=== PATIENT | female | born 1985 | race Caucasian/White ===

== ENCOUNTER 2019-08-16 15:09 | Emergency (ER) | payer OTHER, SELFPAY ==
--- NOTE | ~2019-08-16 | XR_ITS ---
EXAMINATION: XR chest 1V portable INDICATION: Cough and fever TECHNIQUE: Portable AP chest at 1602 hours COMPARISON: 09/09/2017 FINDINGS: The lungs are free of acute opacities. There is no pleural effusion or pneumothorax. The ca rdiomediastinal silhouette is normal. The visualized bones and soft tissues are unremarkable. IMPRESSION: 1. No acute cardiopulmonary abnormality. Reviewed, dictated and finalized at location A.
[2019-08-16 15:21] VITALS: BP 132/80; PULSE 103; RESP 18; TEMP 37.4; O2SAT 98
--- NOTE | 2019-08-16 16:33 | ED.URI ---
HPI - URI/Sore Throat General Chief Complaint: Upper Respiratory Infection Stated Complaint: WANTING TESTED FOR COVID - REQ BREATHING TX Time Seen by Provider: 08/16/19 15:25 Source: patient Mode of arrival: ambulatory Limitations: no limitations History of Present Illness HPI Narrative: Patient presents with chief complaint of cough, fatigue, low-grade fever that began on . Patient states on Thursday she was seen in her primary care doctor's office and prescribed Tessalon Perles, albuterol inhaler, prednisone. Patient states that she still feels ill and wanted to be tested for COVID. Patient states that she had influenza in May so she does not believe that she has a full exam. Patient did not have chest x-ray performed. Patient reports she has been taking her albuterol inhaler. Patient denies present wheezing. Patient states that she has a history of asthma and chronic bronchitis so she also wonder if a nebulizer in the emergency department with improve her symptoms quicker. Related Data Home Medications Medication Instructions Recorded Confirmed albuterol sulfate INHALATION 08/16/19 alprazolam 08/16/19 alprazolam 08/16/19 atorvastatin 08/16/19 benzonatate mg PO 08/16/19 levothyroxine 08/16/19 prednisone 08/16/19 sumatriptan succinate mg PO 08/16/19 trazodone 08/16/19 Allergies Allergy/AdvReac Type Severity Reaction Status Date / Time zolpidem AdvReac Mild AUDIO AND Verified 08/16/19 15:30 VISUAL HALLUCINATIONS Review of Systems Review of Systems: Narrative: CONSTITUTIONAL: Reports low-grade fever, fatigue, body aches, chills, and sweats. EYES: Denies visual changes, redness, or discharge. ENT: Reports congestion denies rhinorrhea, sore throat, or otalgia. CARDIOVASCULAR: Denies chest pain, palpitations, or edema. RESPIRATORY: Reports cough denies dyspnea or wheezing. GASTROINTESTINAL: Denies abdominal pain, nausea, vomiting, or diarrhea. GENITOURINARY: Denies dysuria or hematuria. SKIN: Denies rash or itching. MUSCULOSKELETAL: Denies back pain, joint pain, or myalgia. NEUROLOGIC: Denies headache, numbness, dizziness, or weakness. PSYCHIATRIC: Denies anxiety or depression. [facility] Social History Social History Gender identity (if verbalized by the patient): Female Exam Narrative: Exam Narrative: GENERAL: Well-appearing, well-nourished, and in no acute distress. HEAD: Normocephalic, atraumatic. EYES: PERRLA and EOMI. ENT: Nares clear, no rhinorrhea or epistaxis. Mucous membranes moist. Oropharynx without tonsillar hypertrophy exudate or other lesions. Bilateral TMs pearly adame nonbulging NECK: Supple. No adenopathy or masses. Range of motion intact. CHEST: Clear to auscultation. No respiratory distress. No wheezes rales or rhonchi. No tachypnea. HEART: Regular rate and rhythm. No murmur heard. Normal peripheral pulses. EXTREMITIES: Normal range of motion. No edema. SKIN: Warm, dry, no rash. NEURO: No focal deficits. Alert and oriented x3. PSYCH: Normal mood and affect. Course Vital Signs Vital signs: Vital Signs Temperature 99.4 F 08/16/19 15:21 Pulse Rate 103 H 08/16/19 15:21 Respiratory Rate 18 08/16/19 15:21 Blood Pressure 132/80 08/16/19 15:21 Pulse Oximetry 98 08/16/19 15:21 Temperature 99.4 F 08/16/19 15:21 Pulse Rate 91 08/16/19 17:04 Respiratory Rate 16 08/16/19 17:04 Blood Pressure 153/88 H 08/16/19 17:04 Pulse Oximetry 95 08/16/19 17:05 MDM - URI/Sore Throat MDM Narrative Medical decision making narrative: Patient does not have signs of pneumonia on chest x-ray. Patient's influenza testing was negative. Patient was tested for COVID. Patient has maintained appropriate oxygen saturations at 97 and 98% on room air even while ambulating to bedside commode and about room. Patient's current blood pressure is 124/94 with a heart rate of 87 bpm. Patient instructed to quarantine herself to home and that her COVID resu
[2019-08-16 17:04] VITALS: BP 153/88; PULSE 91; RESP 16; O2SAT 95
[2019-08-16 17:05] VITALS: O2SAT 95
--- NOTE | 2019-08-16 18:01 | PCRCNOTE ---
PT HAD HER OWN ALBUTEROL INHALER. INSTRUCTED HER TO USE IT.
[2019-08-16 18:08] VITALS: BP 121/87; PULSE 96; RESP 34; O2SAT 96
[2019-08-17 15:09] LABS: SARS-CoV-2 RNA PCR Negative
== END 2019-08-16 18:12 | disposition home or self-care (01) ==
PROVIDERS: Physician Assistant; Emergency Provider Emergency Medicine
DX: B34.9 Viral infection, unspecified (principal); Z20.828 Contact with and (suspected) exposure to other viral communicable diseases
CPT/HCPCS: 71045; 87635; 87804; 99283; U0003

== ENCOUNTER 2019-12-17 10:24 | Outpatient (CLI) | payer OTHER, SELFPAY ==
[2019-12-17 10:36] LABS: Basophils Percent Auto 0.5 % (0.2-1.2); Eosinophils Absolute Auto 0.3 K/mm3 (0-0.3); Hematocrit 39.1 % (37.0-47.0); Hemoglobin 12.7 g/dL (12.0-15.0); Immature Granulocyte Absolute 0.02 K/mm3 (0.00-0.031); Immature Granulocyte Percent A 0.2 % (0-0.5); Lymphocytes Absolute Auto 1.87 K/mm3 (0.9-3.2); Lymphocytes Percent Auto 22.9 % (18.3-44.2); Mean Corpuscular HGB Conc 32.5 g/dl (32-36); Mean Corpuscular Hemoglobin 28.2 pg (26-34); Mean Corpuscular Volume 86.9 fl (80-100); Mean Platelet Volume 9.9 fl (7.4-10.4); Monocytes Absolute Auto 0.5 K/mm3 (0.1-0.6); Monocytes Percent Auto 6.6 % (2.6-8.5); Neutrophils Absolute Auto 5.4 K/mm3 (1.3-6.7); Neutrophils Percent Auto 65.8 % (45.5-73.1); Platelet Count Result 371 k/mm3 (150-375); Red Cell Distribution Width 12.8 % (11.5-14.5); White Blood Count 8.2 K/mm3 (4.5-10.0)
[2019-12-17 10:51] LABS: Alanine Aminotransferase 20 U/L (4-35); Albumin Level 3.9 g/dL (3.5-5.1); Alkaline Phosphatase 58 U/L (38-126); Anion Gap 6 mmol/L (8-16); Aspartate Amino Transferase 23 U/L (14-36); Bilirubin,Total 0.2 mg/dL (0.2-1.3); Blood Urea Nitrogen 10 mg/dL (7-17); Calcium 8.8 mg/dL (8.4-10.2); Carbon Dioxide 25 mmol/L (22-30); Chloride 106 mmol/L (98-107); Cholesterol 162 mg/dL (0-200); Estimated Glomerular Filt Rate > 60; Glucose 107 mg/dL (65-105); HDL Direct 45 mg/dL; Potassium 4.2 mmol/L (3.4-5.0); Sodium 137 mmol/L (137-145); Triglycerides 142 mg/dL (<150)
[2019-12-17 11:02] LABS: LDL Cholesterol Direct 88 mg/dL
[2019-12-17 11:25] LABS: Free T4 Free Thyroxine 0.79 ng/mL (0.78-2.19)
== END 2019-12-17 10:25 | disposition home or self-care (01) ==
LOC: ANHLAB 10:25
PROVIDERS: PCP Internal Medicine; Visit Provider Clinical Nurse Specialist
DX: E07.9 Disorder of thyroid, unspecified (principal); I10 Essential (primary) hypertension
CPT/HCPCS: 36415; 80053; 80061; 84439; 84443; 85025

== ENCOUNTER → 2020-04-12 16:21 | Outpatient (REF) | payer OTHER, SELFPAY | LOC: ANHLAB 16:21 | PROVIDERS: PCP Internal Medicine; Visit Provider Nurse Practitioner | DX: L72.11 Pilar cyst (principal) | CPT/HCPCS: 88304 ==

== ENCOUNTER 2020-05-25 16:20 | Outpatient (CLI) | payer OTHER, SELFPAY ==
--- NOTE | ~2020-05-25 | US_ITS ---
EXAMINATION: US thyroid DATE: 05/25/2020 16:57 INDICATION: Nontoxic multinodular goiter. TECHNIQUE: Multiple ultrasound images of the thyroid were obtained. COMPARISON: Ultrasound 04/25/2016 FINDINGS: The right thyroid lobe measures 0.8 x 0.4 x 0.3 cm. The left thyroid lobe measures 6.2 x 2.6 x 3.0 c m. The thyroid is diffusely heterogeneous and hypoechoic with increased vascularity. In the left thy roid lobe, there is a 2.0 cm predominantly solid, hyperechoic, [id number] nodule with smooth mar gin without echogenic foci (TI-RADS TR3). IMPRESSION: 1. Heterogeneous, hypervascular thyroid, consistent with chronic lymphocytic (Heriberto) thyroiditis. 2. Left thyroid nodule, stable from 04/25/2016. Reviewed, dictated and finalized at location A. [employer] PROFESS[employer] IMPRESSION: 1. Heterogeneous, hypervascular thyroid, consistent with chronic lymphocytic (H ashimoto) thyroiditis. 2. Left thyroid nodule, stable from 04/25/2016.
== END 2020-05-25 16:21 | disposition home or self-care (01) ==
PROVIDERS: PCP Internal Medicine; Visit Provider Otolaryngology
DX: E04.2 Nontoxic multinodular goiter (principal)
CPT/HCPCS: 76536

== ENCOUNTER 2021-01-05 10:07 | Outpatient (CLI) | payer OTHER, SELFPAY ==
[2021-01-05 10:51] LABS: Alanine Aminotransferase 16 U/L (4-35); Albumin Level 4.1 g/dL (3.5-5.1); Alkaline Phosphatase 57 U/L (38-126); Anion Gap 11 mmol/L (8-16); Aspartate Amino Transferase 19 U/L (14-36); Bilirubin,Total 0.4 mg/dL (0.2-1.3); Blood Urea Nitrogen 12 mg/dL (7-17); Calcium 8.8 mg/dL (8.4-10.2); Carbon Dioxide 23 mmol/L (22-30); Chloride 106 mmol/L (98-107); Cholesterol 156 mg/dL (0-200); Estimated Glomerular Filt Rate > 60; Glucose 111 mg/dL (65-110); HDL Direct 45 mg/dL; Potassium 4.2 mmol/L (3.4-5.0); Sodium 140 mmol/L (137-145); Triglycerides 124 mg/dL (<150)
[2021-01-05 11:02] LABS: LDL Cholesterol Direct 75 mg/dL
[2021-01-05 11:35] LABS: Basophils Absolute Auto 0.1 K/mm3 (0.0-0.1); Basophils Percent Auto 0.6 % (0.2-1.2); Eosinophils Absolute Auto 0.3 K/mm3 (0-0.3); Eosinophils Percent Auto 3.3 % (0-4.4); Hematocrit 38.3 % (37.0-47.0); Immature Granulocyte Absolute 0.02 K/mm3 (0.00-0.031); Immature Granulocyte Percent A 0.2 % (0-0.5); Lymphocytes Absolute Auto 1.84 K/mm3 (0.9-3.2); Lymphocytes Percent Auto 21.9 % (18.3-44.2); Mean Corpuscular HGB Conc 31.3 g/dl (32-36); Mean Corpuscular Hemoglobin 28.6 pg (26-34); Mean Corpuscular Volume 91.2 fl (80-100); Mean Platelet Volume 10.4 fl (7.4-10.4); Monocytes Absolute Auto 0.6 K/mm3 (0.1-0.6); Monocytes Percent Auto 7.4 % (2.6-8.5); Neutrophils Absolute Auto 5.6 K/mm3 (1.3-6.7); Neutrophils Percent Auto 66.6 % (45.5-73.1); Platelet Count Result 354 k/mm3 (150-375); Red Cell Distribution Width 12.9 % (11.5-14.5); White Blood Count 8.4 K/mm3 (4.5-10.0)
[2021-01-08 17:38] LABS: Hemoglobin A1C 5.4 % (<5.7)
== END 2021-01-05 10:08 | disposition home or self-care (01) ==
PROVIDERS: PCP Internal Medicine; Visit Provider Nurse Practitioner
DX: Z13.220 Encounter for screening for lipoid disorders (principal); I10 Essential (primary) hypertension; E03.9 Hypothyroidism, unspecified
CPT/HCPCS: 36415; 80053; 80061; 83036; 84443; 85025

== ENCOUNTER 2021-01-29 11:32 | Emergency (ER) | payer OTHER, SELFPAY ==
[2021-01-29 11:43] VITALS: BP 135/77; PULSE 74; RESP 16; TEMP 36.7; O2SAT 98
--- NOTE | 2021-01-29 12:56 | ED.BACK ---
HPI - Back Pain/Injury General Chief Complaint: Back Pain/Injury Stated Complaint: back pain since 01/19 Time Seen by Provider: 01/29/21 12:18 Source: patient Mode of arrival: ambulatory Limitations: no limitations History of Present Illness HPI Narrative: 35-year-old female Here because of back pain Patient states that her 10 days ago she was doing a lot of work in the yard which involves a lot of bending and pulling and lifting things and that she has been having back pain ever since Her pains are kind of diffuse up and down the entire length of her spine however do seem to be more localized to the T-spine area based upon some x-rays which she had her daughter draw on over the painful areas She does not have any urinary symptoms She does not have any radicular symptoms Does not have a fever or any other concerning pre-existing conditions or risk factors MD elicited complaint: back pain Related Data Home Medications Medication Instructions Recorded Confirmed albuterol sulfate 90 mcg/actuation 2 puff INHALATION Q4-6H PRN gm 12/05/19 aerosol inhaler alprazolam 0.5 mg tablet 0.5 mg PO DAILY PRN 12/05/19 bupropion HCl 150 mg 24 hr tablet, 150 mg PO QAM 01/09/21 extended release buspirone 15 mg tablet 15 mg PO BID 01/09/21 trazodone 150 mg tablet,extended mg PO 01/09/21 release 24 hr Allergies Allergy/AdvReac Type Severity Reaction Status Date / Time zolpidem AdvReac Mild AUDIO AND Verified 04/24/20 12:36 VISUAL HALLUCINATIONS Review of Systems Review of Systems: All systems reviewed & are unremarkable except as noted in HPI and below Constitutional: Constitutional: Denies chills, Denies fever(s) and Denies headache(s) ENT: Denies headache(s) Cardiovascular: Cardiovascular: Denies chest pain and Denies dyspnea Respiratory: Respiratory: Denies cough and Denies dyspnea Gastrointestinal: Gastrointestinal: Denies abdominal pain, Denies diarrhea and Denies vomiting Genitourinary: Genitourinary: Denies hematuria, Denies urinary frequency, Denies dysuria and Denies flank pain Musculoskeletal: Musculoskeletal: Reports back pain, Reports myalgias, Denies deformity, Denies arthralgias, Denies joint swelling and Denies numbness Integumentary/Breasts: Skin/Breast: Denies rash and Denies wounds Neurologic: Denies headache(s), Denies focal weakness and Denies numbness Psychiatric: Psychiatric: Reports no additional psychiatric complaints Endocrine: Endocrine: Reports no additional endocrine complaints Hematologic/Lymphatic: Hematologic/Lymphatic: Reports no additional hematologic/lymphatic complaints Allergic/Immunologic: Allergic/Immunologic: Reports no additional allergic/immunologic complaints PMF Past Medical History Medical History Anxiety Asthma Hypertension Hypothyroidism Surgical History Surgical History History of cholecystectomy History of hernia repair History of partial thyroidectomy 2018 History of tubal ligation Family History Family History Grandparent Diabetes mellitus Father Hypertension Heart disease Skin cancer Grandparent Heart disease Hypertension Grandparent Brain cancer Mother Skin cancer Asthma Other Heriberto's disease Graves disease Social History Social History Smoking status: Never smoker Alcohol intake: current Alcohol use details: rarely Gender identity (if verbalized by the patient): Female Exam Const: General: cooperative, healthy appearing, no acute distress and alert Nutritional Appearance: obese Orientation/consciousness: patient oriented x3 (alert) HENMT: Head: normal to inspection, normocephalic and atraumatic Ears: external ears normal General nose exam: no epistaxis Eyes: Conjunctiv
[2021-01-29 13:05] VITALS: BP 150/95; PULSE 71; RESP 16; O2SAT 99
== END 2021-01-29 13:07 | disposition home or self-care (01) ==
PROVIDERS: Emergency Provider Emergency Medicine; PCP Internal Medicine
DX: S29.012A Strain of muscle and tendon of back wall of thorax, initial encounter (principal); I10 Essential (primary) hypertension; E03.9 Hypothyroidism, unspecified; F41.9 Anxiety disorder, unspecified; X50.3XXA Overexertion from repetitive movements, initial encounter; Y92.096 Garden or yard of other non-institutional residence as the place of occurrence of the external cause
CPT/HCPCS: 99283

== ENCOUNTER 2021-05-13 12:59 | Outpatient (CLI) | payer OTHER, MEDICAID, SELFPAY ==
[2021-05-13 13:43] LABS: Hemoglobin A1C 5.5 % (<5.7)
[2021-05-15 20:12] LABS: Rubeola Measles IgG <13.50 AU/mL
== END 2021-05-13 13:00 | disposition home or self-care (01) ==
LOC: ANHLAB 13:01
PROVIDERS: PCP Internal Medicine; Visit Provider Nurse Practitioner
DX: R73.9 Hyperglycemia, unspecified (principal); Z23 Encounter for immunization
CPT/HCPCS: 36415; 83036; 86735; 86765

== ENCOUNTER 2021-07-07 22:20 | Emergency (ER) | payer OTHER, SELFPAY ==
--- NOTE | ~2021-07-07 | CT_ITS ---
EXAMINATION: CT abdomen pelvis w con DATE: 07/08/2021 00:19 INDICATION: Abdominal pain TECHNIQUE: Computed tomography (CT) of the abdomen and pelvis was performed with 100 cc Omnipaque 350 intravenous contrast. The dose-length product was 1568.26 mGy-cm. Automated exposure control and ite rative reconstruction technique were employed. COMPARISON: None. FINDINGS: Lung bases are unremarkable. No significant pleural or pericardial effusion. Heart size is normal. No significant vascular abnormality. Small hiatal hernia. No lymphadenopathy. No abnormal pel marco masses or fluid collections. No free air or free fluid. Small fat-containing umbilical hernia. Mild diffuse thickening of the colon, suspicious for colitis. No obstruction. The liver, spleen, panc reas, adrenal glands and kidneys are unremarkable. Status post cholecystectomy. IMPRESSION: 1. Mild diffuse thickening of the colon, suspicious for colitis, most likely infectious or inflammato ry. Reviewed, dictated and finalized at location B. IMPRESSION: 1. Mild diffuse thickening of the colon, suspicious for colitis, most likely in fectious or inflammatory.
[2021-07-07 22:27] VITALS: BP 149/109; PULSE 100; RESP 20; TEMP 36.4; O2SAT 97
[2021-07-07] MEDS: ONDANSETRON INJ 4 MG/2 ML VIAL IV PUSH (23:23)
[2021-07-07] MEDS: SODIUM CHLORIDE 0.9% IV 1,000 ML 999 ML IV CONT (23:24)
[2021-07-07 23:25] LABS: Basophils Percent Auto 0.3 % (0.2-1.2); Eosinophils Percent Auto 0.1 % (0-4.4); Hematocrit 40.5 % (37.0-47.0); Hemoglobin 13.4 g/dL (12.0-15.0); Immature Granulocyte Absolute 0.04 K/mm3 (0.00-0.031); Immature Granulocyte Percent A 0.3 % (0-0.5); Lymphocytes Absolute Auto 1.72 K/mm3 (0.9-3.2); Lymphocytes Percent Auto 11.7 % (18.3-44.2); Mean Corpuscular HGB Conc 33.1 g/dl (32-36); Mean Corpuscular Hemoglobin 28.7 pg (26-34); Mean Corpuscular Volume 86.7 fl (80-100); Mean Platelet Volume 9.9 fl (7.4-10.4); Monocytes Absolute Auto 1.2 K/mm3 (0.1-0.6); Monocytes Percent Auto 8.4 % (2.6-8.5); Neutrophils Absolute Auto 11.6 K/mm3 (1.3-6.7); Neutrophils Percent Auto 79.2 % (45.5-73.1); Platelet Count Result 393 k/mm3 (150-375); Red Blood Count 4.67 M/mm3 (4.2-5.4); Red Cell Distribution Width 12.3 % (11.5-14.5); White Blood Count 14.6 K/mm3 (4.5-10.0)
[2021-07-07 23:37] LABS: Alanine Aminotransferase 16 U/L (4-35); Albumin Level 4.3 g/dL (3.5-5.1); Alkaline Phosphatase 64 U/L (38-126); Anion Gap 11 mmol/L (8-16); Aspartate Amino Transferase 21 U/L (14-36); Bilirubin,Total 0.3 mg/dL (0.2-1.3); Blood Urea Nitrogen 15 mg/dL (7-17); Calcium 8.8 mg/dL (8.4-10.2); Carbon Dioxide 23 mmol/L (22-30); Chloride 102 mmol/L (98-107); Estimated CRCL calculation 123 ml/min; Estimated Glomerular Filt Rate > 60; Glucose 138 mg/dL (65-110); Lactic Acid Reflex 0.9 mmol/L (0.7-2.1); Lipase 60 U/L (23-300); Potassium 3.9 mmol/L (3.4-5.0); Sodium 136 mmol/L (137-145)
[2021-07-07] MEDS: DICYCLOMINE HCL INJ 20 MG/2 ML VIAL IM (23:48)
[2021-07-08] VITALS: BP 100/61; PULSE 80; RESP 18; O2SAT 99
--- NOTE | 2021-07-08 00:11 | ED.GENADULT ---
HPI - General Adult General Chief complaint: Nausea/Vomiting/Diarrhea Stated complaint: N/V/D Time Seen by Provider: 07/07/21 23:07 History of Present Illness HPI narrative: Patient is a 36-year-old female presents to emergency department with chief complaint of nausea vomiting and diarrhea. The patient states that for the last several days she has been having vomiting and diarrhea reports there has been a little blood mixed in her diarrhea patient states that she has diffuse abdominal discomfort reports is worse with movement and improved with rest. Related Data Home Medications Medication Instructions Recorded Confirmed albuterol sulfate 90 mcg/actuation 2 puff INHALATION Q4-6H PRN gm 12/05/19 01/30/21 aerosol inhaler alprazolam 0.5 mg tablet 0.5 mg PO DAILY PRN 12/05/19 01/30/21 bupropion HCl 150 mg 24 hr tablet, 150 mg PO QAM 01/09/21 01/30/21 extended release buspirone 15 mg tablet 15 mg PO BID 01/09/21 01/30/21 trazodone 150 mg tablet,extended mg PO 01/09/21 01/30/21 release 24 hr Allergies Allergy/AdvReac Type Severity Reaction Status Date / Time zolpidem AdvReac Mild AUDIO AND Verified 07/07/21 22:20 VISUAL HALLUCINATIONS Review of Systems Review of Systems: A 10 system review of systems was completed on the patient and is negative except for what is stated in the HPI. Nursing and ancillary documentation was reviewed. [facility] Past Medical History Medical History Anxiety Asthma Hypertension Hypothyroidism Surgical History Surgical History History of cholecystectomy History of hernia repair History of partial thyroidectomy 2018 History of tubal ligation Family History Family History Grandparent Diabetes mellitus Father Hypertension Heart disease Skin cancer Grandparent Heart disease Hypertension Grandparent Brain cancer Mother Skin cancer Asthma Other Heriberto's disease Graves disease Social History Social History Smoking status: Never smoker Alcohol intake: current Alcohol use details: rarely Gender identity (if verbalized by the patient): Female Exam Narrative: GENERAL: Well-appearing, well-nourished, and in no acute distress. HEAD: Normocephalic, atraumatic. EYES: PERRLA and EOMI. ENT: Nares clear, no rhinorrhea or epistaxis. Mucous membranes moist. NECK: Supple. CHEST: Clear to auscultation. No respiratory distress. HEART: Regular rate and rhythm. No murmur heard. Normal peripheral pulses. ABDOMEN: Soft, diffuse tenderness to palpation, nondistended, normal active bowel sounds. EXTREMITIES: Normal range of motion. No edema. SKIN: Warm, dry, no rash. NEURO: No focal deficits. Alert and oriented x3. PSYCH: Normal mood and affect. Course Vital Signs Vital signs: Vital Signs Temperature 36.4 C L 07/07/21 22:27 Pulse Rate 100 07/07/21 22:27 Respiratory Rate 20 07/07/21 22:27 Blood Pressure 149/109 H 07/07/21 22:27 Pulse Oximetry 97 07/07/21 22:27 Temperature 36.4 C L 07/07/21 22:27 Pulse Rate 80 07/08/21 00:00 Respiratory Rate 18 07/08/21 00:00 Blood Pressure 100/61 07/08/21 00:00 Pulse Oximetry 99 07/08/21 00:00 Medical Decision Making Vital Signs Vital Signs: Vital Signs Temperature 36.4 C L 07/07/21 22:27 Pulse Rate 100 07/07/21 22:27 Respiratory Rate 20 07/07/21 22:27 Blood Pressure 149/109 H 07/07/21 22:27 Pulse Oximetry 97 07/07/21 22:27 Temperature 36.4 C L 07/07/21 22:27 Pulse Rate 80 07/08/21 00:00 Respiratory Rate 18 07/08/21 00:00 Blood Pressure 100/61 07/08/21 00:00 Pulse Oximetry 99 07/08/21 00:00 Lab Data Result diagrams: 07/07/21 23:19 07/07/21 23:19 Labs: L
[2021-07-08 00:42] LABS: Add Urine Microscopic? YES; Appearance Urine Cloudy (Clear); Bacteria Urine 3+ /hpf; Bilirubin Urine Negative (Negative); Blood Urine Negative (Negative); Color Urine Yellow (Yellow); Glucose Urine UA Negative (Negative); Ketones Urine 1+ mg/dL (Negative); Leukocyte Esterase Ur 1+ LEU/UL (Negative); Mucus Urine Rare /lpf; Nitrate Urine Negative (Negative); Protein Urine 1+ mg/dL (Negative); RBC Urine 0-2 /hpf (0-2); Specific Grav Ur 1.029 (1.001-1.035); Squamous Epithelial Cell Urine Occasional /hpf (Few); Urobilinogen Urine Negative mg/dL (<2.0); WBC Urine 31-50 /hpf
[2021-07-08] MEDS: SODIUM CHLORIDE 0.9% IV 1,000 ML 999 ML IV CONT (01:32)
[2021-07-08 02:09] VITALS: BP 110/72; PULSE 75; RESP 18; O2SAT 99
[2021-07-08] MEDS: PROCHLORPERAZINE EDISYLATE 10 MG/2 ML VIAL IV PUSH (02:35)
[2021-07-08 02:41] VITALS: BP 131/75; PULSE 72; RESP 16; O2SAT 98
[2021-07-08 03:12] VITALS: BP 130/71; PULSE 84; RESP 18; O2SAT 99
== END 2021-07-08 03:16 | disposition home or self-care (01) ==
PROVIDERS: Emergency Provider Emergency Medicine; PCP Internal Medicine
DX: K52.9 Noninfective gastroenteritis and colitis, unspecified (principal); N30.00 Acute cystitis without hematuria; I88.0 Nonspecific mesenteric lymphadenitis; F41.9 Anxiety disorder, unspecified; J45.909 Unspecified asthma, uncomplicated; I10 Essential (primary) hypertension; E89.0 Postprocedural hypothyroidism
CPT/HCPCS: 36415; 74177; 80053; 81001; 83605; 83690; 85025; 87086; 87088; 96361; 96372; 96374; 99284; J0500; J0780; J2405; J7030; Q9967

== ENCOUNTER 2021-07-19 16:22 | Emergency (ER) | payer OTHER, SELFPAY ==
[2021-07-19] VITALS (10 sets, daily range): BP systolic 107–142; BP diastolic 66–90; PULSE 75–108; RESP 19–31; TEMP 36.4; O2SAT 99–100
--- NOTE | ~2021-07-19 | CT_ITS ---
EXAMINATION: CT abdomen pelvis w con EXAM DATE: 07/19/2021 21:03 INDICATION: Abdominal pain, bloody stools. TECHNIQUE: Spiral CT of the abdomen and pelvis was performed following intravenous injection of 100 m L Omnipaque 350. Axial, coronal and sagittal images of the abdomen and pelvis were reviewed. The do se-length product (DLP) for this examination was 1602.30 mGy-cm. The exposure was tailored according to patient size (auto mA exposure control), and iterative reconstruction (ASIR) was used as addition al dose reduction technique. Comparison is made to prior examination from 07/08/2021. FINDINGS: The liver, spleen, adrenal glands and pancreas are unremarkable. There are cholecystectomy clips. Portal and splenic veins are patent. Kidneys enhance symmetrically. There is no hydronephr osis. The uterus and ovaries are unremarkable, no adnexal mass. The bladder is unremarkable. Ther e is no retroperitoneal or pelvic lymphadenopathy. Compared to prior study, previously seen edematous colonic wall has resolved. There are no findings t o suggest appendicitis. The stomach and small bowel are unremarkable. There is expected amount of c olonic stool. No free intraperitoneal gas. The heart is normal in size. There are no pericardial or pleural effusions. The lung bases are unremarkable. The bones are unremarkable. IMPRESSION: Resolution of previously seen colonic wall edema. No acute findings. Reviewed, dictated and finalized at location G. IMPRESSION: Resolution of previously seen colonic wall edema. No acute finding s.
--- NOTE | 2021-07-19 19:50 | ED.ABDPAIN ---
HPI - Abdominal Pain General Chief Complaint: Abdominal Pain Stated Complaint: abd pain Time Seen by Provider: 07/19/21 19:31 Source: patient Mode of arrival: ambulatory Limitations: no limitations History of Present Illness HPI narrative: Patient is a 36-year-old female complaining of lower abdominal pain, 6 out of 10, dull, nonradiating accompanied by blood in her stool started 1 week ago after she was diagnosed with colitis, seen here in the emergency room, and placed on Cipro and Flagyl. Patient states that she continues to have pain and blood in her stools. Patient denies any nausea, vomiting, fever or chills. Related Data Home Medications Medication Instructions Recorded Confirmed albuterol sulfate 90 mcg/actuation 2 puff INHALATION Q4-6H PRN gm 12/05/19 07/17/21 aerosol inhaler bupropion HCl 150 mg 24 hr tablet, 300 mg PO QAM 01/09/21 07/17/21 extended release buspirone 15 mg tablet 15 mg PO BID 01/09/21 07/17/21 trazodone 150 mg tablet,extended mg PO 01/09/21 07/17/21 release 24 hr Allergies Allergy/AdvReac Type Severity Reaction Status Date / Time zolpidem AdvReac Mild AUDIO AND Verified 07/19/21 19:38 VISUAL HALLUCINATIONS Review of Systems Review of Systems: All systems reviewed & are unremarkable except as noted in HPI and below Constitutional: Constitutional: Denies body ache(s), Denies chills, Denies excessive sweating, Denies fatigue, Denies fever(s), Denies headache(s), Denies lethargy, Denies malaise, Denies weakness and Denies weight loss Eyes: Eyes: Denies blurry vision, Denies change in vision and Denies loss of vision ENT: Denies dizziness, Denies ear discharge, Denies headache(s), Denies lip swelling, Denies epistaxis, Denies nasal congestion, Denies neck pain, Denies throat swelling and Denies tongue swelling Cardiovascular: Cardiovascular: Denies chest pain, Denies chest pain at rest, Denies chest pain with activity, Denies diaphoresis, Denies rapid heart rate, Denies edema, Denies irregular heart rhythm, Denies lightheadedness, Denies palpitations, Denies dyspnea and Denies dyspnea on exertion Respiratory: Respiratory: Denies chest congestion, Denies cough, Denies hemoptysis, Denies dyspnea and Denies dyspnea on exertion Gastrointestinal: Gastrointestinal: Denies melena, Denies diarrhea, Denies nausea, Denies vomiting and Denies hematemesis Musculoskeletal: Musculoskeletal: Denies abnormal gait, Denies deformity, Denies joint swelling, Denies limited range of motion, Denies neck pain and Denies numbness Neurologic: Denies Abnormal speech present, Denies abnormal gait, Denies confusion, Denies dizziness, Denies headache(s), Denies focal weakness, Denies loss of vision, Denies numbness, Denies Other visual disturbances, Denies Sensory deficit (Neuro) and Denies weakness Psychiatric: Psychiatric: Denies confusion, Denies depression, Denies auditory hallucinations, Denies homicidal ideation and Denies suicidal ideation Endocrine: Endocrine: Denies cold intolerance, Denies excessive sweating, Denies fatigue, Denies heat intolerance and Denies palpitations Hematologic/Lymphatic: Hematologic/Lymphatic: Denies easy bleeding and Denies easy bruising Allergic/Immunologic: Allergic/Immunologic: Denies lip swelling, Denies throat swelling and Denies tongue swelling PMFSH Past Medical History Medical History Anxiety Asthma Hypertension Hypothyroidism Surgical History Surgical History History of cholecystectomy History of hernia repair History of partial thyroidectomy 2018 History of tubal ligation Family History Family History Grandparent Diabetes mellitus Father Hypertension Heart disease Skin cancer Grandparent Heart disease Hypertension Grandparent Brain cancer Mother Skin cancer Asthma Other
--- NOTE | 2021-07-19 19:50 | PC.NURSE ---
pt ambulatory to bathroom for ccus. States also has need to defecate. Stool speciman container given.
[2021-07-19 20:02] LABS: Basophils Percent Auto 0.4 % (0.2-1.2); Eosinophils Absolute Auto 0.3 K/mm3 (0-0.3); Eosinophils Percent Auto 3.6 % (0-4.4); Hematocrit 40.2 % (37.0-47.0); Hemoglobin 12.8 g/dL (12.0-15.0); Immature Granulocyte Absolute 0.02 K/mm3 (0.00-0.031); Immature Granulocyte Percent A 0.3 % (0-0.5); Lymphocytes Absolute Auto 1.83 K/mm3 (0.9-3.2); Lymphocytes Percent Auto 25.6 % (18.3-44.2); Mean Corpuscular HGB Conc 31.8 g/dl (32-36); Mean Corpuscular Hemoglobin 29.1 pg (26-34); Mean Corpuscular Volume 91.4 fl (80-100); Mean Platelet Volume 10.2 fl (7.4-10.4); Monocytes Absolute Auto 0.5 K/mm3 (0.1-0.6); Monocytes Percent Auto 6.9 % (2.6-8.5); Neutrophils Absolute Auto 4.5 K/mm3 (1.3-6.7); Neutrophils Percent Auto 63.2 % (45.5-73.1); Platelet Count Result 367 k/mm3 (150-375); Red Cell Distribution Width 12.9 % (11.5-14.5); White Blood Count 7.1 K/mm3 (4.5-10.0)
[2021-07-19 20:11] LABS: Add Urine Microscopic? YES; Appearance Urine Cloudy (Clear); Bacteria Urine Trace /hpf; Bilirubin Urine Negative (Negative); Blood Urine Negative (Negative); Color Urine Amber (Yellow); Glucose Urine UA Negative (Negative); Ketones Urine Negative (Negative); Leukocyte Esterase Ur Trace LEU/UL (Negative); Mucus Urine Heavy /lpf; Nitrate Urine Negative (Negative); Protein Urine Negative (Negative); Specific Grav Ur 1.026 (1.001-1.035); Squamous Epithelial Cell Urine Few /hpf (Few); Urobilinogen Urine Negative mg/dL (<2.0)
[2021-07-19 20:12] LABS: Alanine Aminotransferase 52 U/L (4-35); Albumin Level 4.2 g/dL (3.5-5.1); Alkaline Phosphatase 43 U/L (38-126); Anion Gap 7 mmol/L (8-16); Aspartate Amino Transferase 41 U/L (14-36); Bilirubin,Total 0.2 mg/dL (0.2-1.3); Blood Urea Nitrogen 12 mg/dL (7-17); Calcium 8.6 mg/dL (8.4-10.2); Carbon Dioxide 27 mmol/L (22-30); Chloride 105 mmol/L (98-107); Estimated CRCL calculation 110 ml/min; Estimated Glomerular Filt Rate > 60; Glucose 99 mg/dL (65-110); Lipase 90 U/L (23-300); Potassium 3.6 mmol/L (3.4-5.0); Sodium 139 mmol/L (137-145)
[2021-07-19] MEDS: LACTATED RINGERS 1,000 ML 999 ML IV CONT (20:17)
[2021-07-19] MEDS: MORPHINE SULFATE (*CRX) 2 MG/ML INJ IV PUSH (20:18)
== END 2021-07-19 22:37 | disposition home or self-care (01) ==
PROVIDERS: Emergency Provider Emergency Medicine; PCP Internal Medicine
DX: K92.1 Melena (principal); R10.30 Lower abdominal pain, unspecified; F41.9 Anxiety disorder, unspecified; J45.909 Unspecified asthma, uncomplicated; I10 Essential (primary) hypertension; E89.0 Postprocedural hypothyroidism
CPT/HCPCS: 36415; 74177; 80053; 81001; 81025; 83690; 85025; 86850; 86900; 86901; 96361; 96374; 99284; J2270; J7120; Q9967

== ENCOUNTER 2021-10-11 12:15 | Outpatient (CLI) | payer OTHER, SELFPAY ==
[2021-10-11 12:58] LABS: Basophils Percent Auto 0.3 % (0.2-1.2); Eosinophils Absolute Auto 0.2 K/mm3 (0-0.3); Eosinophils Percent Auto 1.9 % (0-4.4); Hematocrit 40.3 % (37.0-47.0); Hemoglobin 12.8 g/dL (12.0-15.0); Immature Granulocyte Absolute 0.03 K/mm3 (0.00-0.031); Immature Granulocyte Percent A 0.3 % (0-0.5); Lymphocytes Absolute Auto 1.97 K/mm3 (0.9-3.2); Lymphocytes Percent Auto 21.6 % (18.3-44.2); Mean Corpuscular HGB Conc 31.8 g/dl (32-36); Mean Corpuscular Hemoglobin 28.6 pg (26-34); Mean Corpuscular Volume 90.2 fl (80-100); Mean Platelet Volume 9.9 fl (7.4-10.4); Monocytes Absolute Auto 0.6 K/mm3 (0.1-0.6); Monocytes Percent Auto 6.6 % (2.6-8.5); Neutrophils Absolute Auto 6.3 K/mm3 (1.3-6.7); Neutrophils Percent Auto 69.3 % (45.5-73.1); Platelet Count Result 397 k/mm3 (150-375); Red Blood Count 4.47 M/mm3 (4.2-5.4); Red Cell Distribution Width 12.5 % (11.5-14.5); White Blood Count 9.1 K/mm3 (4.5-10.0)
[2021-10-11 13:14] LABS: Hemoglobin A1C 5.3 % (<5.7)
[2021-10-11 13:43] LABS: Free T4 Free Thyroxine 1.08 ng/mL (0.78-2.19)
[2021-10-11 13:45] LABS: Add Urine Microscopic? NO; Appearance Urine Clear (Clear); Bilirubin Urine Negative (Negative); Blood Urine Negative (Negative); Color Urine Yellow (Yellow); Glucose Urine UA Negative (Negative); Ketones Urine Negative (Negative); Leukocyte Esterase Ur Negative LEU/UL (Negative); Nitrate Urine Negative (Negative); Protein Urine Negative (Negative); Specific Grav Ur 1.025 (1.001-1.035); Urobilinogen Urine 0.2 mg/dL (<2.0); pH Urine 5.5 (5.0-9.0)
[2021-10-15 20:34] LABS: Triiodothyronine T3 Free 2.7 pg/mL (2.3-4.2)
== END 2021-10-11 12:16 | disposition home or self-care (01) ==
PROVIDERS: PCP Internal Medicine; Referring Provider Otolaryngology; Visit Provider Nurse Practitioner
DX: N39.0 Urinary tract infection, site not specified (principal); R73.9 Hyperglycemia, unspecified; K52.9 Noninfective gastroenteritis and colitis, unspecified; E03.9 Hypothyroidism, unspecified
CPT/HCPCS: 36415; 81003; 83036; 84439; 84443; 84481; 85025

== ENCOUNTER 2022-04-11 11:48 | Emergency (ER) | payer OTHER, SELFPAY ==
[2022-04-11 12:08] VITALS: BP 131/80; PULSE 88; RESP 16; TEMP 36.9; O2SAT 99
--- NOTE | 2022-04-11 12:15 | ED.URI ---
HPI - URI/Sore Throat General Chief Complaint: Upper Respiratory Infection Stated Complaint: cough, sore throat, nausea, chest tightness Time Seen by Provider: 04/11/22 12:15 Source: patient, RN notes reviewed and old records reviewed Mode of arrival: ambulatory Limitations: no limitations History of Present Illness HPI Narrative: 36 female presents to [facility] care with complaints of some chest heaviness, barky cough and productive cough with post nasal drainage, and sore throat and nausea for several days. Patient reports that she was seen at another urgent care on Thursday and tested for COVID, flu and strep which were negative and received Tessalon Perles which are not helping.Patient denies any known fevers, has no body aches chills or sweats. MD elicited complaint: cough and sore throat Onset (ago): day(s) (5-6) Treatments prior to arrival: other (cough med) Related Data Home Medications Medication Instructions Recorded Confirmed buspirone 15 mg tablet 15 mg PO BID 01/09/21 04/11/22 trazodone 150 mg tablet,extended 150 mg PO DAILY 01/09/21 04/11/22 release 24 hr benzonatate 100 mg capsule 100 mg PO Q8H 04/11/22 04/11/22 bupropion HCl 300 mg 24 hr tablet, 300 mg PO DAILY 04/11/22 04/11/22 extended release levothyroxine 100 mcg tablet 125 mcg PO DAILY 04/11/22 04/11/22 Allergies Allergy/AdvReac Type Severity Reaction Status Date / Time zolpidem AdvReac Mild AUDIO AND Verified 04/11/22 12:13 VISUAL HALLUCINATIONS Review of Systems Review of Systems: CONSTITUTIONAL: Denies malaise, chills, sweats, or fever. EYES: Denies visual changes, redness, or discharge. ENT: Reports rhinorrhea, congestion, sinus pain, no otalgia positive sore throat. CARDIOVASCULAR: Denies chest pain, palpitations, or edema. RESPIRATORY: Reports dry and productive cough.? Denies dyspnea. GASTROINTESTINAL: Denies abdominal pain, nausea, vomiting, diarrhea SKIN: Denies rash or itching. MUSCULOSKELETAL: Denies myalgia. NEUROLOGIC: Denies headache. All systems reviewed & are unremarkable except as noted in HPI and below PMFSH Past Medical History Medical History Anxiety Asthma Hypertension Hypothyroidism Surgical History Surgical History History of cholecystectomy History of hernia repair History of partial thyroidectomy 2018 History of tubal ligation Family History Family History Grandparent Diabetes mellitus Father Hypertension Heart disease Skin cancer Grandparent Heart disease Hypertension Grandparent Brain cancer Mother Skin cancer Asthma Other Heriberto's disease Graves disease Social History Social History Smoking status: Never smoker Alcohol intake: current Alcohol use details: rarely Gender identity (if verbalized by the patient): Female Comments At time of signature, agree with nursing past medical, surgical, social and family history. There is no relevant family history pertinent to the presenting complaint Exam Narrative: GENERAL: Well-appearing, well-nourished,obese, and in no acute distress. HEAD: Normocephalic EYES: PERRLA, conjunctivae clear ENT: Nares clear, turbinates edematous and erythematous, clear discharge. Mucous membranes moist. TM pearly adame with dull light reflex bilaterally; no tragal tenderness. Oropharynx erythematous without lesions. Tonsils not enlarged and without exudate, no drooling, no hoarseness, no trismus, uvula midline.post nasal drainage NECK: Supple. No lymphadenopathy CHEST: Clear to auscultation, breath sounds equal. No wheezing, rhonchi, rales, or stridor. No respiratory distress, speaks in full sentences.productive and dry cough SAO2 99% on room air HEART: Regular rate and rhythm. No murmur heard.
== END 2022-04-11 12:58 | disposition home or self-care (01) ==
PROVIDERS: Emergency Provider Registered Nurse; PCP Internal Medicine
DX: J06.9 Acute upper respiratory infection, unspecified (principal); R05.9 Cough, unspecified; J45.909 Unspecified asthma, uncomplicated; I10 Essential (primary) hypertension; E03.9 Hypothyroidism, unspecified; F41.9 Anxiety disorder, unspecified
CPT/HCPCS: 99213; G0463

== ENCOUNTER 2022-05-05 19:43 | Emergency (ER) | payer OTHER, MEDICAID, SELFPAY ==
[2022-05-05 19:47] VITALS: BP 134/99; PULSE 92; RESP 16; TEMP 36.6; O2SAT 99
--- NOTE | 2022-05-05 19:47 | ED.BACK ---
HPI - Back Pain/Injury General Stated Complaint: neck, upper back pain Time Seen by Provider: 05/05/22 20:08 Source: patient and RN notes reviewed Mode of arrival: ambulatory Limitations: no limitations History of Present Illness HPI Narrative: 36-year-old female presents concern for trapezius pain. She reports she had some straining for a couple weeks ago that worsened after working on the [employer] over the weekend. She reports the pain is between the neck and the shoulder in the trapezius area. She reports she tried heat, ibuprofen and Aleve, IcyHot type medications, massage with little relief. She denies any arm numbness, weakness. MD elicited complaint: other (Shoulder pain) Related Data Home Medications Medication Instructions Recorded Confirmed buspirone 15 mg tablet 15 mg PO BID 01/09/21 05/05/22 trazodone 150 mg tablet,extended 150 mg PO DAILY 01/09/21 05/05/22 release 24 hr bupropion HCl 300 mg 24 hr tablet, 300 mg PO DAILY 04/11/22 05/05/22 extended release levothyroxine 100 mcg tablet 125 mcg PO DAILY 04/11/22 05/05/22 Allergies Allergy/AdvReac Type Severity Reaction Status Date / Time zolpidem AdvReac Mild AUDIO AND Verified 05/05/22 20:00 VISUAL HALLUCINATIONS Review of Systems Review of Systems: CONSTITUTIONAL: Denies malaise, chills, sweats, or fever. EYES: Denies visual changes, redness, or discharge. ENT: Denies rhinorrhea, congestion, sinus pain, otalgia or sore throat. CARDIOVASCULAR: Denies chest pain, palpitations, or edema. RESPIRATORY: Denies cough or dyspnea. SKIN: Denies rash or itching, bruising, redness, abrasions, lacerations MUSCULOSKELETAL: Reports pain between right neck and shoulder muscle in the trapezius area NEUROLOGIC: Denies numbness, weakness, or headache. All systems reviewed & are unremarkable except as noted in HPI and below PMFSH Past Medical History Medical History Anxiety Asthma Hypertension Hypothyroidism Surgical History Surgical History History of cholecystectomy History of hernia repair History of partial thyroidectomy 2018 History of tubal ligation Family History Family History Grandparent Diabetes mellitus Father Hypertension Heart disease Skin cancer Grandparent Heart disease Hypertension Grandparent Brain cancer Mother Skin cancer Asthma Other Heriberto's disease Graves disease Social History Social History Smoking status: Never smoker Alcohol intake: current Alcohol use details: rarely Gender identity (if verbalized by the patient): Female Comments At time of signature, agree with nursing past medical, surgical, social and family history. There is no relevant family history pertinent to the presenting complaint Exam Narrative: GENERAL: Well-appearing, well-nourished, and in no acute distress. HEAD: Normocephalic, atraumatic. EYES: PERRLA and EOMI. NECK: Supple. No lymphadenopathy. CHEST: Clear to auscultation. No respiratory distress. HEART: Regular rate and rhythm. Distal pulses palpable and equal, cap refill <3 seconds MUSCULOSKELETAL: Normal range of motion and strength in all extremities, grossly normal range of motion, able to rotate 45? to the right, pain with flexion to the right. No midline neck tenderness to palpation. Trapezius tenderness. Transfers from sitting to standing. SKIN: Warm, dry, no rash. No ecchymosis, erythema, open wounds to neck or back. NEURO: No focal deficits. Alert and oriented x3. Reflexes intact. Normal gait. PSYCH: Normal mood and affect Course Course Emergency Course: Patient is aware of diagnosis, understands and agrees to treatment plan. Anticipatory guidance given. Patient agrees to follow-up as directed and is aware of
== END 2022-05-05 20:16 | disposition home or self-care (01) ==
PROVIDERS: Emergency Provider Nurse Practitioner; PCP Internal Medicine
DX: S46.811A Strain of other muscles, fascia and tendons at shoulder and upper arm level, right arm, initial encounter (principal); X58.XXXA Exposure to other specified factors, initial encounter; F41.9 Anxiety disorder, unspecified; J45.909 Unspecified asthma, uncomplicated; I10 Essential (primary) hypertension; E03.9 Hypothyroidism, unspecified; Z90.89 Acquired absence of other organs
CPT/HCPCS: 99213; G0463

== ENCOUNTER 2022-06-13 11:38 | Outpatient (CLI) | payer OTHER, SELFPAY ==
[2022-06-13 19:23] LABS: Basophils Percent Auto 0.5 % (0.2-1.2); Eosinophils Absolute Auto 0.1 K/mm3 (0-0.3); Eosinophils Percent Auto 1.8 % (0-4.4); Hematocrit 35.4 % (37.0-47.0); Hemoglobin 11.4 g/dL (12.0-15.0); Immature Granulocyte Absolute 0.01 K/mm3 (0.00-0.031); Immature Granulocyte Percent A 0.2 % (0-0.5); Lymphocytes Absolute Auto 1.81 K/mm3 (0.9-3.2); Lymphocytes Percent Auto 32.4 % (18.3-44.2); Mean Corpuscular HGB Conc 32.2 g/dl (32-36); Mean Corpuscular Hemoglobin 28.3 pg (26-34); Mean Corpuscular Volume 87.8 fl (80-100); Mean Platelet Volume 9.9 fl (7.4-10.4); Monocytes Absolute Auto 0.3 K/mm3 (0.1-0.6); Monocytes Percent Auto 5.4 % (2.6-8.5); Neutrophils Absolute Auto 3.3 K/mm3 (1.3-6.7); Neutrophils Percent Auto 59.7 % (45.5-73.1); Platelet Count Result 342 k/mm3 (150-375); Red Blood Count 4.03 M/mm3 (4.2-5.4); Red Cell Distribution Width 12.3 % (11.5-14.5); White Blood Count 5.6 K/mm3 (4.5-10.0)
[2022-06-13 19:34] LABS: Hemoglobin A1C 5.4 % (<5.7)
[2022-06-13 19:45] LABS: Alanine Aminotransferase 21 U/L (6-35); Albumin Level 4.2 g/dL (3.5-5.1); Alkaline Phosphatase 51 U/L (38-126); Anion Gap 3 mmol/L (8-16); Aspartate Amino Transferase 28 U/L (14-36); Bilirubin,Total 0.4 mg/dL (0.2-1.3); Blood Urea Nitrogen 13 mg/dL (7-17); Calcium 8.6 mg/dL (8.4-10.2); Carbon Dioxide 28 mmol/L (22-30); Chloride 107 mmol/L (98-107); Cholesterol 137 mg/dL (0-200); Estimated Glomerular Filt Rate > 60; Glucose 84 mg/dL (65-110); HDL Direct 38 mg/dL; Potassium 4.4 mmol/L (3.4-5.0); Sodium 138 mmol/L (137-145); Triglycerides 107 mg/dL (<150)
[2022-06-13 19:55] LABS: Free T4 Free Thyroxine 1.26 ng/mL (0.78-2.19)
[2022-06-13 19:56] LABS: LDL Cholesterol Direct 67 mg/dL
[2022-06-16 08:49] LABS: Iron 54 ug/dL (37-170)
[2022-06-16 08:59] LABS: Percent Iron Saturation 19 % (20-50)
[2022-06-16 09:57] LABS: Folic Acid 11.3 ng/mL (2.76->20)
== END 2022-06-13 11:39 | disposition home or self-care (01) ==
LOC: ANHGOSHLAB 11:39
PROVIDERS: PCP Internal Medicine; Visit Provider Clinical Nurse Specialist
DX: E03.9 Hypothyroidism, unspecified (principal); I10 Essential (primary) hypertension; R73.9 Hyperglycemia, unspecified; D64.9 Anemia, unspecified
CPT/HCPCS: 36415; 80053; 80061; 82607; 82728; 82746; 83036; 83540; 83550; 84439; 84443; 85025

== ENCOUNTER 2022-08-18 18:36 | Emergency (ER) | payer OTHER, MEDICAID, SELFPAY ==
[2022-08-18 18:45] VITALS: BP 148/98; PULSE 83; RESP 18; TEMP 36.2; O2SAT 100
--- NOTE | 2022-08-18 19:48 | ED.HA ---
HPI - Headache General Chief Complaint: Headache Stated Complaint: migraine Time Seen by Provider: 08/18/22 19:38 Source: patient, RN notes reviewed and old records reviewed Mode of arrival: ambulatory Limitations: no limitations History of Present Illness HPI Narrative: This is a 37 year old female who presents for evaluation of a headache. Patient reports history of headaches and this headache is similar to previous episodes. She developed headache on Thursday and it has remained since then. She describes frontal headache and posterior headache with associated nausea, runny nose, worsening with light and sound. She has used antihistamines, execedrine, zofran. She also took imitrex once today. She reports headache is 6/10. Her headache will intermittently improve and then worsen. Related Data Home Medications Medication Instructions Recorded Confirmed buspirone 15 mg tablet 15 mg PO BID 01/09/21 06/20/22 trazodone 150 mg tablet,extended 150 mg PO DAILY 01/09/21 05/05/22 release 24 hr bupropion HCl 300 mg 24 hr tablet, 300 mg PO DAILY 04/11/22 06/20/22 extended release levothyroxine 100 mcg tablet 125 mcg PO DAILY 04/11/22 06/20/22 Allergies Allergy/AdvReac Type Severity Reaction Status Date / Time zolpidem AdvReac Mild AUDIO AND Verified 06/17/22 15:27 VISUAL HALLUCINATIONS Review of Systems Constitutional: Constitutional: Denies weakness Cardiovascular: Cardiovascular: Denies syncope, Denies rapid heart rate, Denies irregular heart rhythm, Denies leg edema and Denies dyspnea Respiratory: Respiratory: Denies chest congestion, Denies hemoptysis, Denies excessive phlegm production and Denies dyspnea Gastrointestinal: Gastrointestinal: Denies abdominal pain, Denies hematochezia, Denies diarrhea, Reports nausea and Denies vomiting Genitourinary: Genitourinary: Denies hematuria and Denies dysuria Musculoskeletal: Musculoskeletal: Denies joint swelling, Denies loss of height and Denies muscle weakness Neurologic: Denies syncope, Reports headache(s), Denies focal weakness and Denies weakness PMFSH Past Medical History Medical History Anxiety Asthma Hypertension Hypothyroidism Pilar cysts UTI (urinary tract infection) Weight loss Surgical History Surgical History History of cholecystectomy History of hernia repair History of partial thyroidectomy 2018 History of tubal ligation Family History Family History Grandparent Diabetes mellitus Father Hypertension Heart disease Skin cancer Grandparent Heart disease Hypertension Grandparent Brain cancer Mother Skin cancer Asthma Other Heriberto's disease Graves disease Social History Social History Smoking status: Never smoker Alcohol intake: current Alcohol use details: rarely Lack of Transportation: No Lack of Food: Never True Current Housing: I Have Housing Concerned About Future Housing: No Difficulty Paying Gas/Electric Bills: No Difficulty Paying for Meds: No Currently Unemployed: No Education: Bachelor's Degree Difficulty w/ Childcare or Family Care: No Gender identity (if verbalized by the patient): Female Exam Const: General: no acute distress and alert Nutritional Appearance: well nourished and obese Orientation/consciousness: patient oriented x3 Limitations: no limitations HENMT: Head: normal to inspection Face and sinus: normal facial exam Eyes: Pupils: Equal, round and reactive pupils present EOM: EOMs intact bilaterally Neck: Neck: normal visual inspection, no lymphadenopathy and no meningeal signs Chest: Chest palpation & inspection: normal inspection of the chest Resp: Effort & Inspection: normal respiratory effort Auscultation: clear to ausculta
[2022-08-18] MEDS: PROCHLORPERAZINE EDISYLATE 10 MG/2 ML VIAL IV PUSH (20:26)
[2022-08-18] MEDS: SODIUM CHLORIDE 0.9% IV 1,000 ML 999 ML IV CONT (20:26)
[2022-08-18] MEDS: KETOROLAC 30 MG/ML VIAL (*BKC) IV PUSH (20:26)
[2022-08-18 21:51] VITALS: BP 145/87; PULSE 65; RESP 14; O2SAT 100
== END 2022-08-18 21:52 | disposition home or self-care (01) ==
PROVIDERS: Emergency Provider General Practice; PCP Internal Medicine
DX: R51.9 Headache, unspecified (principal); F41.9 Anxiety disorder, unspecified; J45.909 Unspecified asthma, uncomplicated; I10 Essential (primary) hypertension; E03.9 Hypothyroidism, unspecified; Z87.440 Personal history of urinary (tract) infections
CPT/HCPCS: 96361; 96374; 96375; 99284; J0780; J1885; J7030

== ENCOUNTER 2022-09-28 21:28 | Emergency (ER) | payer OTHER, MEDICAID, SELFPAY ==
[2022-09-28 21:31] VITALS: BP 136/89; PULSE 95; RESP 18; TEMP 36.2; O2SAT 100
--- NOTE | 2022-09-28 22:21 | ED.GENADULT ---
HPI - General Adult General Chief complaint: Upper Respiratory Infection Stated complaint: covid? Time Seen by Provider: 09/28/22 21:35 Source: patient Mode of arrival: ambulatory Limitations: no limitations History of Present Illness HPI narrative: This is a 29-year-old female presents to the ED with chief complaint of viral URI symptoms for the past 3 days. Patient states that she has had dry cough, congestion, postnasal drip, chest tightness, ear fullness. Endorses a fever yesterday with Tmax of 100.2. She states that she has had recurrent bouts of bronchitis in the past and feels like she is having the same. Denies any wheezing. Denies shortness of breath, abdominal pain, nausea, vomiting, urinary symptoms. Related Data Home Medications Medication Instructions Recorded Confirmed buspirone 15 mg tablet 15 mg PO BID 01/09/21 06/20/22 trazodone 150 mg tablet,extended 150 mg PO DAILY 01/09/21 05/05/22 release 24 hr bupropion HCl 300 mg 24 hr tablet, 300 mg PO DAILY 04/11/22 06/20/22 extended release levothyroxine 100 mcg tablet 125 mcg PO DAILY 04/11/22 06/20/22 Allergies Allergy/AdvReac Type Severity Reaction Status Date / Time zolpidem AdvReac Mild AUDIO AND Verified 09/28/22 21:28 VISUAL HALLUCINATIONS Review of Systems Review of Systems: CONSTITUTIONAL: Denies fever, chills, or sweats. EYES: Denies visual changes, redness, or discharge. ENT: See HPI CARDIOVASCULAR: Denies chest pain, palpitations, or edema. RESPIRATORY: See HPI GASTROINTESTINAL: Denies abdominal pain, nausea, vomiting, or diarrhea. GENITOURINARY: Denies dysuria or hematuria. SKIN: Denies rash or itching. MUSCULOSKELETAL: Denies back pain, joint pain, or myalgia. NEUROLOGIC: Denies headache, numbness, dizziness, or weakness. PSYCHIATRIC: Denies anxiety or depression. [facility] Past Medical History Medical History Anxiety Asthma Hypertension Hypothyroidism Pilar cysts UTI (urinary tract infection) Weight loss Surgical History Surgical History History of cholecystectomy History of hernia repair History of partial thyroidectomy 2018 History of tubal ligation Family History Family History Grandparent Diabetes mellitus Father Hypertension Heart disease Skin cancer Grandparent Heart disease Hypertension Grandparent Brain cancer Mother Skin cancer Asthma Other Heriberto's disease Graves disease Social History Social History Smoking status: Never smoker Alcohol intake: current Alcohol use details: rarely Lack of Transportation: No Lack of Food: Never True Current Housing: I Have Housing Concerned About Future Housing: No Difficulty Paying Gas/Electric Bills: No Difficulty Paying for Meds: No Currently Unemployed: No Education: Bachelor's Degree Difficulty w/ Childcare or Family Care: No Gender identity (if verbalized by the patient): Female Exam Narrative: GENERAL: Well-appearing, well-nourished, and in no acute distress. HEAD: Normocephalic, atraumatic. EYES: PERRLA and EOMI. ENT: Nares clear, no rhinorrhea or epistaxis. Mucous membranes moist. Oropharynx without tonsillar hypertrophy exudate or other lesions. Slight erythema to the posterior oropharynx. Postnasal drip noted. Bilateral TMs intact. NECK: Supple. No adenopathy or masses. CHEST: No respiratory distress. Clear to auscultation. No wheezes rales or rhonchi. HEART: Regular rate and rhythm. No murmur heard. Normal peripheral pulses. ABDOMEN: Soft, nontender, nondistended, normal active bowel sounds. MSK: Normal range of motion. No edema. SKIN: Warm, dry, no rash. NEURO: Alert and oriented x3. No focal deficits. PSYCH: Normal mood and affect. Course Vital Signs Vital sign
[2022-09-28] MEDS: predniSONE 20 MG TABLET 40 MG PO (22:28)
[2022-09-28 22:56] VITALS: BP 131/92; PULSE 85; RESP 15; TEMP 36.8; O2SAT 95
[2022-09-28 22:57] VITALS: O2SAT 99
[2022-09-28] MEDS: ALBUTEROL SULFATE NEB 2.5 MG/3 ML INH INHALATION (23:12)
[2022-09-28 23:14] VITALS: PULSE 92; RESP 16
[2022-09-28 23:45] VITALS: BP 138/62; PULSE 78; RESP 18; O2SAT 99
[2022-09-29 00:06] LABS: Influenza A QL RT-PCR Negative (Negative); Influenza B QL RT-PCR Negative (Negative); SARS-CoV-2 RNA PCR Negative (Negative)
== END 2022-09-28 23:46 | disposition home or self-care (01) ==
PROVIDERS: Emergency Provider Physician Assistant; PCP Internal Medicine
DX: J20.8 Acute bronchitis due to other specified organisms (principal); I10 Essential (primary) hypertension; E03.9 Hypothyroidism, unspecified; J45.909 Unspecified asthma, uncomplicated; F41.9 Anxiety disorder, unspecified; Z79.51 Long term (current) use of inhaled steroids; Z20.822 Contact with and (suspected) exposure to COVID-19
CPT/HCPCS: 87636; 94640; 99283; J7512

== ENCOUNTER 2022-11-05 09:00 | Outpatient (RCR) | payer OTHER, SELFPAY ==
--- NOTE | 2022-10-13 11:36 | PTOPEVAL1 ---
Assessment and note entered by Cleo Gallo, PT, DPT Evaluation Information Assessment Status Evaluation Diagnosis dorsalgia Onset 1-2 months Subjective Information Pt reports numbness and tingling in the middle of her back on the L side, for about 1-2 months. She states she has been moving recently and she thinks that is what started it. She reports she has chronic low back, shoulder, and neck pain but this is different. Reports middle back pain that started with the numbness but the pain has decreased. Pt reports the intensity of her numbness as a 5-6/10. She has not found anything that makes her pain better or worse. She reports no change in the last 2-3 weeks in her sensation. Pt reports hypermobility, fibromyalgia, and states she has been tested for EDS and Lupus in the past . 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 Reported Pain Level Pain Score 0: Self Report Assessment PT Clinical Summary Kriss presents to therapy today for her initial evaluation with a diagnosis of back pain. She reports altered sensation in her mid thoracic spine on the L. Today she demonstrates cervical and lumbar ROM with is WNL and does not increase her symptoms. She demonstrates postural abnormalities consistent with a forward head and rounded shoulder. She declines any tenderness to palpation throughout entire spine. Today she was educated on a HEP with the aim to increase postural awareness and strength. Skilled therapy services are indicated to improve postural awareness, to decreased altered sensation, and to return to PLOF. Plan of Care Interventions Electrical Stimulation,Hot Pack/Cold Pack,Manual Therapy,Neuro Re-education,Patient/Caregiver Educati,Therapeutic Activities,Therapeutic Exercise PT Services Indicated Yes Treatment Frequency and 0-1x/wk for 2 wks Duration These treatments will address the objective and functional deficits as defined above. The patient will be advanced safely and appropriately in order for the patient to progress towards his/her prior level of function. Additional exercises will be introduced and as well as a comprehensive home exercise program upon discharge, if needed, ?to ensure carryover of functional gains achieved in the clinic. This treatment plan has been reviewed and agreement upon by the patient.
--- NOTE | 2022-11-05 09:36 | PTOPDC ---
Assessment and note entered by Cleo Gallo, PT, DPT Evaluation Information Assessment Status Discharge Diagnosis dorsalgia Onset 1-2 months Subjective Information Pt states she has been doing her exercises at home without a change in her symptoms. She states she thinks if the numbness were from moving that it would be gone by now. She states the numbness and tingling are now 100% of the time. She rates the numbness as 4-5/10, and the tingling as a 4/10. Reported Pain Level Pain Score 0: Self Report Assessment PT Clinical Summary Kriss presents to therapy today for her progress report with a diagnosis of back pain. She presents today following a month long participation in a HEP. Today she reports no change in her pain, numbness, or tingling. She reports good compliance with her HEP. She continues to demonstrates cervical and lumbar mobility that is pain free and WNL, thoracic spine palpation is also pain free. Secondary to poor progress she would like to follow up with her referring provider regarding her next POC. She will be discharged at this time. Plan of Care PT Services Indicated No
== END 2022-11-05 09:59 | disposition home or self-care (01) ==
LOC: ANHGOSHPT 09:00
PROVIDERS: PCP Internal Medicine; Visit Provider Clinical Nurse Specialist
DX: M54.9 Dorsalgia, unspecified (principal)
CPT/HCPCS: 97110; 97161; 97530

== ENCOUNTER 2023-06-27 12:43 | Emergency (ER) | payer OTHER, SELFPAY ==
--- NOTE | 2023-06-27 | ECG_ITS ---
Measurements Intervals [place] Rate: 86 P: 39 IN: 174 QRS: 21 QRSD: 89 T: 23 QT: 357 QTc: 428 Interpretive Statements SINUS RHYTHM BORDERLINE ST ABNORMALITY- ANT/HIGH LAT LEADS BORDERLINE ECG COMPARED TO ECG 06/27/2023 12:57:21 ST (T WAVE) DEVIATION NOW PRESENT Electronically Signed On 06-28-2023 15:20:52 SENIOR PRINCIPAL SOFTWARE ENGINEER by Juan Pablo Raman D.O.
--- NOTE | ~2023-06-27 | CT_ITS ---
EXAMINATION: CTA chest PE abdomen pel DATE: 06/27/2023 14:53 INDICATION: CP s/p gastric bypass two days ago TECHNIQUE: Computed tomography angiography (CTA) of the chest was performed with 100 mL Omnipaque-350 intravenous contrast timed to evaluate the pulmonary arteries, followed by portal venous phase imagi ng of the abdomen and pelvis. Coronal maximum intensity projection 3D-reconstructions were created by the technologist. The dose-length product (DLP) was 2180.25 mGy-cm. Automated exposure control and i terative reconstruction technique were employed. COMPARISON: Xray chest same date. CT a/p 07/19/21. FINDINGS: CHEST: Lung parenchyma and airways: Bands of subsegmental bilateral dependent opacity. Volume loss. Pleura: Trace bilateral fluid collections. Thoracic inlet, axillae and chest wall: Heterogeneous thyroid with nodule/s, see prior thyroid US rep ort. Thoracic aorta: No acute process detected in the chest. Mediastinum: Patulous, fluid-filled esophagus. Heart and pericardium: Normal. Coronary artery calcifications: Absent. Thoracic bones: No acute osseous finding. Pulmonary arteries: Study quality: Adequate. No pulmonary emboli detected. ABDOMEN/PELVIS: Liver: Normal. Biliary/Gallbladder: Gallbladder is absent. No bile duct dilation. Pancreas: Fatty atrophy Spleen: Normal. Adrenals:No mass. Kidneys: No suspicious mass, obstructing stone, or hydronephrosis. GI tract: Status post surgery at the GE junction, likely gastric bypass. The most proximal loop of th e divergent small bowel is dilated. Uncomplicated appearing more distal small bowel anastomosis. No l arge bowel dilation. Small normal appendix versus appendiceal stump Diverticulosis without diverticul itis. Mesentery/Peritoneum: No ascites, mass, or free air. Retroperitoneum: No mass. Pelvis: Pelvic organs are within normal limits. Soft Tissues: 6.2 cm slightly hyperdense collection in the subcutaneous fat of the left upper quadran t, no rim enhancement or extravasation. Scattered subcutaneous gas and moderate anterior and left abd ominal subcutaneous stranding, likely postsurgical. Abdominopelvic bones: No acute osseous finding. IMPRESSION: No CT evidence of acute pulmonary embolus. Patulous, fluid-filled esophagus, may reflect postoperative change. Dysmotility or some degree of obs truction should also be considered in the differential. Subsegmental bibasilar dependent airspace disease with volume loss, likely atelectasis. Trace bilater al pleural effusions. Infection/aspiration not excluded. Dilated proximal small bowel loops, may represent postoperative ileus or early obstruction. 6.2 cm subcutaneous collection in the left upper quadrant, likely postoperative hematoma. Early phleg mon/abscess could appear similarly, correlate for signs of infection. Reviewed, dictated and finalized at location K. SEALER IMPRESSION: No CT evidence of acute pulmonary embolus. Patulous, fluid-filled esophagus, may reflect postoperative change. Dysmotility or some degree of obstruction should also be considered in the differential. Subsegmental bibasilar dependent airspace disease with volume loss, likely atel ectasis. Trace bilateral pleural effusions. Infection/aspiration not excluded. Dilated proximal small bowel loops, may represent postoperative ileus or early obstruction. 6.2 cm subcutaneous collection in the left upper quadrant, likely postoperative hematoma. Early phlegmon/abscess could appear similarly, correlate for signs o f infection.
--- NOTE | ~2023-06-27 | XR_ITS ---
EXAMINATION: XR chest 2V DATE: 06/27/2023 13:38 INDICATION: Chest pain. TECHNIQUE: Frontal and lateral views of the chest were obtained. COMPARISON: Chest single view 08/16/2019, CT abdomen and pelvis 07/19/2021 FINDINGS: The lung volumes are small. There are airspace opacities in the lower lung zones. No pleura l effusion or pneumothorax. The heart size is normal. Surgical clips in the right upper quadrant are likely from cholecystectomy. IMPRESSION: 1. Small lung volumes with airspace opacities in the lower lung zones, consistent with atelectasis or less likely pneumonia. Reviewed, dictated and finalized at location A. CLEANER HELPER IMPRESSION: 1. Small lung volumes with airspace opacities in the lower lung zones, consiste nt with atelectasis or less likely pneumonia.
[2023-06-27 12:52] VITALS: BP 101/59; PULSE 86; RESP 16; TEMP 36.8; O2SAT 100
--- NOTE | 2023-06-27 12:55 | ECG_ITS ---
Measurements Intervals [place] Rate: 83 P: 23 GA: 181 QRS: 9 QRSD: 82 T: 7 QT: 345 QTc: 406 Interpretive Statements SINUS RHYTHM VOLTAGE CRITERIA FOR LVH BASELINE ARTIFACT- I, II, AVR, AVF BORDERLINE ECG NO PREVIOUS ECG AVAILABLE FOR COMPARISON Electronically Signed On 06-27-2023 17:00:38 LABELING ASSOCIATE by Juan Pablo Raman D.O.
[2023-06-27 13:18] LABS: Basophils Percent Auto 0.2 % (0.2-1.2); Eosinophils Absolute Auto 0.1 K/mm3 (0-0.3); Eosinophils Percent Auto 1.5 % (0-4.4); Hematocrit 29.4 % (37.0-47.0); Hemoglobin 9.2 g/dL (12.0-15.0); Immature Granulocyte Absolute 0.02 K/mm3 (0.00-0.031); Immature Granulocyte Percent A 0.2 % (0-0.5); Lymphocytes Absolute Auto 1.57 K/mm3 (0.9-3.2); Lymphocytes Percent Auto 19.6 % (18.3-44.2); Mean Corpuscular HGB Conc 31.3 g/dl (32-36); Mean Corpuscular Hemoglobin 29.7 pg (26-34); Mean Corpuscular Volume 94.8 fl (80-100); Mean Platelet Volume 9.8 fl (7.4-10.4); Monocytes Absolute Auto 0.7 K/mm3 (0.1-0.6); Monocytes Percent Auto 9.2 % (2.6-8.5); Neutrophils Absolute Auto 5.6 K/mm3 (1.3-6.7); Neutrophils Percent Auto 69.3 % (45.5-73.1); Platelet Count Result 304 k/mm3 (150-375); Red Cell Distribution Width 12.2 % (11.5-14.5)
[2023-06-27 13:30] LABS: Alanine Aminotransferase 48 U/L (6-35); Albumin Level 3.5 g/dL (3.5-5.1); Alkaline Phosphatase 54 U/L (38-126); Anion Gap 4 mmol/L (8-16); Aspartate Amino Transferase 40 U/L (14-36); Bilirubin,Total 0.5 mg/dL (0.2-1.3); Blood Urea Nitrogen 12 mg/dL (7-17); Calcium 8.5 mg/dL (8.4-10.2); Carbon Dioxide 28 mmol/L (22-30); Chloride 106 mmol/L (98-107); Estimated Glomerular Filt Rate > 60; Glucose 85 mg/dL (65-110); Lipase 44 U/L (23-300); Potassium 4.3 mmol/L (3.4-5.0); Sodium 138 mmol/L (137-145)
[2023-06-27 13:32] LABS: Prothrombin Time 13.9 Seconds (11.1-14.7)
[2023-06-27 13:33] LABS: Partial Thromboplastin Time 37.1 SECONDS (22.3-36.8)
[2023-06-27 13:42] LABS: Troponin I < 0.012 ng/mL (0.000-0.034)
--- NOTE | 2023-06-27 14:03 | ED.RECABL ---
HPI - Recheck/Abnormal Lab/Rx General Chief Complaint: Recheck/Abnormal Lab/Rx Stated Complaint: POST OP PAIN, GASTRIC BYPASS SURGERY Time Seen by Provider: 06/27/23 13:32 History of Present Illness HPI narrative: Patient is a 38-year-old female status post gastric bypass 2 days ago at [facility] with Dr. Cortez presenting with chest pain. States that this morning she developed central chest pain that feels like prior episodes of biliary colic. States that she no longer has her gallbladder. States that she does feel a bit short of breath and she did vomit earlier today. States that all of her incisions are healing well. No leg swelling. No fevers or chills. No further complaints. Related Data Home Medications Medication Instructions Recorded Confirmed bupropion HCl 300 mg 24 hr tablet, 300 mg PO DAILY 04/11/22 03/18/23 extended release levothyroxine 137 mcg capsule 137 mcg PO DAILY 03/18/23 03/18/23 sertraline 25 mg tablet 25 mg PO DAILY 03/18/23 03/18/23 trazodone 150 mg tablet,extended 150 mg PO DAILY 03/18/23 03/18/23 release 24 hr Allergies Allergy/AdvReac Type Severity Reaction Status Date / Time zolpidem AdvReac Mild AUDIO AND Verified 03/18/23 11:03 VISUAL HALLUCINATIONS Review of Systems Review of Systems: All systems reviewed & are unremarkable except as noted in HPI and below PMFSH Past Medical History Medical History Anxiety Asthma Hypertension Hypothyroidism Pilar cysts UTI (urinary tract infection) Weight loss Surgical History Surgical History History of cholecystectomy History of hernia repair History of partial thyroidectomy 2018 History of tubal ligation Family History Family History Grandparent Diabetes mellitus Father Hypertension Heart disease Skin cancer Diabetes mellitus Grandparent Heart disease Hypertension Grandparent Brain cancer Mother Skin cancer Asthma Other Heriberto's disease Graves disease Social History Social History Smoking status: Never smoker Alcohol intake: current Alcohol use details: rarely Lack of Transportation: No Lack of Food: Never True Current Housing: I Have Housing Concerned About Future Housing: No Difficulty Paying Gas/Electric Bills: No Difficulty Paying for Meds: No Currently Unemployed: No Education: Bachelor's Degree Difficulty w/ Childcare or Family Care: No Gender identity (if verbalized by the patient): Female Exam Narrative: GENERAL: Nontoxic, no acute distress, pleasant and cooperative HEAD: Normocephalic, atraumatic. EYES: PERRLA and EOMI. ENT: Mucous membranes moist. NECK: Supple. CHEST: Clear to auscultation. No respiratory distress. tender to palpation central chest wall HEART: Regular rate and rhythm ABDOMEN: Soft, nontender, nondistended, 3 well healing laparascopic incisions, no dehiscence or drainage, abdomen is soft and nontender EXTREMITIES: Normal range of motion. No edema. SKIN: Warm, dry, no rash. NEURO: No focal deficits. Alert and oriented x3. PSYCH: Normal mood and affect. Course Vital Signs Vital signs: Vital Signs Temperature 98.2 F 06/27/23 12:52 Pulse Rate 86 06/27/23 12:52 Respiratory Rate 16 06/27/23 12:52 Blood Pressure 101/59 L 06/27/23 12:52 Pulse Oximetry 100 06/27/23 12:52 Oxygen Delivery Room Air 06/27/23 12:52 Temperature 98.2 F 06/27/23 12:52 Pulse Rate 86 06/27/23 12:52 Respiratory Rate 16 06/27/23 12:52 Blood Pressure 101/59 L 06/27/23 12:52 Pulse Oximetry 100 06/27/23 12:52 Oxygen Delivery Room Air 06/27/23 12:52 MDM - Recheck/Abnormal Lab/Rx MDM Narrative Medical decision making narrative: 38-year-old female presenting with chest pain
[2023-06-27] MEDS: HYDROmorphone HCL INJ (*CRX) 1 MG/ML SYR 0.5 MG IV PUSH (14:22)
[2023-06-27] MEDS: SODIUM CHLORIDE 0.9% IV 1,000 ML 999 ML IV CONT (14:23)
[2023-06-27] MEDS: ONDANSETRON INJ 4 MG/2 ML VIAL IV PUSH (14:23)
[2023-06-27 16:44] LABS: Troponin I < 0.012 ng/mL (0.000-0.034)
== END 2023-06-27 18:05 | disposition home or self-care (01) ==
PROVIDERS: Emergency Provider Emergency Medicine; PCP Internal Medicine
DX: K95.89 Other complications of other bariatric procedure (principal); K56.7 Ileus, unspecified; R07.9 Chest pain, unspecified; I10 Essential (primary) hypertension; J45.909 Unspecified asthma, uncomplicated; E89.0 Postprocedural hypothyroidism; F41.9 Anxiety disorder, unspecified; Z87.440 Personal history of urinary (tract) infections; Z90.49 Acquired absence of other specified parts of digestive tract; R94.31 Abnormal electrocardiogram [ECG] [EKG]; R91.8 Other nonspecific abnormal finding of lung field; R93.5 Abnormal findings on diagnostic imaging of other abdominal regions, including retroperitoneum; Y83.2 Surgical operation with anastomosis, bypass or graft as the cause of abnormal reaction of the patient, or of later complication, without mention of misadventure at the time of the procedure
CPT/HCPCS: 36415; 71046; 71275; 74177; 80053; 83690; 84484; 85025; 85610; 85730; 93005; 96361; 96374; 96375; 99284; J1170; J2405; J7030; Q9967

== ENCOUNTER 2023-07-02 15:49 | Outpatient (CLI) | payer OTHER, SELFPAY ==
--- NOTE | ~2023-07-02 | US_ITS ---
EXAMINATION: US thyroid DATE: 07/02/2023 16:03 INDICATION: Hypothyroidism. TECHNIQUE: Multiple ultrasound images of the thyroid were obtained. COMPARISON: Ultrasound 05/25/2020, 04/25/2016 FINDINGS: The right thyroid lobe is absent. The left thyroid lobe measures measures 6.3 x 2.5 x 2.6 cm. The th yroid demonstrates heterogeneous hypoechogenicity. In the inferior left thyroid lobe, there is a 2.1 cm solid, isoechoic more than tall nodule with ill-defined margin without echogenic foci (TI-RADS TR3 ). IMPRESSION: 1. Heterogeneous thyroid, likely chronic lymphocytic (Heriberto) thyroiditis. 2. Left thyroid nodule, stable from 04/25/16, likely benign. Reviewed, dictated and finalized at location E. HER WHITENER
== END 2023-07-02 15:50 ==
LOC: MICIMG 15:50
PROVIDERS: PCP Otolaryngology; Visit Provider Otolaryngology
DX: E03.9 Hypothyroidism, unspecified (principal)
CPT/HCPCS: 76536

== ENCOUNTER 2023-08-27 03:28 | Emergency (ER) | payer OTHER, SELFPAY ==
[2023-08-27 03:29] VITALS: BP 139/90; PULSE 80; RESP 16; TEMP 36.6; O2SAT 98
--- NOTE | 2023-08-27 04:40 | ED.GENADULT ---
HPI - General Adult General Chief complaint: Unspecified Stated complaint: R sided jaw/facial pain Time Seen by Provider: 08/27/23 04:00 History of Present Illness HPI narrative: This is a 38-year-old female with history of fibromyalgia and multiple dental caries presenting with left jaw pain. Patient says she has been having pain in her upper and lower mandible about 3 days. It is dull constant although there are intermittent episodes of sharp shooting pains. He has been taking Tylenol with minimal relief. Patient saw dentist 6 months ago was told she has multiple dental caries but has not been able to get them fixed yet. No fever chills nausea vomiting diarrhea. No throat swelling or difficulty breathing. Related Data Home Medications Medication Instructions Recorded Confirmed bupropion HCl 300 mg 24 hr tablet, 300 mg PO DAILY 04/11/22 03/18/23 extended release levothyroxine 137 mcg capsule 137 mcg PO DAILY 03/18/23 03/18/23 sertraline 25 mg tablet 25 mg PO DAILY 03/18/23 03/18/23 trazodone 150 mg tablet,extended 150 mg PO DAILY 03/18/23 03/18/23 release 24 hr Allergies Allergy/AdvReac Type Severity Reaction Status Date / Time zolpidem AdvReac Mild AUDIO AND Verified 03/18/23 11:03 VISUAL HALLUCINATIONS PMFSH Past Medical History Medical History Anxiety Asthma Hypertension Hypothyroidism Pilar cysts UTI (urinary tract infection) Weight loss Surgical History Surgical History History of cholecystectomy History of hernia repair History of partial thyroidectomy 2018 History of tubal ligation Family History Family History Grandparent Diabetes mellitus Father Hypertension Heart disease Skin cancer Diabetes mellitus Grandparent Heart disease Hypertension Grandparent Brain cancer Mother Skin cancer Asthma Other Heriberto's disease Graves disease Social History Social History Smoking status: Never smoker Alcohol intake: current Alcohol use details: rarely Lack of Transportation: No Lack of Food: Never True Current Housing: I Have Housing Concerned About Future Housing: No Difficulty Paying Gas/Electric Bills: No Difficulty Paying for Meds: No Currently Unemployed: No Education: Bachelor's Degree Difficulty w/ Childcare or Family Care: No Gender identity (if verbalized by the patient): Female Exam Narrative: APPEARANCE: No apparent distress. Head: Poor dentition multiple fillings and dental cavities. no overlying skin changes or swelling. EYES: EOMI, NOSE: Atraumatic NECK: Trachea midline RESPIRATORY: No increased rate of breathing CARDIOVASCULAR: RRR, ABDOMINAL: Non-distended MUSCULOSKELETAl: No obvious deformities NEURO: Alert. Moving 4/4 extremities SKIN:: Warm, dry. Normal color PSYCHIATRIC: Normal affect Course Vital Signs Vital signs: Vital Signs Temperature 97.8 F 08/27/23 03:29 Pulse Rate 80 08/27/23 03:29 Respiratory Rate 16 08/27/23 03:29 Blood Pressure 139/90 08/27/23 03:29 Pulse Oximetry 98 08/27/23 03:29 Oxygen Delivery Room Air 08/27/23 03:29 Temperature 97.8 F 08/27/23 03:29 Pulse Rate 80 08/27/23 03:29 Respiratory Rate 16 08/27/23 03:29 Blood Pressure 139/90 08/27/23 03:29 Pulse Oximetry 98 08/27/23 03:29 Oxygen Delivery Room Air 08/27/23 03:29 Medical Decision Making MDM Narrative Medical decision making narrative: -Course: 38-year-old female presenting with right-sided jaw pain. Pain is constant and dull although she does have some intermittent shooting pains. Dental pain versus trigeminal neuralgia is considered. Patient has poor dentition and dental pain is far more common than trigeminal neuralgia so we will treat that 1st.
[2023-08-27] MEDS: oxyCODONE HCL (*CRX) 5 MG TAB IR PO (04:46)
== END 2023-08-27 04:53 | disposition home or self-care (01) ==
PROVIDERS: Emergency Provider Emergency Medicine; PCP Internal Medicine
DX: R68.84 Jaw pain (principal); I10 Essential (primary) hypertension; J45.909 Unspecified asthma, uncomplicated; E89.0 Postprocedural hypothyroidism; M79.7 Fibromyalgia; F41.9 Anxiety disorder, unspecified; F32.A Depression, unspecified; Z87.440 Personal history of urinary (tract) infections; Z90.49 Acquired absence of other specified parts of digestive tract; Z98.84 Bariatric surgery status
CPT/HCPCS: 99283; A9270

== ENCOUNTER 2023-08-27 14:35 | Emergency (ER) | payer OTHER, SELFPAY ==
--- NOTE | 2023-08-27 14:41 | ED.GENADULT ---
HPI - General Adult General Chief complaint: Dental/Oral Stated complaint: Jaw Pain Time Seen by Provider: 08/27/23 14:48 Source: patient, RN notes reviewed and old records reviewed Mode of arrival: ambulatory Limitations: no limitations History of Present Illness HPI narrative: 38-year-old female presents to the [facility] with complaints of right side of face pain. Was evaluated at the emergency room at 4:00 a.m. this morning. Discharged and told to follow-up with primary and ENT Patient reports that she did see ENT (Dr Torrez) today. She has also seen her dentist ([facility]) today, was told it was not her tooth. Try getting in to see her primary today, was referred to the Urgent Care. Has an appointment tomorrow with primary care provider. Onset (ago): day(s) (3) Related Data Home Medications Medication Instructions Recorded Confirmed bupropion HCl 300 mg 24 hr tablet, 300 mg PO DAILY 04/11/22 08/27/23 extended release levothyroxine 137 mcg capsule 137 mcg PO DAILY 03/18/23 08/27/23 sertraline 25 mg tablet 25 mg PO DAILY 03/18/23 08/27/23 trazodone 150 mg tablet,extended 150 mg PO DAILY 03/18/23 08/27/23 release 24 hr ferrous sulfate 325 mg (65 mg 325 mg PO DAILY 08/27/23 08/27/23 iron) tablet (FeroSul) [id number]-hypn 45 mg-folic 1 cap PO DAILY 08/27/23 08/27/23 acid 800 mcg-vit K 120 mcg capsule (Bariatric Multivitamins) Allergies Allergy/AdvReac Type Severity Reaction Status Date / Time zolpidem AdvReac Mild AUDIO AND Verified 08/27/23 14:44 VISUAL HALLUCINATIONS Review of Systems Review of Systems: All systems reviewed & are unremarkable except as noted in HPI and below Constitutional: Constitutional: Reports no additional constitutional complaints Eyes: Eyes: Reports no additional eye complaints ENT: Reports as per HPI Cardiovascular: Cardiovascular: Reports no additional cardiovascular complaints, Denies chest pain and Denies dyspnea Respiratory: Respiratory: Reports no additional respiratory complaints, Denies chest congestion, Denies cough and Denies dyspnea Gastrointestinal: Gastrointestinal: Reports no additional gastrointestinal complaints, Denies abdominal pain, Denies nausea and Denies vomiting Musculoskeletal: Musculoskeletal: Reports no additional musculoskeletal complaints Integumentary/Breasts: Skin/Breast: Reports system reviewed and no additional complaints, except as docu Neurologic: Reports system reviewed and no additional complaints, except as documented Psychiatric: Psychiatric: Reports no additional psychiatric complaints Allergic/Immunologic: Allergic/Immunologic: Reports no additional allergic/immunologic complaints PMFSH Past Medical History Medical History Anxiety Asthma Hypertension Hypothyroidism Pilar cysts UTI (urinary tract infection) Weight loss Surgical History Surgical History History of cholecystectomy History of hernia repair History of partial thyroidectomy 2018 History of tubal ligation Family History Family History Grandparent Diabetes mellitus Father Hypertension Heart disease Skin cancer Diabetes mellitus Grandparent Heart disease Hypertension Grandparent Brain cancer Mother Skin cancer Asthma Other Heriberto's disease Graves disease Social History Social History Smoking status: Never smoker Alcohol intake: current Alcohol use details: rarely Lack of Transportation: No Lack of Food: Never True Current Housing: I Have Housing Concerned About Future Housing: No Difficulty Paying Gas/Electric Bills: No Difficulty Paying for Meds: No Currently Unemployed: No Education: Bachelor's Degree Difficulty w/ Childcare or Family Care: No
[2023-08-27 14:45] VITALS: BP 122/86; PULSE 92; RESP 16; TEMP 36.2; O2SAT 99
== END 2023-08-27 15:02 | disposition home or self-care (01) ==
PROVIDERS: Emergency Provider Nurse Practitioner; PCP Internal Medicine
DX: G50.1 Atypical facial pain (principal); F41.9 Anxiety disorder, unspecified; J45.909 Unspecified asthma, uncomplicated; I10 Essential (primary) hypertension; E03.9 Hypothyroidism, unspecified; Z90.89 Acquired absence of other organs
CPT/HCPCS: 99213; G0463

== ENCOUNTER 2023-09-09 17:11 | Outpatient (CLI) | payer OTHER, SELFPAY ==
--- NOTE | ~2023-09-09 | MR_ITS ---
EXAMINATION: MR brain/brain stem wo/w con DATE: 09/09/2023 17:47 INDICATION: Headache. Trigeminal neuralgia. TECHNIQUE: Magnetic resonance imaging (MRI) of the brain and brainstem was performed without and with 20 mL MultiHance intravenous contrast. COMPARISON: None. FINDINGS: There is no intracranial hemorrhage, acute infarction, or abnormal intracranial mass lesion . The ventricles are normal in size. The paranasal sinuses are clear. The orbits are normal. The mast oid air cells are normal. There are 4 masses in the scalp measuring up to 7 mm, likely benign. IMPRESSION: 1. Normal brain. Note that high-resolution images of the trigeminal nerves were not performed. Reviewed, dictated and finalized at location E.
== END 2023-09-09 17:12 | disposition home or self-care (01) ==
LOC: ANHIMG 17:12
PROVIDERS: PCP Internal Medicine; Visit Provider Nurse Practitioner
DX: R51.9 Headache, unspecified (principal)
CPT/HCPCS: 70553; A9577

== ENCOUNTER 2024-01-06 16:29 | Outpatient (CLI) | payer OTHER, SELFPAY ==
[2024-01-06 19:32] LABS: Free T4 Free Thyroxine 1.34 ng/mL (0.78-2.19)
[2024-01-06 20:02] LABS: Thyroid Stimulating Hormone 0.276 uIU/mL (0.465-4.680)
[2024-01-08 06:38] LABS: Triiodothyronine T3 Free 3.4 pg/mL (2.3-4.2)
== END 2024-01-06 16:30 | disposition home or self-care (01) ==
LOC: ANHLAB 16:47
PROVIDERS: PCP Internal Medicine; Visit Provider Otolaryngology
DX: E03.9 Hypothyroidism, unspecified (principal)
CPT/HCPCS: 36415; 84439; 84443; 84481

== ENCOUNTER 2024-01-18 12:59 | Emergency (ER) | payer OTHER, SELFPAY ==
[2024-01-18 13:04] VITALS: BP 131/72; PULSE 77; RESP 16; TEMP 36.6; O2SAT 100
[2024-01-18 13:13] VITALS: BP 131/72; PULSE 77; RESP 16; TEMP 36.6; O2SAT 100
--- NOTE | 2024-01-18 13:19 | ED.ABDPAIN ---
HPI - Abdominal Pain General Chief Complaint: Abdominal Pain Stated Complaint: Stomach Pain Time Seen by Provider: 01/18/24 13:19 Source: patient, RN notes reviewed and old records reviewed Mode of arrival: ambulatory Limitations: no limitations History of Present Illness HPI narrative: 38 year old female who presents to [facility] care with complaints of diarrhea since 01/06/2024 with some bloating and cramping and feels weak. Patient had gastric bypass within the past 9-10 months and has lost about 75 pounds. Patient reports that Imodium relieves diarrhea but it continues denies any acute abdominal pain. William reports past history of colitis, has not contacted her PCP or contacted her gastric surgeon with her complaints.Patient denies any nausea or vomiting or any fevers, denies any UTI symptoms. MD elicited complaint: other (diarrhea since 01/06/2024, cramping and bloating) Pertinent past history: other (gastric bypass surgery, cholecystectomy, reported history of colitis) Onset (ago): day(s) (12 days) Quality: cramping (bloating) and other Treatments prior to arrival: other (Imodium) Related Data Home Medications Medication Instructions Recorded Confirmed bupropion HCl 300 mg 24 hr tablet, 300 mg PO DAILY 04/11/22 01/18/24 extended release levothyroxine 137 mcg capsule 137 mcg PO DAILY 03/18/23 01/18/24 sertraline 25 mg tablet 25 mg PO DAILY 03/18/23 01/18/24 trazodone 150 mg tablet,extended 150 mg PO DAILY 03/18/23 01/18/24 release 24 hr ferrous sulfate 325 mg (65 mg 325 mg PO DAILY 08/27/23 01/18/24 iron) tablet (FeroSul) palhkoar-kjbcmqjc-ttue 45 mg-folic 1 cap PO DAILY 08/27/23 01/18/24 acid 800 mcg-vit K 120 mcg capsule (Bariatric Multivitamins) ascorbic acid (vitamin C) 1,000 mg 1 g PO DAILY 01/18/24 01/18/24 tablet biotin 10,000 mcg chewable tablet 10,000 mcg PO DAILY 01/18/24 01/18/24 calcium citrate 200 mg (950 mg) 400 mg PO BID 01/18/24 01/18/24 tablet cholecalciferol (vitamin D3) 125 125 mcg PO DAILY 01/18/24 01/18/24 mcg (5,000 unit) tablet (Vitamin D3) Allergies Allergy/AdvReac Type Severity Reaction Status Date / Time zolpidem AdvReac Mild AUDIO AND Verified 01/18/24 13:07 VISUAL HALLUCINATIONS Review of Systems Review of Systems: CONSTITUTIONAL: Denies fever, chills, or sweats. ENT: Denies rhinorrhea, congestion, sore throat, or otalgia. CARDIOVASCULAR: Denies chest pain, palpitations, or edema. RESPIRATORY: Denies cough or dyspnea. GASTROINTESTINAL: Reports abdominal cramping and bloating denies any sharp pain, no nausea, vomiting,positive for diarrhea. GENITOURINARY: Denies dysuria or hematuria. SKIN: Denies rash or itching. MUSCULOSKELETAL: Denies back pain, joint pain, or myalgia. NEUROLOGIC: Denies headache, numbness, reports fatigue and some weakness. All systems reviewed & are unremarkable except as noted in HPI and below PMFSH Past Medical History Medical History Anxiety Asthma Hypertension Hypothyroidism Pilar cysts UTI (urinary tract infection) Weight loss Surgical History Surgical History History of cholecystectomy History of hernia repair History of partial thyroidectomy 2018 History of tubal ligation History of weight loss surgery gastric bypass Family History Family History Grandparent Diabetes mellitus Father Hypertension Heart disease Skin cancer Diabetes mellitus Grandparent Heart disease Hypertension Grandparent Brain cancer Mother Skin cancer Asthma Other Heriberto's disease Graves disease Social History Social History Smoking status: Never smoker Alcohol intake: current Alcohol use details: rarely Do You Feel Safe in your Home?: Yes Lack of Transportation: No Lack of Food: N
== END 2024-01-18 14:05 | disposition home or self-care (01) ==
PROVIDERS: Emergency Provider Registered Nurse; PCP Internal Medicine
DX: K52.9 Noninfective gastroenteritis and colitis, unspecified (principal); J45.909 Unspecified asthma, uncomplicated; I10 Essential (primary) hypertension; E03.9 Hypothyroidism, unspecified; Z90.89 Acquired absence of other organs; F41.9 Anxiety disorder, unspecified
CPT/HCPCS: 99213; G0463

== ENCOUNTER 2024-02-05 13:10 | Outpatient (CLI) | payer OTHER, SELFPAY ==
[2024-02-05 13:49] LABS: Basophils Percent Auto 0.6 % (0.2-1.2); Eosinophils Absolute Auto 0.4 K/mm3 (0-0.3); Eosinophils Percent Auto 5.2 % (0-4.4); Hematocrit 38.5 % (37.0-47.0); Hemoglobin 12.5 g/dL (12.0-15.0); Immature Granulocyte Absolute 0.01 K/mm3 (0.00-0.031); Immature Granulocyte Percent A 0.1 % (0-0.5); Lymphocytes Percent Auto 29.6 % (18.3-44.2); Mean Corpuscular HGB Conc 32.5 g/dl (32-36); Mean Corpuscular Hemoglobin 30.9 pg (26-34); Mean Corpuscular Volume 95.1 fl (80-100); Mean Platelet Volume 10.8 fl (7.4-10.4); Monocytes Absolute Auto 0.5 K/mm3 (0.1-0.6); Monocytes Percent Auto 7.2 % (2.6-8.5); Neutrophils Absolute Auto 3.9 K/mm3 (1.3-6.7); Neutrophils Percent Auto 57.3 % (45.5-73.1); Platelet Count Result 308 k/mm3 (150-375); Red Blood Count 4.05 M/mm3 (4.2-5.4); Red Cell Distribution Width 11.9 % (11.5-14.5); White Blood Count 6.8 K/mm3 (4.5-10.0)
== END 2024-02-05 13:11 | disposition home or self-care (01) ==
LOC: ANHLAB 13:13
PROVIDERS: PCP Internal Medicine; Visit Provider Nurse Practitioner Adult Health
DX: Z98.84 Bariatric surgery status (principal)
CPT/HCPCS: 36415; 85025

== ENCOUNTER 2024-02-23 10:00 | Outpatient (CLI) | payer OTHER, SELFPAY ==
--- NOTE | ~2024-02-23 | XR_ITS ---
EXAMINATION: XR thoracic spine 2V DATE: 02/23/2024 10:12 INDICATION: Pain in thoracic spine. TECHNIQUE: 3 views of thoracic spine were obtained. COMPARISON: None. FINDINGS: There is 7 degrees levocurvature of upper thoracic spine and 11 degrees dextro scoliosis of thoracolumbar spine. Vertebral body heights are normal. There is mildly decreased disc height at a f ew levels in thoracic spine. There are endplate osteophytes at many levels. There are surgical clips in the abdomen. IMPRESSION: 1. Mild thoracic spondylosis. 2. Scoliosis. Reviewed, dictated and finalized at location B.
== END 2024-02-23 10:01 | disposition home or self-care (01) ==
LOC: GOSHIMG 10:01
PROVIDERS: PCP Internal Medicine; Visit Provider Clinical Nurse Specialist
DX: M47.814 Spondylosis without myelopathy or radiculopathy, thoracic region (principal); M41.35 Thoracogenic scoliosis, thoracolumbar region
CPT/HCPCS: 72070

== ENCOUNTER 2024-03-02 14:14 | Outpatient (CLI) | payer OTHER, SELFPAY ==
--- NOTE | ~2024-03-02 | MR_ITS ---
MRI of the thoracic spine Clinical History: Pain Technique: Axial T2-weighted and gradient images, and sagittal T1-weighted, T2-weighted, and STIR rishi ges were acquired. Findings: There is no fracture or subluxation of the thoracic spine. Vertebral bodies maintain normal height and alignment. There is mild diffuse T1 hypointense marrow signal throughout the visualized o sseous structures. No bone marrow edema identified. There is multilevel mild to moderate degenerative disc narrowing, especially the upper to mid thoraci c spine. There is more advanced degenerative disc narrowing at T11-T12. No significant disc bulge or herniation seen at any thoracic level. No spinal canal stenosis or cord compression identified in the thoracic spine. Neural foramina appear preserved throughout the thoracic spine. No abnormal signal seen in the spinal cord. No epidural mass or collection seen. Paravertebral soft t issues are unremarkable. Impression: Mild diffuse hypointense T1 marrow signal suggests underlying anemia/reactive marrow conversion. Degenerative disc disease, as above. Reviewed, dictated and finalized at [facility]. TBAND FLANGER Impression: Mild diffuse hypointense T1 marrow signal suggests underlying anemia/reactive m arrow conversion. Degenerative disc disease, as above.
== END 2024-03-02 14:15 | disposition home or self-care (01) ==
LOC: GOSHIMG 14:15
PROVIDERS: PCP Internal Medicine; Visit Provider Clinical Nurse Specialist
DX: M51.34 Other intervertebral disc degeneration, thoracic region (principal)
CPT/HCPCS: 72146

== ENCOUNTER 2024-03-07 10:33 | Outpatient (CLI) | payer OTHER, SELFPAY ==
[2024-03-07 11:06] LABS: Basophils Percent Auto 0.7 % (0.2-1.2); Eosinophils Absolute Auto 0.2 K/mm3 (0-0.3); Eosinophils Percent Auto 3.1 % (0-4.4); Hematocrit 39.3 % (37.0-47.0); Hemoglobin 13.1 g/dL (12.0-15.0); Immature Granulocyte Absolute 0.02 K/mm3 (0.00-0.031); Immature Granulocyte Percent A 0.4 % (0-0.5); Lymphocytes Absolute Auto 1.61 K/mm3 (0.9-3.2); Mean Corpuscular HGB Conc 33.3 g/dl (32-36); Mean Corpuscular Hemoglobin 30.9 pg (26-34); Mean Corpuscular Volume 92.7 fl (80-100); Mean Platelet Volume 10.6 fl (7.4-10.4); Monocytes Absolute Auto 0.3 K/mm3 (0.1-0.6); Monocytes Percent Auto 5.8 % (2.6-8.5); Neutrophils Absolute Auto 3.4 K/mm3 (1.3-6.7); Platelet Count Result 343 k/mm3 (150-375); Red Blood Count 4.24 M/mm3 (4.2-5.4); Red Cell Distribution Width 12.1 % (11.5-14.5); White Blood Count 5.6 K/mm3 (4.5-10.0)
[2024-03-07 11:47] LABS: Alanine Aminotransferase 22 U/L (6-35); Albumin Level 4.5 g/dL (3.5-5.1); Alkaline Phosphatase 49 U/L (38-126); Anion Gap 9 mmol/L (4-12); Aspartate Amino Transferase 25 U/L (14-36); Bilirubin,Total 0.4 mg/dL (0.2-1.3); Blood Urea Nitrogen 18 mg/dL (7-17); Calcium 9.3 mg/dL (8.4-10.2); Carbon Dioxide 22 mmol/L (22-30); Chloride 108 mmol/L (98-107); Estimated Glomerular Filt Rate > 60; Glucose 82 mg/dL (65-110); Sodium 139 mmol/L (137-145)
[2024-03-07 12:08] LABS: Iron 76 ug/dL (37-170)
[2024-03-07 12:17] LABS: Percent Iron Saturation 32 % (20-50)
[2024-03-07 12:33] LABS: Vitamin D 25 Hydroxy 95.4 ng/mL
[2024-03-07 13:41] LABS: Folic Acid 17.7 ng/mL (2.76->20)
== END 2024-03-07 10:34 | disposition home or self-care (01) ==
LOC: ANHLAB 10:34
PROVIDERS: PCP Internal Medicine; Visit Provider Clinical Nurse Specialist
DX: E78.5 Hyperlipidemia, unspecified (principal); D64.9 Anemia, unspecified; E03.9 Hypothyroidism, unspecified; I10 Essential (primary) hypertension; R74.8 Abnormal levels of other serum enzymes; Z13.228 Encounter for screening for other metabolic disorders
CPT/HCPCS: 36415; 80053; 82306; 82607; 82728; 82746; 83540; 83550; 85025

== ENCOUNTER 2024-06-01 15:45 | Outpatient (CLI) | payer OTHER, SELFPAY ==
[2024-06-01 15:58] LABS: Basophils Percent Auto 0.4 % (0.2-1.2); Eosinophils Absolute Auto 0.2 K/mm3 (0-0.3); Eosinophils Percent Auto 2.8 % (0-4.4); Hematocrit 38.9 % (37.0-47.0); Immature Granulocyte Absolute 0.01 K/mm3 (0.00-0.031); Immature Granulocyte Percent A 0.1 % (0-0.5); Lymphocytes Absolute Auto 2.54 K/mm3 (0.9-3.2); Lymphocytes Percent Auto 32.6 % (18.3-44.2); Mean Corpuscular HGB Conc 33.4 g/dl (32-36); Mean Corpuscular Volume 92.6 fl (80-100); Mean Platelet Volume 10.3 fl (7.4-10.4); Monocytes Absolute Auto 0.4 K/mm3 (0.1-0.6); Monocytes Percent Auto 5.5 % (2.6-8.5); Neutrophils Absolute Auto 4.6 K/mm3 (1.3-6.7); Neutrophils Percent Auto 58.6 % (45.5-73.1); Platelet Count Result 376 k/mm3 (150-375); Red Cell Distribution Width 11.9 % (11.5-14.5); White Blood Count 7.8 K/mm3 (4.5-10.0)
--- OUTSIDE RECORDS SUMMARY | 2024-06-01 16:03 | XMS_ITS | Encounter Summary ---
Author Organization [facility] Address [address] [place] [address] Care Team Providers Care Magnetic Tape Composer Operator Name Role Phone Stanley Causey MD Primary Care Provider [phone] Encounter Details Date Type Department Care Team (Latest Contact Info) Description 04/01/2004 Outpatient Historical HIS PATIENT IN A BED Miley Wilson MD NO ADDRESS ON FILE THREAT LABOR NEC-ANTEPAR (Primary Dx) Social History Tobacco Use Types Packs/Day Years Used Date Smoking Tobacco: Never Assessed Comments Unknown Sex and Gender Information Value Date Recorded Sex Assigned at Not on file Legal Sex Female 3:05 AM SAND MIXER Gender Identity Not on file Sexual Orientation Not on file documented as of this encounter Plan of Treatment Upcoming Encounters Date Type Department Care Team (Late st Contact Info) Description 06/08/2024 4:30 PM SAND MIXER Telephone Check Up [facility] Oncology and Hematology - [place] [address] [facility] [address] [place] [address] Rustam Oswald MD [address] [facility] [address] [place] [address] documented as of this encounter Visit Diagnoses Diagnosis Other threatened labor, antepartum- Primary documented in this encounter Care Teams Magnetic Tape Composer Operator Relationship Specialty Start Date End Date Stanley Causey MD [address] [address], [facility] [address] [place] [address] PCP - General 02/28/03 documented as of this encounter
--- OUTSIDE RECORDS SUMMARY | 2024-06-01 16:03 | XMS_ITS | Encounter Summary ---
Author Organization [facility] Address [address] [place] [address] Care Team Providers Care Reinforcement Maker Name Role Phone Stanley Causey MD Primary Care Provider [phone] Encounter Details Date Type Department Care Team (Latest Contact Info) Description 08/18/2004 Inpatient Historical HIS PATIENT IN A BED Ashley Bronson MD [address] [facility] [address] [place] [address] BIPOLAR - MOST RECENTLY W DEPRESSION NOS (CMS/HCC) (Primary Dx) Social History Tobacco Use Types Packs/Day Years Used Date Smoking Tobacco: Never Assessed Comments Unknown Sex and Gender Information Value Date Recorded Sex Assigned at Not on file Legal Sex Female 3:05 AM MECHANICAL MAINTENANCE Gender Identity Not on file Sexual Orientation Not on file documented as of this encounter Plan of Treatment Upcoming Encounters Date Type Department Care Team (Late st Contact Info) Description 06/08/2024 4:30 PM MECHANICAL MAINTENANCE Telephone Check Up [facility] Oncology and Hematology - [place] [address] [facility] [address] [place] [address] Rustam Oswald MD [address] [facility] [address] [place] [address] documented as of this encounter Procedures Procedure Name Priority Date/Time Associated Diagnosis Comments CBC WITH DIFFERENTIAL Routine 08/18/2004 3:08 AM CDT CBC WITH DIFFERENTIAL Routine 08/18/2004 3:08 AM CDT TSH Routine 08/18/2004 3:08 AM CDT COMPREHENSIVE METABOLIC PANEL Routine 08/18/2004 3:08 AM CDT HCG QUALITATIVE, URINE Routine 12:48 AM CDT DRUG SCREEN, URINE Routine 08/18/2004 12 :47 AM CDT documented in this encounter Results * CBC WITH DIFFERENTIAL (08/18/2004 3:08 AM CDT) NEUTROPHILS 60 45 - 70 % INTERFAC E SYSTEM LYMPHOCYTES 31 16 - 45 % INTERFAC E SYSTEM MONOCYTES 7 3 - 13 % INTERFACE SYSTEM EOSINOPHILS 2 0 - 7 % INTERFAC E SYSTEM BASOPHILS 0 0 - 2 % INTERFACE SYSTEM NEUTROPHIL ABSOLUTE 4.17 1.90 - 7.00 K/uL INTERFACE SYSTEM LYMPHOCYTE ABSOLUTE 2.14 0.70 - 4.50 K/uL INTERFACE SYSTEM MONOCYTE ABSOLUTE 0.52 0.10 - 1.30 K/uL INTERFACE SYSTEM EOSINOPHIL ABSOLUTE 0.16 0.00 - 0.70 K/uL INTERFACE SYSTEM BASOPHILS ABSOLUTE 0.02 0.00 - 0.20 K/uL INTERFACE SYSTEM 08/18/2004 3:08 AM CDT us Ashley Bronson MD HEMATOLOGY ORDERABLES Final Res ult INTERFACE SYSTEM Refer to clinic/hospital department * (ABNORMAL) CBC WITH DIFFERENTIAL (08/18/2004 3:08 AM CDT) WBC 7.0 4.0 - 9.8 K/uL INTERFACE SYSTEM RBC 4.71 3.90 - 4.90 M/uL INTERFACE SYSTEM HEMOGLOBIN 12.3 11.8 - 14.8 g/dL INTERFACE SYSTEM HEMATOCRIT 39.5 35.5 - 44.0 % INTERFACE SYSTEM MCV 83.9 82.0 - 99.0 fL INTERFACE SYSTEM MCH 26.1(L) 27.2 - 32.6 pg INTERFACE SYSTEM MCHC 31.1(L) 31.5 - 35.5 % INTERFACE SYSTEM RDW 13.9 11.5 - 14.5 % INTERFACE SYSTEM RDW-STDEV 43.2 37.1 - 48.7 fL INTERFACE SYSTEM PLATELETS 351(H) 140 - 350 K/uL INTERFACE SYSTEM MPV 10.8 9.3 - 12.4 fL INTERFACE SYSTEM 08/18/2004 3:08 AM CDT Ashley Bronson MD HEMATOLOGY ORDERABLES Final Res ult Performing Organization Address [facility] de Phone Number INTERFACE SYSTEM Refer to clinic/hospital department * (ABNORMAL) COMPREHENSIVE METABOLIC PANEL (08/18/2004 3:08 AM CDT) GLUCOSE 90 65 - 109 mg/dL INTERFACE SYSTEM CREATININE 0.6 0.4 - 1.2 mg/dL INTERFACE SYSTEM CALCIUM 9.2 8.6 - 10.2 mg/dL INTERFACE SYSTEM AST 15 12 - 32 U/L INTERFACE SYSTEM ALKALINE PHOSPHATASE 68 35 - 104 U/L INTERFACE SYSTEM BUN 26(H) 6 - 20 mg/dL INTERFACE SYSTEM BILIRUBIN TOTAL 0.2 0.2 - 1.0 mg/dL INTERFACE SYSTEM ALBUMIN 4.4 3.4 - 4.8 g/dL INTERFACE SYSTEM TOTAL PROTEIN 7.6 6.3 - 8.6 g/dL INTERFACE SYSTEM ALT 13 0 - 31 U/L INTERFACE SYSTEM SODIUM 139 135 - 145 mmol/L INTERFACE SYSTEM POTASSIUM 4.2 3.5 - 4.9 mmol/L INTERFACE SYSTEM CHLORIDE 105 96 - 108 mmol/L INTERFACE SYSTEM CO2 23 22 - 30 mmol/L INTERFACE SYSTEM 08/18/2004 3:08 AM CDT Ashley Bronson MD CHEMISTRY ORDERABLES Final Resu lt Performing Organization Address City/[facility] Co de Phone Number INTERFACE SYSTEM Refer to clinic/hospital department * (ABNORMAL) TSH (08/18/2004 3:08 AM CDT) TSH 39.89(H) 0.27 - 4.20 uU/mL INTERFACE SYSTEM 08/18/2004 3:08 AM CDT Ashley Bronson MD CHEMISTRY ORDERABLES Final Resu lt Performing Organization Address City/[facility] Co de Phone Number INTERFACE SYSTEM Refer to clinic/hospital department * HCG QUALITATIVE, URINE (08/18/2004 12:48 AM CDT) HCG QUAL URINE Negative Negative INTER FACE SYSTEM SPECIFIC GRAVITY UA 1.025 1.001 - 1.035 INTERFACE SYSTEM 08/18/2004 12:4 8 AM CDT Brunilda Olvera MD URINE ORDERABLES Final Resul t Performing Organization Address [facility] de Phone Number INTERFACE SYSTEM Refer to clinic/hospital department * DRUG SCREEN, URINE (08/18/2004 12:47 AM CDT) COMMENT, TOXICOLOGY See Separate Comment INTERFACE SYSTEM Comment: Urine sample was not handled as a legal specimen and was received without a chain of custody. The result should be used only for medical purposes. False positive and erroneous results can occur due to cross-reacting sub stances and other factors. Depending on the clinical context, confirmation of all presumptive positive results by a more specific alternate method is recommended. A negative result indicates the analyte, if present, is below the screening threshold. Drug Ref. Range Screening Threshold Amphetamines Negative 1000 ng/mL Barbituates Negative 200 ng/mL Benzodiazepines Negative 300 ng/mL Cannabinoids Negative 50 ng/mL Cocaine Metabolites Negative 300 ng/mL Opiates Negative 300 ng/mL Phencycldine Negative 25 ng/mL The cut-off threshold, known cross-reactive compounds, drugs,and specificity information for each of the urine drugs of abuse are available on the [facility] Intranet at: http://[facility] health centerTrendytaet/unity/sjmmclab.nsf Select: Drugs of Abuse ? [facility] To inquire about any potential cross-reactivity of a specific drug not listed at this site, please contact the Chemistry Lab at . AMPHETAMINE QUAL, URINE Negative INTERFACE SYSTEM BARBITURATE QUAL, URINE Negative INTERFACE SYSTEM BENZODIAZEPINE QUAL, URINE Negative INTERFACE SYSTEM CANNABINOIDS QUAL, URINE Negative INTERFACE SYSTEM COCAINE QUAL URINE Negative I NTERFACE SYSTEM OPIATE QUAL, URINE Negative I NTERFACE SYSTEM PCP QUAL, URINE Negative INTE RFACE SYSTEM 08/18/2004 12:4 7 AM CDT us Brunilda Olvera MD URINE ORDERABLES Final Resul t INTERFACE SYSTEM Refer to clinic/hospital department documented in this encounter Visit Diagnoses Diagnosis Bipolar I disorder, most recent episode (or current) depressed, unspecified (CMS/[facility], [facility])- Primary Bipolar I disorder, most recent episode (or current) depressed, unspecified documented in this encounter Care Teams Reinforcement Maker Relationship Specialty Start Date End Date Stanley Causey MD [address] [place] [address] PCP - General 02/28/03 documented as of this encounter
--- OUTSIDE RECORDS SUMMARY | 2024-06-01 16:03 | XMS_ITS | Encounter Summary ---
Author Organization [facility] Address [address] [place] [address] Care Team Providers Care Beam Warper Name Role Phone Stanley Causey MD Primary Care Provider [phone] Encounter Details Date Type Department Care Team (Latest Contact Info) Description 01/20/2005 Inpatient Historical HIS PATIENT IN A BED Najma Gates MD [address] [facility] [address] [place] [address] BIPOLAR - MOST RECENTLY MIXED W PSYCHOSIS (CMS/HCC) (Primary Dx) Social History Tobacco Use Types Packs/Day Years Used Date Smoking Tobacco: Never Assessed Comments Unknown Sex and Gender Information Value Date Recorded Sex Assigned at Not on file Legal Sex Female 3:05 AM ADMISSIONS DIRECTOR Gender Identity Not on file Sexual Orientation Not on file documented as of this encounter Plan of Treatment Upcoming Encounters Date Type Department Care Team (Late st Contact Info) Description 06/08/2024 4:30 PM ADMISSIONS DIRECTOR Telephone Check Up [facility] Oncology and Hematology - [place] [address] [facility] [facility] [address] [place] [address] Rustam Oswald MD [address] [facility] [address] [place] [address] documented as of this encounter Procedures Procedure Name Priority Date/Time Associated Diagnosis Comments VALPROIC ACID LEVEL, TOTAL Routine 01/23/2005 8:30 AM CDT HEPATIC FUNCTION PANEL Routine 5 8:30 AM CDT T3 FREE Routine 01/21/2005 6:00 AM CDT T4 FREE Routine 01/21/2005 6:00 AM CDT DRUG SCREEN, URINE Routine 01/20/2005 3: 28 AM CDT URINALYSIS W/REFLEX MICROSCOPIC Routine 01/20/2005 3:28 AM CDT HCG QUALITATIVE, URINE Routine 5 3:28 AM CDT CBC WITH DIFFERENTIAL Routine 01/20/2005 3:00 AM CDT CBC WITH DIFFERENTIAL Routine 01/20/2005 3:00 AM CDT TSH Routine 01/20/2005 3:00 AM CDT COMPREHENSIVE METABOLIC PANEL Routine 01/20/2005 3:00 AM CDT documented in this encounter Results * VALPROIC ACID LEVEL, TOTAL (01/23/2005 8:30 AM CDT) VALPROIC ACID TOTAL 64 50 - 100 ug/mL INTERFACE SYSTEM Comment: Valproic Acid Antiepileptic Control = 50 - 100 ug/mL Valproic Acid Manic Episode Control = 50 - 125 ug/mL Valproic Acid Toxic Level = >200 ug/mL 01/23/2005 8:30 AM CDT us Najma Gates MD CHEMISTRY ORDERABLES Final R esult INTERFACE SYSTEM Refer to clinic/hospital department * (ABNORMAL) HEPATIC FUNCTION PANEL (01/23/2005 8:30 AM CDT) AST 12 12 - 32 U/L INTERFACE SYSTEM ALKALINE PHOSPHATASE 52 35 - 104 U/L INTERFACE SYSTEM BILIRUBIN TOTAL 0.1(L) 0.2 - 1.0 mg/dL INTERFACE SYSTEM ALBUMIN 4.1 3.4 - 4.8 g/dL INTERFACE SYSTEM TOTAL PROTEIN 7.0 6.3 - 8.6 g/dL INTERFACE SYSTEM ALT 12 0 - 31 U/L INTERFACE SYSTEM BILIRUBIN DIRECT <0.1 0.0 - 0.3 mg/dL INTERFACE SYSTEM 01/23/2005 8:30 AM CDT Najma Gates MD CHEMISTRY ORDERABLES Final R esult Performing Organization Address City/[facility] Co de Phone Number INTERFACE SYSTEM Refer to clinic/hospital department * T4 FREE (01/21/2005 6:00 AM CDT) T4 FREE 0.9 0.9 - 1.7 ng/dL INTERFACE SYSTEM 01/21/2005 6:00 AM CDT Uriel De Los Santos MD CHEMISTRY ORDERABLES Final Resul t Performing Organization Address City/[facility] Co de Phone Number INTERFACE SYSTEM Refer to clinic/hospital department * T3 FREE (01/21/2005 6:00 AM CDT) T3 FREE 3.4 2.5 - 4.4 pg/mL INTERFACE SYSTEM 01/21/2005 6:00 AM CDT Uriel De Los Santos MD CHEMISTRY ORDERABLES Final Resul t Performing Organization Address [facility] Co de Phone Number INTERFACE SYSTEM Refer to clinic/hospital department * (ABNORMAL) URINALYSIS (01/20/2005 3:28 AM CDT) COLOR UA Yellow INTERFACE SYSTEM CLARITY UA Slt. Cloudy(A) Clear INTERFACE SYSTEM SPECIFIC GRAVITY UA 1.025 1.001 - 1.035 INTERFACE SYSTEM PH UA 6.0 5.0 - 8.0 INTERFACE SYSTEM LEUKOCYTE ESTERASE UA Trace(A) Negative INTERFACE SYSTEM NITRITE UA Negative Negative INTERFACE SYSTEM PROTEIN UA Trace(A) Negative INTERFACE SYSTEM GLUCOSE UA Negative Negative INTERFACE SYSTEM KETONES UA Negative Negative INTERFACE SYSTEM UROBILINOGEN UA <1 <1 mg/dL INTE RFACE SYSTEM BILIRUBIN UA Negative Negative INTERFA CE SYSTEM BLOOD UA Negative Negative INTERFACE SYSTEM WBC UA 6(H) 0 - 5 /HPF INTERFACE SYSTEM RBC UA 1 0 - 4 /HPF INTERFACE SYSTEM BACTERIA UA 1+(A) None Seen /HPF INTERFACE SYSTEM EPITHELIAL CELLS, URINE Many /HPF INTERFACE SYSTEM 01/20/2005 3:28 AM CDT [facility] MD URINE ORDERABLES Final Resul t INTERFACE SYSTEM Refer to clinic/hospital department * DRUG SCREEN, URINE (01/20/2005 3:28 AM CDT) COMMENT, TOXICOLOGY See Separate Comment [...] drugs of abuse are available on the [facility] Intranet at: [email or web address]: Drugs of Abuse ? [facility] To inquire about any potential cross-reactivity [...] PCP QUAL, URINE Negative INTE RFACE SYSTEM 01/20/2005 3:28 AM CDT Najma Gates MD URINE ORDERABLES Final Resul t Performing Organization Address City/[facility] Phone Number INTERFACE SYSTEM Refer to clinic/hospital department * HCG QUALITATIVE, URINE (01/20/2005 3:28 AM CDT) HCG QUAL URINE Negative Negative INTER FACE SYSTEM SPECIFIC GRAVITY UA 1.025 1.001 - 1.035 INTERFACE SYSTEM 01/20/2005 3:28 AM CDT Najma Gates MD URINE ORDERABLES Final Resul t Performing Organization Address [facility] Phone Number INTERFACE SYSTEM Refer to clinic/hospital department * CBC WITH DIFFERENTIAL (01/20/2005 3:00 AM CDT) NEUTROPHILS 55 45 - 70 % INTERFAC E SYSTEM LYMPHOCYTES 35 16 - 45 % INTERFAC E SYSTEM MONOCYTES 7 3 - 13 % INTERFACE SYSTEM EOSINOPHILS 2 0 - 7 % INTERFAC E SYSTEM BASOPHILS 0 0 - 2 % INTERFACE SYSTEM NEUTROPHIL ABSOLUTE 3.58 1.90 - 7.00 K/uL INTERFACE SYSTEM LYMPHOCYTE ABSOLUTE 2.30 0.70 - 4.50 K/uL INTERFACE SYSTEM MONOCYTE ABSOLUTE 0.45 0.10 - 1.30 K/uL INTERFACE SYSTEM EOSINOPHIL ABSOLUTE 0.15 0.00 - 0.70 K/uL INTERFACE SYSTEM BASOPHILS ABSOLUTE 0.02 0.00 - 0.20 K/uL INTERFACE SYSTEM 01/20/2005 3:00 AM CDT Najma Gates MD HEMATOLOGY ORDERABLES Final Result Performing Organization Address [facility] de Phone Number INTERFACE SYSTEM Refer to clinic/hospital department * CBC WITH DIFFERENTIAL (01/20/2005 3:00 AM CDT) WBC 6.5 4.0 - 9.8 K/uL INTERFACE SYSTEM RBC 4.41 3.90 - 4.90 M/uL INTERFACE SYSTEM HEMOGLOBIN 12.4 11.8 - 14.8 g/dL INTERFACE SYSTEM HEMATOCRIT 37.0 35.5 - 44.0 % INTERFACE SYSTEM MCV 83.9 82.0 - 99.0 fL INTERFACE SYSTEM MCH 28.1 27.2 - 32.6 pg INTERFACE SYSTEM MCHC 33.5 31.5 - 35.5 % INTERFACE SYSTEM RDW 12.4 11.5 - 14.5 % INTERFACE SYSTEM RDW-STDEV 38.2 37.1 - 48.7 fL INTERFACE SYSTEM PLATELETS 308 140 - 350 K/uL INTERFACE SYSTEM MPV 10.9 9.3 - 12.4 fL INTERFACE SYSTEM 01/20/2005 3:00 AM CDT us Najma Gates MD HEMATOLOGY ORDERABLES Final Result INTERFACE SYSTEM Refer to clinic/hospital department * (ABNORMAL) TSH (01/20/2005 3:00 AM CDT) TSH 6.71(H) 0.27 - 4.20 uU/mL INTERFACE SYSTEM 01/20/2005 3:00 AM CDT Najma Gates MD CHEMISTRY ORDERABLES Final R esult INTERFACE SYSTEM Refer to clinic/hospital department * COMPREHENSIVE METABOLIC PANEL (01/20/2005 3:00 AM CDT) GLUCOSE 101 65 - 109 mg/dL INTERFACE SYSTEM CREATININE 0.6 0.4 - 1.2 mg/dL INTERFACE SYSTEM CALCIUM 9.3 8.6 - 10.2 mg/dL INTERFACE SYSTEM AST 15 12 - 32 U/L INTERFACE SYSTEM ALKALINE PHOSPHATASE 55 35 - 104 U/L INTERFACE SYSTEM BUN 14 6 - 20 mg/dL INTERFACE SYSTEM BILIRUBIN TOTAL 0.3 0.2 - 1.0 mg/dL INTERFACE SYSTEM ALBUMIN 4.2 3.4 - 4.8 g/dL INTERFACE SYSTEM TOTAL PROTEIN 7.2 6.3 - 8.6 g/dL INTERFACE SYSTEM ALT 11 0 - 31 U/L INTERFACE SYSTEM SODIUM 139 135 - 145 mmol/L INTERFACE SYSTEM POTASSIUM 3.5 3.5 - 4.9 mmol/L INTERFACE SYSTEM CHLORIDE 106 96 - 108 mmol/L INTERFACE SYSTEM CO2 25 22 - 30 mmol/L INTERFACE SYSTEM 01/20/2005 3:00 AM CDT Najma Gates MD CHEMISTRY ORDERABLES Final R esult INTERFACE SYSTEM Refer to clinic/hospital department documented in this encounter Visit Diagnoses Diagnosis Bipolar I disorder, most recent episode (or current) mixed, severe, specified as with psychotic behavior (CMS/[facility])- Primary Bipolar I disorder, most recent episode (or current) mixed, severe, specified as with psychotic behavior documented in this encounter Care Teams Beam Warper Relationship Specialty Start Date End Date Stanley Causey MD [address] [place] [id number] PCP - General 02/28/03 documented as of this encounter
--- OUTSIDE RECORDS SUMMARY | 2024-06-01 16:03 | XMS_ITS | Data Portability ---
Author Organization [facility] Address [address] [place] [address] Care Team Providers Care Batt Packer Name Role Phone JAGRUTI ROSAS Primary Care Provider Assessment Encounter Date Assessment Date Assessment LastModified by Organization Details LastModified Time 10/13/2022 10/13/2022 Annual gynecological exam performed. Patient will come back in a year unless there are new symptoms. [email or web address] Not available 10/13/2022 14:31:55 Plan of Treatment Reminders Order Date Submit Date Provider Last Modified By Organization Details Last Modified Time Details Appointments None recorded . Lab hbcab (hepatit is B core Ab) igm, serum 2022 023 [facility] (Lab), [address], [place], [address], 3 21:12:34 HBsAg (hepatit is B surface Ag), serum 2022 023 [facility] (Lab), [address], [place], [address], 3 21:12:28 hepatiti s C virus Ab, serum 2022 023 [facility] (Lab), [address], [place], [address], 3 21:12:28 unlisted lab - HIV 1/2 antigen/ antibody , reflex confirma tion 2022 023 [facility] (Lab), [address], [place], [address], 3 21:12:28 RPR (rapid plasma reagin), serum 2022 023 [facility] (Lab), [address], [place], [address], 3 21:12:33 17-hydro xyproges terone, QN, serum 2022 023 [facility] (Lab), [address], [place], [address], 3 21:12:34 dhea-sul fate, serum 2022 023 [facility] (Lab), [address], [place], [address], 3 21:12:29 estradio l, serum 2022 023 [facility] (Lab), [address], [place], [address], 3 21:12:30 FSH (follicl e-stimul ating hormone) , serum 2022 023 [facility] (Lab), [address], [place], [address], 3 21:12:32 HbA1c (hemoglo bin A1c), blood 2022 023 [facility] (Lab), [address], [place], [address], 3 21:12:33 lh (luteini zing hormone) , serum 2022 023 [facility] (Lab), [address], [place], [address], 3 21:12:32 progeste vahid, serum 2022 023 [facility] (Lab), [address], [place], [address], 3 21:12:30 prolacti n, serum 2022 023 [facility] (Lab), [address], [place], [address], 3 21:12:31 shbg (sex hormone- binding globulin ), serum 2022 023 [facility] (Lab), [address], [place], [address], 3 21:12:31 TSH, serum or plasma 2022 023 [facility] (Lab), [address], [place], [address], 3 21:12:30 testoste vahid free/freeman tosteron e total, ratio, serum 2022 023 [facility] (Lab), [address], [place], [address], 3 21:12:35 CBC w/ auto diff 2022 023 [facility] (Lab), [address], [place], [address], 3 21:12:33 Referral None recorded . Procedures None recorded . Surgeries None recorded . Imaging US, pelvis, complete 2022 023 [email or web address] Jolynn, [address], [address], [place], [address], 3 12:42:02 US, pelvis 2022 023 [email or web address] [facility], [address], [address], [place], [address], 3 22:22:41 US, transvag inal 2022 023 [email or web address] [place], [address], [place], [address], 3 22:22:41 US, pelvis, complete 2022 023 [email or web address] [place], [address], [place], [address], 3 13:09:35 Medication Orders Prometri um 200 mg capsule 2022 023 [facility] [address] [place], [address], 12:51:16 Patient TargetsNo targets recorded. Patient InstructionsNo instructions recorded. Reason for Referral None Reported. Results Created Date Observation Date Name Description Value Unit Range Abnormal Flag Note LastModifiedBy Organization Detail LastModifiedTime 10/14/19 23 10/13/2022 IMAGE GUIDE D PAP AND HPV REGAR DLESS image guided Pap, HPV regardless of Pap result SEE RESULT S BELOW CASE REPOR T: Cytol ogy Gynec ologi belkys Repor t Case: [id number] Autho phyllis natanael Provi karoline: Blessing Velazco NP Colle cted: 10/13 1456 Order ing Locat ion: [place] [facility] Recei ramírez: 10/14 1114 First Scree n: Monika Frederick , CT Speci men: Scree azalea Pap - Image d, Cervi x STATE MENT OF ADEQU ACY: Satis facto ry for evalu ation Trans forma tion zone compo nent prese nt FINAL DIAGN OSIS: Negat ruel for Intra epith elial Lesio n or Lorri guevara (NIL) . Elect susana wallace mehdi d by Monika Frederick , CT on 2022 at 11:15 AM ----- ----- ----- ----- ----- ----- ----- ----- ----- ----- ----- ----- ----- ----- ----- ----- ----- ---- HPV RESUL TS: HPV mRNA E6/E7 : No HPV mRNA Detec juan NOTE: This high risk HPV mRNA assay detec ts fourt een high- risk HPV types (16, 18, 31, 33, 35, 39, 45, 51, 52, 56, 58, 59, 66, 68) witho ut diffe renti ation . COMME NT: This speci men was revie wed by a Cytot echno logis t and/o r Patho logis t (as indic ated in this repor t) after evalu ation using the Thinp rep Imagi ng Syste m. CLINI BELKYS INFOR MATIO N: Menst rual Statu s: LMP (if appli cable ): Clini belkys Histo ry/Pr eviou s Pap: Type of Neopl josephine (if appli cable ): Signi fican t Clini belkys Findi ngs: Other Histo ry: Hormo lm (if appli cable ): PAP EDUCA AUBREE L NOTE: The Pap Test is a scree azalea test with an inher ent false negat ruel rate. Liqui d-bas ed sampl ing may decre ase, but will not elimi say, false negat ruel resul ts. A negat ruel resul t does not precl ude the prese nce and/o r devel opmen t of disea se, since the prese nce of abnor mal cells in the sampl e depen ds on the locat ion of the lesio n and sampl ing techn ique. Argenis nued regul ar scree azalea is the best metho d of cance r preve ntion . If repor juan cytol ogic findi ng do not corre late with physi belkys and/o r histo rical findi ngs, furth er inves tigat ion is recom tay d, as clini colten roblero nted. Not Available [facility] (Lab) [address], [place], [address], 10/16/2022 12:18:36 10/14/19 23 10/13/2022 TRICH OMONA S VAGIN ADRIAN (RRNA ) trichomonas vaginalis ribosomal RNA (rrna) Negati ve negati ve Not Available [facility] (Lab) [address], [place], [address], 10/16/2022 12:18:36 10/14/19 23 10/13/2022 CT/GC ([place]) , THINP REP VIAL chlamydia trachomatis, PCR Negati ve negati ve Not Available [facility] (Lab) [address], [place], [address], 10/16/2022 12:18:37 10/14/19 23 10/13/2022 CT/GC ([place]) , THINP REP VIAL neisseria gonorrhoeae, PCR Negati ve negati ve Not Available [facility] (Lab) [address], [place], [address], 10/16/2022 12:18:37 10/14/19 23 10/13/2022 HEPAT ITIS B SURFA CE ANTIG EN hepatitis B surface antigen Non-re active non-re active This assay was perfo rmed using [employer] ratio n reage nts and test kits. Value s obtai errol with other assay metho ds or kits canno t be used inter jeffery eably . Not Available [facility] (Lab) [address], [place], [address], 10/20/2022 21:12:27 10/14/19 23 10/13/2022 HIV 1/2 ANTIG EN/AN TIBOD Y, REFLE X CONFI RMATI ON HIV antigen/anti body Nonrea ctive nonrea ctive HIV-1 antig en and HIV-1 /HIV- 2 antib odies were not detec juan. No labor atory evide nce of HIV infec tion. Not Available [facility] (Lab) [address], [place], [address], 10/20/2022 21:12:28 10/14/19 23 10/13/2022 HEPAT ITIS C ANTIB ZELDA SCREE N, REFLE X TO CONFI RMATI ON hepatitis C antibody Non-re active non-re active Antib odies to HCV Not Detec juan, does not exclu de the possi bilit y of expos ure to HCV. Not Available [facility] (Lab) [address], [place], [address], 10/20/2022 21:12:28 10/14/19 23 10/13/2022 DHEA SULFA TE DHEA-sulfate 82 ug/dL Femal e Range s Age(y ) Range (ug/d L) 10-15 34-28 0 15-20 65-36 8 20-25 148-4 07 25-35 99-34 0 35-45 61-33 7 45-55 35-25 6 55-65 19-20 5 65-75 9-246 > 75 12-15 4 Not Available [facility] (Lab) [address], [place], [address], 10/20/2022 21:12:29 10/14/19 23 10/13/2022 T4 FREE T4, free 0.99 NG/dL 0.60-1 .40 Not Available [facility] (Lab) [address] [place], [address], 10/20/2022 21:12:29 10/14/19 23 10/13/2022 TSH, REFLE X FREE T4 TSH 5.86 uIU/m L 0.30-5 .33 high Not Available [facility] (Lab) [address], [place], [address], 10/20/2022 21:12:30 10/14/19 23 10/13/2022 ESTRA DIOL estradiol 154.0 pg/mL This assay was perfo rmed using [employer] ratio n reage nts and test kits. Value s obtai errol with other assay metho ds or kits canno t be used inter jeffery eably . Femal e Estra diol Range s: Folli cular phase 12.4- 233 pg/mL Ovula tion phase 41.0- 398 pg/mL Lutea l phase 22.3- 341 pg/mL Postm enopa usal< 5-138 pg/mL Healt hy Pregn ant Women 1st Trime ster1 54-32 43 pg/mL 2nd Trime ster1 561-2 1280 pg/mL 3rd Trime ster8 525-> 90000 pg/mL Not Available [facility] (Lab) [address] [place], [address], 10/20/2022 21:12:30 10/14/19 23 10/13/2022 PROGE STERO NE progesterone 0.29 NG/mL This assay was perfo rmed using [employer] ratio n reage nts and test kits. Value s obtai errol with other assay metho ds or kits canno t be used inter [facility] . Femal e Proge stero ne Range s: Folli cular phase 0.06- 0.89 ng/mL Ovula tion phase 0.12- 12.00 ng/mL Lutea l phase 1.83- 23.90 ng/mL Postm enopa usal< 0.05- 0.13 ng/mL Healt hy Pregn ant Women 1st Trime ster1 1.0-4 4.30 2nd Trime ster2 5.40- 83.30 3rd Trime ster5 8.70- 214.0 0 Not Available [facility] (Lab) [address] [place], [address], 10/20/2022 21:12:30 10/14/19 23 10/13/2022 PROLA CTIN prolactin, total 13.20 NG/mL 4.79-2 3.30 This assay was perfo rmed using [employer] ratio n reage nts and test kits. Value s obtai errol with other assay metho ds or kits canno t be used inter [facility] . Not Available [facility] (Lab) [address] [place], [address], 10/20/2022 21:12:31 10/14/19 23 10/13/2022 HUMAN SEX HORMO NE NARDA NG GLOBU GAVIN sex hormone binding globulin 31.7 nmole s/L 18.2-1 35.5 Not Available [facility] (Lab) [address], [place], [address], 10/20/2022 21:12:31 10/14/19 23 10/13/2022 LH (LUTE NIZIN G HORMO NE) LH 12.1 mIU/m L This assay was perfo rmed using [employer] reage nts and test kits. Value s obtai errol with other assay metho ds or kits canno t be used inter jeffery eably . Femal es Mid-F ollic ular: 2.4-1 2.6 mIU/m L Mid-C ycle: 14.0- 95.6 mIU/m L Mid-L uteal : 1.0-1 1.4 mIU/m L Postm enopa use: 7.7-5 8.5 mIU/m L Not Available [facility] (Lab) [address], [place], [address], 10/20/2022 21:12:32 10/14/19 23 10/13/2022 FSH FSH 4.6 mIU/m L This assay was perfo rmed using [employer] ratio n reage nts and test kits. Value s obtai errol with other assay metho ds or kits canno t be used inter jeffery eably . Femal es Folli cular : 3.5-1 2.5 mIU/m L Ovula tion: 4.7-2 1.5 mIU/m L Lutea l: 1.7-7 .7 mIU/m L Postm enopa use: 25.8- 134.8 mIU/m L Not Available [facility] (Lab) [address], [place], [address], 10/20/2022 21:12:32 10/14/19 23 10/13/2022 CBC W/DIF F WBC 7.8 10'3/ uL 3.6-10 .2 Not Available [facility] (Lab) [address], [place], [address], 10/20/2022 21:12:32 10/14/19 23 10/13/2022 CBC W/DIF F RBC 4.20 10'6/ uL (based on docume nted legal sex) 4.10-5 .30 Not Available [facility] (Lab) [address], [place], [address], 10/20/2022 21:12:32 10/14/19 23 10/13/2022 CBC W/DIF F HGB 12.1 g/dL (based on docume nted legal sex) 11.9-1 5.8 Not Available [facility] (Lab) [address], [place], [address], 10/20/2022 21:12:32 10/14/19 23 10/13/2022 CBC W/DIF F HCT 38.5 % (based on docume nted legal sex) 37.4-4 8.3 Not Available [facility] (Lab) [address], [place], [address], 10/20/2022 21:12:32 10/14/19 23 10/13/2022 CBC W/DIF F MCV 91.7 fL 82.0-9 9.0 Not Available [facility] (Lab) [address], [place], [address], 10/20/2022 21:12:32 10/14/19 23 10/13/2022 CBC W/DIF F MCH 28.8 pg 27.0-3 3.0 Not Available [facility] (Lab) [address], [place], [address], 10/20/2022 21:12:32 10/14/19 23 10/13/2022 CBC W/DIF F MCHC 31.4 g/dL 32.0-3 6.0 low Not Available [facility] (Lab) [address], [place], [address], 10/20/2022 21:12:32 10/14/19 23 10/13/2022 CBC W/DIF F RDW 12.9 % 11.0-1 5.0 Not Available [facility] (Lab) [address], [place], [address], 10/20/2022 21:12:32 10/14/19 23 10/13/2022 CBC W/DIF F plt 401 10'3/ uL 150-45 0 Not Available [facility] (Lab) [address], [place], [address], 10/20/2022 21:12:32 10/14/19 23 10/13/2022 CBC W/DIF F MPV 10.2 fL 9.8-12 .7 Not Available [facility] (Lab) [address], [place], [address], 10/20/2022 21:12:32 10/14/19 23 10/13/2022 CBC W/DIF F NRBC's 0.0 % 0 Not Available [facility] (Lab) [address], [place], [address], 10/20/2022 21:12:32 10/14/19 23 10/13/2022 CBC W/DIF F absolute NRBCs 0.0 10'3/ uL 0 Not Available [facility] (Lab) [address], [place], [address], 10/20/2022 21:12:32 10/14/19 23 10/13/2022 CBC W/DIF F neutrophils 66.8 % 37.0-7 2.0 Not Available [facility] (Lab) [address], [place], [address], 10/20/2022 21:12:32 10/14/19 23 10/13/2022 CBC W/DIF F lymphocytes 23.7 % 16.0-4 8.0 Not Available [facility] (Lab) [address], [place], [address], 10/20/2022 21:12:32 10/14/19 23 10/13/2022 CBC W/DIF F monocytes 6.9 % 4.0-14 .0 Not Available [facility] (Lab) [address], [place], [address], 10/20/2022 21:12:32 10/14/19 23 10/13/2022 CBC W/DIF F eosinophils 1.9 % 0.0-9. 0 Not Available [facility] (Lab) [address], [place], [address], 10/20/2022 21:12:32 10/14/19 23 10/13/2022 CBC W/DIF F basophils 0.4 % 0.0-2. 0 Not Available [facility] (Lab) [address], [place], [address], 10/20/2022 21:12:32 10/14/19 23 10/13/2022 CBC W/DIF F immature granulocytes 0.3 % no define d refere nce range Not Available [facility] (Lab) [address], [place], [address], 10/20/2022 21:12:32 10/14/19 23 10/13/2022 CBC W/DIF F absolute neutrophils 5.2 10'3/ uL 1.1-6. 0 Not Available [facility] (Lab) [address], [place], [address], 10/20/2022 21:12:32 10/14/19 23 10/13/2022 CBC W/DIF F absolute lymphocytes 1.9 10'3/ uL 0.7-3. 4 Not Available [facility] (Lab) [address], [place], [address], 10/20/2022 21:12:32 10/14/19 23 10/13/2022 CBC W/DIF F absolute monocytes 0.5 10'3/ uL 0.3-1. 0 Not Available [facility] (Lab) [address], [place], [address], 10/20/2022 21:12:32 10/14/19 23 10/13/2022 CBC W/DIF F absolute eosinophils 0.2 10'3/ uL 0.0-0. 6 Not Available [facility] (Lab) [address], [place], [address], 10/20/2022 21:12:32 10/14/19 23 10/13/2022 CBC W/DIF F absolute basophils 0.0 10'3/ uL 0.0-0. 1 Not Available [facility] (Lab) [address], [place], [address], 10/20/2022 21:12:32 10/14/19 23 10/13/2022 CBC W/DIF F absolute immature granulocytes 0.0 10'3/ uL 0.00-0 .10 2022 1:56 AM: P indic ates parti al resul ts on a panel have been relea sed. Addit ional resul ts will follo w. 2022 1:56 AM: This resul t has been final verif ied. No addit ional or jeffery ed resul ts are expec juan. Not Available [facility] (Lab) [address], [place], [address], 10/20/2022 21:12:32 10/14/19 23 10/13/2022 HEMOG LOBIN A1C hemoglobin A1C 5.6 % 0-5.6 The Ameri can [employer] [facility] [employer] iatio n recom mends that a prima ry goal of thera py sudhir valentino be a HBA1C of < 7% and that physi cians regul d reeva luate the treat ment regim en in patie nts with HBA1C value s consi stent ly > 8%. <5.7% Claire l 5.7 - 6.4% Incre ased risk for diabe freeman >=6.5 % Diagn ostic of diabe freeman <7.0% Goal of thera py >8.0% Actio n sugge sted Not Available [facility] (Lab) [address], [place], [address], 10/20/2022 21:12:33 10/14/19 23 10/13/2022 RPR SCREE N/REF RYAN TITER /FTA RPR screen Nonrea ctive nonrea ctive Not Available [facility] (Lab) [address], [place], [address], 10/20/2022 21:12:33 10/14/19 23 10/13/2022 HEPAT ITIS B CORE, IGM hepatitis B core IgM antibody Negati ve negati ve Not Available [facility] (Lab) [address], [place], [address], 10/20/2022 21:12:34 10/14/19 23 10/13/2022 17-OH PROGE STERO NE 17-hydroxypr ogesterone, lc/MS/MS 62 NG/dL Adult Femal e Refer ence Range s for 17-Hy droxy proge stero ne: Pre-M enopa usal Mid Folli cular : 23-10 2 ng/dL Pre-M enopa usal Surge : 67-34 9 ng/dL Pre-M enopa usal Mid Lutea l: 139-4 31 ng/dL Postm enopa usal Phase : < or = 45 ng/dL Pregn annabelle: First Trime ster: 78-45 7 ng/dL Secon d Trime ster: 90-35 7 ng/dL Third Trime ster: 144-5 78 ng/dL This test was devel oped and its kevyn tical perfo rmanc e vera cteri stics have been deter mined by [facility] [employer] Ernesto santillan . It has not been clear ed or appro ramírez by FDA. This assay has been valid ated pursu ant to the CLIA regul ation s and is used for clini belkys purpo ses. Perfo rming Organ izati on Infor matio n: Site ID: [id number] Name: [facility] liv[facility] santillan , Addre ss: [id number] [place] [address] Direc tor: Lali patel MD,Ph D,ELPIDIO Not Available [facility] (Lab) [address], [place], [address], 10/20/2022 21:12:34 10/14/19 23 10/13/2022 TESTO STERO NE, FREE( DIALY SIS) AND TOTAL (LC/M S/MS) testosterone , total 34 NG/dL 2-45 For addit ional infor donnie malhotra e refer to http: //[facility] [place].que stdia gnost ics.c om/fa q/Tot alTmason lojatequila Verduzco [facility] (This link is being provi ded for infor matio nal/ educa aubree l purpo ses only. ) This test was devel oped and its kevyn tical perfo rmanc e vera cteri stics have been deter mined by [employer]. It has not been clear ed or appro ramírez by the FDA. This assay has been valid ated pursu ant to the CLIA regul ation s and is used for clini belkys purpo ses. Not Available [facility] (Lab) [address], [place], [address], 10/20/2022 21:12:35 10/14/19 23 10/13/2022 TESTO STERO NE, FREE( DIALY SIS) AND TOTAL (LC/M S/MS) testosterone , free 5.8 pg/mL 0.1-6. 4 This test was devel oped and its kevyn tical perfo rmanc e vera cteri stics have been deter mined by [employer] [facility]. It has not been clear ed or appro ramírez by the FDA. This assay has been valid ated pursu ant to the CLIA regul ation s and is used for clini belkys purpo ses. Perfo rming Organ izati on Infor matio n: Site ID: [id number] Name: [facility] [place] Addre ss: [id number] [place] [address] Direc tor: Shayy salazar M.D. Not Available [facility] (Lab) [address], [place], [address], 10/20/2022 21:12:35 10/24/19 23 10/23/2022 US, pelvi s No observ ation record ed. [email or web address] [place] [address], [place], [address], 10/23/2022 13:38:45 10/24/19 23 10/23/2022 US, trans vagin al No observ ation record ed. [email or web address] [place] [address], [place], [address], 10/23/2022 13:38:30 10/24/19 23 10/23/2022 US, pelvi s No observ ation record ed. [email or web address] [email or web address], [place], [address], 11/05/2022 12:53:20 Result Notes None recorded. Procedures Surgical History Date Name Laterality Status Provider Name and Address Organization Details Recorded Time Tubal Ligation completed Racquel Harman [facility] 10/13/2022 14:41:17 Imaging Results Imaging Date Name Status LastModified by Organization Details LastModified Time 10/23/2022 US, pelvis completed [email or web address] [place] [address], [place], [address], 10/23/2022 13:38:45 10/23/2022 [facility]aginal [email or web address] [address], [place], [address], 10/23/2022 13:38:30 10/23/2022 US, pelvis completed [email or web address] [email or web address], [place], [address], 11/05/2022 12:53:20 Procedure Notes None recorded. Medical Equipment None Reported. Allergies No known drug allergies Medications Name Sig Start Date Stop Date Status Note LastModified by Organization Details LastModified Time losartan 50 mg tablet TAKE 1 & 1/2 (ONE & ONE-HALF) TABLETS BY MOUTH ONCE DAILY active Not Available Not Available No t Available cyclobenzap rine 10 mg tablet TAKE 1 TABLET BY MOUTH EVERY 8 HOURS active Not Available Not Available No t Available levothyroxi ne 137 mcg tablet active Not Available Not Available Not Available prednisone 10 mg tablet TAKE 6 TABS BY MOUTH ON DAY 1, THEN 5 TABS DAY 2, 4 TABS DAY 3, 3 TABS DAY 4, 2 TABS DAY 5 AND 1 TAB DAY 6. 10/13 completed Not Available Not Available Not Available atorvastati n 10 mg tablet TAKE 1 TABLET BY MOUTH ONCE DAILY active Not Available Not Available No t Available azithromyci n 250 mg tablet TAKE 2 TABLETS BY MOUTH ON DAY 1, AND THEN TAKE 1 TABLET BY MOUTH ONCE A DAY ON DAY 2 THROUGH DAY 5 10/13 completed Not Available Not Available Not Available sumatriptan 100 mg tablet TAKE ONE TABLET BY MOUTH AT ONSET OF HEADACHE. IF NO RELIEF, MAY REPEAT ONE TABLET AFTER AT LEAST TWO HOURS. MAX OF TWO TABLETS IN 24 HOURS active Not Available Not Available No t Available prednisone 20 mg tablet TAKE 2 TABLETS BY MOUTH DAILY FOR 5 DAYS 10/13 completed Not Available Not Available Not Available Space Chamber USE DIRECTED active Not Available Not Available No t Available tramadol 50 mg tablet TAKE 1 TABLET BY MOUTH EVERY 8 HOURS NEEDED FOR PAIN active Not Available Not Available No t Available trazodone 100 mg tablet MAY TAKE 1 OR 1 & 1/2 TABS BY MOUTH AT BEDTIME NEEDED TO HELP WITH SLEEP. active Not Available Not Available No t Available benzonatate 100 mg capsule TAKE 1 CAPSULE BY MOUTH EVERY 8 HOURS NEEDED 10/13 completed Not Available Not Available Not Available levothyroxi ne 125 mcg tablet TAKE 1 TABLET BY MOUTH ONCE DAILY IN THE MORNING ON AN EMPTY STOMACH FOR 60 DAYS active Not Available Not Available No t Available buspirone 10 mg tablet TAKE 1 TABLET BY MOUTH ONCE DAILY NEEDED FOR BREAKTHRO UGH ANXIETY active Not Available Not Available No t Available progesteron e micronized 200 mg capsule TAKE 1 CAPSULE BY MOUTH ONCE DAILY FOR 12 DAYS active Not Available Not Available No t Available methylpredn isolone 4 mg tablets in a dose pack TAKE BY MOUTH DIRECTED ON INSIDE OF PACKAGE 10/13 completed Not Available Not Available Not Available albuterol sulfate HFA 90 mcg/actuati on aerosol inhaler INHALE 1 PUFF BY MOUTH EVERY 4 HOURS NEEDED FOR SHORTNESS OF BREATH AND FOR WHEEZING active Not Available Not Available No t Available fluticasone propionate 50 mcg/actuati on nasal spray,suspe nsion USE 2 SPRAY(S) IN EACH NOSTRIL ONCE DAILY active Not Available Not Available No t Available amoxicillin 875 mg-potassiu m clavulanate 125 mg tablet TAKE 1 TABLET BY MOUTH EVERY 12 HOURS 10/13 completed Not Available Not Available Not Available buspirone 15 mg tablet TAKE 1 TABLET BY MOUTH TWICE DAILY active Not Available Not Available No t Available bupropion HCl XL 300 mg 24 hr tablet, extended release TAKE 1 TABLET BY MOUTH ONCE DAILY IN THE MORNING WITH A 150MG TABLET FOR 450MG TOTAL active Not Available Not Available No t Available bupropion HCl XL 150 mg 24 hr tablet, extended release TAKE 1 TABLET BY MOUTH ONCE DAILY IN THE MORNING WITH A 300MG TABLET FOR 450MG TOTAL active Not Available Not Available No t Available ID NOW COVID-19 Test Kit TEST DIRECTED TODAY 10/13 completed Not Available Not Available Not Available BinaxNOW COVID-19 Ag Self Test kit TEST DIRECTED TODAY 10/13 completed Not Available Not Available Not Available Paxlovid 300 mg (150 mg x 2)-100 mg tablets in a dose pack TAKE 3 TABLETS TOGETHER (TWO 150 MG NIRMATREL VIR TABLETS AND ONE 100 MG RITONAVIR TABLET) BY MOUTH TWICE DAILY FOR 5 DAYS. 10/13 completed Not Available Not Available Not Available Vitals Date Recorded Body height Body mass index (BMI) Body weight Systolic blood pressure Diastolic blood pressure Provider Name and Address Organization Details Last Updated DateTime 10/13/2022 162.56 cm 46.8 kg/m2 884353 g 121 mm[Hg] 81 mm[Hg] Racquel Harman [facility] 3 14:33:42 Date Recorded Body height Body mass index (BMI) Body weight Systolic blood pressure Diastolic blood pressure Provider Name and Address Organization Details Last Updated DateTime 11/05/2022 162.56 cm 46.8 kg/m2 169173 g 137 mm[Hg] 86 mm[Hg] Racquel Harman [facility] 11:51:13 Social History Question Answer Notes LastModified by Organizat ion Details LastModified Time Tobacco Smoking Status Never Smoker Racquel Harman null, [facility] 10/13/2022 14:40:57 What Is Your Level Of Alcohol Consumption? None Information not available 10/13/2022 Are You Blind Or Do You Have Difficulty Seeing? No Information not available 10/13/2022 Are You Deaf Or Do You Have Serious Difficulty Hearing? No Information not available 10/13/2022 Sex: Unknown Functional Status Question Answer Note LastModified by Organizat ion Details LastModified Time Do you have difficulty walking or climbing stairs? No Information not available 10/13/2022 Are you able to walk? YESWOREST Information not available 10/13/2022 Are you able to care for yourself? Yes Information not available 10/13/2022 Do you have difficulty dressing or bathing? No Information not available 10/13/2022 Mental Status None recorded. Family History Relationship Description Onset Age of this Age Resolved Age Notes LastModified by Organization Details LastModified Time Maternal Uncle Depressive disorder vschroedter Not available 09/25 14:33:47 Maternal Uncle Substance abuse vschroedter Not available 09/25 14:33:47 Daughter Depressive disorder vschroedter Not available 09/25 14:33:47 Brother Depressive disorder vschroedter Not available 09/25 14:33:47 Father Depressive disorder vschroedter Not available 09/25 14:33:47 Father Hypertensive disorder vschroedter Not available 09/25 14:33:47 Father Heart disease vschroedter Not available 09/25 14:33:47 Father Substance abuse vschroedter Not available 09/25 14:33:47 Paternal Grandmother Depressive disorder vschroedter Not available 09/25 14:33:47 Paternal Grandmother Hypertensive disorder vschroedter Not available 09/25 14:33:47 Paternal Grandmother Heart disease vschroedter Not available 09/25 14:33:47 Mother Depressive disorder vschroedter Not available 09/25 14:33:47 Mother Osteoporosis vschroedter Not av ailable 10/13/2022 14:33:47 Maternal Aunt Disorder of thyroid gland vschroedter Not available 09/25 14:33:47 Maternal Aunt Depressive disorder vschroedter Not available 09/25 14:33:47 Maternal Grandmother Depressive disorder vschroedter Not available 09/25 14:33:47 Maternal Grandmother Hypertensive disorder vschroedter Not available 09/25 14:33:47 Maternal Grandmother Heart disease vschroedter Not available 09/25 14:33:47 Maternal Grandfather Depressive disorder vschroedter Not available 09/25 14:33:47 Maternal Grandfather Substance abuse vschroedter Not available 09/25 14:33:47 Paternal Grandfather Depressive disorder vschroedter Not available 09/25 14:33:47 Paternal Grandfather Hypertensive disorder vschroedter Not available 09/25 14:33:47 Paternal Grandfather Heart disease vschroedter Not available 09/25 14:33:47 Paternal Grandfather Substance abuse vschroedter Not available 09/25 14:33:47 Medical History Condition Response Allergies (Food, seasonal, environmental ) N Other N Breast Cancer N Drug/Latex Allergies/Reactions N Blood Transfusion N Dermatologic Disorders N Lung Disease N Defects or Inherited Disease N Breast Problem N Gestational Diabetes N Hematologic disorders N Anesthesia Complications Y History of STI N Deep Vein Thrombosis N Polycystic ovary syndrome N Anxiety Disorder Y Autoimmune disease N Arthritis N Infertility N Polyps N Acid Reflux (GERD) N History of abnormal pap N Cancer N Stroke N Varicosities N Neurologic/Epilepsy N Endometriosis N High Cholesterol Y Headaches N Fibromyalgia N Kidney Disease N Heart Problems N Kidney or Bladder Problems N Thyroid Problems Y GI Problems N Eating Disorder N Anemia N Art (IVF or FET) N Psychiatric Illness N Ovarian Cancer N Diabetes N Pulmonary (TB, Asthma) N Hepatitis/Liver Disease N No Past Medical History N Eczema N Urinary Tract Infection N Abuse/Domestic Violence N Asthma N Trauma/Violence N Depression/ depression Y Heart Disease N Pre-Eclampsia N Hypertension Y Osteoporosis N Thrombophilias N Gynecological History Statement/Question Response Date of LMP 09/10/2022 On BCP's at Conception? N N Was last menstrual period normal Y STIs/STDs N HPV Vaccine N Duration of Flow (days) 4 Current Control Method Tubal Ligat ion Age at First Child 18 Frequency of Cycle (Q days) 120 Sexually Active? N N/A Age of first menstrual cycle 15 Date of Last Pap Smear Sexual Problems? N Desired Control Method N/A LMP Approximate N Obstetrics History GPAL:G 3 P 0 0 0 3 Type Value Living 3 Total 3 Past Encounters Encounter ID Performer Location Encounter Start Date Encounter Closed Date Diagnosis/Indication Diagnosis SNOMED-CT Code Diagnosis ICD10 Code Diagnosis Note [id number] JONATAN Becerra [place] [address] [address] 10/13/2022 14:10:20 10/14/2022 12:43:55 Venereal disease screening 136279894 Z11.3 Irregular periods 931643 07 N92.6 Sexually t ransmitted infectious disease 9422487 A64 Gynecologi c examination 86526170 Z01.419 Take Calcium with Vitamin D 1200mg daily if not receiving in daily diet. It is strongly advised to have an annual flu shot and up can obtain at most pharmacies . If you have not had a TDap shot in the last 10 years you should obtain one as well. Discussed with patient & provided with informatio n regarding Gardisil vaccine to prevent the 4 strains for HPV that cause cervical cancer if under age 26. Encourage safe sexual practices, to use condoms and limit partners if not already in a monogamous relationsh ip. Do monthly self breast exams. Have mammogram yearly or every other year depending on family history. BRCA testing is now available for patients with strong genetic history of female cancer. If interested contact the office. Engage in daily exercise of low impact aerobic exercise 45-60 minutes 4-5 times weekly. Avoid tobacco and illicit drugs as well as using moderation with alcohol intake less than 1-2 8 oz beverages daily. This lifestyle behavior pattern will lead to less health conditions and longer life span. If BMI greater than 25 weight watchers or dietary consult advised. Patient received above instructio ns, and questions have been answered. If you have any questions please call or respond to this email. Patient was made aware of the patient portal and may obtain a paper copy of today's plan if desired. WWEBC - BTLcycle intervals very irregular, anywhere from every 2 months - 2 years. LMP 09/09/22, previous to this 01/2022.Re viewed need to have a period at least every 3 months for endometria l protection recommende d labs and pelvic u/shx of abnormal pap 10+ years ago, no procedures requiredla st pap 2-3 years ago, normal per patientpap updatedSTI testing added to papBlood STI panel orderedUTD with PCPRTC for pelvic u/s and f/u Time spent in visit is a total of 35 mins with at least 50% of visit consisting of counseling and review of plan of care. [id number] Nelsy Pizano [place] [address],[facility] [place] [address] 10/23/2022 12:27:24 10/23/2022 13:13:57 Irregular periods 65660378 N92.6 [id number] JONATAN Becerra [place] [address],[facility] [place] [address] 11/05/2022 10:42:46 11/05/2022 12:54:57 Irregular periods 68970337 N92.6 reviewed updated TVUS - normalwe discussed irregular periods and need for endometria l protection (options reviewed). Declines BC at this time. Prefers cyclic progestero ne.rx sent, prometrium - take once daily x 12 days every 3 months if spontaneou s menses does not occurR/B/A discussede ncouraged regular exercise, healthy eating, weight lossrecomm ended repeat pelvic u/s after next period Time spent in visit is a total of 25 mins with at least 50% of visit consisting of counseling and review of plan of care. Health Concerns Section Related Observation LastModified by Organization Detai ls LastModified Time None Recorded Concern Status LastModified by Organization Details LastModified Time None Recorded Advance Directives Directive None Recorded Payers Encounter Date Sequence Insurance Name Policy Number Policy Stevens Covered Member ID Stevens Member ID Guarantor Name 10/13/2022 1 [facility] [id number] Kriss Preston [id number] [facility] 10/23/2022 1 [facility] [id number] Kriss Preston [id number] [facility] 11/05/2022 1 [facility] [id number] Kriss Shelby Preston [id number] [facility] Notes Date Note Type Note Provider Name and Address Organization Details Recorded Time 10/13/2022 text/html Annual GYNReport ed bypatient.Menstrua l cycle:Irregular cycle intervals; Cycle intervals very irregular. Anywhere from every 2 months to 2 years without a period. Like this for the past 10+ years. LMP 09/09/22, previous LMP 01/2022 Urinary symptoms:No hematuria; No incontinence Vulva:No genital lesion Vagina:Normal vaginal discharge Breast:No breast pain; No breast lump; No nipple discharge Current Contraception:Sati sfied with current contraception; Tubal ligation Sexual complaints:No sexual complaints; No pain during intercourse; Normal libido Menopausal Symptoms:No menopausal symptoms; Normal vaginal lubrication Psychological symptoms:No depression; No anxiety; No PMDD Preventive measures:Encourage self breast examination; Encourage regular exercise; Encourage no tobacco use; Encourage regular mammograms starting age 40 JONATAN Becerra [address], [place], [address], [facility] 10/13/2022 15:01:37 11/05/2022 text/html 37yopresents for u/s f/usee HPI from [facility] 11/02/2022 JONATAN Becerra [address], [place], [address], [facility] 11/05/2022 12:53:01 OBGyn Episode Ob Episode Information Episode Created Date Number of Fetuses Patient Bloodtype Patient rh Status Prepregnancy Weight lbs Domestic Partner Domestic Partner Phone Father Name Laboratory [facility] Status 10/14/19 23 1 CLOSED Fetus Data First Name Last Name Admitted to NICU Weight (g) Sex Living Outcome Pediatric Complications Fetus ID Race Codes Race Delivery Type F Full Term Vaginal Delivery Prakash Calculation Initial Prakash Date Initial Exam Date Initial Exam Provider Initial Ultrasound Date Last Menstrual Period Date Ultra Sound Weeks Gestation 0 Eighteen To Twenty Week Prakash Update Ultra Sound Date Fundal Height At Umbil Quickening Date Ultra Sound Latest Weeks Gestation Final Prakash Confirmed By Final Prakash Confirmed Date Final Prakash Date Ultra Sound Latest Days Gestation 0 0 Menstrual History Last Menstrual Date Menses Monthly On Bcp Conception Prior Menses Frequency Hcg Plus Date Menarche Onset Age Delivery Information Delivery Date Delivery Type Labor Anesthesia Weeks Gestation Incision Type Labor Labor Length Hrs Delivered By Post Complications Tubal Sterilization Discharge Date Comments 1 40 Discharge Information Feeding Method Contraceptive Method Maternal HG B and HCT Levels Ob Episode Information Episode Created Date Number of Fetuses Patient Bloodtype Patient rh Status Prepregnancy Weight lbs Domestic Partner Domestic Partner Phone Father Name Laboratory [facility] Status 10/14/19 1 CLOSED Fetus Data First Name Last Name Admitted to NICU Weight (g) Sex Living Outcome Pediatric Complications Fetus ID Race Codes Race Delivery Type F Full Term Vaginal Delivery Prakash Calculation Initial Prakash Date Initial Exam Date Initial Exam Provider Initial Ultrasound Date Last Menstrual Period Date Ultra Sound Weeks Gestation 0 Eighteen To Twenty Week Prakash Update Ultra Sound Date Fundal Height At Umbil Quickening Date Ultra Sound Latest Weeks Gestation Final Prakash Confirmed By Final Prakash Confirmed Date Final Prakash Date Ultra Sound Latest Days Gestation 0 0 Menstrual History Last Menstrual Date Menses Monthly On Bcp Conception Prior Menses Frequency Hcg Plus Date Menarche Onset Age Delivery Information Delivery Date Delivery Type Labor Anesthesia Weeks Gestation Incision Type Labor Labor Length Hrs Delivered By Post Complications Tubal Sterilization Discharge Date Comments 4 40 Discharge Information Feeding Method Contraceptive Method Maternal HG B and HCT Levels Ob Episode Information Episode Created Date Number of Fetuses Patient Bloodtype Patient rh Status Prepregnancy Weight lbs Domestic Partner Domestic Partner Phone Father Name Laboratory [facility] Status 10/14/19 23 1 CLOSED Fetus Data First Name Last Name Admitted to NICU Weight (g) Sex Living Outcome Pediatric Complications Fetus ID Race Codes Race Delivery Type F Full Term Vaginal Delivery Prakash Calculation Initial Prakash Date Initial Exam Date Initial Exam Provider Initial Ultrasound Date Last Menstrual Period Date Ultra Sound Weeks Gestation 0 Eighteen To Twenty Week Prakash Update Ultra Sound Date Fundal Height At Umbil Quickening Date Ultra Sound Latest Weeks Gestation Final Prakash Confirmed By Final Prakash Confirmed Date Final Prakash Date Ultra Sound Latest Days Gestation 0 0 Menstrual History Last Menstrual Date Menses Monthly On Bcp Conception Prior Menses Frequency Hcg Plus Date Menarche Onset Age Delivery Information Delivery Date Delivery Type Labor Anesthesia Weeks Gestation Incision Type Labor Labor Length Hrs Delivered By Post Complications Tubal Sterilization Discharge Date Comments 3 40 Discharge Information Feeding Method Contraceptive Method Maternal HG B and HCT Levels
--- OUTSIDE RECORDS SUMMARY | 2024-06-01 16:03 | XMS_ITS | Encounter Summary ---
Author Organization [facility] Address [address] [place] [address] Care Team Providers Care [employer] Name Role Phone Stanley Causey MD Primary Care Provider [phone] Encounter Details Date Type Department Care Team (Late Contact Info) Description 11/07/2005 Outpatient Historical [facility] Aguilar Bunn Jr., MD [address], [place] [id number] [place], Authorized P NO ADDRESS ON FILE Unspecified, Hemorrhage of Gastrointestinal Tract (Primary Dx) Social History Tobacco Use Types Packs/Day Years Used Date Smoking Tobacco: Never Assessed Comments Unknown Sex and Gender Information Value Date Recorded Sex Assigned at Not on file Legal Sex Female 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 Gender Identity Not on file Sexual Orientation Not on file documented as of this encounter Plan of Treatment Upcoming Encounters Date Type Department Care Team (Late Contact Info) Description 06/08/2024 4:30 PM REGIONAL FACILITIES SPECIALIST Telephone Check Up [facility] Oncology and Hematology - [place] [address] [place] [address] Rustam Oswald MD [address] [facility] [address] [place] [address] documented as of this encounter Procedures Procedure Name Priority Date/Time Associated Diagnosis Comments CBC WITH DIFFERENTIAL Routine 11/07/2005 9:09 PM CDT CBC WITH DIFFERENTIAL Routine 11/07/2005 9:09 PM CDT documented in this encounter Results * CBC WITH DIFFERENTIAL (11/07/2005 9:09 PM CDT) NEUTROPHILS 57 45 - 70 % INTERFAC E SYSTEM LYMPHOCYTES 34 16 - 45 % INTERFAC E SYSTEM MONOCYTES 7 3 - 13 % INTERFACE SYSTEM EOSINOPHILS 2 0 - 7 % INTERFAC E SYSTEM BASOPHILS 0 0 - 2 % INTERFACE SYSTEM NEUTROPHIL ABSOLUTE 4.17 1.90 - 7.00 K/uL INTERFACE SYSTEM LYMPHOCYTE ABSOLUTE 2.45 0.70 - 4.50 K/uL INTERFACE SYSTEM MONOCYTE ABSOLUTE 0.49 0.10 - 1.30 K/uL INTERFACE SYSTEM EOSINOPHIL ABSOLUTE 0.15 0.00 - 0.70 K/uL INTERFACE SYSTEM BASOPHILS ABSOLUTE 0.02 0.00 - 0.20 K/uL INTERFACE SYSTEM 11/07/2005 9:09 PM CDT Historical Provider HEMATOLOGY ORDERABLES Final Result INTERFACE SYSTEM Refer to clinic/hospital department * (ABNORMAL) CBC WITH DIFFERENTIAL (11/07/2005 9:09 PM CDT) WBC 7.3 4.0 - 9.8 K/uL INTERFACE SYSTEM RBC 4.62 3.90 - 4.90 M/uL INTERFACE SYSTEM HEMOGLOBIN 12.9 11.8 - 14.8 g/dL INTERFACE SYSTEM HEMATOCRIT 37.6 35.5 - 44.0 % INTERFACE SYSTEM MCV 81.4(L) 82.0 - 99.0 fL INTERFACE SYSTEM MCH 27.9 27.2 - 32.6 pg INTERFACE SYSTEM MCHC 34.3 31.5 - 35.5 % INTERFACE SYSTEM RDW 12.9 11.5 - 14.5 % INTERFACE SYSTEM RDW-STDEV 38.6 37.1 - 48.7 fL INTERFACE SYSTEM PLATELETS 341 140 - 350 K/uL INTERFACE SYSTEM MPV 10.4 9.3 - 12.4 fL INTERFACE SYSTEM 11/07/2005 9:09 PM CDT us Historical Provider HEMATOLOGY ORDERABLES Final Result INTERFACE SYSTEM Refer to clinic/hospital department documented in this encounter Visit Diagnoses Diagnosis Hemorrhage of gastrointestinal tract, unspecified- Primary documented in this encounter Care Teams [employer] Relationship Specialty Start Date End Date Stanley Causey MD [address] [address] PCP - General 02/28/03 documented as of this encounter
--- OUTSIDE RECORDS SUMMARY | 2024-06-01 16:03 | XMS_ITS | Clinical Summary ---
Author Organization [facility] Address [facility] [place] [address] Care Team Providers Care Desulfurizer Operator Name Role Phone Stanley Schmidt DO Primary Care Provider [phone]- [phone] Allergies Active Allergy Reactions Criticality Noted Date Comments Zolpidem Hallucinations Medium Medications albuterol HFA (PROVENTIL HFA,VENTOLIN HFA,PROAIR HFA) 90 mcg/actuation inhaler Active buPROPion XL (WELLBUTRIN XL) 300 mg 24 hr tabletIndications: Anxiety with Depression Take 1 tablet (300 mg total) by mouth nightly Total dose 450 mg Active fluticasone propionate (FLONASE) 50 mcg/actuation nasal sprayIndications:A llergic Rhinitis Administer 1 spray into each nostril as needed for rhinitis or allergies 08/06/19 22 Active SUMAtriptan (IMITREX) 100 mg tabletIndications: Migraine Take 1 tablet (100 mg total) by mouth daily as needed for migraine 01/12/20 22 Active traZODone (DESYREL) 100 mg tabletIndications: insomnia associated with depression Take 1-1.5 tablets (100-150 mg total) by mouth nightly Active Synthroid 137 mcg tabletIndications: hypothyroidism Take 1 tablet (137 mcg total) by mouth casting technician before breakfast 12/29/19 23 Active buPROPion XL (WELLBUTRIN XL) 150 mg 24 hr tabletIndications: Anxiety with Depression Take 1 tablet (150 mg total) by mouth nightly Total dose 450mg Active cetirizine (ZyrTEC) 10 mg tabletIndications: Allergic Rhinitis Take 1 tablet (10 mg total) by mouth daily as needed for allergies Active sertraline (ZOLOFT) 50 mg tabletIndications: Anxiety with Depression Take 1 tablet (50 mg total) by mouth nightly 02/26/20 23 Active melatonin 10 mg tablet Take 1 tablet (10 mg total) by mouth nightly Active ferrous sulfate 325 mg (65 mg of elemental iron) tabletIndications: Iron Deficiency Anemia Take 1 tablet (325 mg total) by mouth daily Start post-surgery. Take with food and avoid taking within 2 hours of calcium 90 tablet 3 06/10/19 24 025 Active calcium citrate-vitamin D3 200 mg-6.25 mcg (250 unit) tabletIndications: Hypocalcemia Prevention Take 2 tablets by mouth 3 (three) times a day Start post-surgery 540 tablet 3 06/10/19 24 025 Active ondansetron (ZOFRAN) 4 mg tabletIndications: Prevention of Post-Operative Nausea and Vomiting Take 1 tablet (4 mg total) by mouth every 8 (eight) hours as needed for nausea or vomiting Start post-surgery 20 tablet 2 06/10/19 24 Active polyethylene glycol (MIRALAX) 17 gram/dose bulk powderIndications: constipation Take 17 g by mouth 2 (two) times a day Start post-surgery 1020 g 06/10/19 24 Active omeprazole (PriLOSEC) 20 mg capsule Take 1 capsule (20 mg total) by mouth 2 (two) times a day START POST SURGERY 60 capsule 06/10/19 24 Active multivitamin with iron-mineral tablet Take 2 tablet/capsule by mouth daily Start Post Surgery 180 tablet 3 06/10/19 24 025 Active acetaminophen (Tylenol Extra Strength) 500 mg tabletIndications: Headache Disorder,Pain Take 2 tablets (1,000 mg total) by mouth every 6 (six) hours as needed for pain or headaches For 5 days after surgery, take Tylenol 1000 mg every 8 hours for pain control 06/25/19 24 Active naloxone (NARCAN) 4 mg/actuation spray,non-aerosol CALL 911. ADMINISTER A SINGLE SPRAY INTRANASALLY INTO ONE NOSTRIL UPON SIGNS OF OPIOID OVERDOSE. MAY REPEAT AFTER 3 MINUTES IF NO RESPONSE. 08/27/19 24 Active gabapentin (NEURONTIN) 300 mg capsule Take 1 capsule (300 mg total) by mouth 2 (two) times a day 09/07/19 24 Active topiramate (TOPAMAX) 25 mg tablet 02/23/20 Active ondansetron ODT (ZOFRAN-ODT) 4 mg disintegrating tablet DISSOLVE 1 TABLET IN MOUTH EVERY 6 HOURS NEEDED FOR NAUSEA AND VOMITING 01/18/20 Active dicyclomine (BENTYL) 20 mg tablet TAKE 1 TABLET BY MOUTH THREE TIMES DAILY FOR ABDOMINAL CRAMPING. 01/18/20 24 Active Active Problems Problem Noted Date Diagnosed Date Status post bariatric surgery 08/10/2023 MARYCHUY (obstructive sleep apnea) 06/25/2023 Primary hypertension 06/25/2023 Other specified anxiety disorders 03/04/2023 Major depressive disorder, recurrent episode, mo derate 03/04/2023 Pre-syncope 09/10/2012 Overview (07/31/2016): Near syncope 09/10/2012 Overview (07/31/2016): Palpitations 09/10/2012 Overview (07/31/2016): PALPITATIONS Precordial pain 09/10/2012 Overview (07/31/2016): PRECORDIAL PAIN Fibrositis 07/23/2012 Overview (07/31/2016): Fibromyalgia Environmental allergies 07/23/2012 Overview (07/31/2016): Environmental allergies Bipolar I disorder 07/23/2012 Overview (07/31/2016): Bipolar 1 disorder Asthma 07/23/2012 Overview (07/31/2016): Asthma Resolved Problems Problem Noted Date Diagnosed Date Resolved Date Morbid (severe) obesity due to excess calories 06/25/2023 09/22/2023 Morbid obesity 03/04/2023 09/22/2023 BMI 45.0-49.9, adult 01/21/2023 024 Immunizations Name Administration Dates Next Due Influenza, Split 07/23/2012 Surgical History Surgery Date Site/Laterality Comments HERNIA REPAIR 1993 Hernia repair CHOLECYSTECTOMY 2013 TUBAL LIGATION THYROIDECTOMY, PARTIAL Medical History Medical History Date Comments Hx Other Medical dyslexia History of multiple allergies Al lergies Asthma Asthma Primary fibromyalgia syndrome fi bromyalgia Thyroid disease Anemia 2022 Anxiety 2004 Depression 2002 Hypertension 2013 Low back pain 2008 Sleep apnea 2015 Bipolar disorder (HCC) Schizo affective schizophrenia (CMS/HCC) (HCC) Morbid obesity (HCC) PONV (postoperative nausea and vomiting) GERD (gastroesophageal reflux disease) Hyperlipidemia Family History Medical History Relation Name Comments Depression Daughter 1 Pratibha Mental illness Daughter 1 Pratibha Learning disabilities Daughter 2 Kush [place] Mental illness Daughter 2 Kush [place] Learning disabilities Daughter 3 Brenda [place] Obesity Daughter 3 Brenda [place] Alcohol abuse Father Kash Wall Depression Father Kash Hartmananan Heart disease Father Kash Wall Heart disease; Heart failure Father Kash Hartmananan Hypertension Father Kash Wall Mental illness Father Kash Hartmananan Other Father Kash Hartmananan CHF,HTN; Skin cancer Father Kash Acn cancer, skin; Sleep apnea Father Kash Hartmananan Alcohol abuse Maternal Grandfather Caterina Heart disease Maternal Grandfather Caterina Mental illness Maternal Grandfather Caterina Coronary artery disease Maternal Grandmother Caterina Coronary artery disease; Diabetes Maternal Grandmother Caterina Diabete s mellitus; Arthritis Mother Olivia Wall arthritis; Mental illness Mother Olivia Wall Obesity Mother Olivia Wall Skin cancer Mother Olivia Wall cancer, skin; Alcohol abuse Mother's Brother 1 Arnaldo Depression Mother's Brother 2 Atilio Mental illness Mother's Sister 1 Lou Obesity Mother's Sister 2 Amanda Heart disease Other 1 Family history of Heart disease; Hypertension Other 2 Family history of Hypertension; Alcohol abuse Paternal Grandfather Papa Wall Coronary artery disease Paternal Grandfather Papa Minnie gregg Coronary artery disease; Heart attack Paternal Grandfather Papa Wall Heart disease Paternal Grandfather Papa Wall Heart failure Paternal Grandfather Papa Wall Hypertension Paternal Grandfather Papa Wall Heart disease Paternal Grandmother Laura Hypertension Paternal Grandmother Laura Mental illness Paternal Grandmother Laura Obesity Paternal Grandmother Laura Sleep apnea Paternal Grandmother Laura Anesthesia problems Neg Hx Malig Hypertension Neg Hx Malig Hyperthermia Neg Hx Pseudochol deficiency Neg Hx Relation Name Status Comments Daughter 1 Pratibha Daughter 2 Kush Preston Daughter 3 Brenda [place] Father Kash Hartmananan Alive Maternal Grandfather Caterina Maternal Grandmother Caterina Alive Mother Olivia Wall Alive Mother's Brother 1 Arnaldo Mother's Brother 2 Atilio Mother's Sister 1 Lou Mother's Sister 2 Amanda Other 1 Other 2 Paternal Grandfather Kike Wall Alive Paternal Grandmother Laura Social History Tobacco Use Types Packs/Day Years Used Date Smoking Tobacco: Former Cigarettes 1 8 1 04/2001 - 02/2010 Smokeless Tobacco: Never Tobacco Cessation:Counseling Given: Not Answered Alcohol Use Standard Drinks/Week Comments No 0 (1 standard drink = 0.6 oz pur e alcohol) AUDIT-C Answer Date Recorded Q1: How often do you have a drink containing alcohol? Never 08/13/2023 Q2: How many drinks containi ng alcohol do you have on a typical day when you are drinking? Patient does not drink Q3: How often do you have si x or more drinks on one occasion? Never 08/13/2023 Personal Safety Answer Date Recorded Have you ever been in or are you currently in a harmful physical or emotional relationship or is someone making you feel afraid or unsafe? Denies 08/13/2023 Comments No Sex and Gender Information Value Date Recorded Sex Assigned at Not on file Legal Sex Female 2:57 PM GREENBELT Gender Identity Not on file Sexual Orientation Not on file Obstetrics History Last Filed Vital Signs Vital Sign Reading Time Taken Comments Blood Pressure 118/82 08/24/2023 4:17 PM CDT Pulse 68 08/24/2023 4:17 PM CDT Temperature 36.1 C (97 F) 08/13/2023 10:15 AM CDT Respiratory Rate 29 08/13/2023 10:35 AM CDT Oxygen Saturation 93% 08/24/2023 4:17 PM CDT Inhaled Oxygen Concentration - - Weight 107.5 kg (237 lb) 08/24/2023 4:17 PM CDT Height 162.6 cm (5' 4 ) 08/24/2023 4:17 PM CDT Body Mass Index 40.68 08/24/2023 4:17 PM CDT Plan of Treatment Health Maintenance Due Date Last Done Comments Cervical Cancer Screening 1984 Depression Screening 1984 Pneumococcal vaccine <65 (1 of 2 - PCV) 1990 DTaP/Tdap/Td Vaccine (1 - Tdap) 1995 Varicella Vaccines (1 of 2 - 13+ 2-dose series) 1997 Hepatitis B Screening 2002 Regular Well Visit/Exam 18-64 2002 Covid-19 Vaccine ( - 2023- season) 2023 04/03/2021, 07/15/2020, 06/23/2020 Influenza Vaccine (#1) 2023 , 01/29/2021, 06/26/2017, Additional history exists Hepatitis C Screening Completed 07/06/2013, 013 HPV Vaccines Aged Out No longer eligi ble based on patient's age to complete this topic Medical Devices Implanted Type Area Construction Executive Device Identifier Shelf Expiration Date Model / Serial / Lot [employer] Biological Bariatric Peristrip Non Crosslinked Bovine Pericardium For Endo Tracee Thin [id number] - [id number] Implanted:Qty: 1 on 06/25/2023 by Aguilar Wolfe MD at [facility] Other - see comments N/A: Abdomen [employer] 04/15/2025 [id number] / N/A / [id number] Description:Kiah strip [employer] Biological Bariatric Peristrip Non Crosslinked Bovine Pericardium For Endo Tracee Thin [id number] - [id number] Implanted:Qty: 1 on 06/25/2023 by Aguilar Wolfe MD at [facility] Other - see comments N/A: Abdomen [employer] 04/15/2025 [id number] / N/A / [id number] Description:Kiah strip Procedures Procedure Name Priority Date/Time Associated Diagnosis Comments SERUM HEPATITIS C AB Routine 07/06/2013 10:02 AM CDT from Last 3 Months or Most Recently Relevant to Health Maintenance Results * Serum Hepatitis C ab (07/06/2013 10:02 AM CDT) HCV ab Negative Negative HISTORICAL RESULTS Serum 07/06/2013 10:0 2 AM CDT Araseli Holcomb MD LAB BLOOD ORDERABLES Final Resul t HISTORICAL RESULTS from Last 3 Months or Most Recently Relevant to Health Maintenance Insurance [facility]/PPO Address: [address] [address] [place] [address] [facility]/PPO Address: [address] [place] [address] Advance Directives For more information, please contact: [phone] * Full Code (Latest Code Status on File) Date Activated Date Inactivated Comments 08/13/2023 9:43 AM 08/13/2023 3:36 PM * Full Code Date Activated Date Inactivated Comments 06/25/2023 12:49 PM 06/26/2023 6:43 PM Care Teams Desulfurizer Operator Relationship Specialty Start Date End Date Stanley Schmidt DO PCP - General Internal Medicine 11/04/22
--- OUTSIDE RECORDS SUMMARY | 2024-06-01 16:03 | XMS_ITS | Referral Summary ---
Author Organization [facility] Address [address] [place] [address] Care Team Providers Care Personnel Assistant Name Role Phone Stanley Causey MD Primary Care Provider [phone] [phone] Source Comments [facility],non-owned Affiliates and Associated Physician Practices is amultiple site organization consisting of ambulatory clinics and hospital sitesin [place], [place], [place] and [place]. This disclosure is being madepursuant to the Care Everywhere program and may not contain all information available regarding this patient. Last updated 18.[facility] Allergies Active Allergy Reactions Criticality Noted Date Comments Zolpidem 06/28/2011 Medications * Be aware that medications may not be up to date on this document. Alwaysverify current medications with the patient. Medication Sig Dispensed Refills Start Date End Date Status doxycycline (VIBRAMYCIN) 100 MG capsule Take 1 Cap by mouth 2 times daily. 14 Cap 0 06/28/2011 Active albuterol (PROVENTIL; VENTOLIN) 90 MCG/ACT inhaler Inhale 1-2 Puffs by mouth every 4 hours as needed for Shortness of Breath or Wheezing. 1 Inhaler 0 06/28/2011 Active predniSONE (DELTASONE) 20 MG tablet First dose: 3 tabs PO. Then 1 tab PO BID for 5 days. 12 Tab 0 06/28/2011 Active Social History Tobacco Use Types Packs/Day Years Used Date Smoking Tobacco: Never Alcohol Use Standard Drinks/Week Comments No 0 (1 standard drink = 0.6 oz pur e alcohol) Sex and Gender Information Value Date Recorded Sex Assigned at Not on file Gender Identity Not on file Sexual Orientation Not on file Last Filed Vital Signs Vital Sign Reading Time Taken Comments Blood Pressure 128/75 06/28/2011 4:43 AM MOTION PICTURE COMMENTATOR Pulse 77 06/28/2011 4:43 AM MOTION PICTURE COMMENTATOR Temperature 36.7 C (98.1 F) 06/28/2011 4:43 AM MOTION PICTURE COMMENTATOR Respiratory Rate 16 06/28/2011 4:43 AM MOTION PICTURE COMMENTATOR Oxygen Saturation 100% 06/28/2011 4:43 AM MOTION PICTURE COMMENTATOR Inhaled Oxygen Concentration - - Weight 111.1 kg (245 lb) 06/28/2011 4:43 AM MOTION PICTURE COMMENTATOR Height 162.6 cm (5' 4 ) 06/28/2011 4:43 AM MOTION PICTURE COMMENTATOR Body Mass Index 42.05 06/28/2011 4:43 AM MOTION PICTURE COMMENTATOR Plan of Treatment Not on file Administered Medications Care Teams Personnel Assistant Relationship Specialty Start Date End Date Stanley Causey MD [address] [facility] [address] [place], [place] [address] PCP - General 04/17/20
--- OUTSIDE RECORDS SUMMARY | 2024-06-01 16:03 | XMS_ITS | Encounter Summary ---
Author Organization [facility] Address [address] [place] [address] Care Team Providers Care Signal Timer Name Role Phone Stanley Causey MD Primary Care Provider [phone] [phone] Encounter Details Date Type Department Care Team (Latest Contact Info) Description 04/01/2004 Outpatient Historical HIS PATIENT IN A BED Sangeetha Pulido MD NO ADDRESS ON FILE Miley Wilson MD NO ADDRESS ON FILE THREAT LABOR NEC-ANTEPAR (Primary Dx) Social History Tobacco Use Types Packs/Day Years Used Date Smoking Tobacco: Never Assessed Comments Unknown Sex and Gender Information Value Date Recorded Sex Assigned at Not on file Legal Sex Female 3:05 AM AUTOMATION TEST ENGINEER Gender Identity Not on file Sexual Orientation Not on file documented as of this encounter Plan of Treatment Upcoming Encounters Date Type Department Care Team (Late st Contact Info) Description 06/08/2024 4:30 PM AUTOMATION TEST ENGINEER Telephone Check Up [facility] Oncology and Hematology - [place] [address] [facility] [address] [place] [address] Rustam Oswald MD [address] [facility] [address] [place] [address] documented as of this encounter Visit Diagnoses Diagnosis Other threatened labor, antepartum- Primary documented in this encounter Care Teams Signal Timer Relationship Specialty Start Date End Date Stanley Causey MD [facility] [address], [address] [place] [id number] PCP - General 02/28/03 documented as of this encounter
--- OUTSIDE RECORDS SUMMARY | 2024-06-01 16:03 | XMS_ITS | Encounter Summary ---
Author Organization [facility] Address [address] [place] [address] Care Team Providers Care Bookbinder Chief Name Role Phone Stanley Causey MD Primary Care Provider [phone] [phone] Encounter Details Date Type Department Care Team (Late Contact Info) Description 04/29/2007 Outpatient Historical HIS EMERGENCY ROOM [facility] [place], Authorized P NO ADDRESS ON FILE Jorge Lechuga MD [address] [place] [address] [place] [address] Social History Tobacco Use Types Packs/Day Years Used Date Smoking Tobacco: Never Assessed Comments Unknown Sex and Gender Information Value Date Recorded Sex Assigned at Not on file Legal Sex Female 3:05 AM MOTOR AND CONTROLS TESTER Gender Identity Not on file Sexual Orientation Not on file documented as of this encounter Plan of Treatment Upcoming Encounters Date Type Department Care Team (Late st Contact Info) Description 06/08/2024 4:30 PM MOTOR AND CONTROLS TESTER Telephone Check Up [facility] Oncology and Hematology - [place] [address] [facility] [address] [place] [address] Rustam Oswald MD [address] [facility] [address] [place] [address] documented as of this encounter Procedures Procedure Name Priority Date/Time Associated Diagnosis Comments POC , URINE Routine 04/29/2007 7:35 PM MOTOR AND CONTROLS TESTER POC URINALYSIS DIPSTICK NON AUTOMATED Routine 04/29/2007 7:35 PM MOTOR AND CONTROLS TESTER documented in this encounter Results * POC , URINE (04/29/2007 7:35 PM MOTOR AND CONTROLS TESTER) SPECIFIC GRAVITY UA 1.015 1.001 - 1.035 INTERFACE SYSTEM , URINE POC Negative Negative INTERFACE SYSTEM 04/29/2007 7:35 PM MOTOR AND CONTROLS TESTER us Authorized P Er POINT OF CARE TESTING Edited Performing Organization Address City/[facility] Co de Phone Number INTERFACE SYSTEM Refer to clinic/hospital department * POC URINALYSIS DIPSTICK (04/29/2007 7:35 PM MOTOR AND CONTROLS TESTER) COLOR UA Yellow INTERFACE SYSTEM CLARITY UA Clear INTERFACE SYSTEM SPECIFIC GRAVITY UA 1.015 1.001 - 1.030 INTERFACE SYSTEM PH UA 7.0 5.0 - 8.0 INTERFACE SYSTEM LEUKOCYTE ESTERASE UA Negative Negative INTERFACE SYSTEM NITRITE UA Negative Negative INTERFACE SYSTEM PROTEIN UA Negative Negative INTERFACE SYSTEM GLUCOSE UA Negative Negative INTERFACE SYSTEM KETONES UA Negative Negative INTERFACE SYSTEM UROBILINOGEN UA Normal Normal INTE RFACE SYSTEM BILIRUBIN UA Negative Negative INTERFA CE SYSTEM BLOOD UA Negative Negative INTERFACE SYSTEM 04/29/2007 7:35 PM MOTOR AND CONTROLS TESTER us Authorized P Er POINT OF CARE TESTING Edited Performing Organization Address City/[facility] Co de Phone Number INTERFACE SYSTEM Refer to clinic/hospital department documented in this encounter Visit Diagnoses Not on filedocumented in this encounter Care Teams Bookbinder Chief Relationship Specialty Start Date End Date Stanley Causey MD [address] [place] [address], [address] [address] PCP - General 02/28/03 documented as of this encounter
--- OUTSIDE RECORDS SUMMARY | 2024-06-01 16:03 | XMS_ITS | Clinical Summary ---
Author Organization [facility] Address [address] [facility] [place] [address] Care Team Providers Care Operations Liaison Name Role Phone Stanley Causey MD Primary Care Provider +1 [phone] Source Comments [facility],non-owned Affiliates and Associated Physician Practices is amultiple site organization consisting of ambulatory clinics and hospital sitesin [place], [place], [place] and [place]. This disclosure is being madepursuant to the Care Everywhere program and may not contain all information available regarding this patient. Last updated 18.[facility] Allergies Active Allergy Reactions Criticality Noted Date [...] Comments Blood Pressure 128/75 06/28/2011 4:43 AM MANHOLE BUILDER Pulse 77 06/28/2011 4:43 AM MANHOLE BUILDER Temperature 36.7 C (98.1 F) 06/28/2011 4:43 AM MANHOLE BUILDER Respiratory Rate 16 06/28/2011 4:43 AM MANHOLE BUILDER Oxygen Saturation 100% 06/28/2011 4:43 AM MANHOLE BUILDER Inhaled Oxygen Concentration - - Weight 111.1 kg (245 lb) 06/28/2011 4:43 AM MANHOLE BUILDER Height 162.6 cm (5' 4 ) 06/28/2011 4:43 AM MANHOLE BUILDER Body Mass Index 42.05 06/28/2011 4:43 AM MANHOLE BUILDER Plan of Treatment Health Maintenance Due Date Last Done Comments PAP SMEAR 1984 HIV SCREENING 1999 HEPATITIS C SCREENING 06/15/2002 DTAP/TDAP/TD VACCINES (1 - Tdap) 2003 HEPATITIS B VACCINE (1 of 3 - 19+ 3-dose series) 2003 COVID-19 VACCINE ( - 2023-2 5 season) 2023 INFLUENZA VACCINE (#1) 2023 DEPRESSION SCREENING 04/27/2024 ZOSTER VACCINE (1 of 2) 2034 HIB VACCINE Aged Out No longer eligi ble based on patient's age to complete this topic HPV VACCINE Aged Out No longer eligi ble based on patient's age to complete this topic MENINGOCOCCAL (Group B) VACCINE Aged Out No longer eligible based on patient's age to complete this topic MENINGOCOCCAL VACCINE Aged Out No lady nir eligible based on patient's age to complete this topic PNEUMOCOCCAL VACCINE Aged Out No long er eligible based on patient's age to complete this topic Care Teams Operations Liaison Relationship Specialty Start Date End Date Stanley Causey MD [address] [place] [address] [address] [place] [address] PCP - General 04/17/20
--- OUTSIDE RECORDS SUMMARY | 2024-06-01 16:03 | XMS_ITS | Encounter Summary ---
Author Organization [facility] Address [address] [place] [address] Care Team Providers Care Progress Worker Name Role Phone Stanley Causey MD Primary Care Provider [phone] Encounter Details Date Type Department Care Team (Latest Contact Info) Description 04/02/2004 Inpatient Historical HIS PATIENT IN A BED FerrerJackie MD [address] [address] [place] [address] Miley Wilson MD NO ADDRESS ON FILE DEL [address] DE[address] LUIS-INEZ (Primary Dx) Social History Tobacco Use Types Packs/Day Years Used Date Smoking Tobacco: Never Assessed Comments Unknown Sex and Gender Information Value Date Recorded Sex Assigned at Not on file Legal Sex Female 3:05 AM BOX INSPECTOR Gender Identity Not on file Sexual Orientation Not on file documented as of this encounter Plan of Treatment Upcoming Encounters Date Type Department Care Team (Late st Contact Info) Description 06/08/2024 4:30 PM BOX INSPECTOR Telephone Check Up [facility] Oncology and Hematology - [place] [address] [place] [address] Rustam Oswald MD [address] [facility] [address] [place] [address] documented as of this encounter Visit Diagnoses Diagnosis First-degree perineal laceration, with delivery- Primary documented in this encounter Care Teams Progress Worker Relationship Specialty Start Date End Date Stanley Causey MD [facility] [address] [address] PCP - General 02/28/03 documented as of this encounter
--- OUTSIDE RECORDS SUMMARY | 2024-06-01 16:03 | XMS_ITS | Encounter Summary ---
Author Organization [facility] Address [address] [place] [address] Care Team Providers Care Apprentice Carpenter Name Role Phone Stanley Causey MD Primary Care Provider [phone] [phone] Encounter Details Date Type Department Care Team (Latest Contact Info) Description 08/22/2004 Outpatient Historical HIS PSYCH IOP EUGENIAANTIOCH Ashley Bronson MD [address] [facility] [address] [place] [address] BIPOLAR DISORDER, UNSPECIFIED (CMS/HCC) (Primary Dx) Social History Tobacco Use Types Packs/Day Years Used Date Smoking Tobacco: Never Assessed Comments Unknown Sex and Gender Information Value Date Recorded Sex Assigned at Not on file 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 [address] [place] [address] Rustam Oswald MD [address] [facility] [address] [place] [address] documented as of this encounter Procedures Procedure Name Priority Date/Time Associated Diagnosis Comments VALPROIC ACID LEVEL, TOTAL Routine 09/05/2004 12:48 PM CDT documented in this encounter Results * VALPROIC ACID LEVEL, TOTAL (09/05/2004 12:48 PM CDT) VALPROIC ACID TOTAL 55 50 - 100 ug/mL INTERFACE SYSTEM Comment: Valproic Acid Antiepileptic Control = 50 - 100 ug/mL Valproic Acid Manic Episode Control = 50 - 125 ug/mL Valproic Acid Toxic Level = >200 ug/mL 09/05/2004 12:4 8 PM CDT us Ashley Bronson MD CHEMISTRY ORDERABLES Final Resu lt INTERFACE SYSTEM Refer to clinic/hospital department documented in this encounter Visit Diagnoses Diagnosis Bipolar disorder, unspecified (CMS/HCC)- Primary Bipolar disorder, unspecified documented in this encounter Care Teams Apprentice Carpenter Relationship Specialty Start Date End Date Stanley Causey MD [address] [place] [address] PCP - General 02/28/03 documented as of this encounter
--- OUTSIDE RECORDS SUMMARY | 2024-06-01 16:03 | XMS_ITS | Clinical Summary ---
Author Organization [facility] Address [address] [place] [address] Care Team Providers Care Body Former Name Role Phone Stanley Causey MD Primary Care Provider [phone] [phone] Allergies Active Allergy Reactions Criticality Noted Date Comments Meclizine Hallucination Low 06/01/2024 Zolpidem Hallucination Low 04/25/2010 Medications vit-iron fumarate-FA ( PLUS) 27-1 mg Oral Tab Take 1 Tab by mouth daily with breakfast. 30 Tab 12 04/28/2012 Active buPROPion HCL (WELLBUTRIN XL) 300 mg Extended Release 24 hour tablet Take 300 mg by mouth daily. Active buPROPion HCL (WELLBUTRIN XL) 150 mg Extended Release 24 hour tablet Take 150 mg by mouth daily at bedtime. Active cetirizine (ZyrTEC) 10 mg tablet Take 10 mg by mouth. Active FeroSuL 325 mg (65 mg iron) tablet TAKE 1 TABLET BY MOUTH ONCE DAILY POST SURGERY. TAKE WITH FOOD AND AVOID TAKING WITHIN TWO HOURS OF CALCIUM Active gabapentin (NEURONTIN) 300 mg capsule Take 300 mg by mouth 2 times daily. Active levothyroxine 137 mcg tablet take 1 tablet by mouth once daily on an empty stomach Active sertraline (ZOLOFT) 50 mg tablet Take 50 mg by mouth daily at bedtime. 02/25/2023 Active topiramate (TOPAMAX) 50 mg tablet Take 1 Tablet by mouth daily. 05/11/2024 Active traZODone (DESYREL) 100 mg tablet Take 100-150 mg by mouth daily at bedtime. 08/05/2021 Active Active Problems Problem Noted Date Diagnosed Date Obesity 08/01/2010 Resolved Problems Problem Noted Date Diagnosed Date Resolved Date MIL (s/p Cervidil) on pit-[facility](24hr 200mg, pre-e labs wnl), AROM@1100, O+, GBS- 12/02/201212/2012 Decreased movements, a ffecting management of mother, antepartum 11/18/2012 013 LLQ abdominal pain 02/12/2011 3 MIL s/p cervidil 2130 - pit, O+ GBS- 11/27/2010 11/27/2010 8/3 11/27/2010 01/07/2011 Breech presentation without mention of version, unspecified as to episode of care 11/18/2010 11/26/2010 Breech presentation 10/29/2010 11/06/19 11 r/o PPROM, no evidence of rupture on exam 10/28/2010 10/29/2010 Maternal atypical antibody c omplicating 09/11/2010 06/22/2012 Encounters Date Type Department Care Team Description 06/01/2024 3:00 PM CRYSTAL GROWING TECHNICIAN Office Visit [facility] Oncology and Hematology [place] [address] [address] [place] [address] Rustam Oswald MD Chronic anemia (Primary Dx) from Last 3 Months Immunizations Immunization Administration Dates Next Due (ADACEL/BOOSTRIX)(10 YR UP) TDAP VACCINE, 0.5ML, IM 11/28/2010 Family History Medical History Relation Name Comments Healthy Brother 1 Healthy Brother 2 Healthy Daughter 1 Abigaile Heart Disease Father Hypertension Father Cancer Maternal Grandfather Brain Diabetes Maternal Grandmother Heart Disease Maternal Grandmother Hypertension Maternal Grandmother Healthy Mother Heart Disease Paternal Grandfather Hypertension Paternal Grandfather Breast Cancer Paternal Grandmother Diabetes Paternal Grandmother Heart Disease Paternal Grandmother Hypertension Paternal Grandmother Relation Name Status Comments Brother 1 Alive Brother 2 Alive Daughter 1 Abigaile Alive Daughter 2 Pratibha Alive Daughter 3 chelsea Alive Father Alive Maternal Grandfather Maternal Grandmother Alive Mother Alive Paternal Grandfather Alive Paternal Grandmother Alive Social History Tobacco Use Types Packs/Day Years Used Date Smoking Tobacco: Former Cigarettes 0.3 8 Q uit: 06/01/2010 Smokeless Tobacco: Never Alcohol Use Standard Drinks/Week Comments No 0 (1 standard drink = 0.6 oz pur e alcohol) Comments Unknown Sex and Gender Information Value Date Recorded Sex Assigned at Not on file 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 Gender Identity Not on file Sexual Orientation Not on file Occupation Industry Job Start Date Job End Date Not on file Not on file Not on file Not on file Last Filed Vital Signs Vital Sign Reading Time Taken Comments Blood Pressure 107/77 06/01/2024 3:04 PM CRYSTAL GROWING TECHNICIAN Pulse 70 06/01/2024 3:04 PM CRYSTAL GROWING TECHNICIAN Temperature 36.7 C (98 F) 06/01/2024 3:04 PM CRYSTAL GROWING TECHNICIAN Respiratory Rate 18 12/05/2012 7:51 AM CDT Oxygen Saturation 98% 06/01/2024 3:04 PM CRYSTAL GROWING TECHNICIAN Inhaled Oxygen Concentration - - Weight 79.4 kg (175 lb) 06/01/2024 3:04 PM CRYSTAL GROWING TECHNICIAN Height 162.6 cm (5' 4 ) 06/01/2024 3:04 PM CRYSTAL GROWING TECHNICIAN Body Mass Index 30.04 06/01/2024 3:04 PM CRYSTAL GROWING TECHNICIAN Plan of Treatment Upcoming Encounters Date Type Department Care Team (Late st Contact Info) Description 06/08/2024 4:30 PM CRYSTAL GROWING TECHNICIAN Telephone Check Up [facility] Oncology and Hematology - [place] [address] [facility] [address] [place] [address] Rustam Oswald MD [address] [facility] [address] [place] [address] Health Maintenance Due Date Last Done Comments HEPATITIS B VACCINES (1 of 3 - 19+ 3-dose series) 2003 DTAP/TDAP/TD VACCINES (2 - Td or Tdap) 11/28/2020 11/28/2010 CERVICAL CANCER SCREENING 10/14/20232022, 04/28/2012, 04/28/2012, Additional history exists INFLUENZA VACCINE (#1) 2023 04/03/2021 Preventative Visit- Commercial 04/27/2024 04/28/2012, 04/25/2010 HPV VACCINES Aged Out No longer eligi ble based on patient's age to complete this topic Procedures Procedure Name Priority Date/Time Associated Diagnosis Comments CERV/VAG CYTOPATH, SUREPATH W/RFLX HPV Routine 04/28/2012 4:20 PM CRYSTAL GROWING TECHNICIAN Routine gynecological examination from Last 3 Months or Most Recently Relevant to Health Maintenance Results * CERV/VAG CYTOPATH, SUREPATH W/RFLX HPV (04/28/2012 4:20 PM CRYSTAL GROWING TECHNICIAN) CLINICAL INFORMATION HEALTHY [facility] [employer] [facility] PREV PAP: 04 25 2010 WNL [facility] [employer] [facility] LAST MENSTRUAL PERIOD 02 28 2013 [facility] [employer] [facility] PAP INTERP Negative for intraepithelial lesion or malignancy. [facility] [employer] [facility] Comment: Performed by [employer], [address] [place] [id number] Senior Manager Mmcoe Pap Comment Based on the cytology result, reflex High Risk HPV DNA testing was not performed. [facility] [employer] [facility] ADEQUACY: Satisfactory for evaluation. Endocervical/trans formation zone component absent. [facility] [employer] [facility] SOURCE Endocervix [facility] [employer] [facility] CYTOTECHNOLOGI ST: ABC, CT(ASCP) [facility] [employer] [facility] PREV BX: INFORMATION NOT PROVIDED [facility] [employer] [facility] Endocervical 04/28/2012 4:20 PM CRYSTAL GROWING TECHNICIAN 04/28/2012 6:13 PM CRYSTAL GROWING TECHNICIAN Comment:ENDOCERVICAL Juve Leigh MD PATHOLOGY/CYTOLOGY ORDERABLE S Edited [facility] [employer] [facility] CLIA# [id number] [address] [facility] [address] from Last 3 Months or Most Recently Relevant to Health Maintenance Insurance [employer] [facility] [id number] Advance Directives For more information, please contact: [phone] * Full Code (Latest Code Status on File) Date Activated Date Inactivated Comments 12/03/2012 4:22 PM 12/05/2012 2:02 PM * Full Code Date Activated Date Inactivated Comments 12/02/2012 1:38 PM 12/03/2012 2:25 PM * Full Code Date Activated Date Inactivated Comments 11/18/2012 8:50 PM 11/19/2012 12:32 AM * Full Code Date Activated Date Inactivated Comments 11/27/2010 9:51 AM 11/29/2010 2:04 PM * Full Code Date Activated Date Inactivated Comments 11/26/2010 9:34 PM 11/27/2010 9:51 AM Care Teams Body Former Relationship Specialty Start Date End Date Stanley Causey MD [address] [place] [address] PCP - General 02/28/03
--- OUTSIDE RECORDS SUMMARY | 2024-06-01 16:03 | XMS_ITS | Referral Summary ---
Author Organization [facility] Address [address] [place] [address] Care Team Providers Care Preparer Samples And Repairs Name Role Phone Stanley Schmidt DO Primary Care Provider +1- [phone] Allergies Active Allergy Reactions Criticality Noted Date [...] 1 tablet (137 mcg total) by mouth inspector precision before breakfast 12/29/19 23 Active buPROPion XL [...] THREE TIMES DAILY FOR ABDOMINAL CRAMPING. 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 Gender Identity Not on file Sexual Orientation [...] 08/24/2023 4:17 PM CDT Plan of Treatment Not on file Medical Devices Implanted Type Area Coke Loader Device Identifier Shelf Expiration Date Model / Serial / Lot [employer] Prestige Biological Bariatric Peristrip Non Crosslinked Bovine Pericardium For Endo Tracee Thin [id number] - [id number] Implanted:Qty: 1 on 06/25/2023 by Aguilar Wolfe MD at [facility] Other - see comments N/A: Abdomen [employer] 04/15/2025 [id number] / N/A / [id number] Description:Kiah strip [employer] Biological Bariatric Peristrip Non Crosslinked Bovine Pericardium For Endo Tracee Thin [id number] - [id number] Implanted:Qty: 1 on 06/25/2023 by Aguilar Wolfe MD at [facility] Other - see comments N/A: Abdomen [employer] 04/15/2025 [id number] / N/A / [id number] Description:Kiah strip Procedures Procedure Name Priority Date/Time Associated Diagnosis Comments SERUM HEPATITIS C AB Routine 07/06/2013 10:02 AM CDT from Last 3 Months or Most Recently Relevant to Health Maintenance Results * Serum Hepatitis C ab (07/06/2013 10:02 AM CDT) HCV ab Negative Negative HISTORICAL RESULTS Serum 07/06/2013 10:0 2 AM CDT us Araseli Holcomb MD LAB BLOOD ORDERABLES Final Resul t HISTORICAL RESULTS from Last 3 Months or Most Recently Relevant to Health Maintenance Insurance [facility] CHO[facility] PLUS [facility] CHO[facility] PLUS Advance Directives For more information, please contact: [phone] * Full Code (Latest Code Status on File) Date Activated Date Inactivated Comments 08/13/2023 9:43 AM 08/13/2023 3:36 PM * Full Code Date Activated Date Inactivated Comments 06/25/2023 12:49 PM 06/26/2023 6:43 PM Care Teams Preparer Samples And Repairs Relationship Specialty Start Date End Date Stanley Schmidt DO PCP - General Internal Medicine 11/04/22
--- OUTSIDE RECORDS SUMMARY | 2024-06-01 16:03 | XMS_ITS | Encounter Summary ---
Author Organization [facility] Address [address] [place] [address] Care Team Providers Care Comedian Name Role Phone Stanley Causey MD Primary Care Provider +1 [phone] Encounter Details Date Type Department Care Team (Latest Contact Info) Description 04/24/2005 Inpatient Historical HIS PATIENT IN A BED Najma Gates MD [address] [facility] [address] [place] [address] BIPOLAR DISORDER NOS (CMS/HCC) (Primary Dx) Social History Tobacco Use Types Packs/Day Years Used Date Smoking Tobacco: Never Assessed Comments Unknown Sex and Gender Information Value Date Recorded Sex Assigned at Not on file Legal Sex Female 3:05 AM SQL PROGRAMMER ANALYST Gender Identity Not on file Sexual Orientation Not on file documented as of this encounter Plan of Treatment Upcoming Encounters Date Type Department Care Team (Late st Contact Info) Description 06/08/2024 4:30 PM SQL PROGRAMMER ANALYST Telephone Check Up [facility] Oncology and Hematology - [place] [address] [facility] [address] [place] [address] Rustam Oswald MD [address] [facility] [address] [place] [address] documented as of this encounter Procedures Procedure Name Priority Date/Time Associated Diagnosis Comments CARBAMAZEPINE LEVEL Routine 04/27/2005 9 :50 AM SQL PROGRAMMER ANALYST HEPATIC FUNCTION PANEL Routine 6 9:50 AM SQL PROGRAMMER ANALYST TSH Routine 04/25/2005 8:40 AM SQL PROGRAMMER ANALYST VALPROIC ACID LEVEL, TOTAL Routine 04/25/2005 8:40 AM SQL PROGRAMMER ANALYST HEPATIC FUNCTION PANEL Routine 5 8:40 AM SQL PROGRAMMER ANALYST URINALYSIS W/REFLEX MICROSCOPIC Routine 04/24/2005 6:30 AM SQL PROGRAMMER ANALYST HCG QUALITATIVE, URINE Routine 5 6:30 AM SQL PROGRAMMER ANALYST CBC WITH DIFFERENTIAL Routine 04/24/2005 5:57 AM SQL PROGRAMMER ANALYST CBC WITH DIFFERENTIAL Routine 04/24/2005 5:57 AM SQL PROGRAMMER ANALYST TSH Routine 04/24/2005 5:57 AM SQL PROGRAMMER ANALYST COMPREHENSIVE METABOLIC PANEL Routine 04/24/2005 5:57 AM SQL PROGRAMMER ANALYST DRUG SCREEN, URINE Routine 04/23/2005 9: 23 PM SQL PROGRAMMER ANALYST documented in this encounter Results * HEPATIC FUNCTION PANEL (04/27/2005 9:50 AM SQL PROGRAMMER ANALYST) AST 15 12 - 32 U/L INTERFACE SYSTEM ALKALINE PHOSPHATASE 60 35 - 104 U/L INTERFACE SYSTEM BILIRUBIN TOTAL 0.3 0.2 - 1.0 mg/dL INTERFACE SYSTEM ALBUMIN 4.1 3.4 - 4.8 g/dL INTERFACE SYSTEM TOTAL PROTEIN 7.2 6.3 - 8.6 g/dL INTERFACE SYSTEM ALT 14 0 - 31 U/L INTERFACE SYSTEM BILIRUBIN DIRECT 0.1 0.0 - 0.3 mg/dL INTERFACE SYSTEM 04/27/2005 9:50 AM SQL PROGRAMMER ANALYST us Najma Gates MD CHEMISTRY ORDERABLES Final R esult INTERFACE SYSTEM Refer to clinic/hospital department * CARBAMAZEPINE LEVEL (04/27/2005 9:50 AM SQL PROGRAMMER ANALYST) CARBAMAZEPINE LEVEL 6.6 4.0 - 12.0 ug/mL INTERFACE SYSTEM Comment:Carbamazepine Toxic Level => 20 ug/mL 04/27/2005 9:50 AM SQL PROGRAMMER ANALYST Najma Gates MD CHEMISTRY ORDERABLES Final R esult Performing Organization Address [facility] Phone Number INTERFACE SYSTEM Refer to clinic/hospital department * TSH (04/25/2005 8:40 AM SQL PROGRAMMER ANALYST) TSH 3.41 0.27 - 4.20 uU/mL INTERFACE SYSTEM 04/25/2005 8:40 AM SQL PROGRAMMER ANALYST Najma Gates MD CHEMISTRY ORDERABLES Final R esult Performing Organization Address [facility] INTERFACE SYSTEM Refer to clinic/hospital department * (ABNORMAL) VALPROIC ACID LEVEL, TOTAL (04/25/2005 8:40 AM SQL PROGRAMMER ANALYST) VALPROIC ACID TOTAL 117(H) 50 - 100 ug/mL INTERFACE SYSTEM Comment: Valproic Acid Antiepileptic Control = 50 - 100 ug/mL Valproic Acid Manic Episode Control = 50 - 125 ug/mL Valproic Acid Toxic Level = >200 ug/mL 04/25/2005 8:40 AM SQL PROGRAMMER ANALYST Najma Gates MD CHEMISTRY ORDERABLES Final R esult Performing Organization Address [facility] Phone Number INTERFACE SYSTEM Refer to clinic/hospital department * HEPATIC FUNCTION PANEL (04/25/2005 8:40 AM SQL PROGRAMMER ANALYST) AST 14 12 - 32 U/L INTERFACE SYSTEM ALKALINE PHOSPHATASE 62 35 - 104 U/L INTERFACE SYSTEM BILIRUBIN TOTAL 0.2 0.2 - 1.0 mg/dL INTERFACE SYSTEM ALBUMIN 4.2 3.4 - 4.8 g/dL INTERFACE SYSTEM TOTAL PROTEIN 7.3 6.3 - 8.6 g/dL INTERFACE SYSTEM ALT 14 0 - 31 U/L INTERFACE SYSTEM BILIRUBIN DIRECT 0.1 0.0 - 0.3 mg/dL INTERFACE SYSTEM 04/25/2005 8:40 AM SQL PROGRAMMER ANALYST Najma Gates MD CHEMISTRY ORDERABLES Final R esult Performing Organization Address [facility] Phone Number INTERFACE SYSTEM Refer to clinic/hospital department * HCG QUALITATIVE, URINE (04/24/2005 6:30 AM SQL PROGRAMMER ANALYST) HCG QUAL URINE Negative Negative INTER FACE SYSTEM SPECIFIC GRAVITY UA 1.025 1.001 - 1.035 INTERFACE SYSTEM 04/24/2005 6:30 AM SQL PROGRAMMER ANALYST Najma Gates MD URINE ORDERABLES Final Resul t Performing Organization Address [facility] Number INTERFACE SYSTEM Refer to clinic/hospital department * (ABNORMAL) URINALYSIS (04/24/2005 6:30 AM SQL PROGRAMMER ANALYST) COLOR UA Yellow INTERFACE SYSTEM CLARITY UA [...] UA Negative Negative INTERFACE SYSTEM WBC UA 1 0 - 5 /HPF INTERFACE SYSTEM RBC UA 1 0 - 4 /HPF INTERFACE SYSTEM EPITHELIAL CELLS, URINE Many /HPF INTERFACE SYSTEM 04/24/2005 6:30 AM SQL PROGRAMMER ANALYST Najma Gates MD URINE ORDERABLES Final Resul t Performing Organization Address [facility] Phone Number INTERFACE SYSTEM Refer to clinic/hospital department * CBC WITH DIFFERENTIAL (04/24/2005 5:57 AM SQL PROGRAMMER ANALYST) NEUTROPHILS 46 45 - 70 % INTERFAC E SYSTEM LYMPHOCYTES 41 16 - 45 % INTERFAC E SYSTEM MONOCYTES 8 3 - 13 % INTERFACE SYSTEM EOSINOPHILS 4 0 - 7 % INTERFAC E SYSTEM BASOPHILS 0 0 - 2 % INTERFACE SYSTEM NEUTROPHIL ABSOLUTE 2.92 1.90 - 7.00 K/uL INTERFACE SYSTEM LYMPHOCYTE ABSOLUTE 2.61 0.70 - 4.50 K/uL INTERFACE SYSTEM MONOCYTE ABSOLUTE 0.53 0.10 - 1.30 K/uL INTERFACE SYSTEM EOSINOPHIL ABSOLUTE 0.26 0.00 - 0.70 K/uL INTERFACE SYSTEM BASOPHILS ABSOLUTE 0.01 0.00 - 0.20 K/uL INTERFACE SYSTEM 04/24/2005 5:57 AM SQL PROGRAMMER ANALYST Najma Gates MD HEMATOLOGY ORDERABLES Final Result Performing Organization Address City/State/[facility] Co de Phone Number INTERFACE SYSTEM Refer to clinic/hospital department * (ABNORMAL) CBC WITH DIFFERENTIAL (04/24/2005 5:57 AM SQL PROGRAMMER ANALYST) WBC 6.3 4.0 - 9.8 K/uL INTERFACE SYSTEM RBC 4.13 3.90 - 4.90 M/uL INTERFACE SYSTEM HEMOGLOBIN 11.4(L) 11.8 - 14.8 g/dL INTERFACE SYSTEM HEMATOCRIT 34.6(L) 35.5 - 44.0 % INTERFACE SYSTEM MCV 83.8 82.0 - 99.0 fL INTERFACE SYSTEM MCH 27.6 27.2 - 32.6 pg INTERFACE SYSTEM MCHC 32.9 31.5 - 35.5 % INTERFACE SYSTEM RDW 12.6 11.5 - 14.5 % INTERFACE SYSTEM RDW-STDEV 38.4 37.1 - 48.7 fL INTERFACE SYSTEM PLATELETS 340 140 - 350 K/uL INTERFACE SYSTEM MPV 10.5 9.3 - 12.4 fL INTERFACE SYSTEM 04/24/2005 5:57 AM SQL PROGRAMMER ANALYST Najma Gates MD HEMATOLOGY ORDERABLES Final Result INTERFACE SYSTEM Refer to clinic/hospital department * TSH (04/24/2005 5:57 AM SQL PROGRAMMER ANALYST) TSH 3.59 0.27 - 4.20 uU/mL INTERFACE SYSTEM 04/24/2005 5:57 AM SQL PROGRAMMER ANALYST Najma Gates MD CHEMISTRY ORDERABLES Final R esult Performing Organization Address City/[facility]/ZIP Co de Phone Number INTERFACE SYSTEM Refer to clinic/hospital department * (ABNORMAL) COMPREHENSIVE METABOLIC PANEL (04/24/2005 5:57 AM SQL PROGRAMMER ANALYST) GLUCOSE 93 65 - 109 mg/dL INTERFACE SYSTEM CREATININE 0.6 0.4 - 1.2 mg/dL INTERFACE SYSTEM CALCIUM 8.9 8.6 - 10.2 mg/dL INTERFACE SYSTEM AST 13 12 - 32 U/L INTERFACE SYSTEM ALKALINE PHOSPHATASE 55 35 - 104 U/L INTERFACE SYSTEM BILIRUBIN TOTAL 0.1(L) 0.2 - 1.0 mg/dL INTERFACE SYSTEM ALBUMIN 3.7 3.4 - 4.8 g/dL INTERFACE SYSTEM TOTAL PROTEIN 6.6 6.3 - 8.6 g/dL INTERFACE SYSTEM ALT 14 0 - 31 U/L INTERFACE SYSTEM BUN 14 6 - 20 mg/dL INTERFACE SYSTEM SODIUM 139 135 - 145 mmol/L INTERFACE SYSTEM POTASSIUM 4.0 3.5 - 4.9 mmol/L INTERFACE SYSTEM CHLORIDE 108 96 - 108 mmol/L INTERFACE SYSTEM CO2 26 22 - 30 mmol/L INTERFACE SYSTEM 04/24/2005 5:57 AM SQL PROGRAMMER ANALYST Najma Gates MD CHEMISTRY ORDERABLES Final R esult Performing Organization Address [facility] Phone Number INTERFACE SYSTEM Refer to clinic/hospital department * DRUG SCREEN, URINE (04/23/2005 9:23 PM SQL PROGRAMMER ANALYST) COMMENT, TOXICOLOGY See Separate Comment INTERFACE SYSTEM [...] drugs of abuse are available on the [facility] at: [email or web address] Select: Drugs of Abuse ? [facility] To inquire about any potential cross-reactivity of [...] PCP QUAL, URINE Negative INTE RFACE SYSTEM 04/23/2005 9:23 PM SQL PROGRAMMER ANALYST us Carol Draper MD URINE ORDERABLES Final Result Performing Organization Address City/State/[facility] Co de Phone Number INTERFACE SYSTEM Refer to clinic/hospital department documented in this encounter Visit Diagnoses Diagnosis Bipolar disorder, unspecified (CMS/[facility])- Primary Bipolar disorder, unspecified documented in this encounter Care Teams Comedian Relationship Specialty Start Date End Date Stanley Causey MD [facility] [address] [address] PCP - General 02/28/03 documented as of this encounter
--- OUTSIDE RECORDS SUMMARY | 2024-06-01 16:03 | XMS_ITS | Patient Health Summary ---
Author Organization [facility] Address [address] [place] [address] Care Team Providers Care Dance Therapist Name Role Phone Stanley Causey MD Primary Care Provider +1 [phone] Note from [facility],non-owned Affiliates and Associated Physician Practices is amultiple site organization consisting of ambulatory clinics and hospital sitesin [place], [place], [place] and [place]. This disclosure is being madepursuant to the Care Everywhere program and may not contain all information available regarding this patient. Last updated 18.[facility] Allergies * Zolpidem Medications * Be aware that medications may not be up to date on this document. Alwaysverify current medications with the patient. * doxycycline (VIBRAMYCIN) 100 MG capsule(Started 06/28/2011) Take 1 Cap by mouth 2 times daily. * albuterol (PROVENTIL; VENTOLIN) 90 MCG/ACT inhaler(Started 06/28/2011) Inhale 1-2 Puffs by mouth every 4 hours as needed for Shortness of Breath or Wheezing. * predniSONE (DELTASONE) 20 MG tablet(Started 06/28/2011) First dose: 3 tabs PO. Then 1 tab PO BID for 5 days. Social History Tobacco Use Types Packs/Day Years [...] Comments Blood Pressure 128/75 06/28/2011 4:43 AM BLOCKER AND SEWER Pulse 77 06/28/2011 4:43 AM BLOCKER AND SEWER Temperature 36.7 C (98.1 F) 06/28/2011 4:43 AM BLOCKER AND SEWER Respiratory Rate 16 06/28/2011 4:43 AM BLOCKER AND SEWER Oxygen Saturation 100% 06/28/2011 4:43 AM BLOCKER AND SEWER Inhaled Oxygen Concentration - - Weight 111.1 kg (245 lb) 06/28/2011 4:43 AM BLOCKER AND SEWER Height 162.6 cm (5' 4 ) 06/28/2011 4:43 AM BLOCKER AND SEWER Body Mass Index 42.05 06/28/2011 4:43 AM BLOCKER AND SEWER Procedures * SKIN TEST PPD - POINT OF CARE(Performed 12/19/2016) Performed for Screening examination for pulmonary tuberculosis * XR CHEST 2VW(Performed 06/28/2011) Performed for Cough * CT HEAD WO CONTRAST(Performed 09/20/2008) Performed for Headache * XR CHEST 2VW(Performed 09/20/2008) Performed for Headache * HCG URINE QUALITATIVE - POINT OF CARE(Performed 09/20/2008) * TROPONIN I(Performed 09/20/2008) Performed for Headache * MYOGLOBIN BLOOD(Performed 09/20/2008) Performed for Headache * COMPREHENSIVE METABOLIC PANEL(Performed 09/20/2008) Performed for Headache * PTT(Performed 09/20/2008) Performed for Headache * PT-INR(Performed 09/20/2008) Performed for Headache * CBC W AUTO DIFFERENTIAL(Performed 09/20/2008) Performed for Headache * URINALYSIS REFLEX TO MICROSCOPIC NO CULTURE(Performed 09/20/2008) Performed for Headache Results * SKIN TEST PPD - POINT OF CARE (12/19/2016 4:25 PM CDT) PPD 0mm Comment:ppd placed on 7 @ 2:40pm ppd read on 12/19/16 @ 4:22pm MISCELLANEOUS SAMPLE S / Unknown 12/19/2016 4:25 PM CDT Freddy Smith ASSISTANT DRAFTER-DIRECTOR MUSIC LAB - POINT OF CARE ORDERABLES * XR CHEST PA AND LATERAL (ROUTINE) (06/28/2011 5:40 AM BLOCKER AND SEWER) Only the most recent of2 resultswithin the time period is included. Anatomical Region Laterality Modality Chest Radiographic Bronwyn ging 06/28/2011 7:33 AM BLOCKER AND SEWER Impressions 06/28/2011 7:33 AM BLOCKER AND SEWER No acute cardiopulmonary process. Narrative 06/28/2011 7:33 AM BLOCKER AND SEWER Exam: Chest PA and lateral Date: 06/28/2011 History: Cough Findings: The lungs, pleura, cardiomediastinal silhouette, and bony thorax remain within normal limits since 09/20/2008. Procedure Note Jose Carlin MD - 06/28/2011 Exam: Chest PA and lateral Date: 06/28/2011 History: Cough Findings: The lungs, pleura, cardiomediastinal silhouette, and bony thorax remain within normal limits since 09/20/2008. IMPRESSION No acute cardiopulmonary process. Coleen Sands MD DIAGNOSTIC IMAGIN G ORDERABLES * CT HEAD NON CONTRAST (09/20/2008 2:10 PM CDT) Anatomical Region Laterality Modality Head Other 09/20/2008 2:10 PM CDT Narrative 09/20/2008 2:22 PM CDT Indication- syncope, headache Comparison- none Technique- 5 mm axial images were obtained from the foramen magnum to the vertex without administration of contrast. Findings- The ventricles and sulci are normal in size for patient's given age. There is no intracranial hemorrhage, mass, or mass-effect. No abnormal extra-axial fluid collections are seen. There is no cortical infarction. The visualized paranasal sinuses and mastoid air cells appear clear. Impression- Normal unenhanced CT brain. Read By- ALIVIA JAMESON M.D. Released By- ALIVIA JAMESON M.D. Released Date Time- 09/20/08 1422 Ski Topper- KATHIA Lanier ADM- EMERGENCY,PHYSICIANS ATT- EMERGENCY,PHYSICIANS REF- [facility] Note Alivia Jameson - 09/20/2008 Indication- syncope, headache Comparison- none Technique- 5 mm axial images were obtained from the foramen magnum to the vertex without administration of contrast. Findings- The ventricles and sulci are normal in size for patient's given age. There is no intracranial hemorrhage, mass, or mass-effect. No abnormal extra-axial fluid collections are seen. There is no cortical infarction. The visualized paranasal sinuses and mastoid air cells appear clear. Impression- Normal unenhanced CT brain. Read By- ALIVIA JAMESON M.D. Released By- ALIVIA JAMESON M.D. Released Date Time- 09/20/08 1422 Ski Topper- KATHIA Lanier ADM- EMERGENCY,PHYSICIANS ATT- EMERGENCY,PHYSICIANS REF- [facility]- [facility] Laurent Navarro MD CT ORDERABLES * HCG URINE QUALITATIVE - POINT OF CARE (09/20/2008 12:25 PM CDT) Pathologist [facility] [place] HCG Qual Urine Not Detected Not Detected [facility] Comment , Urine: Test performed by [facility] Staff [facility] URINE / Unknown 09/20/2008 1 2:25 PM CDT Deidra Mahan MD LAB - POINT OF CARE ORDERABLES [facility] [address] [place] [address] * TROPONIN I (09/20/2008 12:20 PM CDT) [facility] Troponin I <0.10 SEE BELOW ng/ml [facility] Comment: Normal <0.10 Reis Zone 0.10-0.99 Positive >=1.00 BLOOD SPECIMEN / Unknown 09/20/2008 12:20 PM CDT Laurent Navarro MD LAB - CHEMISTRY ORD ERABLES Performing Organization Address [facility] de Phone Number [facility] [address] [place] [address] * URINALYSIS ROUTINE AUTO (09/20/2008 12:20 PM CDT) Color UA YELLOW [facility] Character UA CLEAR [facility] Specific [place] UA 1.023 1.005 - 1.0300 [facility] pH UA 7.5 4.6 - 8.0 pH Units [facility] Leukocyte UA NEGATIVE Negative /ul [facility] Nitrite UA NEGATIVE Negative [facility] Protein UA NEGATIVE Negative mg/dl [facility] Glucose UA NEGATIVE Normal mg/dl [facility] Ketone UA NEGATIVE Negative mg/dl [facility] Urobilinogen UA 0.2 Normal [place] Units [facility] Bilirubin UA NEGATIVE Negative mg/dl [facility] Blood UA NEGATIVE Negative /ul [facility] WBC UA <5 /HPF [facility] RBC UA <5 /cmm [facility] Epithelial Cell UA <5 /HPF [facility] Casts UA <2 /LPF [facility] Bacteria UA NEGATIVE [facility] URINE / Unknown 09/20/2008 1 2:20 PM CDT Laurent Navarro MD LAB - URINALYSIS OR DERABLES Performing Organization Address [facility] de Phone Number [facility] [address] [place] [address] * MYOGLOBIN BLOOD (09/20/2008 12:20 PM CDT) Myoglobin 22.0 0.0 - 110.0 ng/ml [facility] BLOOD SPECIMEN / Unknown 09/20/2008 12:20 PM CDT Laurent Navarro MD LAB - CHEMISTRY ORD ERABLES Performing Organization Address [facility] de Phone Number [facility] [address] [place] [address] * PTT (09/20/2008 12:20 PM CDT) Pathologist [facility] [place] PTT 26.9 24.0 - 32.0 seconds [facility] BLOOD SPECIMEN / Unknown 09/20/2008 12:20 PM CDT Laurent Navarro MD LAB - COAGULATION O YAHIR Performing Organization Address [facility] Co de Phone Number [facility] [id number] [place] [address] * PT-INR (09/20/2008 12:20 PM CDT) Pathologist [facility] [place] PT 10.0 9.4 - 11.2 seconds [facility] INR 0.9 0.9 - 1.1 [facility] Interpretation INR D [facility] Comment: Conventional Anticoagulation INR 2.0-3.0 Intensive Anticoagulation INR 2.5-3.5 BLOOD SPECIMEN / Unknown 09/20/2008 12:20 PM CDT Laurent Navarro MD LAB - COAGULATION O YAHIR Performing Organization Address [facility] de Phone Number [facility] [id number] [place] [phone] * CBC W AUTO DIFFERENTIAL (09/20/2008 12:20 PM CDT) Pathologist [facility] [place] WBC 6.3 4.5 - 11.0 1000/mm3 [facility] RBC 4.38 4.2 - 5.4 10X6 [facility] Hemoglobin 12.5 12.0 - 16.0 gm/dl [facility] Hematocrit 36.2 36.0 - 48.0 % [facility] MCV 82.6 80.0 - 99.0 fl [facility] MCH 28.5 25.0 - 31.0 pg [facility] MCHC 34.5 32.0 - 36.0 gm/dl [facility] RDW 12.4 11.5 - 14.5 % [facility] Platelet Count 320 130.0 - 400.0 1000/mm3 [facility] Granulocytes % 61.1 40.0 - 70.0 % [facility] Lymphocytes % Manual 30.5 22.0 - 40.0 % [facility] Monocytes % 6.5 2.0 - 10.0 % [facility] Eosinophils % 1.6 0.0 - 6.0 % [facility] Basophils % 0.3 0.0 - 3.0 % [facility] Comment Manual Diff Not Indicated [facility] Granulocytes Absolute 3.84 1.8 - 7.7 1000/mm3 [facility] BLOOD SPECIMEN / Unknown 09/20/2008 12:20 PM CDT Laurent Navarro MD LAB - HEMATOLOGY OR DERABLES Performing Organization Address [facility] de Phone Number [facility] [address] [place] [address] * (ABNORMAL) COMPREHENSIVE METABOLIC PANEL (09/20/2008 12:20 PM CDT) BUN 11 7.0 - 17.0 mg/dl [facility] Sodium 139 137 - 145 mEq/L [facility] Potassium 3.8 3.6 - 5.0 mEq/L [facility] Chloride 107 98.0 - 107.0 mEq/L [facility] Glucose 97 75 - 110 mg/dl [facility] Creatinine 0.6(L) 0.7 - 1.2 mg/dl [facility] AST 18 14.0 - 36.0 U/L [facility] Alkaline Phosphatase 48 38.0 - 126.0 U/L [facility] Calcium 9.1 8.4 - 10.2 mg/dl [facility] Bilirubin Total 0.1(L) 0.2 - 1.3 mg/dl [facility] Albumin 3.9 3.5 - 5.0 gm/dl [facility] Protein Total 7.0 6.3 - 8.2 gm/dl [facility] CO2 23 22.0 - 30.0 mEq/L [facility] ALT 5(L) 9.0 - 52.0 U/L [facility] eGFR by MDRD 130.5 ml/min/1.7 3m2 [facility] BLOOD SPECIMEN / Unknown 09/20/2008 12:20 PM CDT Laurent Navarro MD LAB - CHEMISTRY ORD ERABLES Performing Organization Address [facility] Co de Phone Number [facility] [address] [place] [address] Care Teams Dance Therapist Relationship Specialty Start Date End Date Stanley Causey MD [address] [facility] [address] [place] [address] PCP - General 04/17/20
--- OUTSIDE RECORDS SUMMARY | 2024-06-01 16:03 | XMS_ITS | Encounter Summary ---
Author Organization [facility] Address [address] [place] [address] Care Team Providers Care Asset Protection Officer Name Role Phone Stanley Causey MD Primary Care Provider +1 -[phone] Encounter Details Date Type Department Care Team (Latest Contact Info) Description 01/27/2005 Outpatient Historical [facility] Najma De Luna MD [address] [facility] [address] [place] [address] BIPOLAR DISORDER NOS (CMS/HCC) (Primary Dx) Social History Tobacco Use Types Packs/Day Years Used Date Smoking Tobacco: Never Assessed Comments Unknown Sex and Gender Information Value Date Recorded Sex Assigned at Not on file Legal Sex Female 3:05 AM DYE COLORIST FORMULATOR Gender Identity Not on file Sexual Orientation Not on file documented as of this encounter Plan of Treatment Upcoming Encounters Date Type Department Care Team (Late st Contact Info) Description 06/08/2024 4:30 PM DYE COLORIST FORMULATOR Telephone Check Up [facility] Oncology and Hematology - Lex [address] [facility] [address] [place] [address] Rustam Oswald MD [address] [facility] [address] [place] [address] documented as of this encounter Visit Diagnoses Diagnosis Bipolar disorder, unspecified (CMS/HCC)- Primary Bipolar disorder, unspecified documented in this encounter Care Teams Asset Protection Officer Relationship Specialty Start Date End Date Stanley Causey MD [facility] [address] [address] PCP - General 02/28/03 documented as of this encounter
--- OUTSIDE RECORDS SUMMARY | 2024-06-01 16:04 | XMS_ITS | Encounter Summary ---
Author Organization [facility] Address [address] [place] [address] Care Team Providers Care Kiln Cleaner Name Role Phone Stanley Causey MD Primary Care Provider +1 -[phone] Encounter Details Date Type Department Care Team (Latest Contact Info) Description 12/22/2003 Outpatient Historical HIS PATIENT IN A BED Miley Wilson MD NO ADDRESS ON FILE ABDOMINAL PAIN UNSPEC SITE (Primary Dx) Social History Tobacco Use Types Packs/Day Years Used Date Smoking Tobacco: Never Assessed Comments Unknown Sex and Gender Information Value Date Recorded Sex Assigned at Not on file Legal Sex Female 3:05 AM MECHANICAL INTERN Gender Identity Not on file Sexual Orientation Not on file documented as of this encounter Plan of Treatment Upcoming Encounters Date Type Department Care Team (Late st Contact Info) Description 06/08/2024 4:30 PM MECHANICAL INTERN Telephone Check Up [facility] Oncology and Hematology - Lex [address] [facility] [address] [place] [address] Rustam Oswald MD [address] [facility] [address] [place] [address] documented as of this encounter Visit Diagnoses Diagnosis Abdominal pain, unspecified site- Primary documented in this encounter Care Teams Kiln Cleaner Relationship Specialty Start Date End Date Stanley Causey MD [address] [facility] [address] [place] [address] PCP - General 02/28/03 documented as of this encounter
--- OUTSIDE RECORDS SUMMARY | 2024-06-01 16:04 | XMS_ITS | Encounter Summary ---
Author Organization [facility] Address [address] [place] [address] Care Team Providers Care Grinder Carbon Plant Name Role Phone Stanley Causey MD Primary Care Provider +1 -[phone] Encounter Details Date Type Department Care Team (Latest Contact Info) Description 01/04/2004 Outpatient Historical HIS PATIENT IN A BED Miley Wilson MD NO ADDRESS ON FILE [facility] (Primary Dx) Social History Tobacco Use Types Packs/Day Years Used Date Smoking Tobacco: Never Assessed Comments Unknown Sex and Gender Information Value Date Recorded Sex Assigned at Not on file Legal Sex Female 3:05 AM PROVER Gender Identity Not on file Sexual Orientation Not on file documented as of this encounter Plan of Treatment Upcoming Encounters Date Type Department Care Team (Late st Contact Info) Description 06/08/2024 4:30 PM PROVER Telephone Check Up [facility] Oncology and Hematology - Lex [address] [facility] [address] [place] [address] Rustam Oswald MD [address] [facility] [address] [place] [address] documented as of this encounter Visit Diagnoses Diagnosis Threatened premature labor, antepartum(644.03)- Primary Threatened premature labor, antepartum documented in this encounter Care Teams Grinder Carbon Plant Relationship Specialty Start Date End Date Stanley Causey MD [address] [address], [address] [place] [address] PCP - General 02/28/03 documented as of this encounter
--- OUTSIDE RECORDS SUMMARY | 2024-06-01 16:04 | XMS_ITS | Encounter Summary ---
Author Organization [facility] Address [address] [place] [address] Care Team Providers Care Bioprocess Engineer Name Role Phone Stanley Causey MD Primary Care Provider +1 [phone] Encounter Details Date Type Department Care Team (Late Contact Info) Description 04/01/2003 Outpatient Historical [facility]oles[facility] [address] [facility] [address] [place] [address] [place] [address] [facility] [place] [address] Social History Tobacco Use Types Packs/Day Years Used Date Smoking Tobacco: Never Assessed Comments Unknown Sex and Gender Information Value Date Recorded Sex Assigned at Not on file Legal Sex Female 3:05 AM CUP MACHINE OPERATOR Gender Identity Not on file Sexual Orientation Not on file documented as of this encounter Plan of Treatment Upcoming Encounters Date Type Department Care Team (Late st Contact Info) Description 06/08/2024 4:30 PM CUP MACHINE OPERATOR Telephone Check Up [facility] Oncology and Hematology - Lex [address] [facility] [address] [place] [address] Rustam Oswald MD [address] [facility] [address] [place] [address] documented as of this encounter Visit Diagnoses Not on filedocumented in this encounter Care Teams Bioprocess Engineer Relationship Specialty Start Date End Date Stanley Causey MD [facility] [address] [address] PCP - General 02/28/03 documented as of this encounter
--- OUTSIDE RECORDS SUMMARY | 2024-06-01 16:04 | XMS_ITS | Encounter Summary ---
Author Organization [facility] Address [address] [place] [address] Care Team Providers Care Wastewater Treatment Plant Attendant Name Role Phone Stanley Causey MD Primary Care Provider [phone] [phone] Encounter Details Date Type Department Care Team (Late Contact Info) Description 03/11/2004 Outpatient Historical [facility] Support Serv. ([facility]) [address] [place] [address] Eliseo Grubbs MD NO ADDRESS ON FILE Social History Tobacco Use Types Packs/Day Years Used Date Smoking Tobacco: Never Assessed Comments Unknown Sex and Gender Information Value Date Recorded Sex Assigned at Not on file Legal Sex Female 3:05 AM GRAIN ELEVATOR MAN Gender Identity Not on file Sexual Orientation Not on file documented as of this encounter Plan of Treatment Upcoming Encounters Date Type Department Care Team (Late Contact Info) Description 06/08/2024 4:30 PM GRAIN ELEVATOR MAN Telephone Check Up [facility] Oncology and Hematology - Lex [address] [facility] [address] [place] [address] Rustam Oswald MD [address] [facility] [address] [place] [address] documented as of this encounter Visit Diagnoses Not on filedocumented in this encounter Care Teams Wastewater Treatment Plant Attendant Relationship Specialty Start Date End Date Stanley Causey MD [address] [facility] [address], [address] [place] [address] PCP - General 02/28/03 documented as of this encounter
--- OUTSIDE RECORDS SUMMARY | 2024-06-01 16:04 | XMS_ITS | Encounter Summary ---
Author Organization [facility] Address [address] [place] [address] Care Team Providers Care Splicer Helper Name Role Phone Stanley Causey MD Primary Care Provider +1 [phone] Encounter Details Date Type Department Care Team (Latest Contact Info) Description 03/28/2003 Inpatient Historical HIS PATIENT IN A BED Agustín Albert Shelby BIPOLAR AFFECTIVE NOS (CMS/HCC) (Primary Dx) Social History Tobacco Use Types Packs/Day Years Used Date Smoking Tobacco: Never Assessed Comments Unknown Sex and Gender Information Value Date Recorded Sex Assigned at Not on file Legal Sex Female 3:05 AM PRESIDENT CEO & FOUNDER Gender Identity Not on file Sexual Orientation Not on file documented as of this encounter Plan of Treatment Upcoming Encounters Date Type Department Care Team (Late st Contact Info) Description 06/08/2024 4:30 PM PRESIDENT CEO & FOUNDER Telephone Check Up [facility] Oncology and Hematology - Lex [address] [facility] [address] [place] [address] Rustam Oswald MD [address] [facility] [address] [place] [address] documented as of this encounter Visit Diagnoses Diagnosis Bipolar I disorder, most recent episode (or current) unspecified (CMS/HCC)- Primary Bipolar I disorder, most recent episode (or current) unspecified documented in this encounter Care Teams Splicer Helper Relationship Specialty Start Date End Date Stanley Causey MD [facility] [address], [facility] [address] [place] [address] PCP - General 02/28/03 documented as of this encounter
--- OUTSIDE RECORDS SUMMARY | 2024-06-01 16:04 | XMS_ITS | Encounter Summary ---
Author Organization [facility] Address [address] [place] [address] Care Team Providers Care Employee Service Officer Name Role Phone Stanley Causey MD Primary Care Provider +1 [phone] Encounter Details Date Type Department Care Team (Late Contact Info) Description 03/20/2003 Outpatient Historical [place] [address] [facility] [place] [address] BIPOL AFFECT, MIXED-UNSPEC (CMS/HCC) (Primary Dx) Social History Tobacco Use Types Packs/Day Years Used Date Smoking Tobacco: Never Assessed Comments Unknown Sex and Gender Information Value Date Recorded Sex Assigned at Not on file Legal Sex Female 3:05 AM RESTROOMS OR LOUNGES MAID Gender Identity Not on file Sexual Orientation Not on file documented as of this encounter Plan of Treatment Upcoming Encounters Date Type Department Care Team (Late Contact Info) Description 06/08/2024 4:30 PM RESTROOMS OR LOUNGES MAID Telephone Check Up [facility] Oncology and Hematology - Lex [address] [facility] 200 [place] [address] Rustam Oswald MD [address] [facility] [address] [place] [address] documented as of this encounter Visit Diagnoses Diagnosis Bipolar I disorder, most recent episode (or current) mixed, unspecified (CMS/HCC)- Primary Bipolar I disorder, most recent episode (or current) mixed, unspecified documented in this encounter Care Teams Employee Service Officer Relationship Specialty Start Date End Date Stanley Causey MD [facility] [address] [address] PCP - General 02/28/03 documented as of this encounter
--- OUTSIDE RECORDS SUMMARY | 2024-06-01 16:04 | XMS_ITS | Encounter Summary ---
Author Organization [facility] Address [address] [place] [address] Care Team Providers Care Benzene Washer Operator Name Role Phone Stanley Causey MD Primary Care Provider +1 [phone] Encounter Details Date Type Department Care Team (Latest Contact Info) Description 03/11/2004 Outpatient Historical HIS PATIENT IN A BED Beronica Orta Miley Wilson MD NO ADDRESS ON FILE INFECTION-ANTEPARTUM (Primary Dx) Social History Tobacco Use Types Packs/Day Years Used Date Smoking Tobacco: Never Assessed Comments Unknown Sex and Gender Information Value Date Recorded Sex Assigned at Not on file Legal Sex Female 3:05 AM FARMWORKER DAIRY Gender Identity Not on file Sexual Orientation Not on file documented as of this encounter Plan of Treatment Upcoming Encounters Date Type Department Care Team (Late st Contact Info) Description 06/08/2024 4:30 PM FARMWORKER DAIRY Telephone Check Up [facility] Oncology and Hematology - Lex 2227 [facility] 200 [place] [address] Rustam Oswald MD [address] [facility] [address] [place] [address] documented as of this encounter Visit Diagnoses Diagnosis Infections of genitourinary tract antepartum- Primary documented in this encounter Care Teams Benzene Washer Operator Relationship Specialty Start Date End Date Stanley Causey MD 1110 [facility] 3, [address] [place] [address] PCP - General 02/28/03 documented as of this encounter
--- OUTSIDE RECORDS SUMMARY | 2024-06-01 16:04 | XMS_ITS | Encounter Summary ---
Author Organization [facility] Address [address] [place] [address] Care Team Providers Care Concrete Pump Operator Helper Name Role Phone Stanley Causey MD Primary Care Provider +1 [phone] Encounter Details Date Type Department Care Team (Latest Contact Info) Description 03/13/2003 Inpatient Historical HIS PATIENT IN A BED Agustín Albert BIPOL AFFECT, MIXED-UNSPEC (CMS/HCC) (Primary Dx) Social History Tobacco Use Types Packs/Day Years Used Date Smoking Tobacco: Never Assessed Comments Unknown Sex and Gender Information Value Date Recorded Sex Assigned at Not on file Legal Sex Female 3:05 AM MOTOR GENERATOR SET OPERATOR Gender Identity Not on file Sexual Orientation Not on file documented as of this encounter Plan of Treatment Upcoming Encounters Date Type Department Care Team (Late st Contact Info) Description 06/08/2024 4:30 PM MOTOR GENERATOR SET OPERATOR Telephone Check Up [facility] Oncology and Hematology - Lex 2227 Maralireza Zambrano [facility] 200 [place] [address] Rustam Oswald MD [address] [facility] [address] [place] [address] documented as of this encounter Visit Diagnoses Diagnosis Bipolar I disorder, most recent episode (or current) mixed, unspecified (CMS/HCC)- Primary Bipolar I disorder, most recent episode (or current) mixed, unspecified documented in this encounter Care Teams Concrete Pump Operator Helper Relationship Specialty Start Date End Date Stanley Causey MD [address] [address], [facility] [address] [place] [address] PCP - General 02/28/03 documented as of this encounter
--- OUTSIDE RECORDS SUMMARY | 2024-06-01 16:04 | XMS_ITS | Encounter Summary ---
Author Organization [facility] Address [address] [place] [address] Care Team Providers Care Material Specialist Name Role Phone Stanley Causey MD Primary Care Provider +1 [phone] Encounter Details Date Type Department Care Team (Late Contact Info) Description 02/28/2003 Outpatient Historical [facility] Child and Adolescent Psychiatry S [facility] [address] [place] [facility] [address] [address] Agustín Albert Social History Tobacco Use Types Packs/Day Years Used Date Smoking Tobacco: Never Assessed Comments Unknown Sex and Gender Information Value Date Recorded Sex Assigned at Not on file Legal Sex Female 3:05 AM ROPE TIER Gender Identity Not on file Sexual Orientation Not on file documented as of this encounter Plan of Treatment Upcoming Encounters Date Type Department Care Team (Late Contact Info) Description 06/08/2024 4:30 PM ROPE TIER Telephone Check Up [facility] Oncology and Hematology - Lex 222 [facility] 200 [place] [address] Rustam Oswald MD 2227 [facility] [address] [place] [address] documented as of this encounter Visit Diagnoses Not on filedocumented in this encounter Care Teams Material Specialist Relationship Specialty Start Date End Date Stanley Causey MD [address] [place] [address] [facility] 280 [facility] [place] [address] PCP - General 02/28/03 documented as of this encounter
--- OUTSIDE RECORDS SUMMARY | 2024-06-01 16:04 | XMS_ITS | Encounter Summary ---
Author Organization [facility] Address [address] [place] [address] Care Team Providers Care Separator Tender Name Role Phone Stanley Causey MD Primary Care Provider +1 [phone] Encounter Details Date Type Department Care Team (Latest Contact Info) Description 03/05/2004 Outpatient Historical HIS PATIENT IN A BED Beronica Orta Miley Wilson MD NO ADDRESS ON FILE OTHER CURR COND-ANTEPARTUM (Primary Dx) Social History Tobacco Use Types Packs/Day Years Used Date Smoking Tobacco: Never Assessed Comments Unknown Sex and Gender Information Value Date Recorded Sex Assigned at Not on file Legal Sex Female 3:05 AM PHARMACY ANCILLARY Gender Identity Not on file Sexual Orientation Not on file documented as of this encounter Plan of Treatment Upcoming Encounters Date Type Department Care Team (Late st Contact Info) Description 06/08/2024 4:30 PM PHARMACY ANCILLARY Telephone Check Up [facility] Oncology and Hematology - Lex 2227 [facility] 200 [place] [address] Rustam Oswald MD 2227 [facility] [address] [place] [address] documented as of this encounter Visit Diagnoses Diagnosis Other current maternal conditions classifiable elsewhere, antepartum- Primary documented in this encounter Care Teams Separator Tender Relationship Specialty Start Date End Date Stanley Causey MD 1110 [facility] 3, [address] [facility] [place] [address] PCP - General 02/28/03 documented as of this encounter
--- OUTSIDE RECORDS SUMMARY | 2024-06-01 16:04 | XMS_ITS | Encounter Summary ---
Author Organization [facility] Address [address] [place] [address] Care Team Providers Care Radius Grinder Name Role Phone Stanley Causey MD Primary Care Provider [phone] [phone] Encounter Details Date Type Department Care Team (Late Contact Info) Description 03/13/2003 Outpatient Historical [facility] Child and Adolescent Psychiatry S [facility] [address] [facility] [place] [address] Agustín Albert Social History Tobacco Use Types Packs/Day Years Used Date Smoking Tobacco: Never Assessed Comments Unknown Sex and Gender Information Value Date Recorded Sex Assigned at Not on file Legal Sex Female 3:05 AM QUOTE CLERK Gender Identity Not on file Sexual Orientation Not on file documented as of this encounter Plan of Treatment Upcoming Encounters Date Type Department Care Team (Late Contact Info) Description 06/08/2024 4:30 PM QUOTE CLERK Telephone Check Up [facility] Oncology and Hematology - Lex 222 [facility] 200 [place] [address] Rustam Oswald MD 2[address] [facility] [address] [place] [address] documented as of this encounter Visit Diagnoses Not on filedocumented in this encounter Care Teams Radius Grinder Relationship Specialty Start Date End Date Stanley Causey MD [address] [place] [address] [facility] 280 [place] [address] PCP - General 02/28/03 documented as of this encounter
--- OUTSIDE RECORDS SUMMARY | 2024-06-01 16:04 | XMS_ITS | Encounter Summary ---
Author Organization [facility] Address [address] [place] [address] Care Team Providers Care Veneer Glue Spreader Name Role Phone Stanley Causey MD Primary Care Provider +1 [phone] Encounter Details Date Type Department Care Team ([facility] Contact Info) Description 11/02/2003 Outpatient Historical [facility] Maternal and Ground [facility] [address] [place] [address] Deidre Moncada MD [address] [place] [address] Social History Tobacco Use Types Packs/Day Years Used Date Smoking Tobacco: Never Assessed Comments Unknown Sex and Gender Information Value Date Recorded Sex Assigned at Not on file Legal Sex Female 3:05 AM MEDICAL SERVICES ASSISTANT Gender Identity Not on file Sexual Orientation Not on file documented as of this encounter Plan of Treatment Upcoming Encounters Date Type Department Care Team (Late Contact Info) Description 06/08/2024 4:30 PM MEDICAL SERVICES ASSISTANT Telephone Check Up [facility] Oncology and Hematology - Lex 2227 Graham Zambrano [facility] 200 [place] [address] Rustam Oswald MD 2227 [facility] [address] [place] [address] documented as of this encounter Visit Diagnoses Not on filedocumented in this encounter Care Teams Veneer Glue Spreader Relationship Specialty Start Date End Date Stanley Causey MD [facility] [address] [address] PCP - General 02/28/03 documented as of this encounter
--- OUTSIDE RECORDS SUMMARY | 2024-06-01 16:04 | XMS_ITS | Encounter Summary ---
Author Organization [facility] Address [address] [place] [address] Care Team Providers Care Switch Operators Supervisor Name Role Phone Stanley Causey MD Primary Care Provider +1 [phone] Encounter Details Date Type Department Care Team (Late Contact Info) Description 03/25/2003 Outpatient Historical [facility] Child and Adolescent Psychiatry S [facility] [address] [place] [address] [place] [address] [facility] [place] [address] Social History Tobacco Use Types Packs/Day Years Used Date Smoking Tobacco: Never Assessed Comments Unknown Sex and Gender Information Value Date Recorded Sex Assigned at Not on file Legal Sex Female 3:05 AM BOTTLE WASHER MACHINE Gender Identity Not on file Sexual Orientation Not on file documented as of this encounter Plan of Treatment Upcoming Encounters Date Type Department Care Team (Late st Contact Info) Description 06/08/2024 4:30 PM BOTTLE WASHER MACHINE Telephone Check Up [facility] Oncology and Hematology - Lex 2227 Graham Zambrano [facility] 200 [place] [address] Rustam Oswald MD 2227 [facility] [address] [place] [address] documented as of this encounter Visit Diagnoses Not on filedocumented in this encounter Care Teams Switch Operators Supervisor Relationship Specialty Start Date End Date Stanley Causey MD [facility] [address] [address] PCP - General 02/28/03 documented as of this encounter
--- OUTSIDE RECORDS SUMMARY | 2024-06-01 16:04 | XMS_ITS | Encounter Summary ---
Author Organization [facility] Address [address] [place] [address] Care Team Providers Care Atv Mechanic Name Role Phone Stanley Causey MD Primary Care Provider +1 [phone] Encounter Details Date Type Department Care Team (Late st Contact Info) Description 12/04/2003 Outpatient Historical [facility] Miley Wilson MD NO ADDRESS ON FILE Social History Tobacco Use Types Packs/Day Years Used Date Smoking Tobacco: Never Assessed Comments Unknown Sex and Gender Information Value Date Recorded Sex Assigned at Not on file Legal Sex Female 3:05 AM SLITTER SCORER CUT OFF OPERATOR Gender Identity Not on file Sexual Orientation Not on file documented as of this encounter Plan of Treatment Upcoming Encounters Date Type Department Care Team (Late st Contact Info) Description 06/08/2024 4:30 PM SLITTER SCORER CUT OFF OPERATOR Telephone Check Up [facility] Oncology and Hematology - Lex 2227 [facility] 200 [place] [address] Rustam Oswald MD 2227 [facility] [address] [place] [address] documented as of this encounter Visit Diagnoses Not on filedocumented in this encounter Care Teams Atv Mechanic Relationship Specialty Start Date End Date Stanley Causey MD 1110 [facility] 3, [facility] 280 [place] [address] PCP - General 02/28/03 documented as of this encounter
--- OUTSIDE RECORDS SUMMARY | 2024-06-01 16:04 | XMS_ITS | Encounter Summary ---
Author Organization [facility] Address [address] [place] [address] Care Team Providers Care Heddler Tier Name Role Phone Stanley Causey MD Primary Care Provider +1 -[phone] Encounter Details Date Type Department Care Team (Late st Contact Info) Description 06/21/2002 Outpatient [facility] [address] [place] [address] RD. [place], [place] [address] Dillon Hilton MD Social History Tobacco Use Types Packs/Day Years Used Date Smoking Tobacco: Never Assessed Comments Unknown Sex and Gender Information Value Date Recorded Sex Assigned at Not on file Legal Sex Female 3:05 AM NETWORK INTERN Gender Identity Not on file Sexual Orientation Not on file documented as of this encounter Plan of Treatment Upcoming Encounters Date Type Department Care Team (Late st Contact Info) Description 06/08/2024 4:30 PM NETWORK INTERN Telephone Check Up [facility] Oncology and Hematology - Lex 2227 [facility] 200 [place] [address] Rustam Oswald MD 2227 [facility] [address] [place] [address] documented as of this encounter Visit Diagnoses Not on filedocumented in this encounter Care Teams Heddler Tier Relationship Specialty Start Date End Date Stanley Causey MD [address] [address], [facility] [address] [place] [address] PCP - General 02/28/03 documented as of this encounter
--- OUTSIDE RECORDS SUMMARY | 2024-06-01 16:04 | XMS_ITS | Encounter Summary ---
Author Organization [facility] Address [address] [place] [address] Care Team Providers Care Client Experience Specialist Name Role Phone Stanley Causey MD Primary Care Provider +1 -[phone] Encounter Details Date Type Department Care Team (Latest Contact Info) Description 11/02/2003 Outpatient Historical [facility] Miley Wilson MD NO ADDRESS ON FILE DAMG D/T DRUG-ANTEPA (Primary Dx) Social History Tobacco Use Types Packs/Day Years Used Date Smoking Tobacco: Never Assessed Comments Unknown Sex and Gender Information Value Date Recorded Sex Assigned at Not on file Legal Sex Female 3:05 AM QUALITY ASSURANCE COACH Gender Identity Not on file Sexual Orientation Not on file documented as of this encounter Plan of Treatment Upcoming Encounters Date Type Department Care Team (Late st Contact Info) Description 06/08/2024 4:30 PM QUALITY ASSURANCE COACH Telephone Check Up [facility] Oncology and Hematology - Lex 2227 [facility] 200 [place] [address] Rustam Oswald MD 2227 [facility] [address] [place] [address] documented as of this encounter Visit Diagnoses Diagnosis Suspected damage to fetus from drugs, affecting management of mother, antepartum- Primary documented in this encounter Care Teams Client Experience Specialist Relationship Specialty Start Date End Date Stanley aCusey MD [address] [address], [facility] 280 [place] [address] PCP - General 02/28/03 documented as of this encounter
--- OUTSIDE RECORDS SUMMARY | 2024-06-01 16:04 | XMS_ITS | Encounter Summary ---
Author Organization [facility] Address [address] [place] [address] Care Team Providers Care Drywall Hanger Helper Name Role Phone Stanley Causey MD Primary Care Provider +1 -[phone] Encounter Details Date Type Department Care Team (Latest Contact Info) Description 02/28/2004 Outpatient Historical HIS PATIENT IN A BED Miley Wilson MD NO ADDRESS ON FILE OTHER CURR COND-ANTEPARTUM (Primary Dx) Social History Tobacco Use Types Packs/Day Years Used Date Smoking Tobacco: Never Assessed Comments Unknown Sex and Gender Information Value Date Recorded Sex Assigned at Not on file Legal Sex Female 3:05 AM PAINT ROLLER ASSEMBLER Gender Identity Not on file Sexual Orientation Not on file documented as of this encounter Plan of Treatment Upcoming Encounters Date Type Department Care Team (Late st Contact Info) Description 06/08/2024 4:30 PM PAINT ROLLER ASSEMBLER Telephone Check Up [facility] Oncology and Hematology - Lex 2227 [facility] 200 [place] [address] Rustam Oswald MD 2227 [facility] [address] [place] [address] documented as of this encounter Visit Diagnoses Diagnosis Other current maternal conditions classifiable elsewhere, antepartum- Primary documented in this encounter Care Teams Drywall Hanger Helper Relationship Specialty Start Date End Date Stanley Causey MD [address] [address], [address] [place] [address] PCP - General 02/28/03 documented as of this encounter
--- OUTSIDE RECORDS SUMMARY | 2024-06-01 16:04 | XMS_ITS | Encounter Summary ---
Author Organization [facility] Address [address] [place] [address] Care Team Providers Care Agency Service Coordinator Name Role Phone Stanley Causey MD Primary Care Provider +1 -[phone] Encounter Details Date Type Department Care Team (Late st Contact Info) Description 06/25/2002 Outpatient [facility] [address] [place] [address] [place] [address] Social History Tobacco Use Types Packs/Day Years Used Date Smoking Tobacco: Never Assessed Comments Unknown Sex and Gender Information Value Date Recorded Sex Assigned at Not on file Legal Sex Female 3:05 AM FAMILY CONSULTANT Gender Identity Not on file Sexual Orientation Not on file documented as of this encounter Plan of Treatment Upcoming Encounters Date Type Department Care Team (Late st Contact Info) Description 06/08/2024 4:30 PM FAMILY CONSULTANT Telephone Check Up [facility] Oncology and Hematology - Lex 2227 [facility] 200 [place] [address] Rustam Oswald MD 2227 [facility] [address] [place] [address] documented as of this encounter Visit Diagnoses Not on filedocumented in this encounter Care Teams Agency Service Coordinator Relationship Specialty Start Date End Date Stanley Causey MD [address] [address], [facility] 280 [place] [address] PCP - General 02/28/03 documented as of this encounter
--- OUTSIDE RECORDS SUMMARY | 2024-06-01 16:04 | XMS_ITS | Encounter Summary ---
Author Organization [facility] Address [address] [place] [address] Care Team Providers Care Energy Analyst Name Role Phone Stanley Causey MD Primary Care Provider +1 -[phone] Encounter Details Date Type Department Care Team ([facility] Contact Info) Description 12/01/2003 Outpatient Historical [facility] Maternal and Ground Floor S [facility] [address] [place] [address] Deidre Moncada MD [address] [place] [address] Social History Tobacco Use Types Packs/Day Years Used Date Smoking Tobacco: Never Assessed Comments Unknown Sex and Gender Information Value Date Recorded Sex Assigned at Not on file Legal Sex Female 3:05 AM MANUAL PLATE FILLER Gender Identity Not on file Sexual Orientation Not on file documented as of this encounter Plan of Treatment Upcoming Encounters Date Type Department Care Team (Late Contact Info) Description 06/08/2024 4:30 PM MANUAL PLATE FILLER Telephone Check Up [facility] Oncology and Hematology - Lex 2227 Graham Zambrano [facility] 200 [place] [address] Rustam Oswald MD 2227 [facility] [address] [place] [address] documented as of this encounter Visit Diagnoses Not on filedocumented in this encounter Care Teams Energy Analyst Relationship Specialty Start Date End Date Stanley Causey MD [facility] [address] [address] PCP - General 02/28/03 documented as of this encounter
--- OUTSIDE RECORDS SUMMARY | 2024-06-01 16:04 | XMS_ITS | Encounter Summary ---
Author Organization [facility] Address [address] [place] [address] Care Team Providers Care Auto Adjudication Specialist Name Role Phone Stanley Causey MD Primary Care Provider +1 [phone] Encounter Details Date Type Department Care Team (Late st Contact Info) Description 06/01/2024 3:00 PM MUFFLER INSTALLER Office Visit [facility] Oncology and Hematology - Lex [address] [facility] [address] [place] [address] Rustam Oswald MD [address] [facility] [address] [place] [address] Chronic anemia (Primary Dx) Social History Tobacco Use Types Packs/Day Years Used Date Smoking Tobacco: Former Cigarettes 0.3 8 Q uit: 06/01/2010 Smokeless Tobacco: Never Alcohol Use Standard Drinks/Week Comments No 0 (1 standard drink = 0.6 oz pur e alcohol) Comments Unknown Sex and Gender Information Value Date Recorded Sex Assigned at Not on file Legal Sex Female 3:05 AM MUFFLER INSTALLER Gender Identity Not on file Sexual Orientation Not on file Occupation Industry Job Start Date Job End Date Not on file Not on file Not on file Not on file documented as of this encounter Last Filed Vital Signs Vital Sign Reading Time Taken Comments Blood Pressure 107/77 06/01/2024 3:04 PM MUFFLER INSTALLER Pulse 70 06/01/2024 3:04 PM MUFFLER INSTALLER Temperature 36.7 C (98 F) 06/01/2024 3:04 PM MUFFLER INSTALLER Respiratory Rate - - Oxygen Saturation 98% 06/01/2024 3:04 PM MUFFLER INSTALLER Inhaled Oxygen Concentration - - Weight 79.4 kg (175 lb) 06/01/2024 3:04 PM MUFFLER INSTALLER Height 162.6 cm (5' 4 ) 06/01/2024 3:04 PM MUFFLER INSTALLER Body Mass Index 30.04 06/01/2024 3:04 PM MUFFLER INSTALLER documented in this encounter Plan of Treatment Upcoming Encounters Date Type Department Care Team (Late st Contact Info) Description 06/08/2024 4:30 PM MUFFLER INSTALLER Telephone Check Up [facility] Oncology and Hematology - Lex [address] [facility] [address] [place] [address] Rustam Oswald MD [address] [facility] [address] [place] [address] Scheduled Orders Name Type Priority Associated Diagnoses Orde r Schedule CBC WITH DIFFERENTIAL Lab Stat Chronic anemia Expected: 06/01/2024, Expires: 06/01/2025 COMPREHENSIVE METABOLIC PANEL Lab Stat Chronic anemia Expected: 06/01/2024, Expires: 06/01/2025 FERRITIN Lab Routine Chronic anemia Expected: 06/01/2024, Expires: 06/01/2025 IRON, TIBC, AND PERCENT SATURATION Lab Routine Chronic anemia Expected: 06/01/2024, Expires: 06/01/2025 METHYLMALONIC ACID Lab Routine Chronic anemia Expected: 06/01/2024, Expires: 06/01/2025 TRANSFERRIN RECEPTOR TFR SOLUBLE Lab Routine Chronic anemia Expected: 06/01/2024, Expires: 06/01/2025 VITAMIN B12 AND FOLATE Lab Routine Chronic anemia Expected: 06/01/2024, Expires: 06/01/2025 documented as of this encounter Visit Diagnoses Diagnosis Chronic anemia- Primary Anemia, unspecified documented in this encounter Care Teams Auto Adjudication Specialist Relationship Specialty Start Date End Date Stanley Causey MD [address] [facility] 3, [facility] [address] [place] [id number] PCP - General 02/28/03 documented as of this encounter
--- OUTSIDE RECORDS SUMMARY | 2024-06-01 16:04 | XMS_ITS | Encounter Summary ---
Author Organization [facility] Address [address] [place] [address] Care Team Providers Care Development Editor Name Role Phone Stanley Causey MD Primary Care Provider [phone] [phone] Encounter Details Date Type Department Care Team (Latest Contact Info) Description 03/28/2004 Outpatient Historical HIS PATIENT IN A BED Miley Wilson MD NO ADDRESS ON FILE THREAT LABOR NEC-ANTEPAR (Primary Dx) Social History Tobacco Use Types Packs/Day Years Used Date Smoking Tobacco: Never Assessed Comments Unknown Sex and Gender Information Value Date Recorded Sex Assigned at Not on file Legal Sex Female 3:05 AM DOCUMENT RESTORER Gender Identity Not on file Sexual Orientation Not on file documented as of this encounter Plan of Treatment Upcoming Encounters Date Type Department Care Team (Late st Contact Info) Description 06/08/2024 4:30 PM DOCUMENT RESTORER Telephone Check Up [facility] Oncology and Hematology - Lex [facility] [facility] [address] [place] [address] Rustam Oswald MD [address] [facility] [address] [place] [address] documented as of this encounter Visit Diagnoses Diagnosis Other threatened labor, antepartum- Primary documented in this encounter Care Teams Development Editor Relationship Specialty Start Date End Date Stanley Causey MD [address] [address], [facility] [address] [place] [address] PCP - General 02/28/03 documented as of this encounter
--- OUTSIDE RECORDS SUMMARY | 2024-06-01 16:04 | XMS_ITS | Clinical Summary ---
Author Organization [facility] Address [address] [place] [address] Care Team Providers Care Benzene Worker Name Role Phone Unavailable Primary Care Provider Unavailabl e Allergies Active Allergy Reactions Criticality Noted Date Comments Zolpidem Unknown 08/12/2019 Medications ALPRAZolam 0.5 MG tablet Take 0.5 mg by mouth nightly as needed. 0 Active atorvastatin 10 MG tablet Take 10 mg by mouth daily. 0 Active levothyroxine 75 MCG tablet Take 75 mcg by mouth daily. 0 Active DULoxetine 60 MG capsule Take 60 mg by mouth daily. 0 Active losartan 50 MG tablet Take 75 mg by mouth daily. 0 Active SUMAtriptan 100 MG tablet Take 50 mg by mouth 2 (two) times daily as needed. 0 Active traZODone 50 MG tablet 50 mg nightly at bedtime. 0 Active albuterol sulfate HFA 108 (90 Base) MCG/ACT inhalerIndication s:Mild intermittent asthma without complication (HHS/HCC) Inhale 2 puffs into the lungs every 6 (six) hours as needed for Wheezing or Shortness of breath. 1 Inhaler 0 Active predniSONE 20 MG tabletIndications :Mild intermittent asthma without complication (HHS/HCC) 3 tabs by mouth this a.m.., then 2 tabs po qam x 3 days, then 1 tab po qam x 3 days, then 1/2 tab po qam x 3 days. 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 08/12/2019 Acquired hypothyroidism 08/12/2019 Essential hypertension 08/12/2019 Other hyperlipidemia 08/12/2019 Social History Tobacco Use Types Packs/Day Years Used Date Smoking Tobacco: Never Smokeless Tobacco: Never Alcohol Use Standard Drinks/Week Comments Yes 0 (1 standard drink = 0.6 oz pur e alcohol) AUDIT-C Answer Date Recorded Frequency of Alcohol Consumption Monthly or less 08/12/2019 Average Number of Drinks Not on file 020 Frequency of Binge Drinking Not on file 07/26 Comments Unknown Sex and Gender Information Value Date Recorded Sex Assigned at Not on file Legal Sex Female 8:47 AM CDT Gender Identity Not on file Sexual Orientation Not on file Last Filed Vital Signs Vital Sign Reading Time Taken Comments Blood Pressure 132/85 08/12/2019 9:22 AM CDT Pulse 105 08/12/2019 9:22 AM CDT Temperature 38.1 C (100.6 F) 08/12/2019 9:22 AM CDT Respiratory Rate 18 08/12/2019 9:22 AM CDT Oxygen Saturation 96% 08/12/2019 9:22 AM CDT Inhaled Oxygen Concentration - - Weight 132.7 kg (292 lb 9.6 oz) 08/12/2019 9:22 AM CDT Height - - Body Mass Index - - Plan of Treatment Health Maintenance Due Date Last Done Comments Cervical Cancer Screening Pa p Smear (Age 30 to 64) Every 3 Years 1984 Annual Physical 1987 Hepatitis C 2002 DTaP, Tdap and Td Vaccines ( 1 - Tdap) 2003 Hepatitis B Vaccines (1 of 3 - 19+ 3-dose series) 2003 Cervical Cancer Screening Pa p with HPV Testing (Age 30 to 64) Every 5 Years 2014 Cervical Cancer Screening with HPV 2014 COVID-19 Vaccine (2023-2 5 season) 2023 Influenza Adult (#1) 2024 HPV Vaccines Aged Out No longer eligi ble based on patient's age to complete this topic Meningococcal B Vaccine Aged Out No l onger eligible based on patient's age to complete this topic Meningococcal Vaccine Aged Out No lady nir eligible based on patient's age to complete this topic Pneumococcal Vaccine: Pediat rics (0 to 5 Years) and At-Risk Patients (6 to 64 Years) Aged Out No longer eligible b ased on patient's age to complete this topic RSV Immunizations Under 20 Months Aged Out No longer eligible based on patient's age to complete this topic Insurance
--- OUTSIDE RECORDS SUMMARY | 2024-06-01 16:04 | XMS_ITS | Encounter Summary ---
Author Organization [facility] Address [address] [place] [address] Care Team Providers Care Fiction And Nonfiction Author Name Role Phone Stanley Causey MD Primary Care Provider [phone] [phone] Encounter Details Date Type Department Care Team (Latest Contact Info) Description 01/03/2004 Outpatient Historical HIS PATIENT IN A BED Miley Wilson MD NO ADDRESS ON FILE THRT HELENA LABOR-ANTEPART (Primary Dx) Social History Tobacco Use Types Packs/Day Years Used Date Smoking Tobacco: Never Assessed Comments Unknown Sex and Gender Information Value Date Recorded Sex Assigned at Not on file Legal Sex Female 3:05 AM CREDIT ANALYSIS MANAGER Gender Identity Not on file Sexual Orientation Not on file documented as of this encounter Plan of Treatment Upcoming Encounters Date Type Department Care Team (Late st Contact Info) Description 06/08/2024 4:30 PM CREDIT ANALYSIS MANAGER Telephone Check Up [facility] Oncology and Hematology - Lex [address] [facility] [address] [place] [address] Rustam Oswald MD [address] [facility] [address] [place] [address] documented as of this encounter Visit Diagnoses Diagnosis Threatened premature labor, antepartum(644.03)- Primary Threatened premature labor, antepartum documented in this encounter Care Teams Fiction And Nonfiction Author Relationship Specialty Start Date End Date Stanley Causey MD [address] [address], [address] [place] [phone] PCP - General 02/28/03 documented as of this encounter
--- OUTSIDE RECORDS SUMMARY | 2024-06-01 16:04 | XMS_ITS | Encounter Summary ---
Author Organization [facility] Address [address] [place] [address] Care Team Providers Care Engraver Hand Soft Metals Name Role Phone Stanley Causey MD Primary Care Provider [phone] [phone] Encounter Details Date Type Department Care Team (Late Contact Info) Description 08/20/2000 Outpatient Historical HIS [facility] Julio Stratton MD Social History Tobacco Use Types Packs/Day Years Used Date Smoking Tobacco: Never Assessed Comments Unknown Sex and Gender Information Value Date Recorded Sex Assigned at Not on file Legal Sex Female 3:05 AM WATER RESOURCES TECHNICAL OFFICER Gender Identity Not on file Sexual Orientation Not on file documented as of this encounter Plan of Treatment Upcoming Encounters Date Type Department Care Team (Late st Contact Info) Description 06/08/2024 4:30 PM WATER RESOURCES TECHNICAL OFFICER Telephone Check Up [facility] Oncology and Hematology - Lex [address] [facility] [place] [facility] [address] [place] [address] Rustam Oswald MD [address] [facility] [address] [place] [address] documented as of this encounter Visit Diagnoses Not on filedocumented in this encounter Care Teams Engraver Hand Soft Metals Relationship Specialty Start Date End Date Stanley Causey MD [address] [facility] 3, [facility] [address] [place] [address] PCP - General 02/28/03 documented as of this encounter
--- OUTSIDE RECORDS SUMMARY | 2024-06-01 16:04 | XMS_ITS | Encounter Summary ---
Author Organization [facility] Address [address] [place] [address] Care Team Providers Care Store Group Manager Name Role Phone Stanley Causey MD Primary Care Provider [phone] [phone] Encounter Details Date Type Department Care Team (Latest Contact Info) Description 03/24/2004 Outpatient Historical HIS PATIENT IN A BED Miley Wilson MD NO ADDRESS ON FILE THREAT LABOR NEC-ANTEPAR (Primary Dx) Social History Tobacco Use Types Packs/Day Years Used Date Smoking Tobacco: Never Assessed Comments Unknown Sex and Gender Information Value Date Recorded Sex Assigned at Not on file Legal Sex Female 3:05 AM WELL LOGGING CAPTAIN MUD ANALYSIS Gender Identity Not on file Sexual Orientation Not on file documented as of this encounter Plan of Treatment Upcoming Encounters Date Type Department Care Team (Late st Contact Info) Description 06/08/2024 4:30 PM WELL LOGGING CAPTAIN MUD ANALYSIS Telephone Check Up [facility] Oncology and Hematology - Lex [address] [facility] [address] [place] [address] Rustam Oswald MD [address] [facility] [address] [place] [address] documented as of this encounter Visit Diagnoses Diagnosis Other threatened labor, antepartum- Primary documented in this encounter Care Teams Store Group Manager Relationship Specialty Start Date End Date Stanley Causey MD [address] [address], [facility] [address] [place] [address] PCP - General 02/28/03 documented as of this encounter
--- OUTSIDE RECORDS SUMMARY | 2024-06-01 16:04 | XMS_ITS | Encounter Summary ---
Author Organization [facility] Address [address] [place] [address] Care Team Providers Care Informatics Application Analyst Name Role Phone Stanley Causey MD Primary Care Provider [phone] [phone] Encounter Details Date Type Department Care Team (Late Contact Info) Description 03/13/2003 Outpatient Historical [facility] [address] [facility] [place] [address] Agustín Albert Social History Tobacco Use Types Packs/Day Years Used Date Smoking Tobacco: Never Assessed Comments Unknown Sex and Gender Information Value Date Recorded Sex Assigned at Not on file Legal Sex Female 3:05 AM PHYSICAL PLANT EMPLOYEE Gender Identity Not on file Sexual Orientation Not on file documented as of this encounter Plan of Treatment Upcoming Encounters Date Type Department Care Team (Late Contact Info) Description 06/08/2024 4:30 PM PHYSICAL PLANT EMPLOYEE Telephone Check Up [facility] Oncology and Hematology - Lex [address] [facility] [address] [place] [address] Rustam Oswald MD [address] [facility] [address] [place] [address] documented as of this encounter Visit Diagnoses Not on filedocumented in this encounter Care Teams Informatics Application Analyst Relationship Specialty Start Date End Date Stanley Causey MD [address] [place] [address] [facility] [address] [place] [address] PCP - General 02/28/03 documented as of this encounter
--- OUTSIDE RECORDS SUMMARY | 2024-06-01 16:04 | XMS_ITS | Encounter Summary ---
Author Organization [facility] Address [address] [place] [address] Care Team Providers Care Can Cleaner Name Role Phone Stanley Causey MD Primary Care Provider [phone] [phone] Encounter Details Date Type Department Care Team (Late Contact Info) Description 02/28/2003 Outpatient Historical [facility] Child and Adolescent Psychiatry S [facility] [address] [facility] [place] [address] Agustín Albert Social History Tobacco Use Types Packs/Day Years Used Date Smoking Tobacco: Never Assessed Comments Unknown Sex and Gender Information Value Date Recorded Sex Assigned at Not on file Legal Sex Female 3:05 AM SHADE HANGER Gender Identity Not on file Sexual Orientation Not on file documented as of this encounter Plan of Treatment Upcoming Encounters Date Type Department Care Team (Late Contact Info) Description 06/08/2024 4:30 PM SHADE HANGER Telephone Check Up [facility] Oncology and Hematology - Lex [address] [facility] [address] [place] [address] Rustam Oswald MD [address] [facility] [address] [place] [address] documented as of this encounter Visit Diagnoses Not on filedocumented in this encounter Care Teams Can Cleaner Relationship Specialty Start Date End Date Stanley Causey MD [address] [place] [address] [facility] [address] [place] [address] PCP - General 02/28/03 documented as of this encounter
--- OUTSIDE RECORDS SUMMARY | 2024-06-01 16:04 | XMS_ITS | Encounter Summary ---
Author Organization [facility] Address [address] [place] [address] Care Team Providers Care Superintendent Greens Name Role Phone Stanley Causey MD Primary Care Provider +1 [phone] Encounter Details Date Type Department Care Team (Late Contact Info) Description 05/19/2000 Outpatient Historical HIS [facility] MD Padilla OTERO David Joseph, MD [address] [place] [address] Social History Tobacco Use Types Packs/Day Years Used Date Smoking Tobacco: Never Assessed Comments Unknown Sex and Gender Information Value Date Recorded Sex Assigned at Not on file Legal Sex Female 3:05 AM PLATING EQUIPMENT TENDER Gender Identity Not on file Sexual Orientation Not on file documented as of this encounter Plan of Treatment Upcoming Encounters Date Type Department Care Team (Late Contact Info) Description 06/08/2024 4:30 PM PLATING EQUIPMENT TENDER Telephone Check Up [facility] Oncology and Hematology - Lex [address] [facility] [address] [place] [address] Rustam Oswald MD [address] [facility] [address] [place] [address] documented as of this encounter Visit Diagnoses Not on filedocumented in this encounter Care Teams Superintendent Greens Relationship Specialty Start Date End Date Stanley Causey MD [address] [facility] 3, [address] [place] [phone] PCP - General 02/28/03 documented as of this encounter
[2024-06-01 16:53] LABS: Iron 81 ug/dL (37-170)
[2024-06-01 16:55] LABS: Alanine Aminotransferase 27 U/L (6-35); Albumin Level 4.3 g/dL (3.5-5.1); Alkaline Phosphatase 57 U/L (38-126); Anion Gap 11 mmol/L (4-12); Aspartate Amino Transferase 32 U/L (14-36); Bilirubin,Total 0.5 mg/dL (0.2-1.3); Blood Urea Nitrogen 19 mg/dL (7-17); Calcium 9.5 mg/dL (8.4-10.2); Carbon Dioxide 20 mmol/L (22-30); Chloride 109 mmol/L (98-107); Estimated Glomerular Filt Rate > 60; Glucose 81 mg/dL (65-110); Potassium 4.1 mmol/L (3.4-5.0); Sodium 140 mmol/L (137-145)
[2024-06-01 17:04] LABS: Percent Iron Saturation 36 % (20-50)
[2024-06-01 18:02] LABS: Folic Acid 14.1 ng/mL (2.76->20)
[2024-06-04 13:48] LABS: Soluble Transferrin Receptor 0.86 mg/L (0.76-1.76)
== END 2024-06-01 15:46 | disposition home or self-care (01) ==
LOC: ANHLAB 15:46
PROVIDERS: PCP Internal Medicine; Visit Provider Internal Medicine Hematology & Oncology
DX: D64.9 Anemia, unspecified (principal)
CPT/HCPCS: 36415; 80053; 82607; 82728; 82746; 83540; 83550; 83921; 84238; 85025

== ENCOUNTER 2024-06-21 08:11 | Emergency (ER) | payer OTHER, SELFPAY ==
[2024-06-21 08:21] VITALS: BP 116/84; PULSE 86; RESP 16; TEMP 36.9; O2SAT 100
--- NOTE | 2024-06-21 08:22 | ED.URI ---
HPI - URI/Sore Throat General Chief Complaint: Upper Respiratory Infection Stated Complaint: Upper Respiratory Symptoms Time Seen by Provider: 06/21/24 08:23 Source: patient and RN notes reviewed Mode of arrival: ambulatory Limitations: no limitations History of Present Illness HPI Narrative: 39 y/o female with history of asthma presented for c/o dry nonproductive cough and sinus pressure/congestion. Onset 4 days. Says she gets bronchitis at least once a year. Has been using albuterol inhaler. Symptoms worse at night. Denies sob, wheezing, n/v/d/f/c. MD elicited complaint: cough Related Data Home Medications ?Medication ?Instructions ?Recorded ?Confirmed ?Last Taken ?Type bupropion HCl 300 mg 24 hr tablet, 300 mg PO DAILY 04/11/22 02/23/24 Unknown History extended release levothyroxine 137 mcg capsule 137 mcg PO DAILY 03/18/23 02/23/24 Unknown History sertraline 25 mg tablet 25 mg PO DAILY 03/18/23 02/23/24 Unknown History trazodone 150 mg tablet,extended 150 mg PO DAILY 03/18/23 02/23/24 Unknown History release 24 hr ferrous sulfate 325 mg (65 mg 325 mg PO DAILY 08/27/23 02/23/24 Unknown History iron) tablet (FeroSul) [id number] 45 mg-folic 1 cap PO DAILY 08/27/23 02/23/24 Unknown History acid 800 mcg-vit K 120 mcg capsule (Bariatric Multivitamins) ascorbic acid (vitamin C) 1,000 mg 1 g PO DAILY 01/18/24 02/23/24 Unknown History tablet biotin 10,000 mcg chewable tablet 10,000 mcg PO DAILY 01/18/24 02/23/24 Unknown History calcium citrate 400 mg PO BID 01/18/24 02/23/24 Unknown History cholecalciferol (vitamin D3) 125 125 mcg PO DAILY 01/18/24 02/23/24 Unknown History mcg (5,000 unit) tablet (Vitamin D3) Allergies Allergy/AdvReac Type Severity Reaction Status Date / Time zolpidem AdvReac Mild AUDIO AND Verified 02/23/24 09:17 VISUAL HALLUCINATIONS Review of Systems Review of Systems: per HPI [facility] Past Medical History Medical History Weight loss UTI (urinary tract infection) Morbid obesity Hypertension Anxiety Pilar cysts Hypothyroidism Asthma Surgical History Surgical History History of weight loss surgery (06/25/23) gastric bypass History of hernia repair History of cholecystectomy History of tubal ligation History of partial thyroidectomy 2018 Family History Family History Grandparent Diabetes mellitus Father Hypertension Heart disease Skin cancer Diabetes mellitus Grandparent Heart disease Hypertension Grandparent Brain cancer Mother Skin cancer Asthma Other Heriberto's disease Graves disease Social History Social History Smoking status: Never smoker Alcohol intake: current Alcohol use details: rarely Do You Feel Safe in your Home?: Yes Lack of Transportation: No Lack of Food: Never True Current Housing: I Have Housing Concerned About Future Housing: No Difficulty Paying Gas/Electric Bills: No Difficulty Paying for Meds: No Currently Unemployed: No Education: Bachelor's Degree Difficulty w/ Childcare or Family Care: No Gender identity (if verbalized by the patient): Female Exam Narrative: GENERAL: well-appearing EYES: PERRLA, conjunctivae clear ENT: Mucous membranes moist. TM pearly adame with dull light reflex bilaterally; no tragal tenderness. Oropharynx not erythematous without lesions or exudate, no drooling, no hoarseness, no trismus, uvula midline. No tripod positioning, muffled voice, soft palate or pharyngeal wall bulging NECK: Supple. No lymphadenopathy CHEST: Clear to auscultation, breath sounds equal. No wheezing, rhonchi, rales, or stridor. No respiratory distress, speaks in full sentences. HEART: Regular rate and rhythm. SKIN: Warm, dry, no rash. NEURO: Alert and oriented x3. PSYCH: Normal mood and affect Course Course Emergency Course: Patient is aware of diagnosis, understands and agrees to treatment plan. Anticipatory guidance given. Patient agrees to follow-up as directed and is aware of reasons to seek care at the emergency department. Portions of this record may have been created with voice recognition software Level of Care: Express Care Visit Vital Signs Vital signs: Vital Signs Temperature 98.4 F 06/21/24 08:21 Pulse Rate 86 06/21/24 08:21 Respiratory Rate 16 06/21/24 08:21 Blood Pressure 116/84 06/21/24 08:21 Pulse Oximetry 100 06/21/24 08:21 Temperature 98.4 F 06/21/24 08:21 Pulse Rate 86 06/21/24 08:21 Respiratory Rate 16 06/21/24 08:21 Blood Pressure 116/84 06/21/24 08:21 Pulse Oximetry 100 06/21/24 08:21 reviewed MDM - URI/Sore Throat MDM Narrative Medical decision making narrative: negative flu COVID. Discussed physical exam findings. Advised supportive measures and signs/symptoms to go to the ER. Pt is appropriate for outpt treatment and f/u. Differential Diagnosis Differential diagnosis: Likely upper respiratory infection, sinusitis and viral infection Discharge Plan Discharge Clinical Impression: Bronchitis Patient Disposition: Home, Self-Care Condition: Stable Instructions: Acute Bronchitis (ED) Additional Instructions: Flu and COVID negative. Acute bronchitis can be contagious because it is usually caused by infection with a virus or bacteria. It is usually for a few days but you can be contagious for up to one week. Avoid crowds until you do not have a fever and symptoms are improved Take medication as directed Flonase spray and Zyrtec (or Claritin/Yolie) for nasal congestion over the counter Cough syrup may cause drowsiness; avoid driving or take it at night time. Tylenol 1000mg every 8 hours as needed for pain Symptomatic treatment includes: rest, fluids, and increase humidity of the air at home. Follow up with your primary care provider as needed in 1 week Go to the ER for worsening symptoms or concerns Patient Language: Spanish Prescriptions: New benzonatate 200 mg capsule 200 mg PO TID PRN (Reason: cough) Qty: 20 0RF prednisone 20 mg tablet 40 mg PO DAILY 5 Days Qty: 10 0RF No Action ferrous sulfate [FeroSul] 325 mg (65 mg iron) tablet 325 mg PO DAILY Bariatric Multivitamins 45 mg iron- 800 mcg-120 mcg Capsule 1 cap PO DAILY ascorbic acid (vitamin C) 1,000 mg Tablet 1 g PO DAILY biotin 10,000 mcg Tablet,Chewable 10,000 mcg PO DAILY cholecalciferol (vitamin D3) [Vitamin D3] 125 mcg (5,000 unit) Tablet 125 mcg PO DAILY calcium citrate [Citracal] 200 mg (950 mg) Tablet 400 mg PO BID ondansetron 4 mg tablet,disintegrating 4 mg PO Q6H PRN (Reason: nausea and vomiting) Qty: 20 0RF dicyclomine 20 mg tablet 20 mg PO TID Qty: 20 0RF Rx Instructions: for abdominal cramping bupropion HCl 300 mg tablet extended release 24 hr 300 mg PO DAILY trazodone 150 mg tablet extended release 24 hr 150 mg PO DAILY Rx Instructions: 1-1.5 tabs at bedtime for sleep sertraline 25 mg tablet 25 mg PO DAILY levothyroxine 137 mcg capsule 137 mcg PO DAILY gabapentin 300 mg capsule 300 mg PO BID Qty: 180 1RF sumatriptan succinate 100 mg tablet See Rx Instructions PO .COMPLEX Qty: 9 2RF Rx Instructions: take 1 tab at onset of headache; if no relief, may repeat 1 tab after at least 2 hrs; max = 2 tabs/24 hrs PO topiramate [Topamax] 50 mg tablet 50 mg PO DAILY Qty: 90 0RF albuterol sulfate 90 mcg/actuation HFA aerosol inhaler 1 puff inhalation Q4H PRN (Reason: shortness of breath or wheezing) Qty: 8.5 1RF atorvastatin 10 mg tablet 10 mg PO DAILY Qty: 90 1RF cyclobenzaprine 5 mg tablet 5 mg PO TID PRN (Reason: muscle spasm) Qty: 30 0RF Rx Instructions: Do not take while driving. Follow-up/Referrals: Stanley Schmidt, [Primary Care Provider] -
[2024-06-21 08:33] LABS: EDCOVIDSCREEN Negative (Negative); EDINFLUASCREEN Negative (Negative); EDINFLUBSCREEN Negative (Negative)
== END 2024-06-21 08:42 | disposition home or self-care (01) ==
PROVIDERS: Emergency Provider Nurse Practitioner Family; PCP Internal Medicine
DX: J40 Bronchitis, not specified as acute or chronic (principal); Z20.822 Contact with and (suspected) exposure to COVID-19; I10 Essential (primary) hypertension; E03.9 Hypothyroidism, unspecified; J45.909 Unspecified asthma, uncomplicated; E66.01 Morbid (severe) obesity due to excess calories; Z68.28 Body mass index [BMI] 28.0-28.9, adult; F41.9 Anxiety disorder, unspecified; Z98.84 Bariatric surgery status; Z90.89 Acquired absence of other organs
CPT/HCPCS: 87426; 87804; 99213; G0463

== ENCOUNTER 2024-07-25 17:33 | Emergency (ER) | payer OTHER, SELFPAY ==
--- NOTE | ~2024-07-25 | CT_ITS ---
History: Headache PROCEDURE: CT head without contrast. COMPARISON: None. Reference is made to a MRI examination of the brain dated 09/09/2023 TECHNIQUE: Axial imaging of the head performed from the skull base to the vertex without IV contrast. Sagittal a nd coronal reformations obtained. DLP: 605 mGy-cm FINDINGS: The ventricles are normal in size, shape and position. There is no mass, mass effect or midline shift. There is no abnormal extra-axial fluid collection or intracranial hemorrhage. Visualized paranasal sinuses are clear. The mastoid air cells are well aerated. No acute displaced fractures within the overlying cranium. Impression: No acute intracranial hemorrhage or suspicious mass effect. Reviewed, dictated and finalized at location A. Impression: No acute intracranial hemorrhage or suspicious mass effect.
--- OUTSIDE RECORDS SUMMARY | 2024-07-25 17:48 | XMS_ITS | Encounter Summary ---
Author Organization [facility] Address [address] [place] [address] Care Team Providers Care Coiled Tubing Operator Name Role Phone Stanley Causey MD Primary Care Provider [phone] Encounter Details Date Type Department Care Team (Late st Contact Info) Description 08/20/2000 Outpatient Historical [facility] Julio Stratton MD Social History Tobacco Use Types Packs/Day Years Used Date Smoking Tobacco: Never Assessed Comments Unknown Sex and Gender Information Value Date Recorded Sex Assigned at Not on file Legal Sex Female 3:05 AM SOUVENIR AND NOVELTY MAKER Gender Identity Not on file Sexual Orientation Not on file documented as of this encounter Plan of Treatment Not on file documented as of this encounter Visit Diagnoses Not on filedocumented in this encounter Care Teams Coiled Tubing Operator Relationship Specialty Start Date End Date Stanley Causey MD [address] [place] [address] [address] [place] [address] PCP - General 02/28/03 documented as of this encounter
--- OUTSIDE RECORDS SUMMARY | 2024-07-25 17:48 | XMS_ITS | Encounter Summary ---
Author Organization [facility] Address [address] [place] [address] Care Team Providers Care Machinery Rigger Name Role Phone Stanley Causey MD Primary Care Provider [phone] Encounter Details Date Type Department Care Team (Latest Contact Info) Description 11/02/2003 Outpatient [facility] Miley Wilson MD NO ADDRESS ON FILE DAMG D/T DRUG-ANTEPA (Primary Dx) Social History Tobacco Use Types Packs/Day Years Used Date Smoking Tobacco: Never Assessed Comments Unknown Sex and Gender Information Value Date Recorded Sex Assigned at Not on file Legal Sex Female 3:05 AM TECHNICAL SUPPORT REPRESENTATIVE Gender Identity Not on file Sexual Orientation Not on file documented as of this encounter Plan of Treatment Not on file documented as of this encounter Visit Diagnoses Diagnosis Suspected damage to fetus from drugs, affecting management of mother, antepartum- Primary documented in this encounter Care Teams Machinery Rigger Relationship Specialty Start Date End Date Stanley Causey MD [facility] [address], [facility] [address] [place] [address] PCP - General 02/28/03 documented as of this encounter
--- OUTSIDE RECORDS SUMMARY | 2024-07-25 17:48 | XMS_ITS | Encounter Summary ---
Author Organization [facility] Address [address] [place] [address] Care Team Providers Care Electric Distribution Checker Name Role Phone Stanley Causey MD Primary Care Provider [phone] Encounter Details Date Type Department Care Team (Latest Contact Info) Description 02/28/2003 Inpatient Historical [facility] NIRMAL Albert Agustín Shelby MANIC-DEPRESSIVE NEC (CMS/[facility]) (Primary Dx) Social History Tobacco Use Types Packs/Day Years Used Date Smoking Tobacco: Never Assessed Comments Unknown Sex and Gender Information Value Date Recorded Sex Assigned at Not on file Legal Sex Female 3:05 AM MARINE ENGINE MECHANIC Gender Identity Not on file Sexual Orientation Not on file documented as of this encounter Plan of Treatment Not on file documented as of this encounter Visit Diagnoses Diagnosis Other bipolar disorders- Primary documented in this encounter Care Teams Electric Distribution Checker Relationship Specialty Start Date End Date Stanley Causey MD [address] [place] [address], [facility] [address] [place] [address] PCP - General 02/28/03 documented as of this encounter
--- OUTSIDE RECORDS SUMMARY | 2024-07-25 17:48 | XMS_ITS | Encounter Summary ---
Author Organization [facility] Address [address] [place] [address] Care Team Providers Care Reference Data Expert Name Role Phone Stanley Causey MD Primary Care Provider [phone] Encounter Details Date Type Department Care Team (Latest Contact Info) Description 03/28/2003 Inpatient Historical [facility] PATIENT IN A BED Ratna Albertchristopher Ryan BIPOLAR AFFECTIVE NOS (CMS/HCC) (Primary Dx) Social History Tobacco Use Types Packs/Day Years Used Date Smoking Tobacco: Never Assessed Comments Unknown Sex and Gender Information Value Date Recorded Sex Assigned at Not on file Legal Sex Female 3:05 AM ISOLATION WASHER Gender Identity Not on file Sexual Orientation Not on file documented as of this encounter Plan of Treatment Not on file documented as of this encounter Visit Diagnoses Diagnosis Bipolar I disorder, most recent episode (or current) unspecified (CMS/HCC)- Primary Bipolar I disorder, most recent episode (or current) unspecified documented in this encounter Care Teams Reference Data Expert Relationship Specialty Start Date End Date Stanley Causey MD [address] [place] [address], [facility] [address] [place] [address] PCP - General 02/28/03 documented as of this encounter
--- OUTSIDE RECORDS SUMMARY | 2024-07-25 17:48 | XMS_ITS | Encounter Summary ---
Author Organization [facility] Address [address] [place] [address] Care Team Providers Care Post Graduate Internship Name Role Phone Stanley Causey MD Primary Care Provider [phone] Encounter Details Date Type Department Care Team (Late st Contact Info) Description 06/21/2002 Outpatient [facility] [address] [place] [address] [address]. [place], [place] [id number] Dillon Hilton MD Social History Tobacco Use Types Packs/Day Years Used Date Smoking Tobacco: Never Assessed Comments Unknown Sex and Gender Information Value Date Recorded Sex Assigned at Not on file Legal Sex Female 3:05 AM PAEDIATRIC PHYSIOTHERAPIST Gender Identity Not on file Sexual Orientation Not on file documented as of this encounter Plan of Treatment Not on file documented as of this encounter Visit Diagnoses Not on filedocumented in this encounter Care Teams Post Graduate Internship Relationship Specialty Start Date End Date Stanley Causey MD [address] [place] [address] [address] [place] [address] PCP - General 02/28/03 documented as of this encounter
--- OUTSIDE RECORDS SUMMARY | 2024-07-25 17:48 | XMS_ITS | Encounter Summary ---
Author Organization [facility] Address [address] [place] [address] Care Team Providers Care Hog Counter Name Role Phone Stanley Causey MD Primary Care Provider [phone] Encounter Details Date Type Department Care Team (Late st Contact Info) Description 02/28/2003 Outpatient Historical [facility] [address] [facility] [place] [id number] Agustín Albert Social History Tobacco Use Types Packs/Day Years Used Date Smoking Tobacco: Never Assessed Comments Unknown Sex and Gender Information Value Date Recorded Sex Assigned at Not on file Legal Sex Female 3:05 AM OUT AND OUT CIGAR MAKER HAND Gender Identity Not on file Sexual Orientation Not on file documented as of this encounter Plan of Treatment Not on file documented as of this encounter Visit Diagnoses Not on filedocumented in this encounter Care Teams Hog Counter Relationship Specialty Start Date End Date Stanley Causey MD [facility], [place] [address] [place] [address] PCP - General 02/28/03 documented as of this encounter
--- OUTSIDE RECORDS SUMMARY | 2024-07-25 17:48 | XMS_ITS | Encounter Summary ---
Author Organization [facility] Address [address] [place] [address] Care Team Providers Care State Historical Society Director Name Role Phone Stanley Causey MD Primary Care Provider [phone] Encounter Details Date Type Department Care Team [...] on file Legal Sex Female 3:05 AM OTR COMPANY DRIVER Gender Identity Not on file Sexual Orientation Not on file documented as of this encounter Plan of Treatment Not on file documented as of this encounter Visit Diagnoses Diagnosis Other current maternal conditions classifiable elsewhere, antepartum- Primary documented in this encounter Care Teams State Historical Society Director Relationship Specialty Start Date End Date Stanley Causey MD [address] [address], [facility] [address] [place] [address] PCP - General 02/28/03 documented as of this encounter
--- OUTSIDE RECORDS SUMMARY | 2024-07-25 17:48 | XMS_ITS | Data Portability ---
Author Organization [facility] [place] Address [address] [place] [address] Care Team Providers Care Administrative Accountant Name Role Phone JAGRUTI ROSAS Primary Care Provider [phone] Assessment Encounter Date Assessment Date Assessment LastModified [...] B core Ab) igm, serum 2022 023 [facility] (Lab), [address], [place], [address], 3 21:12:34 HBsAg (hepatit is B surface Ag), serum 2022 023 [facility] (Lab), [address], [place], [address], 3 21:12:28 hepatiti s C virus Ab, serum 2022 023 [facility] (Lab), [address], [place], [address], 3 21:12:28 unlisted lab - HIV 1/2 antigen/ antibody , reflex confirma tion 2022 023 [facility] (Lab), [address], [place], [address], 3 21:12:28 RPR (rapid plasma reagin), serum 2022 023 [facility] (Lab), [address] [facility] [address], [place], [address], 3 21:12:33 17-hydro xyproges terone, QN, serum 2022 023 [facility] (Lab), [address], [place], [address], 3 21:12:34 dhea-sul fate, serum 2022 023 [facility] (Lab), [address], [place], [address], 3 21:12:29 estradio l, serum 2022 023 [facility] (Lab), [address], [place], [address], 3 21:12:30 FSH (follicl e-stimul ating hormone) , serum 2022 023 [facility] (Lab), [address], [place], [address], 3 21:12:32 HbA1c (hemoglo bin A1c), blood 2022 023 [facility] (Lab), [address], [place], [address], 3 21:12:33 lh (luteini zing hormone) , serum 2022 023 [facility] (Lab), [address], [place], [address], 3 21:12:32 progeste vahid, serum 2022 023 [facility] (Lab), [address], [place], [address], 3 21:12:30 prolacti n, serum 2022 023 [facility] (Lab), [address], [place], [address], 3 21:12:31 shbg (sex hormone- binding globulin ), serum 2022 023 [facility] (Lab), [address], [place], [address], 3 21:12:31 TSH, serum or plasma 2022 023 [facility] (Lab), [address], [place], [address], 3 21:12:30 testoste vahid free/freeman tosteron e total, ratio, serum 2022 023 [facility] (Lab), [address], [place], [address], 3 21:12:35 CBC w/ auto diff 2022 023 [facility] (Lab), [address], [place], [address], 3 21:12:33 Referral None recorded . Procedures None recorded . Surgeries None recorded . Imaging US, pelvis, complete 2022 023 [email or web address] [facility], [address], [place], [address], 3 13:09:35 US, pelvis 2022 023 [email or web address] [facility], [address], [place], [address], 3 22:22:41 US, transvag inal 2022 023 [email or web address] [place], [place], [address], 3 22:22:41 US, pelvis, complete 2022 023 [email or web address] [place], [place], [address], 3 12:42:02 Medication Orders Prometri um 200 mg capsule 2022 023 [facility] [place], [address], 12:51:16 Patient TargetsNo targets recorded. Patient InstructionsNo [...] as clini colten roblero nted. Not Available [facility] (Lab) [address], [place], [address], 10/16/2022 12:18:36 10/14/19 23 10/13/2022 TRICH OMONA S VAGIN ADRIAN (RRNA ) trichomonas vaginalis ribosomal RNA (rrna) Negati ve negati ve Not Available [facility] (Lab) [address] [facility], [place], [address], 10/16/2022 12:18:36 10/14/19 23 10/13/2022 CT/GC ([place]) , THINP REP VIAL chlamydia trachomatis, PCR Negati ve negati ve Not Available [facility] (Lab) [address], [place], [address], 10/16/2022 12:18:37 10/14/19 23 10/13/2022 CT/GC ([place]) , THINP REP VIAL neisseria gonorrhoeae, PCR Negati ve negati ve Not Available [facility] (Lab) [address], [place], [address], 10/16/2022 12:18:37 10/14/19 23 10/13/2022 HEPAT ITIS B SURFA CE ANTIG EN hepatitis B surface antigen Non-re active non-re active This assay was perfo rmed using [employer] ratio n reage nts and test kits. Value s obtai errol with other assay metho ds or kits canno t be used inter [facility] e[facility] . Not Available [facility] (Lab) [address], [place], [address], 10/20/2022 21:12:27 10/14/19 23 10/13/2022 HIV 1/2 ANTIG EN/AN TIBOD Y, REFLE X CONFI RMATI ON HIV antigen/anti body Nonrea ctive nonrea ctive HIV-1 antig en and HIV-1 /HIV- 2 antib odies were not detec juan. No labor atory evide nce of HIV infec tion. Not Available [facility] (Lab) [address], [place], [address], 10/20/2022 21:12:28 10/14/19 23 10/13/2022 HEPAT ITIS C ANTIB ZELDA SCREE N, REFLE X TO CONFI RMATI ON hepatitis C antibody Non-re active non-re active Antib odies to HCV Not Detec juan, does not exclu de the possi bilit y of expos ure to HCV. Not Available [facility] (Lab) [address], [place], [address], 10/20/2022 21:12:28 10/14/19 23 10/13/2022 DHEA SULFA TE DHEA-sulfate 82 ug/dL Femal e Range s Age(y ) Range (ug/d L) 10-15 34-28 0 15-20 65-36 8 20-25 148-4 07 25-35 99-34 0 35-45 61-33 7 45-55 35-25 6 55-65 19-20 5 65-75 9-246 > 75 12-15 4 Not Available [facility] (Lab) [address], [place], [address], 10/20/2022 21:12:29 10/14/19 23 10/13/2022 T4 FREE T4, free 0.99 NG/dL 0.60-1 .40 Not Available [facility] (Lab) [address] [place], [address], 10/20/2022 21:12:29 10/14/19 23 10/13/2022 TSH, REFLE X FREE T4 TSH 5.86 uIU/m L 0.30-5 .33 high Not Available [facility] (Lab) [address] [facility], [place], [address], 10/20/2022 21:12:30 10/14/19 23 10/13/2022 ESTRA DIOL [...] 561-2 1280 pg/mL 3rd Trime ster8 525-> 58601 pg/mL Not Available [facility] (Lab) [address] [place], [address], 10/20/2022 21:12:30 10/14/19 23 10/13/2022 PROGE STERO NE progesterone 0.29 NG/mL This assay was perfo rmed using [employer] ratio n reage nts and test kits. Value s obtai errol with other assay metho ds or kits canno t be used inter [facility] . Femal e Proge stero ne Range s: Folli cular phase 0.06- 0.89 ng/mL Ovula tion phase 0.12- 12.00 ng/mL Lutea l phase 1.83- 23.90 ng/mL Postm enopa usal< 0.05- 0.13 ng/mL Healt hy Pregn ant Women 1st Trime ster1 1.0-4 4.30 2nd Trime ster2 5.40- 83.30 3rd Trime ster5 8.70- 214.0 0 Not Available [facility] (Lab) [address] [place], [address], 10/20/2022 21:12:30 10/14/19 23 10/13/2022 PROLA CTIN prolactin, total 13.20 NG/mL 4.79-2 3.30 This assay was perfo rmed using [employer] ratio n reage nts and test kits. Value s obtai errol with other assay metho ds or kits canno t be used inter [facility] . Not Available [facility] (Lab) [address] [place], [address], 10/20/2022 21:12:31 10/14/19 23 10/13/2022 HUMAN SEX HORMO NE NARDA NG GLOBU GAVIN sex hormone binding globulin 31.7 nmole s/L 18.2-1 35.5 Not Available [facility] (Lab) [address], [place], [address], 10/20/2022 21:12:31 10/14/19 23 10/13/2022 LH (LUTE [...] use: 7.7-5 8.5 mIU/m L Not Available [facility] (Lab) [address], [place], [address], 10/20/2022 21:12:32 10/14/19 23 10/13/2022 FSH FSH [...] use: 25.8- 134.8 mIU/m L Not Available [facility] (Lab) [address], [place], [address], 10/20/2022 21:12:32 10/14/19 23 10/13/2022 CBC W/DIF F WBC 7.8 10'3/ uL 3.6-10 .2 Not Available [facility] (Lab) [address], [place], [address], 10/20/2022 21:12:32 10/14/19 23 10/13/2022 CBC W/DIF F RBC 4.20 10'6/ uL (based on docume nted legal sex) 4.10-5 .30 Not Available [facility] (Lab) [address], [place], [address], 10/20/2022 21:12:32 10/14/19 23 10/13/2022 CBC W/DIF F HGB 12.1 g/dL (based on docume nted legal sex) 11.9-1 5.8 Not Available [facility] (Lab) [address], [place], [address], 10/20/2022 21:12:32 10/14/19 23 10/13/2022 CBC W/DIF F HCT 38.5 % (based on docume nted legal sex) 37.4-4 8.3 Not Available [facility] (Lab) [address], [place], [address], 10/20/2022 21:12:32 10/14/19 23 10/13/2022 CBC W/DIF F MCV 91.7 fL 82.0-9 9.0 Not Available [facility] (Lab) [address], [place], [address], 10/20/2022 21:12:32 10/14/19 23 10/13/2022 CBC W/DIF F MCH 28.8 pg 27.0-3 3.0 Not Available [facility] (Lab) [address], [place], [address], 10/20/2022 21:12:32 10/14/19 23 10/13/2022 CBC W/DIF F MCHC 31.4 g/dL 32.0-3 6.0 low Not Available [facility] (Lab) [address], [place], [address], 10/20/2022 21:12:32 10/14/19 23 10/13/2022 CBC W/DIF F RDW 12.9 % 11.0-1 5.0 Not Available [facility] (Lab) [address], [place], [address], 10/20/2022 21:12:32 10/14/19 23 10/13/2022 CBC W/DIF F plt 401 10'3/ uL 150-45 0 Not Available [facility] (Lab) [address], [place], [address], 10/20/2022 21:12:32 10/14/19 23 10/13/2022 CBC W/DIF F MPV 10.2 fL 9.8-12 .7 Not Available [facility] (Lab) [address], [place], [address], 10/20/2022 21:12:32 10/14/19 23 10/13/2022 CBC W/DIF F NRBC's 0.0 % 0 Not Available [facility] (Lab) [address], [place], [address], 10/20/2022 21:12:32 10/14/19 23 10/13/2022 CBC W/DIF F absolute NRBCs 0.0 10'3/ uL 0 Not Available [facility] (Lab) [address], [place], [address], 10/20/2022 21:12:32 10/14/19 23 10/13/2022 CBC W/DIF F neutrophils 66.8 % 37.0-7 2.0 Not Available [facility] (Lab) [address], [place], [address], 10/20/2022 21:12:32 10/14/19 23 10/13/2022 CBC W/DIF F lymphocytes 23.7 % 16.0-4 8.0 Not Available [facility] (Lab) [address], [place], [address], 10/20/2022 21:12:32 10/14/19 23 10/13/2022 CBC W/DIF F monocytes 6.9 % 4.0-14 .0 Not Available [facility] (Lab) [address] [facility], [place], [address], 10/20/2022 21:12:32 10/14/19 23 10/13/2022 CBC W/DIF F eosinophils 1.9 % 0.0-9. 0 Not Available [facility] (Lab) [address] [facility], [place], [address], 10/20/2022 21:12:32 10/14/19 23 10/13/2022 CBC W/DIF F basophils 0.4 % 0.0-2. 0 Not Available [facility] (Lab) [address] [facility], [place], [address], 10/20/2022 21:12:32 10/14/19 23 10/13/2022 CBC W/DIF F immature granulocytes 0.3 % no define d refere nce range Not Available [facility] (Lab) [address], [place], [address], 10/20/2022 21:12:32 10/14/19 23 10/13/2022 CBC W/DIF F absolute neutrophils 5.2 10'3/ uL 1.1-6. 0 Not Available [facility] (Lab) [address] [facility], [place], [address], 10/20/2022 21:12:32 10/14/19 23 10/13/2022 CBC W/DIF F absolute lymphocytes 1.9 10'3/ uL 0.7-3. 4 Not Available [facility] (Lab) [address], [place], [address], 10/20/2022 21:12:32 10/14/19 23 10/13/2022 CBC W/DIF F absolute monocytes 0.5 10'3/ uL 0.3-1. 0 Not Available [facility] (Lab) [address] [facility], [place], [address], 10/20/2022 21:12:32 10/14/19 23 10/13/2022 CBC W/DIF F absolute eosinophils 0.2 10'3/ uL 0.0-0. 6 Not Available [facility] (Lab) [address] [facility], [place], [address], 10/20/2022 21:12:32 10/14/19 23 10/13/2022 CBC W/DIF F absolute basophils 0.0 10'3/ uL 0.0-0. 1 Not Available [facility] (Lab) [address] [facility], [place], [address], 10/20/2022 21:12:32 10/14/19 23 10/13/2022 CBC W/DIF [...] resul ts are expec juan. Not Available [facility] (Lab) [address] [facility], [place], [address], 10/20/2022 21:12:32 10/14/19 23 10/13/2022 HEMOG LOBIN [...] >8.0% Actio n sugge sted Not Available [facility] (Lab) [address], [place], [address], 10/20/2022 21:12:33 10/14/19 23 10/13/2022 RPR SCREE N/REF RYAN TITER /FTA RPR screen Nonrea ctive nonrea ctive Not Available [facility] (Lab) [address], [place], [address], 10/20/2022 21:12:33 10/14/19 23 10/13/2022 HEPAT ITIS B CORE, IGM hepatitis B core IgM antibody Negati ve negati ve Not Available [facility] (Lab) [address] [facility], [place], [address], 10/20/2022 21:12:34 10/14/19 23 10/13/2022 17-OH PROGE [...] harry [facility] , Addre ss: [id number] [place] [address] Direc tor: Lali patel MD,Ph D,ELPIDIO Not Available [facility] (Lab) [address], [place], [address], 10/20/2022 21:12:34 10/14/19 23 10/13/2022 TESTO STERO NE, FREE( DIALY SIS) AND TOTAL (LC/M S/MS) testosterone , total 34 NG/dL 2-45 For addit ional infor donnie malhotra e refer to http: //[facility] krzysztof grande.que stdia gnost ics.c om/fa q/Tot alTmason lojatequila Verduzco [facility] (This link is being provi ded for infor matio nal/ educa aubree l purpo ses only. ) This test was devel oped and its kevyn tical perfo rmanc e vera cteri stics have been deter mined by [employer]. It has not been clear ed or appro ramírez by the FDA. This assay has been valid ated pursu ant to the CLIA regul ation s and is used for clini belkys purpo ses. Not Available [facility] (Lab) [address], [place], [address], 10/20/2022 21:12:35 10/14/19 23 10/13/2022 TESTO STERO NE, FREE( DIALY SIS) AND TOTAL (LC/M S/MS) testosterone , free 5.8 pg/mL 0.1-6. 4 This test was devel oped and its kevyn tical perfo rmanc e vera cteri stics have been deter mined by [employer]. It has not been clear ed or appro ramírez by the FDA. This assay has been valid ated pursu ant to the CLIA regul ation s and is used for clini belkys purpo ses. Perfo rming Organ izati on Infor matio n: Site ID: [id number] Name: [employer]-[facility] [address]ry [address] [place] Addre ss: [id number] [place] [address] Direc tor: Shayy salazar M.D. Not Available [facility] (Lab) [address], [place], [address], 10/20/2022 21:12:35 10/24/19 23 10/23/2022 US, pelvi s No observ ation record ed. [email or web address] [place] [address], [place], [address], 10/23/2022 13:38:45 10/24/19 23 10/23/2022 US, trans vagin al No observ ation record ed. [email or web address] [place] [address], [place], [address], 10/23/2022 13:38:30 10/24/19 23 10/23/2022 US, pelvi s No observ ation record ed. [email or web address] [email or web address] [address], [place], [address], 11/05/2022 12:53:20 Result Notes None recorded. Procedures Surgical History Date Name Laterality Status Provider Name and Address Organization Details Recorded Time Tubal Ligation completed Racquel Harman [facility] 10/13/2022 14:41:17 Imaging Results Imaging Date Name Status LastModified by Organization Details LastModified Time 10/23/2022 US, pelvis completed [email or web address] [place] [address], [place], [address], 10/23/2022 13:38:45 10/23/2022 US, transvaginal completed [email or web address] [facility] [address], [place], [address], 10/23/2022 13:38:30 10/23/2022 US, pelvis completed [email or web address] [address], [place], [address], 11/05/2022 12:53:20 Procedure Notes None recorded. Medical [...] Updated DateTime 10/13/2022 162.56 cm 46.8 kg/m2 019861 g 121 mm[Hg] 81 mm[Hg] Racquel Harman [facility] 3 14:33:42 Date Recorded Body height Body mass index (BMI) Body weight Systolic blood pressure Diastolic blood pressure Provider Name and Address Organization Details Last Updated DateTime 11/05/2022 162.56 cm 46.8 kg/m2 183698 g 137 mm[Hg] 86 mm[Hg] Racquel Harman [facility] 11:51:13 Social History Question Answer Notes LastModified by Organizat ion Details LastModified Time Tobacco Smoking Status Never Smoker Racquel Harman null, [facility] 10/13/2022 14:40:57 What Is Your [...] SNOMED-CT Code Diagnosis ICD10 Code Diagnosis Note [id number] JONATAN Becerra [place] [address],[place] [address] 10/13/2022 14:10:20 10/14/2022 12:43:55 Venereal disease screening 916655645 Z11.3 Irregular periods 303512 07 N92.6 Sexually t ransmitted infectious disease 3550680 A64 Gynecologi c examination 58052847 Z01.419 Take Calcium with Vitamin D 1200mg [...] counseling and review of plan of care. [id number] Nelsy Pizano [place] [address],[facility] [place] [address] 10/23/2022 12:27:24 10/23/2022 13:13:57 Irregular periods 56227605 N92.6 [id number] JONATAN Becerra [place] [address],[facility] [place] [address] 11/05/2022 10:42:46 11/05/2022 12:54:57 Irregular periods [id number] N92.6 reviewed updated TVUS - normalwe discussed [...] Stevens Member ID Guarantor Name 10/13/2022 1 [facility] [id number] Kriss Preston [id number] [facility] 10/23/2022 1 [facility] [id number] Kriss Preston [id number] [facility] 11/05/2022 1 [facility] [id number] Kriss Shelby Preston [id number] [facility] Notes Date Note Type Note Provider Name [...] age 39 JONATAN Becerra [address], [place], [address], [facility] 10/13/2022 15:01:37 11/05/2022 text/html 37yopresents for u/s f/usee HPI from [facility] 11/02/2022 JONATAN Becerra [address], [place], [address], [facility] 11/05/2022 12:53:01 OBGyn Episode Ob Episode Information Episode Created Date Number of Fetuses Patient Bloodtype Patient rh Status Prepregnancy Weight lbs Domestic Partner Domestic Partner Phone Father Name Development Technologist Status 10/14/19 23 1 CLOSED Fetus Data [...] Domestic Partner Domestic Partner Phone Father Name Development Technologist Status 10/14/19 1 CLOSED Fetus Data First [...] Domestic Partner Domestic Partner Phone Father Name Development Technologist Status 10/14/19 23 1 CLOSED Fetus Data [...]
--- OUTSIDE RECORDS SUMMARY | 2024-07-25 17:48 | XMS_ITS | Encounter Summary ---
Author Organization [facility] Address [address] [place] [address] Care Team Providers Care Major League Baseball Player Name Role Phone Stanley Causey MD Primary Care Provider [phone] Encounter Details Date Type Department Care Team (Late st Contact Info) Description 11/07/2005 Outpatient Historical [facility] Aguilar Bunn Jr., MD [address], [place] [id number] [place], Authorized P NO ADDRESS ON FILE Unspecified, Hemorrhage of Gastrointestinal Tract (Primary Dx) Social History Tobacco Use Types Packs/Day Years Used Date Smoking Tobacco: Never Assessed Comments Unknown Sex and Gender Information Value Date Recorded Sex Assigned at Not on file 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 Gender Identity Not on file Sexual Orientation Not on file documented as of this encounter Plan of Treatment Not on file documented as of this encounter Procedures Procedure [...] fL INTERFACE SYSTEM 11/07/2005 9:09 PM CDT [facility] Provider HEMATOLOGY ORDERABLES Final Result INTERFACE SYSTEM Refer to clinic/hospital department documented in this encounter Visit Diagnoses Diagnosis Hemorrhage of gastrointestinal tract, unspecified- Primary documented in this encounter Care Teams Major League Baseball Player Relationship Specialty Start Date End Date Stanley Causey MD [facility] [address] [address] PCP - General 02/28/03 documented as of this encounter
--- OUTSIDE RECORDS SUMMARY | 2024-07-25 17:48 | XMS_ITS | Encounter Summary ---
Author Organization [facility] Address 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 Gender Identity Not on file Sexual Orientation Not on file documented as of this encounter Plan of Treatment Not on file documented as of this encounter Visit Diagnoses Diagnosis Bipolar I disorder, most recent episode (or current) mixed, unspecified (CMS/HCC)- Primary Bipolar I disorder, most recent episode (or current) mixed, unspecified documented in this encounter Care Teams Felt Finisher Relationship Specialty Start Date End Date Stanley Causey MD [facility] [place] [address], [facility] [address] [place] [address] PCP - General 02/28/03 documented as of this encounter
--- OUTSIDE RECORDS SUMMARY | 2024-07-25 17:48 | XMS_ITS | Encounter Summary ---
Author Organization [facility] Address 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
--- OUTSIDE RECORDS SUMMARY | 2024-07-25 17:48 | XMS_ITS | Clinical Summary ---
Author Organization [facility] Address [facility] [place] [address] Care Team Providers Care Production Control Scheduler Name Role Phone Stanley Schmidt DO Primary Care Provider +1- [phone] Allergies Active Allergy Reactions Criticality Noted Date [...] 1 tablet (137 mcg total) by mouth crystal syrup maker before breakfast 12/29/19 23 Active buPROPion XL [...] (10 mg total) by mouth nightly Active calcium citrate-vitamin D3 200 mg-6.25 mcg (250 unit) tabletIndications: Hypocalcemia Prevention Take 2 tablets by mouth 3 (three) times a day Start post-surgery 540 tablet 3 06/10/19 24 Active ondansetron (ZOFRAN) 4 mg tabletIndications: Prevention [...] POST SURGERY 60 capsule 06/10/19 24 Active acetaminophen (Tylenol Extra Strength) 500 mg [...] Active topiramate (TOPAMAX) 25 mg tablet 02/23/20 24 Active ondansetron ODT (ZOFRAN-ODT) 4 mg disintegrating tablet DISSOLVE 1 TABLET IN MOUTH EVERY 6 HOURS NEEDED FOR NAUSEA AND VOMITING 01/18/20 24 Active dicyclomine (BENTYL) 20 mg tablet TAKE 1 TABLET BY MOUTH THREE TIMES DAILY FOR ABDOMINAL CRAMPING. 01/18/20 24 Active ferrous sulfate 325 mg (65 mg of elemental iron) tabletIndications: Iron Deficiency Anemia Take 1 tablet (325 mg total) by mouth daily with breakfast 90 tablet 3 07/26/19 25 026 Active Active Problems Problem Noted Date Diagnosed [...] 09/22/2023 BMI 45.0-49.9, adult 01/21/2023 024 Immunizations Immunization Administration Dates Next Due Influenza, Split 07/23/2012 Surgical History Surgery Date Site/Laterality Comments HERNIA REPAIR 1993 Hernia repair CHOLECYSTECTOMY 2014 TUBAL LIGATION THYROIDECTOMY, PARTIAL Medical History Medical History Date Comments Hx Other Medical dyslexia History of multiple allergies Al lergies Asthma Asthma Primary fibromyalgia syndrome fi bromyalgia Thyroid disease Anemia 2022 Anxiety 2004 Depression 2003 Hypertension 2013 Low back pain 2008 Sleep apnea 2015 Bipolar disorder (HCC) Schizo affective schizophrenia (HCC) Morbid obesity (HCC) PONV (postoperative nausea [...] Father Kash Hartmananan Heart disease Father Kash Hartmananan Heart disease; Heart failure Father Kash Hartmananan Hypertension Father Kash Wall Mental illness Father Kash Hartmananan Other Father Kash Hartmananan CHF,HTN; Skin cancer Father Kash Hartmananan cancer, skin; Sleep apnea Father Kash Hartmananan [...] Comments Daughter 1 Pratibha Daughter 2 Kush Mohan Daughter 3 Brenda Preston Father Kash Hartmananan Alive Maternal Grandfather Caterina Maternal Grandmother Caterina Alive Mother Olivia Wall Alive Mother's Brother 1 Arnaldo Mother's Brother 2 Atilio Mother's Sister 1 Lou Mother's Sister 2 Amanda Other 1 Other 2 Paternal Grandfather Papa Wall Alive Paternal Grandmother Laura Social History [...] on file 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 Gender Identity Not on file Sexual Orientation [...] Health Maintenance Due Date Last Done Comments Breast Cancer Screening-Mammogram 1984 Cervical Cancer Screening 1984 Depression Screening 1984 DTaP/Tdap/Td Vaccine (1 - Tdap) 1995 Varicella Vaccines (1 of 2 - 13+ 2-dose series) 1997 Hepatitis B Screening 2002 Regular Well Visit/Exam 18-64 2002 Pneumococcal vaccine <65 (1 of 2 - PCV) 2003 Covid-19 Vaccine ( season) 2023 04/03/2021, 07/15/2020, 06/23/2020 Influenza Vaccine (#1) 2023 , 01/29/2021, 06/26/2017, Additional history exists Hepatitis C Screening Completed 07/06/2013, 013 HPV Vaccines Aged Out No longer eligi ble based on patient's age to complete this topic Medical Devices Implanted Type Area Picker And Packer Device Identifier Shelf Expiration Date Model / Serial / Lot [employer] Donna Biological Bariatric Peristrip Non Crosslinked Bovine Pericardium For Endo Tracee Thin [id number] - [id number] Implanted:Qty: 1 on 06/25/2023 by Aguilar Wolfe MD at [facility] Other - see comments N/A: Abdomen [employer] 04/15/2025 [id number] THN / N/A / [id number] Description:Kiah strip [employer] Donna Biological Bariatric Peristrip Non Crosslinked Bovine Pericardium For Endo Tracee Thin [id number] - [id number] Implanted:Qty: 1 on 06/25/2023 by Aguilar Wolfe MD at [facility] Other - see comments N/A: Abdomen [employer] Donna 04/15/2025 [id number] THN / N/A / [id number] Description:Kiah strip Procedures Procedure Name Priority Date/Time [...] Most Recently Relevant to Health Maintenance Insurance [facility] Advance Directives For more information, please contact: [phone] * Full Code (Latest Code Status on File) Date Activated Date Inactivated Comments 08/13/2023 9:43 AM 08/13/2023 3:36 PM * Full Code Date Activated Date Inactivated Comments 06/25/2023 12:49 PM 06/26/2023 6:43 PM Care Teams Production Control Scheduler Relationship Specialty Start Date End Date Stanley Schmidt DO PCP - General Internal Medicine 11/04/22
--- OUTSIDE RECORDS SUMMARY | 2024-07-25 17:48 | XMS_ITS | Encounter Summary ---
Author Organization [facility] Address 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
--- OUTSIDE RECORDS SUMMARY | 2024-07-25 17:48 | XMS_ITS | Encounter Summary ---
Author Organization [facility] Address [address] [place] [address] Care Team Providers Care Performance Test Consultant Name Role Phone Stanley Causey MD Primary Care Provider +1 -[phone] Encounter Details Date Type Department Care Team (Latest Contact Info) Description 08/22/2004 Outpatient Historical HIS PSYCH IOP Ashley Iqbal MD [address] [place] [address] BIPOLAR DISORDER, UNSPECIFIED (CMS/HCC) (Primary Dx) Social History Tobacco Use Types Packs/Day Years Used Date Smoking Tobacco: Never Assessed Comments Unknown Sex and Gender Information Value Date Recorded Sex Assigned at Not on file 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
--- OUTSIDE RECORDS SUMMARY | 2024-07-25 17:48 | XMS_ITS | Encounter Summary ---
Author Organization [facility] Address 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
--- OUTSIDE RECORDS SUMMARY | 2024-07-25 17:48 | XMS_ITS | Encounter Summary ---
Author Organization [facility] Address 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
--- OUTSIDE RECORDS SUMMARY | 2024-07-25 17:48 | XMS_ITS | Encounter Summary ---
Author Organization [facility] Address 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
--- OUTSIDE RECORDS SUMMARY | 2024-07-25 17:48 | XMS_ITS | Encounter Summary ---
Author Organization [facility] Address 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
--- OUTSIDE RECORDS SUMMARY | 2024-07-25 17:48 | XMS_ITS | Encounter Summary ---
Author Organization [facility] Address 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
--- OUTSIDE RECORDS SUMMARY | 2024-07-25 17:48 | XMS_ITS | Encounter Summary ---
Author Organization [facility] Address [address] [place] [address] Care Team Providers Care Business Manager College Or University Name Role Phone Stanley Causey MD Primary Care Provider +1 [phone] Encounter Details Date Type Department Care Team (Late st Contact Info) Description 11/02/2003 Outpatient Historical [facility] Maternal and Ground Floor [facility] [address] [place] [address] Deidre Moncada MD [address] [place] [address] Social History Tobacco Use Types Packs/Day Years Used Date Smoking Tobacco: Never Assessed Comments Unknown Sex and Gender Information Value Date Recorded Sex Assigned at Not on file 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
--- OUTSIDE RECORDS SUMMARY | 2024-07-25 17:48 | XMS_ITS | Encounter Summary ---
Author Organization [facility] Address [address] [place] [address] Care Team Providers Care Low Pressure Firer Name Role Phone Stanley Causey MD Primary Care Provider +1 -[phone] Encounter Details Date Type Department Care Team (Latest Contact Info) Description 01/20/2005 Inpatient Historical HIS PATIENT IN A BED Najma Gates MD [address] [place] [address] BIPOLAR - MOST RECENTLY MIXED W PSYCHOSIS (CMS/HCC) (Primary Dx) Social History Tobacco Use Types Packs/Day Years Used Date Smoking Tobacco: Never Assessed Comments Unknown Sex and Gender Information Value Date Recorded Sex Assigned at Not on file 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 Gender Identity Not on file Sexual Orientation [...] = >200 ug/mL 01/23/2005 8:30 AM CDT Najma Gates MD [...] ORDERABLES Final R esult Performing Organization Address City/[facility]/ZIP Co de Phone Number INTERFACE SYSTEM Refer to clinic/hospital department * T4 FREE (01/21/2005 6:00 AM CDT) T4 FREE 0.9 0.9 - 1.7 ng/dL INTERFACE SYSTEM 01/21/2005 6:00 AM CDT Uriel De Los Santos MD CHEMISTRY ORDERABLES Final Resul t Performing Organization Address [facility] de Phone Number INTERFACE SYSTEM Refer to clinic/hospital department * T3 FREE (01/21/2005 6:00 AM CDT) T3 FREE 3.4 2.5 - 4.4 pg/mL INTERFACE SYSTEM 01/21/2005 6:00 AM CDT Uriel De Los Santos MD CHEMISTRY ORDERABLES Final Resul t Performing Organization Address [facility] de Phone Number INTERFACE SYSTEM [...] /HPF INTERFACE SYSTEM 01/20/2005 3:28 AM CDT Najma [...] drugs of abuse are available on the [facility] Healthcare[facility] at: [email or web address] ExchangeBarnes [email or web address]/unity/[email or web address].nsf Select: Drugs of Abuse ? [facility] To inquire about any potential [...] INTE RFACE SYSTEM 01/20/2005 3:28 AM CDT [facility] MD URINE ORDERABLES Final Resul t INTERFACE SYSTEM Refer to clinic/hospital department * HCG QUALITATIVE, URINE (01/20/2005 3:28 AM CDT) HCG QUAL URINE Negative Negative INTER FACE SYSTEM SPECIFIC GRAVITY UA 1.025 1.001 - 1.035 INTERFACE SYSTEM 01/20/2005 3:28 AM CDT Najma Gates MD URINE ORDERABLES Final Resul t Performing Organization Address City/[facility] Co de Phone Number INTERFACE SYSTEM [...] HEMATOLOGY ORDERABLES Final Result Performing Organization Address City/[facility] de Phone Number INTERFACE SYSTEM [...] fL INTERFACE SYSTEM 01/20/2005 3:00 AM CDT Najma Gates MD HEMATOLOGY ORDERABLES Final Result Performing Organization Address City/[facility] Phone Number INTERFACE SYSTEM Refer to clinic/hospital department * (ABNORMAL) TSH (01/20/2005 3:00 AM CDT) TSH 6.71(H) 0.27 - 4.20 uU/mL INTERFACE SYSTEM 01/20/2005 3:00 AM CDT Najma Gates MD CHEMISTRY ORDERABLES Final R esult Performing Organization Address [facility] Phone Number INTERFACE SYSTEM Refer to [...] ORDERABLES Final R esult Performing Organization Address City/[facility] Co de Phone Number INTERFACE SYSTEM Refer to clinic/hospital department documented in this encounter Visit Diagnoses Diagnosis Bipolar I disorder, most recent episode (or current) mixed, severe, specified as with psychotic behavior (CMS/HCC)- Primary Bipolar I disorder, most recent episode (or current) mixed, severe, specified as with psychotic behavior documented in this encounter Care Teams Low Pressure Firer Relationship Specialty Start Date End Date Stanley Causey MD [facility] [address] [address] PCP - General 02/28/03 documented as of this encounter
--- OUTSIDE RECORDS SUMMARY | 2024-07-25 17:48 | XMS_ITS | Encounter Summary ---
Author Organization [facility] Address [address] [place] [address] Care Team Providers Care Windows Laptop Technician Name Role Phone Stanley Causey MD Primary Care Provider +1 [phone] Encounter Details Date Type Department Care Team (Latest Contact Info) Description 08/18/2004 Inpatient Historical HIS PATIENT IN A BED Ashley Bronson MD [address] [place] [address] BIPOLAR - MOST RECENTLY W DEPRESSION NOS (CMS/HCC) (Primary Dx) Social History Tobacco Use Types Packs/Day Years Used Date Smoking Tobacco: Never Assessed Comments Unknown Sex and Gender Information Value Date Recorded Sex Assigned at Not on file 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 Gender Identity Not on file Sexual Orientation [...] 3:08 AM CDT HCG QUALITATIVE, URINE Routine 5 12:48 AM CDT DRUG SCREEN, URINE Routine [...] K/uL INTERFACE SYSTEM 08/18/2004 3:08 AM CDT Ashley [...] ORDERABLES Final Res ult Performing Organization Address [facility] Phone Number INTERFACE SYSTEM Refer [...] ORDERABLES Final Resu lt Performing Organization Address [facility] Phone Number INTERFACE SYSTEM Refer to clinic/hospital department * (ABNORMAL) TSH (08/18/2004 3:08 AM CDT) TSH 39.89(H) 0.27 - 4.20 uU/mL INTERFACE SYSTEM 08/18/2004 3:08 AM CDT Ashley Bronson MD CHEMISTRY ORDERABLES Final Resu lt Performing Organization Address [facility] [place] Phone Number INTERFACE SYSTEM Refer to clinic/hospital department * HCG QUALITATIVE, URINE (08/18/2004 12:48 AM CDT) HCG QUAL URINE Negative Negative INTER FACE SYSTEM SPECIFIC GRAVITY UA 1.025 1.001 - 1.035 INTERFACE SYSTEM 08/18/2004 12:4 8 AM CDT us Brunilda Olvera MD URINE ORDERABLES Final Resul t Performing Organization Address City/[facility] Co de Phone Number INTERFACE SYSTEM [...] [facility] Intranet at: [email or web address] Select: Drugs of Abuse ? [facility] To inquire about any potential cross-reactivity of [...] ORDERABLES Final Resul t Performing Organization Address City/[facility] Co de Phone Number INTERFACE SYSTEM Refer to clinic/hospital department documented in this encounter Visit Diagnoses Diagnosis Bipolar I disorder, most recent episode (or current) depressed, unspecified (CMS/[facility])- Primary Bipolar I disorder, most recent episode (or current) depressed, unspecified documented in this encounter Care Teams Windows Laptop Technician Relationship Specialty Start Date End Date Stanley Causey MD [facility] [address] [address] PCP - General 02/28/03 documented as of this encounter
--- OUTSIDE RECORDS SUMMARY | 2024-07-25 17:48 | XMS_ITS | Encounter Summary ---
Author Organization [facility] Address [address] [place] [address] Care Team Providers Care Internet Sales Representative Name Role Phone Stanley Causey MD Primary Care Provider +1 -[phone] Encounter Details Date Type Department Care Team (Late st Contact Info) Description 03/25/2003 Outpatient Historical [facility] Child and Adolescent Psychiatry [facility] [address] [place] [address] [place] [address] [facility] [place] [address] Social History Tobacco Use Types Packs/Day Years Used Date Smoking Tobacco: Never Assessed Comments Unknown Sex and Gender Information Value Date Recorded Sex Assigned at Not on file 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
--- OUTSIDE RECORDS SUMMARY | 2024-07-25 17:48 | XMS_ITS | Referral Summary ---
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 Gender Identity Not on file Sexual Orientation [...] on file Medical Devices Implanted Type Area Foam Tank Laminator Device Identifier Shelf Expiration Date Model / Serial / Lot [employer] Biological Bariatric Peristrip Non Crosslinked Bovine Pericardium For Endo Tracee Thin [id number] - [id number] Implanted:Qty: 1 on 06/25/2023 by Aguilar Wolfe MD at [facility] Other - see comments N/A: Abdomen [employer] 04/15/2025 [id number] THN / N/A / [id number] Description:Kiah strip [employer] Biological Bariatric Peristrip Non Crosslinked Bovine Pericardium For Endo Tracee Thin [id number] - [id number] Implanted:Qty: 1 on 06/25/2023 by Aguilar Wolfe MD at [facility] Other - see comments N/A: Abdomen [employer] 04/15/2025 [id number] THN / N/A / [id number] Description:Kiah strip Procedures Procedure Name Priority Date/Time [...] Most Recently Relevant to Health Maintenance Insurance [facility] [place] [place] [address] Advance Directives For more information, please contact: [phone] * Full Code (Latest Code Status on File) Date Activated Date Inactivated Comments 08/13/2023 9:43 AM 08/13/2023 3:36 PM * Full Code Date Activated Date Inactivated Comments 06/25/2023 12:49 PM 06/26/2023 6:43 PM Care Teams Border Guard Relationship Specialty Start Date End Date Stanley Schmidt, PCP - General Internal Medicine 11/04/22
--- OUTSIDE RECORDS SUMMARY | 2024-07-25 17:48 | XMS_ITS | Encounter Summary ---
Author Organization [employer] [facility] Address [address] [place] [address] Care Team Providers Care Coal Picker Name Role Phone Stanley Causey MD Primary Care Provider +1 [phone] Encounter Details Date Type Department Care Team (Late st Contact Info) Description 04/29/2007 Outpatient Historical [facility] Er, Authorized P NO ADDRESS ON FILE Jorge Lechuga MD [address] [place] [address] [place] [address] Social History Tobacco Use Types Packs/Day Years Used Date Smoking Tobacco: Never Assessed Comments Unknown Sex and Gender Information Value Date Recorded Sex Assigned at Not on file Legal Sex Female 3:05 AM BLACK PICKLER Gender Identity Not on file Sexual Orientation Not on file documented as of this encounter Plan of Treatment Not on file documented as of this encounter Procedures Procedure Name Priority Date/Time Associated Diagnosis Comments POC , URINE Routine 04/29/2007 7:35 PM BLACK PICKLER POC URINALYSIS DIPSTICK NON AUTOMATED Routine 04/29/2007 7:35 PM BLACK PICKLER documented in this encounter Results * POC , URINE (04/29/2007 7:35 PM BLACK PICKLER) SPECIFIC GRAVITY UA 1.015 1.001 - 1.035 INTERFACE SYSTEM , URINE POC Negative Negative INTERFACE SYSTEM 04/29/2007 7:35 PM BLACK PICKLER us Authorized P Er POINT OF CARE TESTING Edited INTERFACE SYSTEM Refer to clinic/hospital department * POC URINALYSIS DIPSTICK (04/29/2007 7:35 PM BLACK PICKLER) COLOR UA Yellow INTERFACE SYSTEM CLARITY UA [...] Negative Negative INTERFACE SYSTEM 04/29/2007 7:35 PM BLACK PICKLER us Authorized P Er POINT OF CARE TESTING Edited Performing Organization Address [facility] Co de Phone Number INTERFACE SYSTEM Refer to clinic/hospital department documented in this encounter Visit Diagnoses Not on filedocumented in this encounter Care Teams Coal Picker Relationship Specialty Start Date End Date Stanley Causey MD [address] [place] [address] PCP - General 02/28/03 documented as of this encounter
--- OUTSIDE RECORDS SUMMARY | 2024-07-25 17:48 | XMS_ITS | Encounter Summary ---
Author Organization [facility] Address [address] [place] [address] Care Team Providers Care Health Tech Name Role Phone Stanley Causey MD Primary Care Provider +1 [phone] Encounter Details Date Type Department Care Team (Late st Contact Info) Description 03/13/2003 Outpatient Historical [facility] Child and Adolescent Psychiatry S [facility] [address] [place] [address] [place] [address] Agustín Albert Social History Tobacco Use Types Packs/Day Years Used Date Smoking Tobacco: Never Assessed Comments Unknown Sex and Gender Information Value Date Recorded Sex Assigned at Not on file 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
--- OUTSIDE RECORDS SUMMARY | 2024-07-25 17:48 | XMS_ITS | Encounter Summary ---
Author Organization [facility] Address 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
--- OUTSIDE RECORDS SUMMARY | 2024-07-25 17:48 | XMS_ITS | Encounter Summary ---
Author Organization [employer] Address [address] [place] [address] Care Team Providers Care Polisher Dial Name Role Phone Stanley Causey MD Primary Care Provider +1 [phone] Encounter Details Date Type Department Care Team (Late st Contact Info) Description 03/11/2004 Outpatient Historical [facility] Support Serv. (Adt Cardiology-[facility]) [address] 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
--- OUTSIDE RECORDS SUMMARY | 2024-07-25 17:48 | XMS_ITS | Encounter Summary ---
Author Organization [facility] Address [address] [place] [address] Care Team Providers Care Shift Mechanic Name Role Phone Stanley Causey MD Primary Care Provider +1 [phone] Encounter Details Date Type Department Care Team [...] on file Legal Sex Female 3:05 AM NURSES' AIDE Gender Identity Not on file Sexual Orientation Not on file documented as of this encounter Plan of Treatment Not on file documented as of this encounter Visit Diagnoses Diagnosis Threatened premature labor, antepartum(644.03)- Primary Threatened premature labor, antepartum documented in this encounter Care Teams Shift Mechanic Relationship Specialty Start Date End Date Stanley Causey MD [facility] [address], [address] [place] [address] PCP - General 02/28/03 documented as of this encounter
--- OUTSIDE RECORDS SUMMARY | 2024-07-25 17:48 | XMS_ITS | Encounter Summary ---
Author Organization [facility] Address [address] [place] [address] Care Team Providers Care Manager Spring Name Role Phone Stanley Causey MD Primary Care Provider +1 [phone] Encounter Details Date Type Department Care Team (Late st Contact Info) Description 03/20/2003 Outpatient Historical [place] [address] [facility] [place] [address] BIPOL AFFECT, MIXED-UNSPEC (CMS/HCC) (Primary Dx) Social History Tobacco Use Types Packs/Day Years Used Date Smoking Tobacco: Never Assessed Comments Unknown Sex and Gender Information Value Date Recorded Sex Assigned at Not on file 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 Gender Identity Not on file Sexual Orientation Not on file documented as of this encounter Plan of Treatment Not on file documented as of this encounter Visit Diagnoses Diagnosis Bipolar I disorder, most recent episode (or current) mixed, unspecified (CMS/HCC)- Primary Bipolar I disorder, most recent episode (or current) mixed, unspecified documented in this encounter Care Teams Manager Spring Relationship Specialty Start Date End Date Stanley Causey MD [address] [place] [address], [facility] [address] [place] [address] PCP - General 02/28/03 documented as of this encounter
--- OUTSIDE RECORDS SUMMARY | 2024-07-25 17:48 | XMS_ITS | Encounter Summary ---
Author Organization [facility] Address [address] [place] [address] Care Team Providers Care Vice President Of Manufacturing Name Role Phone Stanley Causey MD Primary Care Provider +1 [phone] Encounter Details Date Type Department Care Team (Late st Contact Info) Description 02/28/2003 Outpatient Historical [facility] Child and Adolescent Psychiatry S [facility] [address] [facility] 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 3, [address] [place] [address] PCP - General 02/28/03 documented as of this encounter
--- OUTSIDE RECORDS SUMMARY | 2024-07-25 17:48 | XMS_ITS | Encounter Summary ---
Author Organization [facility] Address [address] [place] [address] Care Team Providers Care Event Marketing Representative Name Role Phone Stanley Causey MD Primary Care Provider [phone] [phone] Encounter Details Date Type Department Care Team (Late st Contact Info) Description 03/13/2003 Outpatient Historical [facility] Child and Adolescent Psychiatry S [facility] [address] [facility] [place] [address] Agustín Albert Social History Tobacco Use Types Packs/Day Years Used Date Smoking Tobacco: Never Assessed Comments Unknown Sex and Gender Information Value Date Recorded Sex Assigned at Not on file 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
--- OUTSIDE RECORDS SUMMARY | 2024-07-25 17:48 | XMS_ITS | Encounter Summary ---
Author Organization [facility] Address [address] [place] [address] Care Team Providers Care Audiovisual Librarian Name Role Phone Stanley Causey MD Primary Care Provider [phone] [phone] Encounter Details Date Type Department Care Team (Late st Contact Info) Description 06/25/2002 Outpatient [facility] [address] [place] [address] RD. 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
--- OUTSIDE RECORDS SUMMARY | 2024-07-25 17:48 | XMS_ITS | Encounter Summary ---
Author Organization [facility] Address [address] [place] [address] Care Team Providers Care Precast Concrete Ironworker Name Role Phone Stanley Causey MD Primary Care Provider [phone] [phone] Encounter Details Date Type Department Care Team (Late st Contact Info) Description 04/01/2003 Outpatient Historical [facility] Child and Adolescent Psychiat[facility] S [facility] [address] [place] [address] [place] [address] [facility] [place] [address] Social History Tobacco Use Types Packs/Day Years Used Date Smoking Tobacco: Never Assessed Comments Unknown Sex and Gender Information Value Date Recorded Sex Assigned at Not on file Legal Sex Female 3:[address] OFFICER Gender Identity Not on file Sexual Orientation Not on file documented as of this encounter Plan of Treatment Not on file documented as of this encounter Visit Diagnoses Not on filedocumented in this encounter Care Teams Precast Concrete Ironworker Relationship Specialty Start Date End Date Stanley Causey MD [address] [place] [address], [facility] [address] [place] [address] PCP - General 02/28/03 documented as of this encounter
--- OUTSIDE RECORDS SUMMARY | 2024-07-25 17:48 | XMS_ITS | Clinical Summary ---
Author Organization [facility] Address [address] [facility] [place] [address] Care Team Providers Care Soil Checker Name Role Phone Stanley Causey MD Primary Care Provider +1 [phone] Source Comments [facility],non-owned Affiliates and Associated Physician Practices is amultiple site organization consisting of ambulatory clinics and hospital sitesin [place], [place], [place] and [place]. This disclosure is being madepursuant to the Care Everywhere program and may not contain all information available regarding this patient. Last updated 18.[facility] Allergies Active Allergy Reactions Criticality Noted Date [...] Comments Blood Pressure 128/75 06/28/2011 4:43 AM FINISHING DEPARTMENT SUPERVISOR Pulse 77 06/28/2011 4:43 AM FINISHING DEPARTMENT SUPERVISOR Temperature 36.7 C (98.1 F) 06/28/2011 4:43 AM FINISHING DEPARTMENT SUPERVISOR Respiratory Rate 16 06/28/2011 4:43 AM FINISHING DEPARTMENT SUPERVISOR Oxygen Saturation 100% 06/28/2011 4:43 AM FINISHING DEPARTMENT SUPERVISOR Inhaled Oxygen Concentration - - Weight 111.1 kg (245 lb) 06/28/2011 4:43 AM FINISHING DEPARTMENT SUPERVISOR Height 162.6 cm (5' 4 ) 06/28/2011 4:43 AM FINISHING DEPARTMENT SUPERVISOR Body Mass Index 42.05 06/28/2011 4:43 AM FINISHING DEPARTMENT SUPERVISOR Plan of Treatment Health Maintenance Due Date Last Done Comments LIPID TESTING 1984 MAMMOGRAM 1984 PAP SMEAR 1984 HIV SCREENING 1999 HEPATITIS [...] to complete this topic MENINGOCOCCAL (Group B) VACC INE SHARED DECISION-MAKING Aged Out No longer eligibl e based on patient's age to complete this topic MENINGOCOCCAL GROUPS A/C/Y/W VACCINE Aged Out No longer eligible b ased on patient's age to complete this topic PNEUMOCOCCAL VACCINE Aged Out No long er eligible based on patient's age to complete this topic Care Teams Soil Checker Relationship Specialty Start Date End Date Stanley Causey MD [address] [address] [place] [address] PCP - General 04/17/20
--- OUTSIDE RECORDS SUMMARY | 2024-07-25 17:48 | XMS_ITS | Encounter Summary ---
Author Organization [facility] Address [address] [place] [address] Care Team Providers Care Alligator Hunter Name Role Phone Stanley Causey MD Primary Care Provider +1 [phone] Encounter Details Date Type Department Care Team (Late st Contact Info) Description 12/01/2003 Outpatient Historical [facility] Maternal and Ground Floor S [facility] [address] [place] [address] Deidre Moncada MD [address] [place] [address] Social History Tobacco Use Types Packs/Day Years Used Date Smoking Tobacco: Never Assessed Comments Unknown Sex and Gender Information Value Date Recorded Sex Assigned at Not on file 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
--- OUTSIDE RECORDS SUMMARY | 2024-07-25 17:48 | XMS_ITS | Clinical Summary ---
Author Organization [facility] Address [address] [place] [address] Care Team Providers Care Rn Family Name Role Phone Stanley Causey MD Primary Care Provider +1 [phone] Allergies Active Allergy Reactions Criticality Noted Date [...] 2130 - pit, O+ GBS- 11/27/2010 11/27/2010 8/11/27/2010 01/07/2011 Breech presentation without mention of version, unspecified as to episode of care 11/18/2010 11/26/2010 Breech presentation 10/29/2010 11/06/19 11 r/o PPROM, no evidence of rupture on exam 10/28/2010 10/29/2010 Maternal atypical antibody c omplicating 09/11/2010 06/22/2012 Encounters Date Type Department Care Team Description 07/13/2024 External Device Data [facility] ABSTRACTION Provider, Abstract 07/02/2024 External Device Data [facility] ABSTRACTION Provider, Abstract 07/01/2024 External Device Data [facility] ABSTRACTION Provider, Abstract 06/29/2024 External Device Data [facility] ABSTRACTION Provider, Abstract 06/15/2024 External Device Data [facility] ABSTRACTION Provider, Abstract 06/14/2024 4:30 PM BREAKER HAND Telephone Check Up [facility] Oncology and Hematology [facility] [address] [place] [address] Rustam Oswald MD 06/14/2024 External Device Data [facility] ABSTRACTION Provider, Abstract 06/07/2024 External Device Data [facility] ABSTRACTION Provider, Abstract 06/07/2024 External Device Data [facility] ABSTRACTION Provider, Abstract 06/07/2024 External Device Data [facility] ABSTRACTION Provider, Abstract 06/01/2024 3:00 PM BREAKER HAND Office Visit [facility] Oncology and Hematology [facility] [address] [place] [address] Rustam Oswald MD Chronic anemia (Primary Dx) [...] on file Legal Sex Female 3:05 AM BREAKER HAND Gender Identity Not on file Sexual Orientation Not on file Occupation Industry Job Start Date Job End Date Not on file Not on file Not on file Not on file Last Filed Vital Signs Vital Sign Reading Time Taken Comments Blood Pressure 107/77 06/01/2024 3:04 PM BREAKER HAND Pulse 70 06/01/2024 3:04 PM BREAKER HAND Temperature 36.7 C (98 F) 06/01/2024 3:04 PM BREAKER HAND Respiratory Rate 18 12/05/2012 7:51 AM CDT Oxygen Saturation 98% 06/01/2024 3:04 PM BREAKER HAND Inhaled Oxygen Concentration - - Weight 79.4 kg (175 lb) 06/01/2024 3:04 PM BREAKER HAND Height 162.6 cm (5' 4 ) 06/01/2024 3:04 PM BREAKER HAND Body Mass Index 30.04 06/01/2024 3:04 PM BREAKER HAND Plan of Treatment Health Maintenance Due Date Last Done Comments Pre-Diabetes and Diabetes Screening 1984 HEPATITIS B VACCINES (1 of 3 - 19+ 3-dose series) 2003 HPV/Cotest (21-29) 2005 HPV/Cotest (30-65) 2014 DTAP/TDAP/TD VACCINES (2 - Td or Tdap) 11/28/2020 11/28/2010 CERVICAL CANCER SCREENING 10/14/2023 PAP SMEAR 10/14/2023 10/13/2022, 05/2012, 04/25/2010 PAP SMEAR 10/14/2023 10/13/2022, 05/2012, 04/28/2012, Additional history exists INFLUENZA VACCINE (#1) 2023 04/03/2021 BREAST CANCER SCREENING 2024 HPV VACCINES Aged Out No longer eligi ble based on patient's age to complete this topic Procedures Procedure Name Priority Date/Time Associated Diagnosis Comments CERV/VAG CYTOPATH, SUREPATH W/RFLX HPV Routine 04/28/2012 4:20 PM BREAKER HAND Routine gynecological examination from Last 3 Months or Most Recently Relevant to Health Maintenance Results * CERV/VAG CYTOPATH, SUREPATH W/RFLX HPV (04/28/2012 4:20 PM BREAKER HAND) CLINICAL INFORMATION HEALTHY [facility] PREV PAP: 04 25 2010 WNL [facility] LAST MENSTRUAL PERIOD 02 28 2013 [facility] PAP INTERP Negative for intraepithelial lesion or malignancy. [facility] Comment: Performed by [facility], [address] [place] [address] Procedures Nurse Pap Comment Based on the cytology result, reflex High Risk HPV DNA testing was not performed. [facility] ADEQUACY: Satisfactory for evaluation. Endocervical/trans formation zone component absent. [facility] SOURCE Endocervix [facility] CYTOTECHNOLOGI ST: ABC, CT(ASCP) [facility] PREV BX: INFORMATION NOT PROVIDED [facility] Endocervical 04/28/2012 4:20 PM BREAKER HAND 04/28/2012 6:13 PM BREAKER HAND Comment:ENDOCERVICAL us Juve Leigh MD PATHOLOGY/CYTOLOGY ORDERABLE S Edited [facility]# [id number] [address] [place] [address] from Last 3 Months or Most Recently Relevant to Health Maintenance Insurance [facility] [id number] Advance Directives For more information, please contact: [phone] * Full Code (Latest Code Status on [...] 9:34 PM 11/27/2010 9:51 AM Care Teams Rn Family Relationship Specialty Start Date End Date Stanley Causey MD [address] [place] [address] PCP - General 02/28/03
--- OUTSIDE RECORDS SUMMARY | 2024-07-25 17:48 | XMS_ITS | Encounter Summary ---
Author Organization [employer] Address [address] [place] [address] Care Team Providers Care Grocery Store Associate Name Role Phone Stanley Causey MD Primary Care Provider +1 [phone] Encounter Details Date Type Department Care Team (Latest Contact Info) Description 04/24/2005 Inpatient Historical HIS PATIENT IN A BED Najma Gates MD [address] [place] [address] BIPOLAR DISORDER NOS (CMS/HCC) (Primary Dx) Social History Tobacco Use Types Packs/Day Years Used Date Smoking Tobacco: Never Assessed Comments Unknown Sex and Gender Information Value Date Recorded Sex Assigned at Not on file Legal Sex Female 3:05 AM PRESCHOOL DIRECTOR Gender Identity Not on file Sexual Orientation Not on file documented as of this encounter Plan of Treatment Not on file documented as of this encounter Procedures Procedure Name Priority Date/Time Associated Diagnosis Comments CARBAMAZEPINE LEVEL Routine 04/27/2005 9 :50 AM PRESCHOOL DIRECTOR HEPATIC FUNCTION PANEL Routine 6 9:50 AM PRESCHOOL DIRECTOR TSH Routine 04/25/2005 8:40 AM PRESCHOOL DIRECTOR VALPROIC ACID LEVEL, TOTAL Routine 04/25/2005 8:40 AM PRESCHOOL DIRECTOR HEPATIC FUNCTION PANEL Routine 5 8:40 AM PRESCHOOL DIRECTOR URINALYSIS W/REFLEX MICROSCOPIC Routine 04/24/2005 6:30 AM PRESCHOOL DIRECTOR HCG QUALITATIVE, URINE Routine 5 6:30 AM PRESCHOOL DIRECTOR CBC WITH DIFFERENTIAL Routine 04/24/2005 5:57 AM PRESCHOOL DIRECTOR CBC WITH DIFFERENTIAL Routine 04/24/2005 5:57 AM PRESCHOOL DIRECTOR TSH Routine 04/24/2005 5:57 AM PRESCHOOL DIRECTOR COMPREHENSIVE METABOLIC PANEL Routine 04/24/2005 5:57 AM PRESCHOOL DIRECTOR DRUG SCREEN, URINE Routine 04/23/2005 9: 23 PM PRESCHOOL DIRECTOR documented in this encounter Results * HEPATIC FUNCTION PANEL (04/27/2005 9:50 AM PRESCHOOL DIRECTOR) AST 15 12 - 32 U/L INTERFACE SYSTEM ALKALINE PHOSPHATASE 60 35 - 104 U/L INTERFACE SYSTEM BILIRUBIN TOTAL 0.3 0.2 - 1.0 mg/dL INTERFACE SYSTEM ALBUMIN 4.1 3.4 - 4.8 g/dL INTERFACE SYSTEM TOTAL PROTEIN 7.2 6.3 - 8.6 g/dL INTERFACE SYSTEM ALT 14 0 - 31 U/L INTERFACE SYSTEM BILIRUBIN DIRECT 0.1 0.0 - 0.3 mg/dL INTERFACE SYSTEM 04/27/2005 9:50 AM PRESCHOOL DIRECTOR Najma Gates MD CHEMISTRY ORDERABLES Final R esult Performing Organization Address City/[facility] de Phone Number INTERFACE SYSTEM Refer to clinic/hospital department * CARBAMAZEPINE LEVEL (04/27/2005 9:50 AM PRESCHOOL DIRECTOR) CARBAMAZEPINE LEVEL 6.6 4.0 - 12.0 ug/mL INTERFACE SYSTEM Comment:Carbamazepine Toxic Level => 20 ug/mL 04/27/2005 9:50 AM PRESCHOOL DIRECTOR Najma Gates MD CHEMISTRY ORDERABLES Final R esult INTERFACE SYSTEM Refer to clinic/hospital department * TSH (04/25/2005 8:40 AM PRESCHOOL DIRECTOR) TSH 3.41 0.27 - 4.20 uU/mL INTERFACE SYSTEM 04/25/2005 8:40 AM PRESCHOOL DIRECTOR Najma Gates MD CHEMISTRY ORDERABLES Final R esult Performing Organization Address [facility] Phone Number INTERFACE SYSTEM Refer to clinic/hospital department * (ABNORMAL) VALPROIC ACID LEVEL, TOTAL (04/25/2005 8:40 AM PRESCHOOL DIRECTOR) VALPROIC ACID TOTAL 117(H) 50 - 100 ug/mL INTERFACE SYSTEM Comment: Valproic Acid Antiepileptic Control = 50 - 100 ug/mL Valproic Acid Manic Episode Control = 50 - 125 ug/mL Valproic Acid Toxic Level = >200 ug/mL 04/25/2005 8:40 AM PRESCHOOL DIRECTOR Najma Gates MD CHEMISTRY ORDERABLES Final R esult Performing Organization Address [facility] Phone Number INTERFACE SYSTEM Refer to clinic/hospital department * HEPATIC FUNCTION PANEL (04/25/2005 8:40 AM PRESCHOOL DIRECTOR) AST 14 12 - 32 U/L INTERFACE SYSTEM ALKALINE PHOSPHATASE 62 35 - 104 U/L INTERFACE SYSTEM BILIRUBIN TOTAL 0.2 0.2 - 1.0 mg/dL INTERFACE SYSTEM ALBUMIN 4.2 3.4 - 4.8 g/dL INTERFACE SYSTEM TOTAL PROTEIN 7.3 6.3 - 8.6 g/dL INTERFACE SYSTEM ALT 14 0 - 31 U/L INTERFACE SYSTEM BILIRUBIN DIRECT 0.1 0.0 - 0.3 mg/dL INTERFACE SYSTEM 04/25/2005 8:40 AM PRESCHOOL DIRECTOR Najma Gates MD CHEMISTRY ORDERABLES Final R esult Performing Organization Address [facility] Phone Number INTERFACE SYSTEM Refer to clinic/hospital department * HCG QUALITATIVE, URINE (04/24/2005 6:30 AM PRESCHOOL DIRECTOR) HCG QUAL URINE Negative Negative INTER FACE SYSTEM SPECIFIC GRAVITY UA 1.025 1.001 - 1.035 INTERFACE SYSTEM 04/24/2005 6:30 AM PRESCHOOL DIRECTOR Najma Gates MD URINE ORDERABLES Final Resul t Performing Organization Address [facility] Phone Number INTERFACE SYSTEM Refer to clinic/hospital department * (ABNORMAL) URINALYSIS (04/24/2005 6:30 AM PRESCHOOL DIRECTOR) COLOR UA Yellow INTERFACE SYSTEM CLARITY UA [...] Many /HPF INTERFACE SYSTEM 04/24/2005 6:30 AM PRESCHOOL DIRECTOR Najma Gates MD URINE ORDERABLES Final Resul t Performing Organization Address [facility] Phone Number INTERFACE SYSTEM Refer to clinic/hospital department * CBC WITH DIFFERENTIAL (04/24/2005 5:57 AM PRESCHOOL DIRECTOR) NEUTROPHILS 46 45 - 70 % INTERFAC [...] 0.20 K/uL INTERFACE SYSTEM 04/24/2005 5:57 AM PRESCHOOL DIRECTOR Najma Gates MD HEMATOLOGY ORDERABLES Final Result Performing Organization Address City/[facility] Co de Phone Number INTERFACE SYSTEM Refer to clinic/hospital department * (ABNORMAL) CBC WITH DIFFERENTIAL (04/24/2005 5:57 AM PRESCHOOL DIRECTOR) WBC 6.3 4.0 - 9.8 K/uL INTERFACE [...] 12.4 fL INTERFACE SYSTEM 04/24/2005 5:57 AM PRESCHOOL DIRECTOR Najma Gates MD HEMATOLOGY ORDERABLES Final Result Performing Organization Address [facility] Phone Number INTERFACE SYSTEM Refer to clinic/hospital department * TSH (04/24/2005 5:57 AM PRESCHOOL DIRECTOR) TSH 3.59 0.27 - 4.20 uU/mL INTERFACE SYSTEM 04/24/2005 5:57 AM PRESCHOOL DIRECTOR Najma Gates MD CHEMISTRY ORDERABLES Final R esult Performing Organization Address City/[facility]/ZIP Co de Phone Number INTERFACE SYSTEM Refer to clinic/hospital department * (ABNORMAL) COMPREHENSIVE METABOLIC PANEL (04/24/2005 5:57 AM PRESCHOOL DIRECTOR) GLUCOSE 93 65 - 109 mg/dL INTERFACE [...] 30 mmol/L INTERFACE SYSTEM 04/24/2005 5:57 AM PRESCHOOL DIRECTOR us Najma Gates MD CHEMISTRY ORDERABLES Final R esult INTERFACE SYSTEM Refer to clinic/hospital department * DRUG SCREEN, URINE (04/23/2005 9:23 PM PRESCHOOL DIRECTOR) COMMENT, TOXICOLOGY See Separate Comment INTERFACE SYSTEM [...] drugs of abuse are available on the [facility] Intranet at: [email or web address] Select: Drugs of Abuse ? [facility] To inquire about any potential [...] Negative INTE RFACE SYSTEM 04/23/2005 9:23 PM PRESCHOOL DIRECTOR us Carol Draper MD URINE ORDERABLES Final Result INTERFACE SYSTEM Refer to clinic/hospital department documented in this encounter Visit Diagnoses Diagnosis Bipolar disorder, unspecified (CMS/[facility])- Primary Bipolar disorder, unspecified documented in this encounter Care Teams Grocery Store Associate Relationship Specialty Start Date End Date Stanley Causey MD [facility] [address] [address] PCP - General 02/28/03 documented as of this encounter
--- OUTSIDE RECORDS SUMMARY | 2024-07-25 17:48 | XMS_ITS | Clinical Summary ---
Author Organization [facility] Address [address] [place] [address] Care Team Providers Care Back Filler Operator Name Role Phone Unavailable Primary Care Provider [...] Cancer Screening with HPV 2014 COVID-19 Vaccine ( - 2023-2 5 season) 2023 Mammogram Screening 2024 HPV Vaccines Aged Out No longer [...]
--- OUTSIDE RECORDS SUMMARY | 2024-07-25 17:48 | XMS_ITS | Encounter Summary ---
Author Organization [facility] Address [address] [place] [address] Care Team Providers Care Track Inspecting Supervisor Name Role Phone Stanley Causey MD Primary Care Provider [phone] [phone] Encounter Details Date Type Department Care Team (Latest Contact Info) Description 04/02/2004 Inpatient Historical HIS PATIENT IN A BED Jackie Ferrer MD [address] [facility] [address] [place] [address] Miley Wilson MD NO ADDRESS ON FILE DEL [address] LUIS-INEZ (Primary Dx) Social History Tobacco Use Types Packs/Day Years Used Date Smoking Tobacco: Never Assessed Comments Unknown Sex and Gender Information Value Date Recorded Sex Assigned at Not on file Legal Sex Female 3:05 AM THRESHING MACHINE OPERATOR Gender Identity Not on file Sexual Orientation Not on file documented as of this encounter Plan of Treatment Not on file documented as of this encounter Visit Diagnoses Diagnosis First-degree perineal laceration, with delivery- Primary documented in this encounter Care Teams Track Inspecting Supervisor Relationship Specialty Start Date End Date Stanley Causey MD [facility] [place] [address], [facility] [address] [place] [address] PCP - General 02/28/03 documented as of this encounter
--- OUTSIDE RECORDS SUMMARY | 2024-07-25 17:48 | XMS_ITS | Encounter Summary ---
Author Organization [facility] Address [address] [place] [address] Care Team Providers Care Rn Gastroenterology Name Role Phone Stanley Causey MD Primary Care Provider [phone] [phone] Encounter Details Date Type Department Care Team (Latest Contact Info) Description 04/01/2004 Outpatient Historical HIS PATIENT IN A BED Sangeetha Pulido MD NO ADDRESS ON FILE Miley Wilsno MD NO ADDRESS ON FILE THREAT LABOR NEC-ANTEPAR (Primary Dx) Social History Tobacco Use Types Packs/Day Years Used Date Smoking Tobacco: Never Assessed Comments Unknown Sex and Gender Information Value Date Recorded Sex Assigned at Not on file Legal Sex Female 3:05 AM RUG SETTER VELVET Gender Identity Not on file Sexual Orientation Not on file documented as of this encounter Plan of Treatment Not on file documented as of this encounter Visit Diagnoses Diagnosis Other threatened labor, antepartum- Primary documented in this encounter Care Teams Rn Gastroenterology Relationship Specialty Start Date End Date Stanley Causey MD [facility] [place] [address], [facility] [address] [place] [address] PCP - General 02/28/03 documented as of this encounter
--- OUTSIDE RECORDS SUMMARY | 2024-07-25 17:48 | XMS_ITS | Encounter Summary ---
Author Organization [facility] Address [address] [place] [address] Care Team Providers Care Farm Crew Member Name Role Phone Stanley Causey MD Primary Care Provider [phone] [phone] Encounter Details Date Type Department Care Team [...] on file Legal Sex Female 3:05 AM SURVEYOR Gender Identity Not on file Sexual Orientation Not on file documented as of this encounter Plan of Treatment Not on file documented as of this encounter Visit Diagnoses Diagnosis Threatened premature labor, antepartum(644.03)- Primary Threatened premature labor, antepartum documented in this encounter Care Teams Farm Crew Member Relationship Specialty Start Date End Date Stanley Causey MD [facility] [address], [address] [place] [address] PCP - General 02/28/03 documented as of this encounter
--- OUTSIDE RECORDS SUMMARY | 2024-07-25 17:48 | XMS_ITS | Encounter Summary ---
Author Organization [employer] Address [address] [place] [address] Care Team Providers Care Commercial Horticulture Instructor Name Role Phone Stanley Causey MD Primary Care Provider [phone] [phone] Encounter Details Date Type Department Care Team [...] on file Legal Sex Female 3:05 AM LUMP MAKER Gender Identity Not on file Sexual Orientation Not on file documented as of this encounter Plan of Treatment Not on file documented as of this encounter Visit Diagnoses Diagnosis Other threatened labor, antepartum- Primary documented in this encounter Care Teams Commercial Horticulture Instructor Relationship Specialty Start Date End Date Stanley Causey MD [address] [place] [address] [address] [place] [address] PCP - General 02/28/03 documented as of this encounter
[2024-07-25 17:49] VITALS: BP 129/78; PULSE 63; RESP 16; TEMP 36.6; O2SAT 100
--- NOTE | 2024-07-25 18:13 | ED.HA ---
HPI - Headache General Chief Complaint: Headache <Luciana Guy APRN - Last Filed: 07/25/24 18:16> Stated Complaint: migraine x11 days <Luciana Guy APRN - Last Filed: 07/25/24 18:16> Time Seen by Provider: 07/25/24 18:00 <Luciana Guy APRN - Last Filed: 07/25/24 18:16> Focused HPI: Patient is a 18-year-old female who presents to the ER with an 11 day history of a migraine. She reports she has taken her prophylactic migraine medication and it has not helped relieve her pain. Patient reports she has never had imaging on her head. She endorses nausea but has not vomited. Patient also endorses photophobia and vision changes, including blurriness. She endorses a history of dyslexia and reports when she gets migraines she ?can not read. Patient denies any extremity numbness or weakness, recent fevers, signs/symptoms of infection, neck stiffness, mastoid tenderness. GENERAL: Well-appearing, well-nourished, and in no acute distress. HEAD: Normocephalic, atraumatic. CHEST: Clear to auscultation. ?No respiratory distress. HEART: Regular rate and rhythm.? NEURO: ?Alert and oriented x3. Patient screened in triage and initial orders placed.? ?Additional care and disposition to be based upon?diagnostic testing and treatment. <Luciana Guy APRN - Last Filed: 07/25/24 18:16> Related Data Home Medications: Home Medications ?Medication ?Instructions ?Recorded ?Confirmed ?Last Taken ?Type bupropion HCl 300 mg 24 hr tablet, 300 mg PO DAILY 04/11/22 02/23/24 Unknown History extended release levothyroxine 137 mcg capsule 137 mcg PO DAILY 03/18/23 02/23/24 Unknown History sertraline 25 mg tablet 25 mg PO DAILY 03/18/23 02/23/24 Unknown History trazodone 150 mg tablet,extended 150 mg PO DAILY 03/18/23 02/23/24 Unknown History release 24 hr ferrous sulfate 325 mg (65 mg 325 mg PO DAILY 08/27/23 02/23/24 Unknown History iron) tablet (FeroSul) [id number]-[id number] 45 mg-folic 1 cap PO DAILY 08/27/23 02/23/24 Unknown History acid 800 mcg-vit K 120 mcg capsule (Bariatric Multivitamins) ascorbic acid (vitamin C) 1,000 mg 1 g PO DAILY 01/18/24 02/23/24 Unknown History tablet biotin 10,000 mcg chewable tablet 10,000 mcg PO DAILY 01/18/24 02/23/24 Unknown History calcium citrate 400 mg PO BID 01/18/24 02/23/24 Unknown History cholecalciferol (vitamin D3) 125 125 mcg PO DAILY 01/18/24 02/23/24 Unknown History mcg (5,000 unit) tablet (Vitamin D3) <Luciana Guy APRN - Last Filed: 07/25/24 18:16> Allergies/Adverse Reactions: Allergies Allergy/AdvReac Type Severity Reaction Status Date / Time zolpidem AdvReac Mild AUDIO AND Verified 07/25/24 17:34 VISUAL HALLUCINATIONS NSAIDS (Non-Steroidal AdvReac Other Verified 07/25/24 17:38 Anti-Inflamma <Luciana Guy APRN - Last Filed: 07/25/24 18:16> Review of Systems Review of Systems: CONSTITUTIONAL: Denies fever EYES: Reports visual changes GASTROINTESTINAL: Denies vomiting NEUROLOGIC: Reports headache. Denies numbness, or weakness. <Martha Partida PA-C - Last Filed: 07/25/24 20:34> All systems reviewed & are unremarkable except as noted in HPI and below <Martha Partida PA-C - Last Filed: 07/25/24 20:34> [facility] Past Medical History Medical History: Medical History Weight loss UTI (urinary tract infection) Morbid obesity Hypertension Anxiety Pilar cysts Hypothyroidism Asthma <Luciana Guy APRN - Last Filed: 07/25/24 18:16> Surgical History Surgical History: Surgical History History of weight loss surgery (06/25/23) gastric bypass History of hernia repair History of cholecystectomy History of tubal ligation History of partial thyroidectomy 2018 <Luciana Guy APRN - Last Filed: 07/25/24 18:16> Family History Family History: Family History Grandparent Diabetes mellitus Father Hypertension Heart disease Skin cancer Diabetes mellitus Grandparent Heart disease Hypertension Grandparent Brain cancer Mother Skin cancer Asthma Other Heriberto's disease Graves disease <Lucianamarc Guy APRN - Last Filed: 07/25/24 18:16> Social History Social History: Social History Smoking status: Never smoker Alcohol intake: current Alcohol use details: rarely Do You Feel Safe in your Home?: Yes Lack of Transportation: No Lack of Food: Never True Current Housing: I Have Housing Concerned About Future Housing: No Difficulty Paying Gas/Electric Bills: No Difficulty Paying for Meds: No Currently Unemployed: No Education: Bachelor's Degree Difficulty w/ Childcare or Family Care: No Gender identity (if verbalized by the patient): Female <Luciana Guy DIRECTOR GLOBAL STRATEGIC PUBLISHER SALES - Last Filed: 07/25/24 18:16> Exam Narrative: GENERAL: Well-appearing, well-nourished, and in no acute distress. HEAD: Normocephalic, atraumatic. EYES: PERRLA and EOMI. ENT: Nares clear, no rhinorrhea or epistaxis. Mucous membranes moist. Oropharynx without tonsillar hypertrophy exudate or other lesions. Bilateral TMs pearly adame non-bulging NECK: Supple. No adenopathy or masses. CHEST: Clear to auscultation. No respiratory distress. No wheezes rales or rhonchi HEART: Regular rate and rhythm. No murmur heard. Normal peripheral pulses. EXTREMITIES: Normal range of motion. No edema. Strength equal in bilateral upper and lower extremities (5/5) SKIN: Warm, dry, no rash. NEURO: No focal deficits. Alert and oriented x3. Cranial nerves 2-12 grossly intact. Normal gait PSYCH: Normal mood and affect <Martha Partida PA-C - Last Filed: 07/25/24 20:34> Course Course Emergency Course: Patient updated on her workup. Reports relief of headache <Martha Partida PA-C - Last Filed: 07/25/24 20:34> Vital Signs Vital signs: Vital Signs Temperature 97.9 F 07/25/24 17:49 Pulse Rate 63 07/25/24 17:49 Respiratory Rate 16 07/25/24 17:49 Blood Pressure 129/78 07/25/24 17:49 Pulse Oximetry 100 07/25/24 17:49 Temperature 98 F 07/25/24 19:26 Pulse Rate 60 07/25/24 19:26 Respiratory Rate 16 07/25/24 19:26 Blood Pressure 125/96 H 07/25/24 19:26 Pulse Oximetry 100 07/25/24 19:26 <Luciana Guy, DIRECTOR GLOBAL STRATEGIC PUBLISHER SALES - Last Filed: 07/25/24 18:16> Vital Signs Temperature 97.9 F 07/25/24 17:49 Pulse Rate 63 07/25/24 17:49 Respiratory Rate 16 07/25/24 17:49 Blood Pressure 129/78 07/25/24 17:49 Pulse Oximetry 100 07/25/24 17:49 Temperature 98 F 07/25/24 19:26 Pulse Rate 60 07/25/24 19:26 Respiratory Rate 16 07/25/24 19:26 Blood Pressure 125/96 H 07/25/24 19:26 Pulse Oximetry 100 07/25/24 19:26 <Martha Partida PA-C - Last Filed: 07/25/24 20:34> MDM - Headache MDM Narrative Medical decision making narrative: Patient presents the emergency department for headache that has been ongoing for several days. She is afebrile and nontoxic appearing. Her vitals are stable. She is neurologically intact. Does have known history of migraines. CT brain without acute findings. Patient updated on her workup. Reports relief of headache after migraine cocktail. She is to follow up with PCP. She was given warnings to return to the ER <Martha Partida PA-C - Last Filed: 07/25/24 20:34> Differential Diagnosis Differential diagnosis: Likely migraine, tension headache, subarachnoid hemorrhage and sinusitis <Martha Partida PA-C - Last Filed: 07/25/24 20:34> Imaging Data Radiologist's impression: ITS Impressions Head CT 07/25/24 18:31 Impression: No acute intracranial hemorrhage or suspicious mass effect. <Martha Partida PA-C - Last Filed: 07/25/24 20:34> Critical Care Time Critical Care Time Critical Care Time: No <Martha Partida PA-C - Last Filed: 07/25/24 20:34> Discharge Plan Discharge Clinical Impression: Migraine Qualifiers: Migraine type: unspecified Status migrainosus presence: without status migrainosus Intractability: not intractable Qualified Code(s): G43.909 - Migraine, unspecified, not intractable, without status migrainosus <Luciana Guy APRN - Last Filed: 07/25/24 18:16> Patient Disposition: Home, Self-Care <Luciana Guy APRN - Last Filed: 07/25/24 18:16> Condition: Improved <Luciana Guy APRN - Last Filed: 07/25/24 18:16> Instructions: Acute Headache (ED) <Luciana Guy APRN - Last Filed: 07/25/24 18:16> Additional Instructions: Return to the emergency department if you experience fever, vision changes, persistent vomiting, weakness, numbness, or any other symptoms that are concerning to you. Follow up with your primary care doctor <Luciana Guy APRN - Last Filed: 07/25/24 18:16> Patient Language: Kyrgyz <Luciana Guy APRN - Last Filed: 07/25/24 18:16> Prescriptions: No Action ferrous sulfate [FeroSul] 325 mg (65 mg iron) tablet 325 mg PO DAILY Bariatric Multivitamins 45 mg iron- 800 mcg-120 mcg Capsule 1 cap PO DAILY ascorbic acid (vitamin C) 1,000 mg Tablet 1 g PO DAILY biotin 10,000 mcg Tablet,Chewable 10,000 mcg PO DAILY cholecalciferol (vitamin D3) [Vitamin D3] 125 mcg (5,000 unit) Tablet 125 mcg PO DAILY calcium citrate [Citracal] 200 mg (950 mg) Tablet 400 mg PO BID ondansetron 4 mg tablet,disintegrating 4 mg PO Q6H PRN (Reason: nausea and vomiting) Qty: 20 0RF dicyclomine 20 mg tablet 20 mg PO TID Qty: 20 0RF Rx Instructions: for abdominal cramping bupropion HCl 300 mg tablet extended release 24 hr 300 mg PO DAILY benzonatate 200 mg capsule 200 mg PO TID PRN (Reason: cough) Qty: 20 0RF prednisone 20 mg tablet 40 mg PO DAILY 5 Days Qty: 10 0RF trazodone 150 mg tablet extended release 24 hr 150 mg PO DAILY Rx Instructions: 1-1.5 tabs at bedtime for sleep sertraline 25 mg tablet 25 mg PO DAILY levothyroxine 137 mcg capsule 137 mcg PO DAILY gabapentin 300 mg capsule 300 mg PO BID Qty: 180 1RF sumatriptan succinate 100 mg tablet See Rx Instructions PO .COMPLEX Qty: 9 2RF Rx Instructions: take 1 tab at onset of headache; if no relief, may repeat 1 tab after at least 2 hrs; max = 2 tabs/24 hrs PO topiramate [Topamax] 50 mg tablet 50 mg PO DAILY Qty: 90 0RF albuterol sulfate 90 mcg/actuation HFA aerosol inhaler 1 puff inhalation Q4H PRN (Reason: shortness of breath or wheezing) Qty: 8.5 1RF atorvastatin 10 mg tablet 10 mg PO DAILY Qty: 90 1RF cyclobenzaprine 5 mg tablet 5 mg PO TID PRN (Reason: muscle spasm) Qty: 30 0RF Rx Instructions: Do not take while driving. <Luciana Guy APRN - Last Filed: 07/25/24 18:16> Follow-up/Referrals: Stanley Schmidt, [Primary Care Provider] - <Luciana Guy APRN - Last Filed: 07/25/24 18:16>
[2024-07-25 19:26] VITALS: BP 125/96; PULSE 60; RESP 16; TEMP 36.6; O2SAT 100
[2024-07-25] MEDS: ACETAMINOPHEN 500 MG TABLET 1000 MG PO (19:35)
[2024-07-25] MEDS: diphenhydrAMINE HCl INJ 50 MG/ML VIAL 25 MG IV PUSH (19:36)
[2024-07-25] MEDS: SODIUM CHLORIDE 0.9% IV 1,000 ML 999 ML IV CONT (19:36)
[2024-07-25] MEDS: METOCLOPRAMIDE HCL INJ 10 MG/2 ML VIAL IV PUSH (19:37)
--- OUTSIDE RECORDS SUMMARY | 2024-07-25 19:40 | XMS_ITS | Clinical Summary ---
Author Organization [facility] Address [address] [place] [address] Care Team Providers Care Repairer Sash And Door Name Role Phone Stanley Causey MD Primary Care Provider [phone] [phone] Source Comments [facility],non-owned Affiliates and Associated Physician Practices is amultiple site organization consisting of ambulatory clinics and hospital sitesin [place], [place], [place] and [place]. This disclosure is being madepursuant to the Care Everywhere program and may not contain all information available regarding this patient. Last updated 18.[facility] Allergies Active Allergy Reactions Criticality Noted Date [...] Comments Blood Pressure 128/75 06/28/2011 4:43 AM CORE BLOWER Pulse 77 06/28/2011 4:43 AM CORE BLOWER Temperature 36.7 C (98.1 F) 06/28/2011 4:43 AM CORE BLOWER Respiratory Rate 16 06/28/2011 4:43 AM CORE BLOWER Oxygen Saturation 100% 06/28/2011 4:43 AM CORE BLOWER Inhaled Oxygen Concentration - - Weight 111.1 kg (245 lb) 06/28/2011 4:43 AM CORE BLOWER Height 162.6 cm (5' 4 ) 06/28/2011 4:43 AM CORE BLOWER Body Mass Index 42.05 06/28/2011 4:43 AM CORE BLOWER Plan of Treatment Health Maintenance Due Date [...] age to complete this topic Care Teams Repairer Sash And Door Relationship Specialty Start Date End Date Stanley Causey MD [address] [address] [place] [address] PCP - General 04/17/20
--- OUTSIDE RECORDS SUMMARY | 2024-07-25 19:40 | XMS_ITS | Encounter Summary ---
Author Organization [facility] Address [address] [place] [address] Care Team Providers Care Publicity Manager Name Role Phone Stanley Causey MD Primary Care Provider +1 [phone] Encounter Details Date Type Department Care Team (Late st Contact Info) Description 11/07/2005 Outpatient Historical HIS EMERGENCY ROOM Aguilar Bunn Jr., MD [address], [place] [id number] Er, Authorized P NO ADDRESS ON FILE Unspecified, Hemorrhage of Gastrointestinal Tract (Primary Dx) Social History Tobacco Use Types Packs/Day Years Used Date Smoking Tobacco: Never Assessed Comments Unknown Sex and Gender Information Value Date Recorded Sex Assigned at Not on file 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 Provider HEMATOLOGY ORDERABLES Final Result INTERFACE SYSTEM Refer to clinic/hospital department documented in this encounter Visit Diagnoses Diagnosis Hemorrhage of gastrointestinal tract, unspecified- Primary documented in this encounter Care Teams Publicity Manager Relationship Specialty Start Date End Date Stanley Causey MD [facility] [address] [address] PCP - General 02/28/03 documented as of this encounter
--- OUTSIDE RECORDS SUMMARY | 2024-07-25 19:40 | XMS_ITS | Encounter Summary ---
Author Organization [facility] Address [address] [place] [address] Care Team Providers Care Posting Machine Operator Name Role Phone Stanley Causey MD Primary Care Provider +1 [phone] Encounter Details Date Type Department Care Team (Latest Contact Info) Description 04/24/2005 Inpatient Historical HIS PATIENT IN A BED Najma Gates MD 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 BUS OPERATOR Gender Identity Not on file Sexual Orientation Not on file documented as of this encounter Plan of Treatment Not on file documented as of this encounter Procedures Procedure Name Priority Date/Time Associated Diagnosis Comments CARBAMAZEPINE LEVEL Routine 04/27/2005 9 :50 AM BUS OPERATOR HEPATIC FUNCTION PANEL Routine 6 9:50 AM BUS OPERATOR TSH Routine 04/25/2005 8:40 AM BUS OPERATOR VALPROIC ACID LEVEL, TOTAL Routine 04/25/2005 8:40 AM BUS OPERATOR HEPATIC FUNCTION PANEL Routine 5 8:40 AM BUS OPERATOR URINALYSIS W/REFLEX MICROSCOPIC Routine 04/24/2005 6:30 AM BUS OPERATOR HCG QUALITATIVE, URINE Routine 5 6:30 AM BUS OPERATOR CBC WITH DIFFERENTIAL Routine 04/24/2005 5:57 AM BUS OPERATOR CBC WITH DIFFERENTIAL Routine 04/24/2005 5:57 AM BUS OPERATOR TSH Routine 04/24/2005 5:57 AM BUS OPERATOR COMPREHENSIVE METABOLIC PANEL Routine 04/24/2005 5:57 AM BUS OPERATOR DRUG SCREEN, URINE Routine 04/23/2005 9: 23 PM BUS OPERATOR documented in this encounter Results * HEPATIC FUNCTION PANEL (04/27/2005 9:50 AM BUS OPERATOR) AST 15 12 - 32 U/L INTERFACE SYSTEM ALKALINE PHOSPHATASE 60 35 - 104 U/L INTERFACE SYSTEM BILIRUBIN TOTAL 0.3 0.2 - 1.0 mg/dL INTERFACE SYSTEM ALBUMIN 4.1 3.4 - 4.8 g/dL INTERFACE SYSTEM TOTAL PROTEIN 7.2 6.3 - 8.6 g/dL INTERFACE SYSTEM ALT 14 0 - 31 U/L INTERFACE SYSTEM BILIRUBIN DIRECT 0.1 0.0 - 0.3 mg/dL INTERFACE SYSTEM 04/27/2005 9:50 AM BUS OPERATOR Najma Gates MD CHEMISTRY ORDERABLES Final R esult Performing Organization Address City/[facility] de Phone Number INTERFACE SYSTEM Refer to clinic/hospital department * CARBAMAZEPINE LEVEL (04/27/2005 9:50 AM BUS OPERATOR) CARBAMAZEPINE LEVEL 6.6 4.0 - 12.0 ug/mL INTERFACE SYSTEM Comment:Carbamazepine Toxic Level => 20 ug/mL 04/27/2005 9:50 AM BUS OPERATOR Najma Gates MD CHEMISTRY ORDERABLES Final R esult INTERFACE SYSTEM Refer to clinic/hospital department * TSH (04/25/2005 8:40 AM BUS OPERATOR) TSH 3.41 0.27 - 4.20 uU/mL INTERFACE SYSTEM 04/25/2005 8:40 AM BUS OPERATOR Najma Gates MD CHEMISTRY ORDERABLES Final R esult Performing Organization Address [facility] Phone Number INTERFACE SYSTEM Refer to clinic/hospital department * (ABNORMAL) VALPROIC ACID LEVEL, TOTAL (04/25/2005 8:40 AM BUS OPERATOR) VALPROIC ACID TOTAL 117(H) 50 - 100 ug/mL INTERFACE SYSTEM Comment: Valproic Acid Antiepileptic Control = 50 - 100 ug/mL Valproic Acid Manic Episode Control = 50 - 125 ug/mL Valproic Acid Toxic Level = >200 ug/mL 04/25/2005 8:40 AM BUS OPERATOR Najma Gates MD CHEMISTRY ORDERABLES Final R esult Performing Organization Address [facility] Phone Number INTERFACE SYSTEM Refer to clinic/hospital department * HEPATIC FUNCTION PANEL (04/25/2005 8:40 AM BUS OPERATOR) AST 14 12 - 32 U/L INTERFACE SYSTEM ALKALINE PHOSPHATASE 62 35 - 104 U/L INTERFACE SYSTEM BILIRUBIN TOTAL 0.2 0.2 - 1.0 mg/dL INTERFACE SYSTEM ALBUMIN 4.2 3.4 - 4.8 g/dL INTERFACE SYSTEM TOTAL PROTEIN 7.3 6.3 - 8.6 g/dL INTERFACE SYSTEM ALT 14 0 - 31 U/L INTERFACE SYSTEM BILIRUBIN DIRECT 0.1 0.0 - 0.3 mg/dL INTERFACE SYSTEM 04/25/2005 8:40 AM BUS OPERATOR Najma Gates MD CHEMISTRY ORDERABLES Final R esult Performing Organization Address [facility] Phone Number INTERFACE SYSTEM Refer to clinic/hospital department * HCG QUALITATIVE, URINE (04/24/2005 6:30 AM BUS OPERATOR) HCG QUAL URINE Negative Negative INTER FACE SYSTEM SPECIFIC GRAVITY UA 1.025 1.001 - 1.035 INTERFACE SYSTEM 04/24/2005 6:30 AM BUS OPERATOR Najma Gates MD URINE ORDERABLES Final Resul t Performing Organization Address [facility] Phone Number INTERFACE SYSTEM Refer to clinic/hospital department * (ABNORMAL) URINALYSIS (04/24/2005 6:30 AM BUS OPERATOR) COLOR UA Yellow INTERFACE SYSTEM CLARITY UA [...] Many /HPF INTERFACE SYSTEM 04/24/2005 6:30 AM BUS OPERATOR Najma Gates MD URINE ORDERABLES Final Resul t Performing Organization Address [facility] Phone Number INTERFACE SYSTEM Refer to clinic/hospital department * CBC WITH DIFFERENTIAL (04/24/2005 5:57 AM BUS OPERATOR) NEUTROPHILS 46 45 - 70 % INTERFAC [...] 0.20 K/uL INTERFACE SYSTEM 04/24/2005 5:57 AM BUS OPERATOR Najma Gates MD HEMATOLOGY ORDERABLES Final Result Performing Organization Address City/[facility] Co de Phone Number INTERFACE SYSTEM Refer to clinic/hospital department * (ABNORMAL) CBC WITH DIFFERENTIAL (04/24/2005 5:57 AM BUS OPERATOR) WBC 6.3 4.0 - 9.8 K/uL INTERFACE [...] 12.4 fL INTERFACE SYSTEM 04/24/2005 5:57 AM BUS OPERATOR Najma Gates MD HEMATOLOGY ORDERABLES Final Result Performing Organization Address [facility] Phone Number INTERFACE SYSTEM Refer to clinic/hospital department * TSH (04/24/2005 5:57 AM BUS OPERATOR) TSH 3.59 0.27 - 4.20 uU/mL INTERFACE SYSTEM 04/24/2005 5:57 AM BUS OPERATOR Najma Gates MD CHEMISTRY ORDERABLES Final R esult Performing Organization Address City/[facility]/ZIP Co de Phone Number INTERFACE SYSTEM Refer to clinic/hospital department * (ABNORMAL) COMPREHENSIVE METABOLIC PANEL (04/24/2005 5:57 AM BUS OPERATOR) GLUCOSE 93 65 - 109 mg/dL INTERFACE [...] 30 mmol/L INTERFACE SYSTEM 04/24/2005 5:57 AM BUS OPERATOR us Najma Gates MD CHEMISTRY ORDERABLES Final R esult INTERFACE SYSTEM Refer to clinic/hospital department * DRUG SCREEN, URINE (04/23/2005 9:23 PM BUS OPERATOR) COMMENT, TOXICOLOGY See Separate Comment INTERFACE SYSTEM [...] of abuse are available on the [facility] Intranet at: [email or web address] Select: Drugs of Abuse ? [facility] To inquire about any potential cross-reactivity of [...] Negative INTE RFACE SYSTEM 04/23/2005 9:23 PM BUS OPERATOR us Carol Draper MD URINE ORDERABLES Final Result INTERFACE SYSTEM Refer to clinic/hospital department documented in this encounter Visit Diagnoses Diagnosis Bipolar disorder, unspecified (CMS/[facility])- Primary Bipolar disorder, unspecified documented in this encounter Care Teams Posting Machine Operator Relationship Specialty Start Date End Date Stanley Causey MD [facility] [address] [address] PCP - General 02/28/03 documented as of this encounter
--- OUTSIDE RECORDS SUMMARY | 2024-07-25 19:40 | XMS_ITS | Clinical Summary ---
Author Organization [facility] [facility] Address [address] [place] [address] Care Team Providers Care Product Marketing Specialist Name Role Phone Stanley Causey MD Primary Care Provider [phone] [phone] Allergies Active Allergy Reactions Criticality Noted Date [...] STL ABSTRACTION Provider, Abstract 06/14/2024 4:30 PM EMBOSSED OR IMPRESSED LETTERING PAINTER Telephone Check Up [facility] [address] [place] [id number] Rustam Oswald MD 06/14/2024 External Device Data STL ABSTRACTION Provider, Abstract 06/07/2024 External Device Data STL ABSTRACTION Provider, Abstract 06/07/2024 External Device Data STL ABSTRACTION Provider, Abstract 06/07/2024 External Device Data STL ABSTRACTION Provider, Abstract 06/01/2024 3:00 PM EMBOSSED OR IMPRESSED LETTERING PAINTER Office Visit [facility] [address] [place] [id number] Rustam Oswald MD Chronic anemia (Primary Dx) [...] on file Legal Sex Female 3:05 AM EMBOSSED OR IMPRESSED LETTERING PAINTER Gender Identity Not on file Sexual Orientation Not on file Occupation Industry Job Start Date Job End Date Not on file Not on file Not on file Not on file Last Filed Vital Signs Vital Sign Reading Time Taken Comments Blood Pressure 107/77 06/01/2024 3:04 PM EMBOSSED OR IMPRESSED LETTERING PAINTER Pulse 70 06/01/2024 3:04 PM EMBOSSED OR IMPRESSED LETTERING PAINTER Temperature 36.7 C (98 F) 06/01/2024 3:04 PM EMBOSSED OR IMPRESSED LETTERING PAINTER Respiratory Rate 18 12/05/2012 7:51 AM CDT Oxygen Saturation 98% 06/01/2024 3:04 PM EMBOSSED OR IMPRESSED LETTERING PAINTER Inhaled Oxygen Concentration - - Weight 79.4 kg (175 lb) 06/01/2024 3:04 PM EMBOSSED OR IMPRESSED LETTERING PAINTER Height 162.6 cm (5' 4 ) 06/01/2024 3:04 PM EMBOSSED OR IMPRESSED LETTERING PAINTER Body Mass Index 30.04 06/01/2024 3:04 PM EMBOSSED OR IMPRESSED LETTERING PAINTER Plan of Treatment Health Maintenance Due Date [...] SUREPATH W/RFLX HPV Routine 04/28/2012 4:20 PM EMBOSSED OR IMPRESSED LETTERING PAINTER Routine gynecological examination from Last 3 Months or Most Recently Relevant to Health Maintenance Results * CERV/VAG CYTOPATH, SUREPATH W/RFLX HPV (04/28/2012 4:20 PM EMBOSSED OR IMPRESSED LETTERING PAINTER) CLINICAL INFORMATION [facility] PREV PAP: 04 25 2010 [facility] [employer] [facility] LAST MENSTRUAL PERIOD 02 28 2013 [facility] [employer] [facility] PAP INTERP Negative for intraepithelial lesion or malignancy. [facility] [employer] [facility] Comment: Performed by [facility], [address] [place] [address] Disk Recordist Pap Comment Based on the cytology result, reflex High Risk HPV DNA testing was not performed. [facility] [employer] [facility] ADEQUACY: Satisfactory for evaluation. Endocervical/trans formation zone component absent. [facility] [employer] [facility] SOURCE [employer]ix [facility] [employer] [facility] CYTOTECHNOLOGI ST: ABC, CT(ASCP) [facility] [employer] [facility] PREV BX: INFORMATION NOT PROVIDED [facility] [employer] [facility] Endocervical 04/28/2012 4:20 PM EMBOSSED OR IMPRESSED LETTERING PAINTER 04/28/2012 6:13 PM EMBOSSED OR IMPRESSED LETTERING PAINTER Comment:ENDOCERVICAL us Juve Leigh MD PATHOLOGY/CYTOLOGY ORDERABLE S Edited [facility]# [id number] [address] [place] [address] from Last 3 Months or Most Recently Relevant to Health Maintenance Insurance [facility] [id number] Advance Directives For more information, please contact: [phone] * Full Code (Latest Code Status on [...] 9:34 PM 11/27/2010 9:51 AM Care Teams Product Marketing Specialist Relationship Specialty Start Date End Date Stanley Causey MD [address] [place] [address] PCP - General 02/28/03
--- OUTSIDE RECORDS SUMMARY | 2024-07-25 19:40 | XMS_ITS | Encounter Summary ---
Author Organization [facility] Address [address] [place] [address] Care Team Providers Care Hangersmith Name Role Phone Stanley Causey MD Primary Care Provider [phone] [phone] Encounter Details Date Type Department Care Team (Latest Contact Info) Description 01/20/2005 Inpatient Historical HIS PATIENT IN A BED Najma Gates MD [address] [facility] [address] [place] [address] BIPOLAR - MOST RECENTLY MIXED W PSYCHOSIS (CMS/HCC) (Primary Dx) Social History Tobacco Use Types Packs/Day Years Used Date Smoking Tobacco: Never Assessed Comments Unknown Sex and Gender Information Value Date Recorded Sex Assigned at Not on file 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 Gender Identity Not on file Sexual [...] ORDERABLES Final R esult Performing Organization Address City/[facility]/ZIP Co de Phone Number INTERFACE SYSTEM Refer to clinic/hospital department * T4 FREE (01/21/2005 6:00 AM CDT) T4 FREE 0.9 0.9 - 1.7 ng/dL INTERFACE SYSTEM 01/21/2005 6:00 AM CDT Uriel De Los Santos MD CHEMISTRY ORDERABLES Final Resul t Performing Organization Address [facility] de Phone Number INTERFACE SYSTEM Refer to clinic/hospital department * T3 FREE (01/21/2005 6:00 AM CDT) T3 FREE 3.4 2.5 - 4.4 pg/mL INTERFACE SYSTEM 01/21/2005 6:00 AM CDT Uriel De Los Santos MD CHEMISTRY ORDERABLES Final Resul t Performing Organization Address [facility] de Phone Number INTERFACE SYSTEM [...] drugs of abuse are available on the [facility] Exabeamet at: [email or web address] Select: Drugs of Abuse ? [facility] To inquire about any [...] INTE RFACE SYSTEM 01/20/2005 3:28 AM CDT [facility] MD URINE ORDERABLES Final Resul t INTERFACE SYSTEM Refer to clinic/hospital department * HCG QUALITATIVE, URINE (01/20/2005 3:28 AM CDT) HCG QUAL URINE Negative Negative INTER FACE SYSTEM SPECIFIC GRAVITY UA 1.025 1.001 - 1.035 INTERFACE SYSTEM 01/20/2005 3:28 AM CDT Najma Gates MD URINE ORDERABLES Final Resul t Performing Organization Address City/[facility] Co de Phone Number INTERFACE SYSTEM Refer [...] HEMATOLOGY ORDERABLES Final Result Performing Organization Address City/[facility] de Phone Number INTERFACE SYSTEM [...] HEMATOLOGY ORDERABLES Final Result Performing Organization Address City/[facility] Phone Number INTERFACE SYSTEM Refer to clinic/hospital department * (ABNORMAL) TSH (01/20/2005 3:00 AM CDT) TSH 6.71(H) 0.27 - 4.20 uU/mL INTERFACE SYSTEM 01/20/2005 3:00 AM CDT Najma Gates MD CHEMISTRY ORDERABLES Final R esult Performing Organization Address [facility] Phone Number INTERFACE SYSTEM [...] ORDERABLES Final R esult Performing Organization Address City/[facility] Co de Phone Number INTERFACE SYSTEM Refer to clinic/hospital department documented in this encounter Visit Diagnoses Diagnosis Bipolar I disorder, most recent episode (or current) mixed, severe, specified as with psychotic behavior (CMS/HCC)- Primary Bipolar I disorder, most recent episode (or current) mixed, severe, specified as with psychotic behavior documented in this encounter Care Teams Hangersmith Relationship Specialty Start Date End Date Stanley Causey MD [facility] [address] [address] PCP - General 02/28/03 documented as of this encounter
--- OUTSIDE RECORDS SUMMARY | 2024-07-25 19:40 | XMS_ITS | Encounter Summary ---
Author Organization [employer] [facility] Address [address] [place] [address] Care Team Providers Care Brick Mason Name Role Phone Stanley Causey MD Primary Care Provider [phone] [phone] Encounter Details Date Type Department Care Team (Late st Contact Info) Description 04/29/2007 Outpatient Historical HIS EMERGENCY ROOM [facility] Er, Authorized P NO ADDRESS ON FILE Jorge Lechuga MD [address] [place] [address] [place] [address] Social History Tobacco Use Types Packs/Day Years Used Date Smoking Tobacco: Never Assessed Comments Unknown Sex and Gender Information Value Date Recorded Sex Assigned at Not on file Legal Sex Female 3:05 AM CANE FLUME FEEDING MACHINE OPERATOR Gender Identity Not on file Sexual Orientation Not on file documented as of this encounter Plan of Treatment Not on file documented as of this encounter Procedures Procedure Name Priority Date/Time Associated Diagnosis Comments POC , URINE Routine 04/29/2007 7:35 PM CANE FLUME FEEDING MACHINE OPERATOR POC URINALYSIS DIPSTICK NON AUTOMATED Routine 04/29/2007 7:35 PM CANE FLUME FEEDING MACHINE OPERATOR documented in this encounter Results * POC , URINE (04/29/2007 7:35 PM CANE FLUME FEEDING MACHINE OPERATOR) SPECIFIC GRAVITY UA 1.015 1.001 - 1.035 INTERFACE SYSTEM , URINE POC Negative Negative INTERFACE SYSTEM 04/29/2007 7:35 PM CANE FLUME FEEDING MACHINE OPERATOR us Authorized P Er POINT OF CARE TESTING Edited INTERFACE SYSTEM Refer to clinic/hospital department * POC URINALYSIS DIPSTICK (04/29/2007 7:35 PM CANE FLUME FEEDING MACHINE OPERATOR) COLOR UA Yellow INTERFACE SYSTEM CLARITY [...] Negative Negative INTERFACE SYSTEM 04/29/2007 7:35 PM CANE FLUME FEEDING MACHINE OPERATOR us Authorized P Er POINT OF CARE TESTING Edited Performing Organization Address [facility] Co de Phone Number INTERFACE SYSTEM Refer to clinic/hospital department documented in this encounter Visit Diagnoses Not on filedocumented in this encounter Care Teams Brick Mason Relationship Specialty Start Date End Date Stanley Causey MD [address] [place] [address] PCP - General 02/28/03 documented as of this encounter
--- OUTSIDE RECORDS SUMMARY | 2024-07-25 19:40 | XMS_ITS | Encounter Summary ---
Author Organization [facility] Address [address] [place] [address] Care Team Providers Care Dial Painter Name Role Phone Stanley Causey MD Primary Care Provider +1 [phone] Encounter Details Date Type Department Care Team (Latest Contact Info) Description 01/27/2005 Outpatient Historical HIS PSYCH IOP Najma De Luna MD [address] [facility] [address] [place] [address] BIPOLAR DISORDER NOS (CMS/HCC) (Primary Dx) Social History Tobacco Use Types Packs/Day Years Used Date Smoking Tobacco: Never Assessed Comments Unknown Sex and Gender Information Value Date Recorded Sex Assigned at Not on file Legal Sex Female 3: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
--- OUTSIDE RECORDS SUMMARY | 2024-07-25 19:40 | XMS_ITS | Encounter Summary ---
Author Organization [employer] [facility] Address [address] [place] [address] Care Team Providers Care Hand Stamper Name Role Phone Stanley Causey MD Primary Care Provider [phone] [phone] Encounter Details Date Type Department Care Team (Latest Contact Info) Description 08/22/2004 Outpatient Historical HIS PSYCH IOP Ashley Iqbal MD [address] [place] [address] BIPOLAR DISORDER, UNSPECIFIED (CMS/HCC) (Primary Dx) Social History Tobacco Use Types Packs/Day Years Used Date Smoking Tobacco: Never Assessed Comments Unknown Sex and Gender Information Value Date Recorded Sex Assigned at Not on file Legal Sex Female 3:05 AM CARD CUTTER Gender Identity Not on file Sexual Orientation [...] Visit Diagnoses Diagnosis Bipolar disorder, unspecified (CMS/[facility])- Primary Bipolar disorder, unspecified documented in this encounter Care Teams Hand Stamper Relationship Specialty Start Date End Date Stanley Causey MD [address] [place] [address] PCP - General 02/28/03 documented as of this encounter
--- OUTSIDE RECORDS SUMMARY | 2024-07-25 19:41 | XMS_ITS | Referral Summary ---
Author Organization [facility] Address [address] [place] [address] Care Team Providers Care Member Of Technical Staff Name Role Phone Stanley Schmidt DO Primary Care Provider +1- [phone] Allergies Active Allergy Reactions Criticality Noted Date [...] 1 tablet (137 mcg total) by mouth structural steel worker helper before breakfast 12/29/19 23 Active buPROPion XL [...] on file Legal Sex Female 2:57 PM SECTION GANG Gender Identity Not on file Sexual Orientation [...] on file Medical Devices Implanted Type Area Sql Report Writer Device Identifier Shelf Expiration Date Model / Serial / Lot [employer] Biological Bariatric Peristrip Non Crosslinked Bovine Pericardium For Endo Tracee Thin [id number] - [id number] Implanted:Qty: 1 on 06/25/2023 by Aguilar Wolfe MD at [facility] Other - see comments N/A: Abdomen [employer] 04/15/2025 [id number] THN / N/A / [id number] Description:Kiah strip [employer] Biological Bariatric Peristrip Non Crosslinked Bovine Pericardium For Endo Tracee Thin [id number] - [id number] Implanted:Qty: 1 on 06/25/2023 by Aguilar Wolfe MD at [facility] Other - see comments N/A: Abdomen [employer] 04/15/2025 [id number] THN / N/A / [id number] Description:Kiah strip Procedures Procedure Name Priority Date/Time [...] Most Recently Relevant to Health Maintenance Insurance [facility] CHOICE PLUS [facility] [place] [address] Advance Directives For more information, please contact: [phone] * Full Code (Latest Code Status on File) Date Activated Date Inactivated Comments 08/13/2023 9:43 AM 08/13/2023 3:36 PM * Full Code Date Activated Date Inactivated Comments 06/25/2023 12:49 PM 06/26/2023 6:43 PM Care Teams Member Of Technical Staff Relationship Specialty Start Date End Date Stanley Schmidt, PCP - General Internal Medicine 11/04/22
--- OUTSIDE RECORDS SUMMARY | 2024-07-25 19:41 | XMS_ITS | Encounter Summary ---
Author Organization [facility] Address [address] [place] [address] Care Team Providers Care Historiographer Name Role Phone Stanley Causey MD Primary Care Provider +1 -[phone] Encounter Details Date Type Department Care Team (Late st Contact Info) Description 02/28/2003 Outpatient Historical [facility] Child and Adolescent Psychiatry S [facility] [address] [place] [address] [place] [id number] Agustín Albert Social History Tobacco Use Types Packs/Day Years Used Date Smoking Tobacco: Never Assessed Comments Unknown Sex and Gender Information Value Date Recorded Sex Assigned at Not on file 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
--- OUTSIDE RECORDS SUMMARY | 2024-07-25 19:41 | XMS_ITS | Encounter Summary ---
Author Organization [facility] Address [address] [place] [address] Care Team Providers Care Pricing Manager Name Role Phone Stanley Causey MD Primary Care Provider +1 -[phone] Encounter Details Date Type Department Care Team (Late st Contact Info) Description 03/13/2003 Outpatient Historical [facility] Child and Adolescent Psychiatry S [facility] [address] [facility] [address] [place] [address] Agustín Albert Social History Tobacco Use Types Packs/Day Years Used Date Smoking Tobacco: Never Assessed Comments Unknown Sex and Gender Information Value Date Recorded Sex Assigned at Not on file Legal Sex Female 3:05 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
--- OUTSIDE RECORDS SUMMARY | 2024-07-25 19:41 | XMS_ITS | Encounter Summary ---
Author Organization [facility] Address [address] [place] [address] Care Team Providers Care Acid Blower Name Role Phone Stanley Causey MD Primary Care Provider +1 -[phone] Encounter Details Date Type Department Care Team (Late st Contact Info) Description 03/25/2003 Outpatient Historical [facility] Child and Adolescent Psychiatry S [facility] [address] [place] [address] [place] [address] [facility] [place] [address] Social History Tobacco Use Types Packs/Day Years Used Date Smoking Tobacco: Never Assessed Comments Unknown Sex and Gender Information Value Date Recorded Sex Assigned at Not on file Legal Sex Female 3:05 AM SHAKE SAWYER Gender Identity Not on file Sexual Orientation Not on file documented as of this encounter Plan of Treatment Not on file documented as of this encounter Visit Diagnoses Not on filedocumented in this encounter Care Teams Acid Blower Relationship Specialty Start Date End Date Stanley Causey MD [address] [place] [address], [facility] [address] [place] [address] PCP - General 02/28/03 documented as of this encounter
--- OUTSIDE RECORDS SUMMARY | 2024-07-25 19:41 | XMS_ITS | Clinical Summary ---
Author Organization [facility] Address [facility] [place] [address] Care Team Providers Care Event Marketing Coordinator Name Role Phone Stanley Schmidt DO Primary Care Provider +1- [phone] Allergies Active Allergy Reactions Criticality Noted Date [...] 1 tablet (137 mcg total) by mouth multisensor intelligence officer before breakfast 12/29/19 23 Active buPROPion XL [...] on file Legal Sex Female 2:57 PM WEAVE ROOM SUPERVISOR Gender Identity Not on file Sexual [...] this topic Medical Devices Implanted Type Area Finger Lift Operator Device Identifier Shelf Expiration Date Model / Serial / Lot [employer] Biological Bariatric Peristrip Non Crosslinked Bovine Pericardium For Endo Tracee Thin [id number] - [id number] Implanted:Qty: 1 on 06/25/2023 by Aguilar Wolfe MD at [facility] Other - see comments N/A: Abdomen [employer] 04/15/2025 [id number] THN / N/A / [id number] Description:Kiah strip [employer] Biological Bariatric Peristrip Non Crosslinked Bovine Pericardium For Endo Tracee Thin [id number] - [id number] Implanted:Qty: 1 on 06/25/2023 by Aguilar Wolfe MD at [facility] Other - see comments N/A: Abdomen [employer] 04/15/2025 [id number] THN / N/A / [id number] Description:Kiah strip Procedures Procedure Name Priority Date/Time [...] Most Recently Relevant to Health Maintenance Insurance [facility] H[facility]/PPO Address: [address] [place] [address] [facility] HMO/PPO Address: [place] [address] Advance Directives For more information, please contact: [phone] * Full Code (Latest Code Status on File) Date Activated Date Inactivated Comments 08/13/2023 9:43 AM 08/13/2023 3:36 PM * Full Code Date Activated Date Inactivated Comments 06/25/2023 12:49 PM 06/26/2023 6:43 PM Care Teams Event Marketing Coordinator Relationship Specialty Start Date End Date Stanley Schmidt DO PCP - General Internal Medicine 11/04/22
--- OUTSIDE RECORDS SUMMARY | 2024-07-25 19:41 | XMS_ITS | Encounter Summary ---
Author Organization [facility] [facility] Address 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
--- OUTSIDE RECORDS SUMMARY | 2024-07-25 19:41 | XMS_ITS | Encounter Summary ---
Author Organization [employer] Address [address] [place] [address] Care Team Providers Care Size Painter Name Role Phone Stanley Causey MD Primary Care Provider +1 -[phone] Encounter Details Date Type Department Care Team (Late st Contact Info) Description 03/11/2004 Outpatient Historical [facility] Support Serv. (Adt Cardiology-[facility]) [address] [place] [address] Eliseo Grubbs MD NO ADDRESS ON FILE Social History Tobacco Use Types Packs/Day Years Used Date Smoking Tobacco: Never Assessed Comments Unknown Sex and Gender Information Value Date Recorded Sex Assigned at Not on file Legal Sex Female 3:05 AM HAND NAILER Gender Identity Not on file Sexual Orientation Not on file documented as of this encounter Plan of Treatment Not on file documented as of this encounter Visit Diagnoses Not on filedocumented in this encounter Care Teams Size Painter Relationship Specialty Start Date End Date Stanley Causey MD [address] [address], [facility] [address] [place] [address] PCP - General 02/28/03 documented as of this encounter
--- OUTSIDE RECORDS SUMMARY | 2024-07-25 19:41 | XMS_ITS | Encounter Summary ---
Author Organization [facility] Address [address] [place] [address] Care Team Providers Care Front Desk Attendant Name Role Phone Stanley Causey MD Primary Care Provider +1 -[phone] Encounter Details Date Type Department Care Team [...] on file Legal Sex Female 3:05 AM ROUTING CLERK Gender Identity Not on file Sexual Orientation Not on file documented as of this encounter Plan of Treatment Not on file documented as of this encounter Visit Diagnoses Diagnosis Other current maternal conditions classifiable elsewhere, antepartum- Primary documented in this encounter Care Teams Front Desk Attendant Relationship Specialty Start Date End Date Stanley Causey MD [address] [address], [facility] [address] [place] [address] PCP - General 02/28/03 documented as of this encounter
--- OUTSIDE RECORDS SUMMARY | 2024-07-25 19:41 | XMS_ITS | Encounter Summary ---
Author Organization [facility] Address [address] [place] [address] Care Team Providers Care Stationary Engineer Name Role Phone Stanley Causey MD Primary Care Provider +1 -[phone] Encounter Details Date Type Department Care Team [...] on file Legal Sex Female 3:05 AM POND WORKER Gender Identity Not on file Sexual Orientation Not on file documented as of this encounter Plan of Treatment Not on file documented as of this encounter Visit Diagnoses Diagnosis Other current maternal conditions classifiable elsewhere, antepartum- Primary documented in this encounter Care Teams Stationary Engineer Relationship Specialty Start Date End Date Stanley Causey MD [address] [place] [address], [facility] [address] [place] [address] PCP - General 02/28/03 documented as of this encounter
--- OUTSIDE RECORDS SUMMARY | 2024-07-25 19:41 | XMS_ITS | Encounter Summary ---
Author Organization [facility] Address [address] [place] [address] Care Team Providers Care Professional Services Manager Name Role Phone Stanley Causey MD Primary Care Provider +1 -[phone] Encounter Details Date Type Department Care Team (Late st Contact Info) Description 06/25/2002 Outpatient [facility] [address] [place] [address] RD. 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
--- OUTSIDE RECORDS SUMMARY | 2024-07-25 19:41 | XMS_ITS | Encounter Summary ---
Author Organization [facility] Address [address] [place] [address] Care Team Providers Care Revenue Integrity Analyst Name Role Phone Stanley Causey MD Primary Care Provider +1 -[phone] Encounter Details Date Type Department Care Team (Late st Contact Info) Description 03/13/2003 Outpatient Historical [facility] Child and Adolescent Psychiatry S [facility] [address] [facility] [place] [address] Agustín Albert Social History Tobacco Use Types Packs/Day Years Used Date Smoking Tobacco: Never Assessed Comments Unknown Sex and Gender Information Value Date Recorded Sex Assigned at Not on file Legal Sex Female 3:05 AM SUSPENDER CUTTER Gender Identity Not on file Sexual Orientation Not on file documented as of this encounter Plan of Treatment Not on file documented as of this encounter Visit Diagnoses Not on filedocumented in this encounter Care Teams Revenue Integrity Analyst Relationship Specialty Start Date End Date Stanley Causey MD [facility]0 [facility] 3, [address] [place] [address] PCP - General 02/28/03 documented as of this encounter
--- OUTSIDE RECORDS SUMMARY | 2024-07-25 19:41 | XMS_ITS | Encounter Summary ---
Author Organization [facility] Address [address] [place] [address] Care Team Providers Care Telemetry Rn Name Role Phone Stanley Causey MD Primary Care Provider +1 -[phone] Encounter Details Date Type Department Care Team (Latest Contact Info) Description 03/13/2003 Inpatient Historical [facility] IN [facility] BED Ratna Albertchristopher Ryan BIPOL AFFECT, MIXED-UNSPEC (CMS/HCC) (Primary Dx) Social History Tobacco Use Types Packs/Day Years Used Date Smoking Tobacco: Never Assessed Comments Unknown Sex and Gender Information Value Date Recorded Sex Assigned at Not on file Legal Sex Female 3:05 AM MACHINE CARTON MARKER Gender Identity Not on file Sexual Orientation Not on file documented as of this encounter Plan of Treatment Not on file documented as of this encounter Visit Diagnoses Diagnosis Bipolar I disorder, most recent episode (or current) mixed, unspecified (CMS/HCC)- Primary Bipolar I disorder, most recent episode (or current) mixed, unspecified documented in this encounter Care Teams Telemetry Rn Relationship Specialty Start Date End Date Stanley Causey MD [facility] [address], [facility] [address] [place] [address] PCP - General 02/28/03 documented as of this encounter
--- OUTSIDE RECORDS SUMMARY | 2024-07-25 19:41 | XMS_ITS | Encounter Summary ---
Author Organization [facility] Address [address] [place] [address] Care Team Providers Care Cab Driver Name Role Phone Stanley Causey MD Primary Care Provider +1 -[phone] Encounter Details Date Type Department Care Team (Latest Contact Info) Description 04/02/2004 Inpatient Historical HIS PATIENT IN A BED Jackie Ferrer MD [address] [facility] [address] [place] [address] Miley Wilson MD NO ADDRESS ON FILE DEL W 1 DEG LUIS-INEZ (Primary Dx) Social History Tobacco Use Types Packs/Day Years Used Date Smoking Tobacco: Never Assessed Comments Unknown Sex and Gender Information Value Date Recorded Sex Assigned at Not on file Legal Sex Female 3:05 AM ENVIRONMENTAL AIDE Gender Identity Not on file Sexual Orientation Not on file documented as of this encounter Plan of Treatment Not on file documented as of this encounter Visit Diagnoses Diagnosis First-degree perineal laceration, with delivery- Primary documented in this encounter Care Teams Cab Driver Relationship Specialty Start Date End Date Stanley Causey MD [facility] [place] [address], [facility] [address] [place] [address] PCP - General 02/28/03 documented as of this encounter
--- OUTSIDE RECORDS SUMMARY | 2024-07-25 19:41 | XMS_ITS | Encounter Summary ---
Author Organization [facility] Address [address] [place] [address] Care Team Providers Care Fraud Representative Name Role Phone Stanley Causey MD Primary Care Provider +1 -[phone] Encounter Details Date Type Department Care Team (Late st Contact Info) Description 05/19/2000 Outpatient Historical [facility] MD Padilla OTERO David Joseph, MD [address] [place] [address] Social History Tobacco Use Types Packs/Day Years Used Date Smoking Tobacco: Never Assessed Comments Unknown Sex and Gender Information Value Date Recorded Sex Assigned at Not on file Legal Sex Female 3:05 AM OFFICE 365 CONSULTANT Gender Identity Not on file Sexual Orientation Not on file documented as of this encounter Plan of Treatment Not on file documented as of this encounter Visit Diagnoses Not on filedocumented in this encounter Care Teams Fraud Representative Relationship Specialty Start Date End Date Stanley Causey MD [facility] [address], [address] [address] PCP - General 02/28/03 documented as of this encounter
--- OUTSIDE RECORDS SUMMARY | 2024-07-25 19:41 | XMS_ITS | Encounter Summary ---
Author Organization [facility] Address [address] [place] [address] Care Team Providers Care Public Health Clinical Nurse Specialist Name Role Phone Stanley Causey MD Primary Care Provider +1 [phone] Encounter Details Date Type Department Care Team (Late st Contact Info) Description 02/28/2003 Outpatient Historical [facility] Child and Adolescent Psychiatry S [facility] [address] [place] [address] Agustín Albert Social History Tobacco Use Types Packs/Day Years Used Date Smoking Tobacco: Never Assessed Comments Unknown Sex and Gender Information Value Date Recorded Sex Assigned at Not on file Legal Sex Female 3:05 AM SKIP LOADER Gender Identity Not on file Sexual Orientation Not on file documented as of this encounter Plan of Treatment Not on file documented as of this encounter Visit Diagnoses Not on filedocumented in this encounter Care Teams Public Health Clinical Nurse Specialist Relationship Specialty Start Date End Date Stanley Causey MD [facility] 3, [address] [place] [address] PCP - General 02/28/03 documented as of this encounter
--- OUTSIDE RECORDS SUMMARY | 2024-07-25 19:41 | XMS_ITS | Encounter Summary ---
Author Organization [facility] Address [address] [place] [address] Care Team Providers Care Dining Room Supervisor Name Role Phone Stanley Causey MD Primary Care Provider +1 -[phone] Encounter Details Date Type Department Care Team (Late st Contact Info) Description 11/02/2003 Outpatient Historical [facility] Maternal and Ground Floor S [facility] [address] [place] [address] Deidre Moncada MD [address] [place] [address] Social History Tobacco Use Types Packs/Day Years Used Date Smoking Tobacco: Never Assessed Comments Unknown Sex and Gender Information Value Date Recorded Sex Assigned at Not on file Legal Sex Female 3:05 AM GREEN WARE CASTER Gender Identity Not on file Sexual Orientation Not on file documented as of this encounter Plan of Treatment Not on file documented as of this encounter Visit Diagnoses Not on filedocumented in this encounter Care Teams Dining Room Supervisor Relationship Specialty Start Date End Date Stanley Causey MD [address] [place] [address], [facility] [address] [place] [address] PCP - General 02/28/03 documented as of this encounter
--- OUTSIDE RECORDS SUMMARY | 2024-07-25 19:41 | XMS_ITS | Encounter Summary ---
Author Organization [facility] Address [address] [place] [address] Care Team Providers Care Pharmacometrician Name Role Phone Stanley Causey MD Primary Care Provider +1 -[phone] Encounter Details Date Type Department Care Team (Late st Contact Info) Description 06/21/[address] [facility] [address] [place] [address] [address]. [place], [place] [id number] Dillon Hilton MD Social History Tobacco Use Types Packs/Day Years Used Date Smoking Tobacco: Never Assessed Comments Unknown Sex and Gender Information Value Date Recorded Sex Assigned at Not on file Legal Sex Female 3:05 AM BOX WORKER Gender Identity Not on file Sexual Orientation Not on file documented as of this encounter Plan of Treatment Not on file documented as of this encounter Visit Diagnoses Not on filedocumented in this encounter Care Teams Pharmacometrician Relationship Specialty Start Date End Date Stanley Causey MD [address] [place] [address] [address] [place] [address] PCP - General 02/28/03 documented as of this encounter
--- OUTSIDE RECORDS SUMMARY | 2024-07-25 19:41 | XMS_ITS | Encounter Summary ---
Author Organization [facility] Address [address] [place] [address] Care Team Providers Care Clinical Cytogenetics Director Name Role Phone Stanley Causey MD Primary Care Provider +1 -[phone] Encounter Details Date Type Department Care Team (Late st Contact Info) Description 12/04/2003 Outpatient Historical [facility] Miley Wilson MD NO ADDRESS ON FILE Social History Tobacco Use Types Packs/Day Years Used Date Smoking Tobacco: Never Assessed Comments Unknown Sex and Gender Information Value Date Recorded Sex Assigned at Not on file Legal Sex Female 3:05 AM CHEMIST FOOD Gender Identity Not on file Sexual Orientation Not on file documented as of this encounter Plan of Treatment Not on file documented as of this encounter Visit Diagnoses Not on filedocumented in this encounter Care Teams Clinical Cytogenetics Director Relationship Specialty Start Date End Date Stanley Causey MD [address] [place] [address] [address] [place] [address] PCP - General 02/28/03 documented as of this encounter
--- OUTSIDE RECORDS SUMMARY | 2024-07-25 19:41 | XMS_ITS | Encounter Summary ---
Author Organization [facility] Address [address] [place] [address] Care Team Providers Care Drapery And Upholstery Estimator Name Role Phone Stanley Causey MD Primary Care Provider +1 -[phone] Encounter Details Date Type Department Care Team (Late st Contact Info) Description 08/20/2000 Outpatient Historical [facility] Julio Stratton MD Social History Tobacco Use Types Packs/Day Years Used Date Smoking Tobacco: Never Assessed Comments Unknown Sex and Gender Information Value Date Recorded Sex Assigned at Not on file Legal Sex Female 3:05 AM BONE DENSITY TECHNICIAN Gender Identity Not on file Sexual Orientation Not on file documented as of this encounter Plan of Treatment Not on file documented as of this encounter Visit Diagnoses Not on filedocumented in this encounter Care Teams Drapery And Upholstery Estimator Relationship Specialty Start Date End Date Stanley Causey MD [address] [place] [address] [address] [place] [address] PCP - General 02/28/03 documented as of this encounter
--- OUTSIDE RECORDS SUMMARY | 2024-07-25 19:41 | XMS_ITS | Encounter Summary ---
Author Organization [facility] Address [address] [place] [address] Care Team Providers Care Disability Manager Name Role Phone Stanley Causey MD Primary Care Provider +1 [phone] Encounter Details Date Type Department Care Team (Late st Contact Info) Description 12/01/2003 Outpatient Historical [facility] Maternal and Ground Floor S [facility] [address] [place] [address] Deidre Moncada MD [address] [place] [address] Social History Tobacco Use Types Packs/Day Years Used Date Smoking Tobacco: Never Assessed Comments Unknown Sex and Gender Information Value Date Recorded Sex Assigned at Not on file Legal Sex Female 3:05 AM JELLY FILTER TENDER Gender Identity Not on file Sexual Orientation Not on file documented as of this encounter Plan of Treatment Not on file documented as of this encounter Visit Diagnoses Not on filedocumented in this encounter Care Teams Disability Manager Relationship Specialty Start Date End Date Stanley Causey MD [address] [place] [address], [facility] [address] [place] [address] PCP - General 02/28/03 documented as of this encounter
--- OUTSIDE RECORDS SUMMARY | 2024-07-25 19:41 | XMS_ITS | Clinical Summary ---
Author Organization [facility] Address [address] [place] [address] Care Team Providers Care Grocery Bagger Name Role Phone Unavailable Primary Care Provider [...]
--- OUTSIDE RECORDS SUMMARY | 2024-07-25 19:41 | XMS_ITS | Encounter Summary ---
Author Organization [facility] Address [address] [place] [address] Care Team Providers Care Circular Knife Cutter Machine Name Role Phone Stanley Causey MD Primary Care Provider +1 [phone] Encounter Details Date Type Department Care Team [...] on file Legal Sex Female 3:05 AM CINDER BLOCK MAKER Gender Identity Not on file Sexual Orientation Not on file documented as of this encounter Plan of Treatment Not on file documented as of this encounter Visit Diagnoses Diagnosis Other threatened labor, antepartum- Primary documented in this encounter Care Teams Circular Knife Cutter Machine Relationship Specialty Start Date End Date Stanley Causey MD [address] [place] [address] [address] [place] [address] PCP - General 02/28/03 documented as of this encounter
--- OUTSIDE RECORDS SUMMARY | 2024-07-25 19:41 | XMS_ITS | Encounter Summary ---
Author Organization [facility] Address [address] [place] [address] Care Team Providers Care Brass Roller Name Role Phone Stanley Causey MD Primary Care Provider +1 [phone] Encounter Details Date Type Department Care Team [...] on file Legal Sex Female 3:05 AM TREE CHIPPER Gender Identity Not on file Sexual Orientation Not on file documented as of this encounter Plan of Treatment Not on file documented as of this encounter Visit Diagnoses Diagnosis Other threatened labor, antepartum- Primary documented in this encounter Care Teams Brass Roller Relationship Specialty Start Date End Date Stanley Causey MD [facility] [place] [address], [facility] [address] [place] [address] PCP - General 02/28/03 documented as of this encounter
--- OUTSIDE RECORDS SUMMARY | 2024-07-25 19:41 | XMS_ITS | Encounter Summary ---
Author Organization [facility] Address [address] [place] [address] Care Team Providers Care Mine Laborer Name Role Phone Stanley Causey MD Primary Care Provider +1 [phone] Encounter Details Date Type Department Care Team [...] on file Legal Sex Female 3:05 AM ACCOUNTING SUPERVISOR Gender Identity Not on file Sexual Orientation Not on file documented as of this encounter Plan of Treatment Not on file documented as of this encounter Visit Diagnoses Diagnosis Infections of genitourinary tract antepartum- Primary documented in this encounter Care Teams Mine Laborer Relationship Specialty Start Date End Date Stanley Causey MD [facility] [place] [address], [facility] [address] [place] [address] PCP - General 02/28/03 documented as of this encounter
--- OUTSIDE RECORDS SUMMARY | 2024-07-25 19:41 | XMS_ITS | Encounter Summary ---
Author Organization [facility] Address [address] [place] [address] Care Team Providers Care Organizational Development Manager Name Role Phone Stanley Causey MD Primary Care Provider +1 [phone] Encounter Details Date Type Department Care Team (Late st Contact Info) Description 03/20/2003 Outpatient Historical [place] [address] [facility] [place] [address] BIPOL AFFECT, MIXED-UNSPEC (CMS/HCC) (Primary Dx) Social History Tobacco Use Types Packs/Day Years Used Date Smoking Tobacco: Never Assessed Comments Unknown Sex and Gender Information Value Date Recorded Sex Assigned at Not on file Legal Sex Female 3:05 AM DEMENTIA PROGRAM DIRECTOR Gender Identity Not on file Sexual Orientation Not on file documented as of this encounter Plan of Treatment Not on file documented as of this encounter Visit Diagnoses Diagnosis Bipolar I disorder, most recent episode (or current) mixed, unspecified (CMS/HCC)- Primary Bipolar I disorder, most recent episode (or current) mixed, unspecified documented in this encounter Care Teams Organizational Development Manager Relationship Specialty Start Date End Date Stanley Causey MD [address] [place] [address], [facility] [address] [place] [address] PCP - General 02/28/03 documented as of this encounter
--- OUTSIDE RECORDS SUMMARY | 2024-07-25 19:41 | XMS_ITS | Encounter Summary ---
Author Organization [facility] Address 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
--- OUTSIDE RECORDS SUMMARY | 2024-07-25 19:41 | XMS_ITS | Encounter Summary ---
Author Organization [facility] Address [address] [place] [address] Care Team Providers Care Director Operating Name Role Phone Stanley Causey MD Primary Care Provider +1 [phone] Encounter Details Date Type Department Care Team (Latest Contact Info) Description 08/18/2004 Inpatient Historical HIS PATIENT IN A BED Ashley Bronson MD [address] [place] [address] BIPOLAR - MOST RECENTLY W DEPRESSION NOS (CMS/HCC) (Primary Dx) Social History Tobacco Use Types Packs/Day Years Used Date Smoking Tobacco: Never Assessed Comments Unknown Sex and Gender Information Value Date Recorded Sex Assigned at Not on file 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 Gender Identity Not on file Sexual Orientation [...] ORDERABLES Final Res ult Performing Organization Address [facility] Phone Number INTERFACE SYSTEM Refer to [...] ORDERABLES Final Resu lt Performing Organization Address [facility] Phone Number INTERFACE SYSTEM Refer to clinic/hospital department * (ABNORMAL) TSH (08/18/2004 3:08 AM CDT) TSH 39.89(H) 0.27 - 4.20 uU/mL INTERFACE SYSTEM 08/18/2004 3:08 AM CDT Ashley Bronson MD CHEMISTRY ORDERABLES Final Resu lt Performing Organization Address [facility] [place] Phone Number INTERFACE SYSTEM Refer to clinic/hospital department * HCG QUALITATIVE, URINE (08/18/2004 12:48 AM CDT) HCG QUAL URINE Negative Negative INTER FACE SYSTEM SPECIFIC GRAVITY UA 1.025 1.001 - 1.035 INTERFACE SYSTEM 08/18/2004 12:4 8 AM CDT us Brunilda Olvera MD URINE ORDERABLES Final Resul t Performing Organization Address [facility] [place] Phone Number INTERFACE SYSTEM [...] drugs of abuse are available on the [facility] at: [email or web address].nsf Select: Drugs of Abuse ? [facility] To inquire about any potential cross-reactivity [...] ORDERABLES Final Resul t Performing Organization Address [facility] [place] Phone Number INTERFACE SYSTEM Refer to clinic/hospital department documented in this encounter Visit Diagnoses Diagnosis Bipolar I disorder, most recent episode (or current) depressed, unspecified (CMS/[facility])- Primary Bipolar I disorder, most recent episode (or current) depressed, unspecified documented in this encounter Care Teams Director Operating Relationship Specialty Start Date End Date Stanley Causey MD [facility] [address] PCP - General 02/28/03 documented as of this encounter
--- OUTSIDE RECORDS SUMMARY | 2024-07-25 19:41 | XMS_ITS | Encounter Summary ---
Author Organization [facility] Address 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
--- OUTSIDE RECORDS SUMMARY | 2024-07-25 19:41 | XMS_ITS | Encounter Summary ---
Author Organization [facility] Address 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
--- OUTSIDE RECORDS SUMMARY | 2024-07-25 19:41 | XMS_ITS | Encounter Summary ---
Author Organization [facility] Address [address] [place] [address] Care Team Providers Care Cloth Colors Examiner Name Role Phone Stanley Causey MD Primary Care Provider +1 [phone] Encounter Details Date Type Department Care Team (Late st Contact Info) Description 04/01/2003 [facility] [address] [place] [address] [place] [address] [facility] [place] [address] Social History Tobacco Use Types Packs/Day Years Used Date Smoking Tobacco: Never Assessed Comments Unknown Sex and Gender Information Value Date Recorded Sex Assigned at Not on file 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
--- OUTSIDE RECORDS SUMMARY | 2024-07-25 19:41 | XMS_ITS | Encounter Summary ---
Author Organization [facility] Address 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
--- OUTSIDE RECORDS SUMMARY | 2024-07-25 19:41 | XMS_ITS | Encounter Summary ---
Author Organization [facility] Address 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
--- OUTSIDE RECORDS SUMMARY | 2024-07-25 19:41 | XMS_ITS | Encounter Summary ---
Author Organization [facility] Address 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
--- OUTSIDE RECORDS SUMMARY | 2024-07-25 19:41 | XMS_ITS | Encounter Summary ---
Author Organization [facility] Address 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
== END 2024-07-25 20:39 | disposition home or self-care (01) ==
PROVIDERS: Emergency Provider Physician Assistant; PCP Internal Medicine
DX: G43.909 Migraine, unspecified, not intractable, without status migrainosus (principal); I10 Essential (primary) hypertension; J45.909 Unspecified asthma, uncomplicated; E89.0 Postprocedural hypothyroidism; F41.9 Anxiety disorder, unspecified; Z98.84 Bariatric surgery status; Z90.49 Acquired absence of other specified parts of digestive tract; Z87.440 Personal history of urinary (tract) infections; Z79.899 Other long term (current) drug therapy
CPT/HCPCS: 70450; 96361; 96374; 96375; 99284; A9270; J1200; J2765; J7030